=== PATIENT | female | born 1955 | race Two or more races ===

== ENCOUNTER 2019-10-04 05:34 | Inpatient (IN) | payer BC ==
[2019-10-04] MEDS ORDERED: Gabapentin 300 MG Cap PO ONE (05:42)
[2019-10-04] MEDS ORDERED: Acetaminophen 500 MG Tab PO ONE (05:42)
[2019-10-04] MEDS ORDERED: Scopolamine 1.5 MG Transdermal Patch TOP ONE (05:42)
[2019-10-04] MEDS ORDERED: Celecoxib 200 MG Cap PO ONE (05:42)
[2019-10-04] MEDS: Dextrose 5%-Lactated Ringers 1,000 ML IV SCH ×2 (06:56→12:29)
[2019-10-04] MEDS: Albuterol/Ipratropium 3.0-0.5 MG/3 ML Neb Soln NEB ONE ×2 (06:58→10:48)
[2019-10-04] MEDS ORDERED: fentaNYL 250 MCG/5 ML SDV ONE ×2 (07:13→08:46)
[2019-10-04] MEDS ORDERED: Lactated Ringers 1,000 ML ONE (07:13)
[2019-10-04] MEDS ORDERED: Ondansetron 4 MG/2 ML SDV ONE (07:15)
[2019-10-04] MEDS ORDERED: Dexamethasone 4 MG/ML SDV ONE (07:15)
[2019-10-04] MEDS ORDERED: cefOXitin 2 GM in Sodium Chloride 0.9% 50 ML IV ONE (07:15)
[2019-10-04] MEDS ORDERED: Glycopyrrolate 0.2 MG/ML 5 ML MDV ONE (07:15)
[2019-10-04] MEDS ORDERED: Neostigmine Methylsulfate 1 MG/ML 5 ML Syringe ONE (07:15)
[2019-10-04] MEDS ORDERED: Succinylcholine 200 MG/10 ML MDV ONE (07:15)
[2019-10-04] MEDS ORDERED: Propofol 200 MG/20 ML SDV ONE (07:15)
[2019-10-04] MEDS ORDERED: Rocuronium 50 MG/5 ML Vial ONE ×2 (07:15→09:26)
[2019-10-04] MEDS ORDERED: Lidocaine 2% 100 MG/5 ML Syringe IVPUSH SCH (07:30)
[2019-10-04] MEDS ORDERED: Ketamine 500 MG/5 ML MDV IV SCH (07:30)
[2019-10-04] MEDS ORDERED: Lidocaine 0.4%/D5W 2 GM/500 ML BAG IV SCH (07:30)
[2019-10-04] MEDS ORDERED: Ketamine 50 MG in Sodium Chloride 0.9% 49.5 ML IV SCH (07:30)
[2019-10-04] MEDS ORDERED: Meropenem 500 MG SDV ONE (09:19)
[2019-10-04] MEDS ORDERED: diphenhydrAMINE 50 MG/ML SDV IVPUSH PRN ×2 (10:25→12:52)
[2019-10-04] MEDS ORDERED: Naloxone 0.4 MG/ML SDV IVPUSH PRN (10:25)
[2019-10-04] MEDS ORDERED: diphenhydrAMINE 25 MG Cap PO PRN (10:25)
[2019-10-04] MEDS ORDERED: HYDROmorphone/Normal Saline 15 MG/30 ML PCA IV PRN (10:25)
[2019-10-04] MEDS ORDERED: Naloxone 0.4 MG/ML SDV IV PRN (10:27)
[2019-10-04] MEDS ORDERED: Naloxone 0.4 MG/ML SDV ONE (10:40)
[2019-10-04] MEDS ORDERED: Albuterol/Ipratropium 3.0-0.5 MG/3 ML Neb Soln NEB ONE (10:45)
[2019-10-04] MEDS ORDERED: Sugammadex Sodium 200 MG/2 ML VIAL ONE (10:46)
[2019-10-04] MEDS ORDERED: Labetalol 20 MG/4 ML Syringe IVPUSH PRN (12:52)
[2019-10-04] MEDS ORDERED: Ondansetron 4 MG/2 ML SDV IVPUSH PRN (12:52)
[2019-10-04] MEDS ORDERED: hydrOXYzine HCL 100 MG/2 ML SDV IM PRN (12:52)
[2019-10-04] MEDS ORDERED: Metoclopramide 10 MG/2 ML SDV IVPUSH PRN (12:52)
[2019-10-04] MEDS ORDERED: Dextrose 5%-Lactated Ringers 1,000 ML IV SCH ×2 (13:00→20:45)
[2019-10-04] MEDS: cefOXitin 2 GM in Sodium Chloride 0.9% 50 ML IV SCH ×2 (13:59→20:26)
[2019-10-04] MEDS: Gabapentin 250 MG/5 ML Solution ML 470 ML Bottle PO SCH ×2 (14:09→20:25)
[2019-10-04] MEDS: Albuterol/Ipratropium 3.0-0.5 MG/3 ML Neb Soln INH SCH ×2 (14:45→20:26)
[2019-10-04] MEDS ORDERED: Pantoprazole 40 MG Vial IVPUSH SCH ×2 (16:00)
[2019-10-04] MEDS ORDERED: MVI, Adult with Vitamin K 10 ML, Thiamine 200 MG, Chromium/Copper/Mang/Selen/Zn 1 ML in... IV SCH ×4 (16:00)
[2019-10-04] MEDS: Heparin Sodium 5,000 Units/ML Vial SUBCUT SCH (17:15)
[2019-10-04] MEDS: Acetaminophen 325 MG Tab PO SCH ×2 (17:16→21:10)
[2019-10-04] MEDS ORDERED: Furosemide 20 MG/2 ML VIAL IVPUSH ONE (20:43)
[2019-10-05] MEDS: Heparin Sodium 5,000 Units/ML Vial SUBCUT SCH ×4 (00:45→23:56)
[2019-10-05] MEDS: cefOXitin 2 GM in Sodium Chloride 0.9% 50 ML IV SCH ×2 (01:06→07:49)
[2019-10-05] MEDS ORDERED: Iopamidol 612 MG/ML 50 ML SDV PO STA (03:23)
[2019-10-05] MEDS: Acetaminophen 325 MG Tab PO SCH (04:30)
--- NOTE | 2019-10-05 05:12 | CRLCR ---
INDICATION: S/P DUODENAL SWITCH LEAK CHECK PRELIMINARY IMPRESSIONS: 1. No evidence of contrast extravasation is noted on 4 static submitted images. 2. Surgical drain is present in the left upper quadrant. Agree with preliminary report. No additional findings. Dictated by: Tariq Tabares MD @ 10/06/2019 08:24:27 (Electronically Signed)
[2019-10-05] MEDS ORDERED: Dextrose 5%-Lactated Ringers 1,000 ML IV SCH (07:00)
[2019-10-05] MEDS ORDERED: Lactated Ringers 500 ML IV ONE (07:00)
[2019-10-05] MEDS: Albuterol/Ipratropium 3.0-0.5 MG/3 ML Neb Soln INH SCH ×4 (07:18→21:18)
[2019-10-05] MEDS: Acetaminophen/HYDROcodone 325-5 MG Tab PO PRN ×3 (07:46→18:35)
[2019-10-05] MEDS: Celecoxib 200 MG Cap PO SCH (07:48)
[2019-10-05] MEDS ORDERED: Furosemide 20 MG/2 ML VIAL IVPUSH ONE (08:00)
[2019-10-05] MEDS: Ondansetron 4 MG Tab.DIS PO PRN ×2 (08:29→17:29)
[2019-10-05] MEDS: Levothyroxine 25 MCG Tab PO SCH (08:29)
[2019-10-05] MEDS: Gabapentin 250 MG/5 ML Solution ML 470 ML Bottle PO SCH ×3 (09:43→21:18)
[2019-10-05] MEDS: DULoxetine 30 MG Cap PO SCH ×2 (09:43→21:18)
[2019-10-05] MEDS: SCOPOLAMINE PATCH CHECK TOP SCH (10:11)
[2019-10-05] MEDS ORDERED: MVI, Adult with Vitamin K 10 ML, Thiamine 200 MG, Chromium/Copper/Mang/Selen/Zn 1 ML in... IV SCH ×4 (16:00)
[2019-10-05] MEDS: Pantoprazole 40 MG Delayed-Release Granules 1 Packet PO SCH (17:29)
[2019-10-06] MEDS: Albuterol/Ipratropium 3.0-0.5 MG/3 ML Neb Soln INH PRN ×2 (00:08→15:32)
[2019-10-06] MEDS: Acetaminophen/HYDROcodone 325-5 MG Tab PO PRN ×4 (00:31→21:37)
[2019-10-06] MEDS ORDERED: Furosemide 40 MG Tab PO ONE ×2 (00:46→16:33)
[2019-10-06] MEDS: Albuterol/Ipratropium 3.0-0.5 MG/3 ML Neb Soln INH SCH ×4 (07:29→21:20)
[2019-10-06] MEDS: Heparin Sodium 5,000 Units/ML Vial SUBCUT SCH ×2 (08:06→17:28)
[2019-10-06] MEDS: Levothyroxine 25 MCG Tab PO SCH (08:06)
[2019-10-06] MEDS: Celecoxib 200 MG Cap PO SCH (08:06)
[2019-10-06] MEDS ORDERED: Cyanocobalamin (Vitamin B12) 1,000 MCG/ML SDV IM ONE (09:00)
[2019-10-06] MEDS ORDERED: Magnesium Oxide 400 MG Tab PO SCH (09:30)
[2019-10-06] MEDS ORDERED: Magnesium Hydroxide 400 MG/5 ML Susp 30 ML Cup PO ONE (09:30)
[2019-10-06] MEDS: SCOPOLAMINE PATCH CHECK TOP SCH (10:06)
[2019-10-06] MEDS: DULoxetine 30 MG Cap PO SCH ×2 (10:46→20:44)
[2019-10-06] MEDS: Gabapentin 250 MG/5 ML Solution ML 470 ML Bottle PO SCH ×3 (10:46→20:56)
[2019-10-06] MEDS: Pantoprazole 40 MG Delayed-Release Granules 1 Packet PO SCH (17:28)
--- NOTE | 2019-10-06 17:40 | CRLCR ---
INDICATION: Crackles. Wheezes. Decreased O2 sats. COMPARISON: None. FINDINGS: PA and lateral views of the chest were obtained. The cardiac silhouette and pulmonary vasculature within normal limits. There are airspace opacities in the left mid lung and left lung base. The right lung is clear. IMPRESSION: Left mid lung and lung base pneumonia. Dictated by Merlin Jackson MD @ 10/06/2019 5:39:14 PM Dictated by: Merlin Jackson MD @ 10/06/2019 17:39:20 (Electronically Signed)
--- NOTE | 2019-10-06 18:41 | PCM.CONS ---
H&P History of Present Illness - General Date of Service: 10/06/19 Admit Problem/Dx: Admission Diagnosis/Problem Admission Diagnosis/Problem Bariatric operative procedure Source of Information: Patient, Family, Provider, RN Notes Reviewed History Limitations: Reports: No Limitations - History of Present Illness Initial Comments - Free Text/Narative: Ms. Alford is a 64-year-old woman who I been asked to see by Dr. Baldwin concerning respiratory compromise and left lung infiltrate. She was admitted to this facility 2 days ago and underwent a duodenal bariatric switch procedure. During the day today has been noted to have respiratory compromise with significant desaturation with activity. White blood cell count is elevated and chest x-ray shows evidence of a left lung infiltrate. She does have a known history of sleep apnea as well as underlying asthma. Abdomen Pain Score (Numeric/FACES): 10 - Related Data Allergies/Adverse Reactions: Allergies Allergy/AdvReac Type Severity Reaction Status Date / Time No Known Allergies Allergy Verified 10/04/19 06:01 Home Medications: Home Meds Albuterol Sulfate [Proair Hfa] 8.5 gm IH Q6H PRN 10/02/19 [History] Albuterol/Ipratropium [DuoNeb 3.0-0.5 MG/3 ML] 3 ml IH DAILY PRN 10/02/19 [ History] Celecoxib [CeleBREX] 200 mg PO DAILY 10/02/19 [History] Cholecalciferol (Vitamin D3) [Vitamin D3] 5,000 unit PO DAILY 10/02/19 [History] Cyanocobalamin (Vitamin B-12) [Vitamin B-12] 1,000 mcg PO DAILY 10/02/19 [ History] DULoxetine HCl [Cymbalta] 30 mg PO BID 10/02/19 [History] Folic Acid/Multivit-Min/Lutein [Multi-Vitamin Gummies] 2 each PO DAILY 10/02/19 [History] Hydrocodone/Acetaminophen [[place] 10-325 Tablet] 1 tab PO Q8H 10/02/19 [History] Ibuprofen [Motrin] 800 mg PO TID 10/02/19 [History] Levothyroxine 25 mcg PO ACBREAKFAST 10/02/19 [History] Pantoprazole Sodium [Protonix] 40 mg PO DAILY 10/02/19 [History] Turmeric Root Extract [Turmeric] 400 mg PO DAILY 10/02/19 [History] hydrOXYzine HCl [hydrOXYzine] 25 mg PO BID PRN 10/02/19 [History] Aspirin 81 mg PO DAILY 10/03/19 [History] Calcium Carb/Vitamin D3/Vit K1 [Viactiv 650 mg-12.5 Mcg Chew] 1 tab PO BID 10/04 [History] Iron,Carbonyl [Iron Chews] 60 mg PO DAILY 10/04/19 [History] Past Medical History Respiratory History: Reports: Asthma, Sleep Apnea Gastrointestinal History: Reports: Colon Polyp [employer] History: Reports: Psychiatric History: Reports: Anxiety, Depression Endocrine/Metabolic History: Reports: Hypothyroidism, Obesity/BMI 30+ - Infectious Disease History Infectious Disease History: Reports: Chicken Pox, Mumps - Past Surgical History GI Surgical History: Reports: Appendectomy, Bariatric Procedure, Colonoscopy, EGD Other GI Surgeries/Procedures: Lap Band 2006 Female Surgical History: Reports: Section, Salpingo-Oophorectomy Neurological Surgical History: Reports: Laminectomy Musculoskeletal Surgical History: Reports: Arthroscopic Knee Social & Family History - Family History Cardiac: Reports: [place] - Tobacco Use Smoking Status *Q: Never Smoker Second Hand Smoke Exposure: No - Caffeine Use Caffeine Use: Reports: None - Recreational Drug Use Recreational Drug Use: No H&P Review of Systems - Review of Systems: Review Of Systems: See Below General: Reports: Weakness. Denies: Fever, Chills Pulmonary: Reports: Shortness of Breath, Wheezing. Denies: Pleuritic Chest Pain , Cough, Sputum, Hemoptysis Cardiovascular: Reports: Dyspnea on Exertion. Denies: Chest Pain, Palpitations , Orthopnea, PND, Edema, Lightheadedness Gastrointestinal: Reports: Abdominal Pain, Distension, Nausea. Denies: Constipation, Diarrhea, Difficulty Swallowing, Vomiting Genitourinary: Reports: No Symptoms Musculoskeletal: Reports: No Symptoms Skin: Reports: No Symptoms Exam - Exam Exam: See Below - Vital Signs Vital Signs: Last Vital Signs Temp 100.4 F 10/06/19 15:00 Pulse 122 H 10/06/19 15:00 Resp 23 H 10/06/19 15:00 BP 126/64 10/06/19 15:00 Pulse Ox 85 L 10/06/19 15:00 Weight: 278 lb - Exam Quality Assessment: Supplemental Oxygen, DVT Prophylaxis General: Alert, Oriented, Cooperative, Moderate Distress Neck: Supple, Trachea Midline, +2 Carotid Pulse wo Bruit Lungs: Decreased Breath Sounds, Rhonchi, Wheezing. No: Rales Cardiovascular: Regular Rhythm, Normal S1, Normal S2, Tachycardia. No: Systolic Murmur, Diastolic Murmur GI/Abdominal Exam: Soft, No Organomegaly, Tender. No: Distended, Guarding, Rigid, Rebound Extremities: Non-Tender, No Pedal Edema - Patient Data Lab Results Last 24 hrs: Laboratory Results - last 24 hr 10/06/19 10/06/19 10/06/19 Range/Units 03:58 03:58 18:03 WBC 16.4 H (4.5-11.0) K/uL RBC 4.36 (3.30-5.50) M/uL Hgb 11.3 L (12.0-15.0) g/dL Hct 37.0 (36.0-48.0) % MCV 85 (80-98) fL MCH 26 L (27-31) pg MCHC 31 L (32-36) % Plt Count 530 H (150-400) K/uL Neut % (Auto) (36-66) % Lymph % (Auto) (24-44) % Toole % (Auto) (2-6) % Eos % (Auto) (2-4) % Baso % (Auto) (0-1) % Puncture Site Lt brachial ABG pH 7.399 (7.350-7.450) ABG pCO2 47.4 H (35.0-42.0) mmHg ABG pO2 76.7 (75.0-100.0) mmHg ABG HCO3 28.7 H (22.0-26.0) mmol/L ABG Total CO2 26.3 H (21.0-25.0) mmol/L ABG O2 Saturation 94.9 L (95.0-98.0) % ABG O2 Content 14.4 L (15.0-23.0) %vol ABG Base Excess 3.8 mm/L ABG Hemoglobin 11.1 L (12.0-16.0) g/dL ABG Oxyhemoglobin 91.7 % ABG Carboxyhemoglobin 2.4 H (0.0-1.6) % ABG Methemoglobin 1.0 % Bimal Test Not performed O2 Delivery Device Nasal cannula Oxygen Flow Rate 3 L Sodium 135 L (140-148) mmol/L Potassium 3.8 (3.6-5.2) mmol/L Chloride 99 L (100-108) mmol/L Carbon Dioxide 27 (21-32) mmol/L Anion Gap 12.8 (5.0-14.0) mmol/L BUN 18 (7-18) mg/dL Creatinine 1.5 H (0.6-1.0) mg/dL Est Cr Clr Drug Dosing 26.86 mL/min Estimated GFR (MDRD) 35 L (>60) Glucose 127 H (74-106) mg/dL Calcium 9.3 (8.5-10.1) mg/dL Phosphorus 4.2 (2.5-4.9) mg/dL Magnesium 1.6 L (1.8-2.4) mg/dL Total Bilirubin 0.3 (0.2-1.0) mg/dL AST 64 H (15-37) U/L ALT 56 (12-78) U/L Alkaline Phosphatase 90 (46-116) U/L NT-Pro-B Natriuret Pep 132 H (5-125) pg/mL Total Protein 7.2 (6.4-8.2) g/dL Albumin 3.2 L (3.4-5.0) g/dL Globulin 4.0 H (2.3-3.5) g/dL Albumin/Globulin Ratio 0.8 L (1.2-2.2) 10/06/19 Range/Units 18:15 WBC 15.2 H (4.5-11.0) K/uL RBC 4.08 (3.30-5.50) M/uL Hgb 10.6 L (12.0-15.0) g/dL Hct 34.6 L (36.0-48.0) % MCV 85 (80-98) fL MCH 26 L (27-31) pg MCHC 31 L (32-36) % Plt Count 504 H (150-400) K/uL Neut % (Auto) 88 H (36-66) % Lymph % (Auto) 8 L (24-44) % Toole % (Auto) 4 (2-6) % Eos % (Auto) 0 L (2-4) % Baso % (Auto) 0 (0-1) % Puncture Site ABG pH (7.350-7.450) ABG pCO2 (35.0-42.0) mmHg ABG pO2 (75.0-100.0) mmHg ABG HCO3 (22.0-26.0) mmol/L ABG Total CO2 (21.0-25.0) mmol/L ABG O2 Saturation (95.0-98.0) % ABG O2 Content (15.0-23.0) %vol ABG Base Excess mm/L ABG Hemoglobin (12.0-16.0) g/dL ABG Oxyhemoglobin % ABG Carboxyhemoglobin (0.0-1.6) % ABG Methemoglobin % Bimal Test O2 Delivery Device Oxygen Flow Rate L Sodium (140-148) mmol/L Potassium (3.6-5.2) mmol/L Chloride (100-108) mmol/L Carbon Dioxide (21-32) mmol/L Anion Gap (5.0-14.0) mmol/L BUN (7-18) mg/dL Creatinine (0.6-1.0) mg/dL Est Cr Clr Drug Dosing mL/min Estimated GFR (MDRD) (>60) Glucose (74-106) mg/dL Calcium (8.5-10.1) mg/dL Phosphorus (2.5-4.9) mg/dL Magnesium (1.8-2.4) mg/dL Total Bilirubin (0.2-1.0) mg/dL AST (15-37) U/L ALT (12-78) U/L Alkaline Phosphatase (46-116) U/L NT-Pro-B Natriuret Pep (5-125) pg/mL Total Protein (6.4-8.2) g/dL Albumin (3.4-5.0) g/dL Globulin (2.3-3.5) g/dL Albumin/Globulin Ratio (1.2-2.2) Result Diagrams: 10/06/19 18:15 10/06/19 18:15 Consult PN Assessment/Plan Procedures: Procedures BLOOD TYPING SEROLOGIC ABO (07/26/19) BLOOD TYPING SEROLOGIC RH(D) (07/26/19) RBC ANTIBODY SCREEN (07/26/19) (1) Hypoxia SNOMED Code(s): 380332576 Code(s): R09.02 - HYPOXEMIA Current Visit: Yes (2) Hypercapnia SNOMED Code(s): 42567919 Code(s): R06.89 - OTHER ABNORMALITIES OF BREATHING Current Visit: Yes (3) Pneumonia SNOMED Code(s): 201412648 Code(s): J18.9 - PNEUMONIA, UNSPECIFIED ORGANISM Current Visit: Yes (4) Laparoscopic surgical procedure converted to open procedure SNOMED Code(s): 533374962 Code(s): Z53.31 - LAPAROSCOPIC SURGICAL PROCEDURE CONVERTED TO OPEN PROCEDURE Current Visit: Yes Comment: lysis of adhesions (5) DDD (degenerative disc disease), lumbar SNOMED Code(s): 49263572 Code(s): M51.36 - OTHER INTERVERTEBRAL DISC DEGENERATION, LUMBAR REGION Current Visit: No (6) Obstructive sleep apnea syndrome SNOMED Code(s): 09293701 Code(s): G47.33 - OBSTRUCTIVE SLEEP APNEA (ADULT) (PEDIATRIC) Current Visit : No Problem List Initiated/Reviewed/Updated: Yes My Orders Last 24 Hours: My Active Orders 10/06/19 18:03 CULTURE RESPIRATORY + SMEAR [RM] Routine Blood Culture x2 Reflex Set [OM.PC] Urgent EKG 12 Lead [EK] Routine 10/06/19 18:05 EKG Documentation Completion [RC] ASDIRECTED 10/06/19 18:15 BASIC METABOLIC PANEL,BMP [CHEM] Stat CULTURE BLOOD [BC] Urgent TROPONIN I [CHEM] Stat 10/06/19 18:25 CULTURE BLOOD [BC] Urgent Plan: ASSESSMENT AND RECOMMENDATIONS HYPOXIC AND HYPERCAPNIC RESPIRATORY FAILURE-she has an underlying history of asthma and sleep apnea. Left lung infiltrate noted on chest x-ray. In addition she likely has hypoventilation secondary to recent surgery and pain medication. -Supplemental oxygen as needed -Noninvasive positive pressure ventilation -Nebulizer therapy as ordered -Follow-up blood gases in a.m. LEFT LUNG PNEUMONIA -Blood and sputum cultures pending -IV Zyvox, Zosyn, and levofloxacin pending culture results STATUS POST DUODENAL SWITCH PROCEDURE -Postop care per Dr. Baldwin Requesting Provider: [facility] Date Consult Requested: 10/06/19 Reason for Consult: Hypoxia, pneumonia Patient History Reviewed: Yes
[2019-10-06] MEDS: Ondansetron 4 MG Tab.DIS PO PRN (19:00)
[2019-10-06] MEDS ORDERED: Levofloxacin/Dextrose 5%-Water 750 MG in Premix Bag 1 BAG IV SCH (19:30)
[2019-10-06] MEDS ORDERED: Sodium Chloride 0.9% 50 ML ONE (19:36)
--- NOTE | 2019-10-06 19:48 | PCM.PRNOTE ---
- Free Text/Narrative Note: I was consulted to obtain IV access. Two 20 gauge IVs placed, one in each hand. Pt tolerated well.
[2019-10-06] MEDS: Levofloxacin/Dextrose 5%-Water 750 MG in Premix Bag 1 BAG IV SCH (20:00)
[2019-10-06] MEDS: Lactated Ringers 1,000 ML IV SCH (20:12)
[2019-10-06] MEDS: Lactobacillus Rhamnosus GG (Probiotic) Cap PO SCH (21:00)
[2019-10-06] MEDS: Linezolid 600 MG in Premix Bag 1 BAG IV SCH (21:07)
[2019-10-06] MEDS: Piperacillin/Tazobactam 3.375 GM in Sodium Chloride 0.9% 50 ML IV SCH (21:12)
[2019-10-07] MEDS: Heparin Sodium 5,000 Units/ML Vial SUBCUT SCH ×4 (00:03→23:56)
[2019-10-07] MEDS: Ondansetron 4 MG Tab.DIS PO PRN (00:48)
[2019-10-07] MEDS: Albuterol/Ipratropium 3.0-0.5 MG/3 ML Neb Soln INH PRN (00:54)
[2019-10-07] MEDS: Piperacillin/Tazobactam 3.375 GM in Sodium Chloride 0.9% 50 ML IV SCH (01:45)
[2019-10-07] MEDS: Acetaminophen/HYDROcodone 325-5 MG Tab PO PRN (04:18)
[2019-10-07] MEDS: LORazepam 2 MG/ML SDV IVPUSH PRN ×5 (05:32→19:37)
[2019-10-07] MEDS: Lactated Ringers 1,000 ML IV SCH ×2 (06:32→17:52)
[2019-10-07] MEDS: Albuterol/Ipratropium 3.0-0.5 MG/3 ML Neb Soln INH SCH ×4 (07:00→22:54)
[2019-10-07] MEDS: Heparin Sodium 5,000 UNITS in Sodium Chloride 0.9% 500 ML IV SCH (07:49)
[2019-10-07] MEDS: Piperacillin/Tazobactam/Dext 3.375 GM in Premix Bag 1 BAG IV SCH ×3 (07:54→20:06)
[2019-10-07] MEDS ORDERED: Lidocaine 2% 5 ML SDV ONE (07:54)
--- NOTE | 2019-10-07 09:10 | PN ---
DATE OF SERVICE: 10/07/2019 The patient developed worsening oxygenation, particularly with activity last night and then was found on chest x-ray to have pneumonia involving the mid and lower aspects of the left lung. I think we are, probably, predominantly dealing with lower lobe pneumonia with the superior segment involvement giving it the mid-lung appearance. Her T-max has been 101.5 last night. Vital signs are presently stable, but heart rate is running in the 90 to 100s and respiratory rate is 24 to 26. Presently, she is on BiPAP at 45% oxygen levels. With this, this morning, she had a pH of . Brad Baldwin MD /[id number]
[2019-10-07] MEDS: Linezolid 600 MG in Premix Bag 1 BAG IV SCH ×2 (10:01→21:10)
--- NOTE | 2019-10-07 10:01 | PCM.CONSN ---
- General Info Date of Service: 10/07/19 Subjective Update: Ms. Alford continues to experience respiratory compromise, thus far oxygenation has been adequate, this morning she is developed slightly increased hypercapnia. She reports that she feels comfortable with use of the noninvasive positive pressure ventilation. She did have temperature elevation but is now afebrile. White blood cell count has shown improvement from last night. Functional Status: Reports: Urinating - Review of Systems General: Reports: Fever, Weakness Pulmonary: Reports: Shortness of Breath, Wheezing. Denies: Cough, Sputum, Hemoptysis Cardiovascular: Reports: Dyspnea on Exertion. Denies: Chest Pain, Palpitations , Orthopnea, PND, Edema Gastrointestinal: Reports: Abdominal Pain, Nausea. Denies: Diarrhea, Difficulty Swallowing, Vomiting - Patient Data Vitals - Most Recent: Last Vital Signs Temp 100.2 F 10/07/19 07:55 Pulse 101 H 10/06/19 23:00 Resp 24 H 10/07/19 07:55 BP 139/75 10/07/19 07:55 Pulse Ox 91 L 10/07/19 07:55 Weight - Most Recent: 278 lb I&O - Last 24 Hours: Intake & Output 10/06/19 10/07/19 10/07/19 22:59 06:59 14:59 Intake Total 480 1007 Output Total 130 540 Balance 350 467 Lab Results Last 24 Hours: Laboratory Results - last 24 hr 10/06/19 10/06/19 10/06/19 Range/Units 18:03 18:15 18:15 WBC 15.2 H (4.5-11.0) K/uL RBC 4.08 (3.30-5.50) M/uL Hgb 10.6 L (12.0-15.0) g/dL Hct 34.6 L (36.0-48.0) % MCV 85 (80-98) fL MCH 26 L (27-31) pg MCHC 31 L (32-36) % Plt Count 504 H (150-400) K/uL Neut % (Auto) 88 H (36-66) % Lymph % (Auto) 8 L (24-44) % Mcmullen % (Auto) 4 (2-6) % Eos % (Auto) 0 L (2-4) % Baso % (Auto) 0 (0-1) % Puncture Site Lt brachial ABG pH 7.399 (7.350-7.450) ABG pCO2 47.4 H (35.0-42.0) mmHg ABG pO2 76.7 (75.0-100.0) mmHg ABG HCO3 28.7 H (22.0-26.0) mmol/L ABG Total CO2 26.3 H (21.0-25.0) mmol/L ABG O2 Saturation 94.9 L (95.0-98.0) % ABG O2 Content 14.4 L (15.0-23.0) %vol ABG Base Excess 3.8 mm/L ABG Hemoglobin 11.1 L (12.0-16.0) g/dL ABG Oxyhemoglobin 91.7 % ABG Carboxyhemoglobin 2.4 H (0.0-1.6) % ABG Methemoglobin 1.0 % Bimal Test Not performed O2 Delivery Device Nasal cannula Oxygen Flow Rate 3 L Sodium 136 L (140-148) mmol/L Potassium 3.4 L (3.6-5.2) mmol/L Chloride 97 L (100-108) mmol/L Carbon Dioxide 31 (21-32) mmol/L Anion Gap 11.4 (5.0-14.0) mmol/L BUN 22 H (7-18) mg/dL Creatinine 1.8 H (0.6-1.0) mg/dL Est Cr Clr Drug Dosing 22.38 mL/min Estimated GFR (MDRD) 28 L (>60) Glucose 141 H (74-106) mg/dL Calcium 9.4 (8.5-10.1) mg/dL Phosphorus (2.5-4.9) mg/dL Magnesium (1.8-2.4) mg/dL Total Bilirubin (0.2-1.0) mg/dL AST (15-37) U/L ALT (12-78) U/L Alkaline Phosphatase (46-116) U/L Troponin I < 0.017 (0.000-0.056) ng/mL Total Protein (6.4-8.2) g/dL Albumin (3.4-5.0) g/dL Globulin (2.3-3.5) g/dL Albumin/Globulin Ratio (1.2-2.2) 10/07/19 10/07/19 10/07/19 Range/Units 04:30 04:30 04:30 WBC 10.4 (4.5-11.0) K/uL RBC 4.15 (3.30-5.50) M/uL Hgb 10.6 L (12.0-15.0) g/dL Hct 35.3 L (36.0-48.0) % MCV 85 (80-98) fL MCH 26 L (27-31) pg MCHC 30 L (32-36) % Plt Count 498 H (150-400) K/uL Neut % (Auto) (36-66) % Lymph % (Auto) (24-44) % Mcmullen % (Auto) (2-6) % Eos % (Auto) (2-4) % Baso % (Auto) (0-1) % Puncture Site Lt radial ABG pH 7.362 (7.350-7.450) ABG pCO2 53.7 H (35.0-42.0) mmHg ABG pO2 69.1 L (75.0-100.0) mmHg ABG HCO3 29.7 H (22.0-26.0) mmol/L ABG Total CO2 27.7 H (21.0-25.0) mmol/L ABG O2 Saturation 92.2 L (95.0-98.0) % ABG O2 Content 13.5 L (15.0-23.0) %vol ABG Base Excess 3.9 mm/L ABG Hemoglobin 10.6 L (12.0-16.0) g/dL ABG Oxyhemoglobin 90.4 % ABG Carboxyhemoglobin 0.9 (0.0-1.6) % ABG Methemoglobin 1.1 % Bimal Test Pass O2 Delivery Device Bipap Oxygen Flow Rate L Sodium 136 L (140-148) mmol/L Potassium 3.5 L (3.6-5.2) mmol/L Chloride 97 L (100-108) mmol/L Carbon Dioxide 33 H (21-32) mmol/L Anion Gap 9.5 (5.0-14.0) mmol/L BUN 21 H (7-18) mg/dL Creatinine 1.7 H (0.6-1.0) mg/dL Est Cr Clr Drug Dosing 23.70 mL/min Estimated GFR (MDRD) 30 L (>60) Glucose 133 H (74-106) mg/dL Calcium 9.1 (8.5-10.1) mg/dL Phosphorus 4.2 (2.5-4.9) mg/dL Magnesium 1.8 (1.8-2.4) mg/dL Total Bilirubin 0.7 D (0.2-1.0) mg/dL AST 41 H (15-37) U/L ALT 46 (12-78) U/L Alkaline Phosphatase 94 (46-116) U/L Troponin I (0.000-0.056) ng/mL Total Protein 6.9 (6.4-8.2) g/dL Albumin 2.7 L (3.4-5.0) g/dL Globulin 4.2 H (2.3-3.5) g/dL Albumin/Globulin Ratio 0.6 L (1.2-2.2) Med Orders - Current: Current Medications Hydrocodone Bitart/Acetaminophen (Carpenter 325-5 Mg) 1 - 2 tab PO Q4H PRN PRN Reason: Pain Last Admin: 10/07/19 04:18 Dose: 1 tab Albuterol/Ipratropium (Duoneb 3.0-0.5 Mg/3 Ml) 3 ml INH QIDRT [facility] Last Admin: 10/07/19 07:00 Dose: 3 ml Albuterol/Ipratropium (Duoneb 3.0-0.5 Mg/3 Ml) 3 ml INH ASDIRECTED PRN PRN Reason: BREATHING Last Admin: 10/07/19 00:54 Dose: 3 ml Celecoxib (Celebrex) 200 mg PO DAILY@0800 [facility] Last Admin: 10/06/19 08:06 Dose: 200 mg Duloxetine HCl (Cymbalta) 30 mg PO BID [facility] Last Admin: 10/06/19 20:44 Dose: 30 mg Gabapentin (Neurontin) 300 mg PO TID [facility] Last Admin: 10/06/19 20:56 Dose: 300 mg Heparin Sodium (Porcine) (Heparin Sodium) 5,000 units SUBCUT Q8H [facility] Last Admin: 10/07/19 00:03 Dose: 5,000 units Hydroxyzine HCl (Vistaril) 100 mg IM Q4H PRN PRN Reason: pain Last Admin: 10/06/19 05:11 Dose: 100 mg Linezolid 600 mg/ Premix 300 mls @ 300 mls/hr IV Q12H [facility] Last Admin: 10/06/19 21:07 Dose: 300 mls/hr Levofloxacin/Dextrose 750 mg/ (Premix) 150 mls @ 100 mls/hr IV Q48H [facility] Last Admin: 10/06/19 20:00 Dose: 100 mls/hr Lactated Ringer's (Ringers, Lactated) 1,000 mls @ 100 mls/hr IV ASDIRECTED [facility] Last Admin: 10/07/19 06:32 Dose: 100 mls/hr Piperacillin/Tazobactam/ (Dextrose 3.375 gm/ Premix) 50 mls @ 100 mls/hr IV Q6H [facility] Last Admin: 10/07/19 07:54 Dose: 100 mls/hr Heparin Sodium (Porcine) 5,000 (units/ Sodium Chloride) 501 mls @ 0 mls/hr IV ASDIRECTED [facility] Last Admin: 10/07/19 07:49 Dose: 1 mls/hr Magnesium Sulfate 2 gm/ Premix 50 mls @ 25 mls/hr IV Q6H [facility] Stop: 10/09/19 05:59 Lactobacillus Rhamnosus (Culturelle) 1 cap PO BID [facility] Last Admin: 10/06/19 21:00 Dose: Not Given Levothyroxine Sodium (Levothyroxine) 25 mcg PO ACBREAKFAST [facility] Last Admin: 10/06/19 08:06 Dose: 25 mcg Lorazepam (Ativan) 0.5 mg IVPUSH Q4H PRN PRN Reason: Anxiety Last Admin: 10/07/19 09:04 Dose: 0.5 mg Methylprednisolone Sodium Succinate (Solu-Medrol) 40 mg IVPUSH Q8H [facility] Ondansetron HCl (Zofran Odt) 4 mg PO Q4H PRN PRN Reason: Nausea/Vomiting Last Admin: 10/07/19 00:48 Dose: 4 mg Pantoprazole Sodium (Protonix Granules) 40 mg PO Q24H [facility] Last Admin: 10/06/19 17:28 Dose: 40 mg Discontinued Medications Acetaminophen (Tylenol Extra Strength) 1,000 mg PO ONETIME ONE Stop: 10/04/19 05:43 Last Admin: 10/04/19 06:11 Dose: 1,000 mg Acetaminophen (Tylenol) 650 mg PO Q6H [facility] Last Admin: 10/05/19 04:30 Dose: 650 mg Albuterol/Ipratropium (Duoneb 3.0-0.5 Mg/3 Ml) 3 ml NEB ONETIME ONE Stop: 10/04/19 06:31 Last Admin: 10/04/19 10:48 Dose: 3 ml Albuterol/Ipratropium (Duoneb 3.0-0.5 Mg/3 Ml) 3 ml NEB ONETIME ONE Stop: 10/04/19 10:46 Last Admin: 10/04/19 12:30 Dose: Not Given Celecoxib (Celebrex) 200 mg PO ONETIME ONE Stop: 10/04/19 05:43 Last Admin: 10/04/19 06:11 Dose: 200 mg Ropivacaine 60 ml/Dexamethasone 8 mg/Epinephrine HCl 0.4 mg/ Sodium Chloride 17.6 ml 0 ml NERVRT ASDIRECTED [facility] Last Admin: 10/04/19 07:48 Dose: 80 syringe Cyanocobalamin (Vitamin B12) 1,000 mcg IM ONETIME ONE Stop: 10/06/19 09:01 Last Admin: 10/06/19 10:46 Dose: 1,000 mcg Dexamethasone (Dexamethasone) Confirm Administered Dose 4 mg .ROUTE .STK-MED ONE Stop: 10/04/19 07:16 Diphenhydramine HCl (Benadryl) 50 mg IVPUSH Q4H PRN PRN Reason: ITCHING Fentanyl (Sublimaze) Confirm Administered Dose 250 mcg .ROUTE .STK-MED ONE Stop: 10/04/19 07:14 Fentanyl (Sublimaze) Confirm Administered Dose 250 mcg .ROUTE .STK-MED ONE Stop: 10/04/19 08:47 Furosemide (Lasix) 20 mg IVPUSH ONETIME ONE Stop: 10/04/19 20:44 Last Admin: 10/04/19 21:09 Dose: 20 mg Furosemide (Lasix) 20 mg IVPUSH ONETIME ONE Stop: 10/05/19 08:01 Last Admin: 10/05/19 09:43 Dose: 20 mg Furosemide (Lasix) 40 mg PO ONETIME ONE Stop: 10/06/19 00:47 Last Admin: 10/06/19 01:05 Dose: 40 mg Furosemide (Lasix) 40 mg PO ONETIME ONE Stop: 10/06/19 16:34 Last Admin: 10/06/19 17:31 Dose: 40 mg Gabapentin (Neurontin) 300 mg PO ONETIME ONE Stop: 10/04/19 05:43 Last Admin: 10/04/19 06:10 Dose: 300 mg Glycopyrrolate (Robinul) Confirm Administered Dose 1 mg .ROUTE .STK-MED ONE Stop: 10/04/19 07:16 Hydromorphone HCl (Dilaudid [place] 15 Mg In Ns 30 Ml) 0 mg IV ASDIRECTED PRN; Protocol PRN Reason: Pain Last Admin: 10/04/19 10:41 Dose: 0.3 mg Lidocaine HCl/Dextrose (Lidocaine 2 Gm/D5w 500 Ml) 2 gm in 500 mls @ 22.5 mls/ hr IV .Q24H [facility] Stop: 10/05/19 07:29 Last Admin: 10/04/19 12:29 Dose: 1 mg/min, 15 mls/hr Ketamine HCl 50 mg/ Sodium (Chloride) 50 mls @ 12 mls/hr IV ASDIRECTED [facility] Dextrose/Lactated Ringer's (Dextrose 5%-Lactated Ringers) 1,000 mls @ 100 mls/ hr IV ASDIRECTED [facility] Last Admin: 10/04/19 12:29 Dose: 100 mls/hr Cefoxitin Sodium 2 gm/ Sodium (Chloride) 50 mls @ 100 mls/hr IV ONETIME ONE Stop: 10/04/19 07:44 Last Admin: 10/04/19 07:15 Dose: 100 mls/hr Lactated Ringer's (Ringers, Lactated) Confirm Administered Dose 1,000 mls @ as directed .ROUTE .STK-MED ONE Stop: 10/04/19 07:14 Dextrose/Lactated Ringer's (Dextrose 5%-Lactated Ringers) 1,000 mls @ 175 mls/ hr IV ASDIRECTED [facility] Multivitamins/Minerals 10 ml/Thiamine HCl 200 mg/ Chromium/Copper/Manganese/ Seleni/Zn 1 ml/ Dextrose/Lactated Ringer's 1,013 mls @ 174.999 mls/hr IV DAILY@ 1600 [facility] Last Admin: 10/04/19 17:13 Dose: 174.999 mls/hr Cefoxitin Sodium 2 gm/ Sodium (Chloride) 50 mls @ 100 mls/hr IV Q6H [facility] Last Admin: 10/05/19 07:49 Dose: 100 mls/hr Dextrose/Lactated Ringer's (Dextrose 5%-Lactated Ringers) 1,000 mls @ 125 mls/ hr IV ASDIRECTED [facility] Last Admin: 10/05/19 00:43 Dose: 125 mls/hr Dextrose/Lactated Ringer's (Dextrose 5%-Lactated Ringers) 1,000 mls @ 100 mls/ hr IV ASDIRECTED [facility] Last Admin: 10/05/19 09:41 Dose: 100 mls/hr Lactated Ringer's (Ringers, Lactated) 500 mls @ 100 mls/hr IV .BOLUS ONE Stop: 10/05/19 11:59 Last Admin: 10/05/19 07:48 Dose: 100 mls/hr Multivitamins/Minerals 10 ml/Thiamine HCl 200 mg/ Chromium/Copper/Manganese/ Seleni/Zn 1 ml/ Dextrose/Lactated Ringer's 1,013 mls @ 100 mls/hr IV DAILY@ 1600 [facility] Piperacillin Sod/Tazobactam (Sod 3.375 gm/ Sodium Chloride) 50 mls @ 100 mls/ hr IV Q6H [facility] Last Admin: 10/07/19 01:45 Dose: 100 mls/hr Sodium Chloride (Normal Saline) Confirm Administered Dose 50 mls @ as directed .ROUTE .STK-MED ONE Stop: 10/06/19 19:37 Last Admin: 10/06/19 20:03 Dose: Not Given Iopamidol (Isovue-300 (61%)) 50 ml PO ASDIRECTED [facility] Stop: 10/05/19 03:24 Last Admin: 10/05/19 03:36 Dose: 50 ml Ketamine HCl (Ketalar) 20 mg IV ASDIRECTED [facility] Labetalol HCl (Normodyne) 5 mg IVPUSH Q5M PRN PRN Reason: SBP over 160 OR DBP over 95 Lidocaine (Xylocaine-Mpf 2%) Confirm Administered Dose 5 ml .ROUTE .STK-MED ONE Stop: 10/07/19 07:55 Lidocaine HCl (Xylocaine 2%) 100 mg IVPUSH ASDIRECTED [facility] Magnesium Hydroxide (Milk Of Magnesia) 30 ml PO ONETIME ONE Stop: 10/06/19 09:31 Last Admin: 10/06/19 11:55 Dose: 30 ml Magnesium Oxide (Magnesium Oxide) 400 mg PO DAILY [facility] Last Admin: 10/06/19 10:46 Dose: 400 mg Meropenem (Merrem) Confirm Administered Dose 500 mg .ROUTE .STK-MED ONE Stop: 10/04/19 09:20 Last Admin: 10/04/19 10:15 Dose: 500 mg Metoclopramide HCl (Reglan) 10 mg IVPUSH Q6H PRN PRN Reason: NAUSEA NOT CONTROL BY ZOFRAN Miscellaneous Information (Remove Patch) 1 ea TRDERM ONETIME ONE Stop: 10/07/19 06:01 Miscellaneous Information (Remove Patch) 1 ea TRDERM ONETIME ONE Stop: 10/06/19 10:01 Last Admin: 10/06/19 10:06 Dose: Not Given Naloxone HCl (Narcan) 0.1 mg IV ASDIRECTED PRN PRN Reason: decreased respiratory rate Naloxone HCl (Narcan) Confirm Administered Dose 0.4 mg .ROUTE .STK-MED ONE Stop: 10/04/19 10:41 Neostigmine Methylsulfate (Neostigmine) Confirm Administered Dose 5 mg .ROUTE .STK-MED ONE Stop: 10/04/19 07:16 Check Scopolamine (Patch Daily) 1 each .XX DAILY [facility] Last Admin: 10/04/19 12:30 Dose: Not Given Scopolamine Patch (Check) 1 each TOP DAILY [facility] Stop: 10/06/19 12:53 Last Admin: 10/06/19 10:06 Dose: Not Given Ondansetron HCl (Zofran) Confirm Administered Dose 4 mg .ROUTE .STK-MED ONE Stop: 10/04/19 07:16 Ondansetron HCl (Zofran) 4 mg IVPUSH Q4H PRN PRN Reason: Nausea/Vomiting Pantoprazole Sodium (Protonix Iv) 40 mg IVPUSH Q24H [facility] Last Admin: 10/04/19 17:15 Dose: 40 mg Piperacillin Sod/Tazobactam Sod (Zosyn) Confirm Administered Dose 3.375 gm .ROUTE .STK-MED ONE Stop: 10/06/19 19:36 Last Admin: 10/06/19 20:02 Dose: Not Given Propofol (Diprivan 20 Ml) Confirm Administered Dose 200 mg .ROUTE .STK-MED ONE Stop: 10/04/19 07:16 Rocuronium [place] (Zemuron) Confirm Administered Dose 50 mg .ROUTE .STK-MED ONE Stop: 10/04/19 07:16 Rocuronium [place] (Zemuron) Confirm Administered Dose 50 mg .ROUTE .STK-MED ONE Stop: 10/04/19 09:27 Scopolamine (Transderm-Scop) 1.5 mg TOP ONETIME ONE Stop: 10/04/19 05:43 Last Admin: 10/04/19 06:11 Dose: 1.5 mg Succinylcholine Chloride (Quelicin) Confirm Administered Dose 200 mg .ROUTE .STK -MED ONE Stop: 10/04/19 07:16 Sugammadex Sodium (Bridion) Confirm Administered Dose 200 mg .ROUTE .STK-MED ONE Stop: 10/04/19 10:47 - Exam Quality Assessment: DVT Prophylaxis General: Alert, Cooperative, Moderate Distress Lungs: Decreased Breath Sounds, Rhonchi, Wheezing. No: Rub, Stridor Cardiovascular: Regular Rhythm, No Murmurs, Tachycardia GI/Abdominal Exam: Soft, No Organomegaly, Tender. No: Distended, Guarding, Rigid, Rebound Extremities: Non-Tender, No Pedal Edema Consult PN Assessment/Plan Procedures: Procedures BLOOD TYPING SEROLOGIC ABO (07/26/19) BLOOD TYPING SEROLOGIC RH(D) (07/26/19) RBC ANTIBODY SCREEN (07/26/19) (1) Hypoxia SNOMED Code(s): 462543360 Code(s): R09.02 - HYPOXEMIA Current Visit: Yes (2) Hypercapnia SNOMED Code(s): 67739090 Code(s): R06.89 - OTHER ABNORMALITIES OF BREATHING Current Visit: Yes (3) Pneumonia SNOMED Code(s): 310806029 Code(s): J18.9 - PNEUMONIA, UNSPECIFIED ORGANISM Current Visit: Yes (4) Laparoscopic surgical procedure converted to open procedure SNOMED Code(s): 953195215 Code(s): Z53.31 - LAPAROSCOPIC SURGICAL PROCEDURE CONVERTED TO OPEN PROCEDURE Current Visit: Yes Comment: lysis of adhesions (5) DDD (degenerative disc disease), lumbar SNOMED Code(s): 58611238 Code(s): M51.36 - OTHER INTERVERTEBRAL DISC DEGENERATION, LUMBAR REGION Current Visit: No (6) Obstructive sleep apnea syndrome SNOMED Code(s): 07869502 Code(s): G47.33 - OBSTRUCTIVE SLEEP APNEA (ADULT) (PEDIATRIC) Current Visit : No Problem List Initiated/Reviewed/Updated: Yes My Orders Last 24 Hours: My Active Orders 10/06/19 18:03 CULTURE RESPIRATORY + SMEAR [RM] Routine Blood Culture x2 Reflex Set [OM.PC] Urgent EKG 12 Lead [EK] Routine 10/06/19 18:15 CULTURE BLOOD [BC] Urgent 10/06/19 18:25 CULTURE BLOOD [BC] Urgent 10/06/19 19:14 Patient Status [ADT] Routine Cardiac Monitoring [RC] Q6H 10/06/19 19:18 RT BiPAP/CPAP [RC] ASDIRECTED Pulse Oximetry Continuous Monitoring [OM.PC] Routine 10/06/19 19:43 LORazepam [Ativan] 0.5 mg IVPUSH Q4H PRN 10/06/19 19:45 Lactated Ringers [Ringers, Lactated] 1,000 ml IV ASDIRECTED 10/06/19 20:00 Levofloxacin/Dextrose 5%-Water [Levaquin in D5W 750 MG/150 ML] 750 mg Premix Bag 1 bag IV Q48H 10/06/19 21:00 Lactobacillus Rhamnosus GG [Culturelle] 1 cap PO BID 10/06/19 21:30 Linezolid [Zyvox] 600 mg Premix Bag 1 bag IV Q12H 10/07/19 08:00 Heparin Sodium 5,000 units Sodium Chloride 0.9% [Normal Saline] 500 ml IV ASDIRECTED Piperacillin/Tazobactam/Dext [Zosyn in Dextrose Iso-Osmotic 3.375 GM] 3.375 gm Premix Bag 1 bag IV Q6H 10/07/19 10:00 methylPREDNISolone Sod Succ [Solu-MEDROL] 40 mg IVPUSH Q8H Plan: ASSESSMENT AND RECOMMENDATIONS HYPOXIC AND HYPERCAPNIC RESPIRATORY FAILURE-she has an underlying history of asthma and sleep apnea. Left lung infiltrate noted on chest x-ray. In addition she likely has hypoventilation secondary to recent surgery, obesity, and pain medication. Relatively stable through the night, PCO2 mildly increased. -Supplemental oxygen as needed -Noninvasive positive pressure ventilation -Nebulizer therapy as ordered -Solu-Medrol 40 mg IV every 8 hours -Follow-up blood gases in a.m. LEFT LUNG PNEUMONIA -Blood and sputum cultures pending -IV Zyvox, Zosyn, and levofloxacin pending culture results STATUS POST DUODENAL SWITCH PROCEDURE -Postop care per Dr. Baldwin
[2019-10-07] MEDS: Magnesium Sulfate/Water 2 GM in Premix Bag 1 BAG IV SCH ×3 (10:20→22:50)
--- NOTE | 2019-10-07 10:22 | PN ---
DATE OF SERVICE: 10/07/2019 The patient, otherwise, has been stable. She has some little bit of emesis with heavy coughing. We will back down to n.p.o., except ice, chips, and sips of clear liquids with medications. We will place central PICC line today to facilitate IV access as well as an A- line and then continue with respiratory assistance per Dr. Angelo. Brad Baldwin MD /[id number]
[2019-10-07] MEDS: Celecoxib 200 MG Cap PO SCH (10:23)
[2019-10-07] MEDS: Lactobacillus Rhamnosus GG (Probiotic) Cap PO SCH ×2 (10:23→22:54)
[2019-10-07] MEDS: Levothyroxine 25 MCG Tab PO SCH (10:23)
[2019-10-07] MEDS: DULoxetine 30 MG Cap PO SCH ×2 (10:23→22:54)
[2019-10-07] MEDS: Gabapentin 250 MG/5 ML Solution ML 470 ML Bottle PO SCH ×2 (10:24→13:33)
[2019-10-07] MEDS: methylPREDNISolone Sodium Succinate 40 MG/1 ML SDV IVPUSH SCH ×2 (10:37→17:26)
--- NOTE | 2019-10-07 13:00 | PN ---
DATE OF SERVICE: 10/06/2019 The patient has been afebrile with stable vital signs. She is a little bit rattly in terms of her upper respiratory status this morning. T-max has been 99. Will need to work fairly vigorously on her pulmonary toilet today. We will have RT see the patient t.i.d. to help with that as well. IV did come out, and we decided to leave that out. Oral intake was around 1500, and we will need to push that a little bit as her creatinine did bump up a little bit in the last 24 hours. We will have the patient get in the shower today if able, maximize activity and work with pulmonary toilet. Pain control appears to be fairly good with the Watkins being given presently. Brad Baldwin MD /[id number]
[2019-10-07] MEDS: Pantoprazole 40 MG Delayed-Release Granules 1 Packet PO SCH (17:01)
[2019-10-07] MEDS ORDERED: Succinylcholine 200 MG/10 ML MDV ONE (21:11)
[2019-10-07] MEDS ORDERED: Propofol 200 MG/20 ML SDV ONE (21:11)
--- NOTE | 2019-10-07 21:45 | PCM.SN ---
- Free Text/Narrative Note: Ms. Alford developed progressive respiratory failure this evening, with increased agitation, elevation and respiratory rate into the mid to upper 30s, and progressive hypoxia requiring increased levels of supplemental oxygen. She has been intubated and placed on mechanical ventilation, initially appears to be stable with current level of ventilatory support. Ventilator settings; FiO2 of 70%, tidal volume of 400, assist control mode, and PEEP of 5. Chest x-ray to confirm appropriate placement of endotracheal tube pending at the time of this dictation. Arterial blood gases will be obtained in one hour to assess respiratory status.
--- NOTE | 2019-10-07 22:46 | CRLCR ---
INDICATION: Respiratory distress TECHNIQUE: Chest radiograph 1 view on 2 films COMPARISON: 10/06/2019 FINDINGS: Severe degradation of image quality noted due to body habitus. Mediastinum: The mediastinum is normal in appearance. The heart silhouette is normal in size and morphology. The endotracheal tube tip is positioned 3.4 cm from the adrian. The NG tube is positioned with the tip in the gastric body. Lung: Very small lung volumes are present with perihilar edema and bilateral perihilar consolidation. No pneumothorax is identified. Bone and Soft tissue: Unremarkable for age. Midline skin bebeto are present in the upper abdomen. IMPRESSIONS: 1. Very small lung volumes are present with perihilar edema and bilateral perihilar consolidation. 2. The NG tube is positioned with the tip in the gastric body. Dictated by Umang Victor MD @ 10/07/2019 10:43:13 PM Dictated by: Umang Victor MD @ 10/07/2019 22:43:17 (Electronically Signed)
[2019-10-08] MEDS: methylPREDNISolone Sodium Succinate 40 MG/1 ML SDV IVPUSH SCH ×3 (02:14→18:12)
[2019-10-08] MEDS: Piperacillin/Tazobactam/Dext 3.375 GM in Premix Bag 1 BAG IV SCH ×4 (02:16→20:08)
[2019-10-08] MEDS: Magnesium Sulfate/Water 2 GM in Premix Bag 1 BAG IV SCH ×4 (04:46→22:11)
--- NOTE | 2019-10-08 05:09 | CRLCR ---
INDICATION: Respiratory distress TECHNIQUE: Chest radiograph 1 view COMPARISON: 10/07/2019 FINDINGS: Severe degradation of image quality noted due to body habitus. Mediastinum: The mediastinum is normal in appearance. The heart silhouette is normal in size and morphology. The endotracheal tube tip is positioned 2.5 cm from the adrian. NG tube present with tip in the gastric body. Lung: There are small lung volumes are present with patchy consolidation in the right lung and consolidation in left lower lobe noted without change. Small left pleural effusion is suspected. No pneumothorax is identified. Bone and Soft tissue: Unremarkable for age. Surgical drain is noted in the left upper quadrant. Midline skin bebeto are seen in the upper abdomen. IMPRESSION: 1. There has been no significant interval changes. Dictated by Umang Victor MD @ 10/08/2019 5:08:21 AM Dictated by: mUang Victor MD @ 10/08/2019 05:08:24 (Electronically Signed)
[2019-10-08] MEDS: Albuterol/Ipratropium 3.0-0.5 MG/3 ML Neb Soln INH SCH ×4 (07:12→22:29)
[2019-10-08] MEDS: Levothyroxine 25 MCG Tab PO SCH (07:23)
[2019-10-08] MEDS: Celecoxib 200 MG Cap PO SCH (07:23)
[2019-10-08] MEDS: Heparin Sodium 5,000 Units/ML Vial SUBCUT SCH ×3 (07:49→23:38)
[2019-10-08] MEDS ORDERED: Albuterol 0.083% 2.5 MG/3 ML Neb Soln NEB PRN (08:20)
--- NOTE | 2019-10-08 09:26 | PCM.CONSN ---
- General Info Date of Service: 10/08/19 Subjective Update: The patient was intubated last night because of increasing respiratory rate and agitation. She has been stable since intubation. PCO2 is decreasing and pH is normal today. Peak pressures were initially little high but are now around 24. She is on 60% FiO2. She has not had any fevers. She is tolerating her antibiotics. She appears comfortable. Cultures are negative so far. Respiratory culture did show some gram-positive cocci and gram-positive rods on the Gram stain. Functional Status: Denies: Ambulating - Review of Systems General: Reports: Other (intubated and sedated) - Patient Data Vitals - Most Recent: Last Vital Signs Temp 37.5 C 10/08/19 07:00 Pulse 83 10/08/19 08:00 Resp 22 H 10/08/19 08:00 BP 109/56 L 10/08/19 08:00 Pulse Ox 93 L 10/08/19 08:00 Weight - Most Recent: 126.099 kg I&O - Last 24 Hours: Intake & Output 10/07/19 10/08/19 10/08/19 22:59 06:59 14:59 Intake Total 1154 1505 Output Total 170 560 Balance 984 945 Lab Results Last 24 Hours: Laboratory Results - last 24 hr 10/07/19 10/07/19 10/07/19 Range/Units 11:51 17:00 22:30 WBC (4.5-11.0) K/uL RBC (3.30-5.50) M/uL Hgb (12.0-15.0) g/dL Hct (36.0-48.0) % MCV (80-98) fL MCH (27-31) pg MCHC (32-36) % Plt Count (150-400) K/uL Add Manual Diff Neutrophils % (Manual) (36-66) % Band Neutrophils % (5-11) % Lymphocytes % (Manual) (24-44) % Monocytes % (Manual) (2-6) % Anisocytosis Puncture Site A-line A-line A-line ABG pH 7.380 7.348 L 7.267 L (7.350-7.450) ABG pCO2 52.3 H 56.2 H 69.0 H (35.0-42.0) mmHg ABG pO2 57.6 L 58.6 L 72.3 L (75.0-100.0) mmHg ABG HCO3 30.3 H 30.1 H 30.4 H (22.0-26.0) mmol/L ABG Total CO2 28.1 H 27.7 H 29.0 H (21.0-25.0) mmol/L ABG O2 Saturation 88.1 L 87.3 L 90.8 L (95.0-98.0) % ABG O2 Content 12.7 L 14.3 L 12.8 L (15.0-23.0) %vol ABG Base Excess 4.8 3.8 2.6 mm/L ABG Hemoglobin 10.4 L 11.8 L 10.2 L (12.0-16.0) g/dL ABG Oxyhemoglobin 86.4 85.6 89.0 % ABG Carboxyhemoglobin 1.1 1.0 0.8 (0.0-1.6) % ABG Methemoglobin 0.8 0.9 1.2 % Bimal Test A-line A-line A-line O2 Delivery Device Bipap Bipap Ventilator Oxygen Flow Rate L Sodium (140-148) mmol/L Potassium (3.6-5.2) mmol/L Chloride (100-108) mmol/L Carbon Dioxide (21-32) mmol/L Anion Gap (5.0-14.0) mmol/L BUN (7-18) mg/dL Creatinine (0.6-1.0) mg/dL Est Cr Clr Drug Dosing mL/min Estimated GFR (MDRD) (>60) Glucose (74-106) mg/dL Calcium (8.5-10.1) mg/dL Phosphorus (2.5-4.9) mg/dL Total Bilirubin (0.2-1.0) mg/dL AST (15-37) U/L ALT (12-78) U/L Alkaline Phosphatase (46-116) U/L NT-Pro-B Natriuret Pep (5-125) pg/mL Total Protein (6.4-8.2) g/dL Albumin (3.4-5.0) g/dL Globulin (2.3-3.5) g/dL Albumin/Globulin Ratio (1.2-2.2) 10/08/19 10/08/19 10/08/19 Range/Units 04:30 04:30 04:30 WBC 12.1 H (4.5-11.0) K/uL RBC 3.69 (3.30-5.50) M/uL Hgb 9.6 L (12.0-15.0) g/dL Hct 31.4 L (36.0-48.0) % MCV 85 (80-98) fL MCH 26 L (27-31) pg MCHC 31 L (32-36) % Plt Count 459 H (150-400) K/uL Add Manual Diff Yes Neutrophils % (Manual) 65 (36-66) % Band Neutrophils % 23 H (5-11) % Lymphocytes % (Manual) 7 L (24-44) % Monocytes % (Manual) 5 (2-6) % Anisocytosis Moderate H Puncture Site Line ABG pH 7.422 (7.350-7.450) ABG pCO2 47.4 H (35.0-42.0) mmHg ABG pO2 73.8 L (75.0-100.0) mmHg ABG HCO3 30.3 H (22.0-26.0) mmol/L ABG Total CO2 28.2 H (21.0-25.0) mmol/L ABG O2 Saturation 94.9 L (95.0-98.0) % ABG O2 Content 12.8 L (15.0-23.0) %vol ABG Base Excess 5.6 mm/L ABG Hemoglobin 9.8 L (12.0-16.0) g/dL ABG Oxyhemoglobin 92.2 % ABG Carboxyhemoglobin 1.8 H (0.0-1.6) % ABG Methemoglobin 1 % Bimal Test O2 Delivery Device Bipap Oxygen Flow Rate L Sodium 136 L (140-148) mmol/L Potassium 4.0 (3.6-5.2) mmol/L Chloride 99 L (100-108) mmol/L Carbon Dioxide 29 (21-32) mmol/L Anion Gap 12.0 (5.0-14.0) mmol/L BUN 19 H (7-18) mg/dL Creatinine 1.1 H (0.6-1.0) mg/dL Est Cr Clr Drug Dosing 36.62 mL/min Estimated GFR (MDRD) 50 L (>60) Glucose 147 H (74-106) mg/dL Calcium 8.6 (8.5-10.1) mg/dL Phosphorus 2.9 (2.5-4.9) mg/dL Total Bilirubin 0.5 (0.2-1.0) mg/dL AST 30 (15-37) U/L ALT 36 (12-78) U/L Alkaline Phosphatase 89 (46-116) U/L NT-Pro-B Natriuret Pep 666 H (5-125) pg/mL Total Protein 6.3 L (6.4-8.2) g/dL Albumin 2.2 L (3.4-5.0) g/dL Globulin 4.1 H (2.3-3.5) g/dL Albumin/Globulin Ratio 0.5 L (1.2-2.2) Jae Results Last 24 Hours: Microbiology 10/07/19 01:15 Gram Stain - Final Sputum - Other 10/06/19 18:25 Aerobic Blood Culture - Preliminary Blood - Arterial Line - Direct Stick NO GROWTH AFTER 1 DAY Anaerobic Blood Culture - Preliminary NO GROWTH AFTER 1 DAY 10/06/19 18:15 Aerobic Blood Culture - Preliminary Blood - Arm, Left NO GROWTH AFTER 1 DAY Anaerobic Blood Culture - Preliminary NO GROWTH AFTER 1 DAY Med Orders - Current: Current Medications Albuterol (Proventil Neb Soln) 2.5 mg NEB Q2H PRN PRN Reason: shortness of breath/wheezing Albuterol/Ipratropium (Duoneb 3.0-0.5 Mg/3 Ml) 3 ml INH QIDRT [facility] Last Admin: 10/08/19 07:12 Dose: 3 ml Celecoxib (Celebrex) 200 mg PO DAILY@0800 [facility] Last Admin: 10/08/19 07:23 Dose: Not Given Duloxetine HCl (Cymbalta) 30 mg PO BID [facility] Last Admin: 10/07/19 22:54 Dose: Not Given Heparin Sodium (Porcine) (Heparin Sodium) 5,000 units SUBCUT Q8H [facility] Last Admin: 10/08/19 07:49 Dose: 5,000 units Hydroxyzine HCl (Vistaril) 100 mg IM Q4H PRN PRN Reason: pain Last Admin: 10/06/19 05:11 Dose: 100 mg Linezolid 600 mg/ Premix 300 mls @ 300 mls/hr IV Q12H [facility] Last Admin: 10/07/19 21:10 Dose: 300 mls/hr Levofloxacin/Dextrose 750 mg/ (Premix) 150 mls @ 100 mls/hr IV Q48H [facility] Last Admin: 10/06/19 20:00 Dose: 100 mls/hr Piperacillin/Tazobactam/ (Dextrose 3.375 gm/ Premix) 50 mls @ 100 mls/hr IV Q6H [facility] Last Admin: 10/08/19 07:49 Dose: 100 mls/hr Heparin Sodium (Porcine) 5,000 (units/ Sodium Chloride) 501 mls @ 0 mls/hr IV ASDIRECTED [facility] Last Admin: 10/07/19 07:49 Dose: 1 mls/hr Magnesium Sulfate 2 gm/ Premix 50 mls @ 25 mls/hr IV Q6H [facility] Stop: 10/09/19 05:59 Last Admin: 10/08/19 04:46 Dose: 25 mls/hr Propofol (Diprivan 100 Ml) 100 mls @ 3.783 mls/hr IV TITRATE [facility]; Protocol Last Admin: 10/08/19 08:17 Dose: 25 mcg/kg/min, 18.915 mls/hr Sodium Chloride (Normal Saline) 1,000 mls @ 25 mls/hr IV ASDIRECTED [facility] Levothyroxine Sodium (Levothyroxine) 25 mcg PO ACBREAKFAST [facility] Last Admin: 10/08/19 07:23 Dose: Not Given Lorazepam (Ativan) 0.5 mg IVPUSH Q2H PRN PRN Reason: Agitation Last Admin: 10/07/19 19:37 Dose: 0.5 mg Methylprednisolone Sodium Succinate (Solu-Medrol) 40 mg IVPUSH Q8H [facility] Last Admin: 10/08/19 02:14 Dose: 40 mg Ondansetron HCl (Zofran Odt) 4 mg PO Q4H PRN PRN Reason: Nausea/Vomiting Last Admin: 10/07/19 00:48 Dose: 4 mg Pantoprazole Sodium (Protonix Granules) 40 mg PO Q24H [facility] Last Admin: 10/07/19 17:01 Dose: Not Given Discontinued Medications Acetaminophen (Tylenol Extra Strength) 1,000 mg PO ONETIME ONE Stop: 10/04/19 05:43 Last Admin: 10/04/19 06:11 Dose: 1,000 mg Acetaminophen (Tylenol) 650 mg PO Q6H [facility] Last Admin: 10/05/19 04:30 Dose: 650 mg Hydrocodone Bitart/Acetaminophen ([place] 325-5 Mg) 1 - 2 tab PO Q4H PRN PRN Reason: Pain Last Admin: 10/07/19 04:18 Dose: 1 tab Albuterol/Ipratropium (Duoneb 3.0-0.5 Mg/3 Ml) 3 ml NEB ONETIME ONE Stop: 10/04/19 06:31 Last Admin: 10/04/19 10:48 Dose: 3 ml Albuterol/Ipratropium (Duoneb 3.0-0.5 Mg/3 Ml) 3 ml NEB ONETIME ONE Stop: 10/04/19 10:46 Last Admin: 10/04/19 12:30 Dose: Not Given Albuterol/Ipratropium (Duoneb 3.0-0.5 Mg/3 Ml) 3 ml INH ASDIRECTED PRN PRN Reason: BREATHING Last Admin: 10/07/19 00:54 Dose: 3 ml Celecoxib (Celebrex) 200 mg PO ONETIME ONE Stop: 10/04/19 05:43 Last Admin: 10/04/19 06:11 Dose: 200 mg Ropivacaine 60 ml/Dexamethasone 8 mg/Epinephrine HCl 0.4 mg/ Sodium Chloride 17.6 ml 0 ml NERVRT ASDIRECTED [facility] Last Admin: 10/04/19 07:48 Dose: 80 syringe Cyanocobalamin (Vitamin B12) 1,000 mcg IM ONETIME ONE Stop: 10/06/19 09:01 Last Admin: 10/06/19 10:46 Dose: 1,000 mcg Dexamethasone (Dexamethasone) Confirm Administered Dose 4 mg .ROUTE .STK-MED ONE Stop: 10/04/19 07:16 Diphenhydramine HCl (Benadryl) 50 mg IVPUSH Q4H PRN PRN Reason: ITCHING Fentanyl (Sublimaze) Confirm Administered Dose 250 mcg .ROUTE .STK-MED ONE Stop: 10/04/19 07:14 Fentanyl (Sublimaze) Confirm Administered Dose 250 mcg .ROUTE .STK-MED ONE Stop: 10/04/19 08:47 Furosemide (Lasix) 20 mg IVPUSH ONETIME ONE Stop: 10/04/19 20:44 Last Admin: 10/04/19 21:09 Dose: 20 mg Furosemide (Lasix) 20 mg IVPUSH ONETIME ONE Stop: 10/05/19 08:01 Last Admin: 10/05/19 09:43 Dose: 20 mg Furosemide (Lasix) 40 mg PO ONETIME ONE Stop: 10/06/19 00:47 Last Admin: 10/06/19 01:05 Dose: 40 mg Furosemide (Lasix) 40 mg PO ONETIME ONE Stop: 10/06/19 16:34 Last Admin: 10/06/19 17:31 Dose: 40 mg Gabapentin (Neurontin) 300 mg PO ONETIME ONE Stop: 10/04/19 05:43 Last Admin: 10/04/19 06:10 Dose: 300 mg Gabapentin (Neurontin) 300 mg PO TID [facility] Last Admin: 10/07/19 13:33 Dose: 300 mg Glycopyrrolate (Robinul) Confirm Administered Dose 1 mg .ROUTE .STK-MED ONE Stop: 10/04/19 07:16 Hydromorphone HCl (Dilaudid [employer] 15 Mg In Ns 30 Ml) 0 mg IV ASDIRECTED PRN; Protocol PRN Reason: Pain Last Admin: 10/04/19 10:41 Dose: 0.3 mg Lidocaine HCl/Dextrose (Lidocaine 2 Gm/D5w 500 Ml) 2 gm in 500 mls @ 22.5 mls/ hr IV .Q24H [facility] Stop: 10/05/19 07:29 Last Admin: 10/04/19 12:29 Dose: 1 mg/min, 15 mls/hr Ketamine HCl 50 mg/ Sodium (Chloride) 50 mls @ 12 mls/hr IV ASDIRECTED [facility] Dextrose/Lactated Ringer's (Dextrose 5%-Lactated Ringers) 1,000 mls @ 100 mls/ hr IV ASDIRECTED [facility] Last Admin: 10/04/19 12:29 Dose: 100 mls/hr Cefoxitin Sodium 2 gm/ Sodium (Chloride) 50 mls @ 100 mls/hr IV ONETIME ONE Stop: 10/04/19 07:44 Last Admin: 10/04/19 07:15 Dose: 100 mls/hr Lactated Ringer's (Ringers, Lactated) Confirm Administered Dose 1,000 mls @ as directed .ROUTE .STK-MED ONE Stop: 10/04/19 07:14 Dextrose/Lactated Ringer's (Dextrose 5%-Lactated Ringers) 1,000 mls @ 175 mls/ hr IV ASDIRECTED [facility] Multivitamins/Minerals 10 ml/Thiamine HCl 200 mg/ Chromium/Copper/Manganese/ Seleni/Zn 1 ml/ Dextrose/Lactated Ringer's 1,013 mls @ 174.999 mls/hr IV DAILY@ 1600 [facility] Last Admin: 10/04/19 17:13 Dose: 174.999 mls/hr Cefoxitin Sodium 2 gm/ Sodium (Chloride) 50 mls @ 100 mls/hr IV Q6H [facility] Last Admin: 10/05/19 07:49 Dose: 100 mls/hr Dextrose/Lactated Ringer's (Dextrose 5%-Lactated Ringers) 1,000 mls @ 125 mls/ hr IV ASDIRECTED [facility] Last Admin: 10/05/19 00:43 Dose: 125 mls/hr Dextrose/Lactated Ringer's (Dextrose 5%-Lactated Ringers) 1,000 mls @ 100 mls/ hr IV ASDIRECTED [facility] Last Admin: 10/05/19 09:41 Dose: 100 mls/hr Lactated Ringer's (Ringers, Lactated) 500 mls @ 100 mls/hr IV .BOLUS ONE Stop: 10/05/19 11:59 Last Admin: 10/05/19 07:48 Dose: 100 mls/hr Multivitamins/Minerals 10 ml/Thiamine HCl 200 mg/ Chromium/Copper/Manganese/ Seleni/Zn 1 ml/ Dextrose/Lactated Ringer's 1,013 mls @ 100 mls/hr IV DAILY@ 1600 [facility] Piperacillin Sod/Tazobactam (Sod 3.375 gm/ Sodium Chloride) 50 mls @ 100 mls/ hr IV Q6H [facility] Last Admin: 10/07/19 01:45 Dose: 100 mls/hr Sodium Chloride (Normal Saline) Confirm Administered Dose 50 mls @ as directed .ROUTE .STK-MED ONE Stop: 10/06/19 19:37 Last Admin: 10/06/19 20:03 Dose: Not Given Lactated Ringer's (Ringers, Lactated) 1,000 mls @ 100 mls/hr IV ASDIRECTED [facility] Last Admin: 10/07/19 17:52 Dose: 100 mls/hr Propofol (Diprivan 100 Ml) Confirm Administered Dose 100 mls @ as directed .ROUTE .STK-MED ONE Stop: 10/07/19 21:21 Last Admin: 10/07/19 22:55 Dose: Not Given Iopamidol (Isovue-300 (61%)) 50 ml PO ASDIRECTED [facility] Stop: 10/05/19 03:24 Last Admin: 10/05/19 03:36 Dose: 50 ml Ketamine HCl (Ketalar) 20 mg IV ASDIRECTED [facility] Labetalol HCl (Normodyne) 5 mg IVPUSH Q5M PRN PRN Reason: SBP over 160 OR DBP over 95 Lactobacillus Rhamnosus (Culturelle) 1 cap PO BID [facility] Last Admin: 10/07/19 22:54 Dose: Not Given Lidocaine (Xylocaine-Mpf 2%) Confirm Administered Dose 5 ml .ROUTE .STK-MED ONE Stop: 10/07/19 07:55 Lidocaine HCl (Xylocaine 2%) 100 mg IVPUSH ASDIRECTED [facility] Lorazepam (Ativan) 0.5 mg IVPUSH Q4H PRN PRN Reason: Anxiety Last Admin: 10/07/19 13:55 Dose: 0.5 mg Magnesium Hydroxide (Milk Of Magnesia) 30 ml PO ONETIME ONE Stop: 10/06/19 09:31 Last Admin: 10/06/19 11:55 Dose: 30 ml Magnesium Oxide (Magnesium Oxide) 400 mg PO DAILY [facility] Last Admin: 10/06/19 10:46 Dose: 400 mg Meropenem (Merrem) Confirm Administered Dose 500 mg .ROUTE .STK-MED ONE Stop: 10/04/19 09:20 Last Admin: 10/04/19 10:15 Dose: 500 mg Metoclopramide HCl (Reglan) 10 mg IVPUSH Q6H PRN PRN Reason: NAUSEA NOT CONTROL BY ZOFRAN Miscellaneous Information (Remove Patch) 1 ea TRDERM ONETIME ONE Stop: 10/07/19 06:01 Miscellaneous Information (Remove Patch) 1 ea TRDERM ONETIME ONE Stop: 10/06/19 10:01 Last Admin: 10/06/19 10:06 Dose: Not Given Naloxone HCl (Narcan) 0.1 mg IV ASDIRECTED PRN PRN Reason: decreased respiratory rate Naloxone HCl (Narcan) Confirm Administered Dose 0.4 mg .ROUTE .STK-MED ONE Stop: 10/04/19 10:41 Neostigmine Methylsulfate (Neostigmine) Confirm Administered Dose 5 mg .ROUTE .STK-MED ONE Stop: 10/04/19 07:16 Check Scopolamine (Patch Daily) 1 each .XX DAILY [facility] Last Admin: 10/04/19 12:30 Dose: Not Given Scopolamine Patch (Check) 1 each TOP DAILY [facility] Stop: 10/06/19 12:53 Last Admin: 10/06/19 10:06 Dose: Not Given Ondansetron HCl (Zofran) Confirm Administered Dose 4 mg .ROUTE .STK-MED ONE Stop: 10/04/19 07:16 Ondansetron HCl (Zofran) 4 mg IVPUSH Q4H PRN PRN Reason: Nausea/Vomiting Pantoprazole Sodium (Protonix Iv) 40 mg IVPUSH Q24H [facility] Last Admin: 10/04/19 17:15 Dose: 40 mg Piperacillin Sod/Tazobactam Sod (Zosyn) Confirm Administered Dose 3.375 gm .ROUTE .STK-MED ONE Stop: 10/06/19 19:36 Last Admin: 10/06/19 20:02 Dose: Not Given Propofol (Diprivan 20 Ml) Confirm Administered Dose 200 mg .ROUTE .STK-MED ONE Stop: 10/04/19 07:16 Propofol (Diprivan 20 Ml) Confirm Administered Dose 200 mg .ROUTE .STK-MED ONE Stop: 10/07/19 21:12 Rocuronium [place] (Zemuron) Confirm Administered Dose 50 mg .ROUTE .STK-MED ONE Stop: 10/04/19 07:16 Rocuronium [place] (Zemuron) Confirm Administered Dose 50 mg .ROUTE .STK-MED ONE Stop: 10/04/19 09:27 Scopolamine (Transderm-Scop) 1.5 mg TOP ONETIME ONE Stop: 10/04/19 05:43 Last Admin: 10/04/19 06:11 Dose: 1.5 mg Succinylcholine Chloride (Quelicin) Confirm Administered Dose 200 mg .ROUTE .STK -MED ONE Stop: 10/04/19 07:16 Succinylcholine Chloride (Quelicin) Confirm Administered Dose 200 mg .ROUTE .STK -MED ONE Stop: 10/07/19 21:12 Sugammadex Sodium ([place]) Confirm Administered Dose 200 mg .ROUTE .STK-MED ONE Stop: 10/04/19 10:47 - Exam Quality Assessment: Supplemental Oxygen General: No Acute Distress, Sedated. No: Alert HEENT: Pupils Equal Neck: Supple Lungs: Normal Respiratory Effort, Decreased Breath Sounds (both bases), Crackles (left lung base). No: Wheezing Cardiovascular: Regular Rate, Regular Rhythm GI/Abdominal Exam: Soft, No Distention, Abnormal Bowel Sounds (hypoactive) Extremities: No Pedal Edema. No: Increased Warmth Peripheral Pulses: 2+: Dorsalis Pedis (L), Dorsalis Pedis (R) Skin: Warm, Dry Wound/Incisions: Healing Well, No Drainage. No: Erythema Psy/Mental Status: No: Alert, Agitated Consult PN Assessment/Plan POD#: 4 Procedures: Procedures BLOOD TYPING SEROLOGIC ABO (07/26/19) BLOOD TYPING SEROLOGIC RH(D) (07/26/19) RBC ANTIBODY SCREEN (07/26/19) Problem List Initiated/Reviewed/Updated: Yes My Orders Last 24 Hours: My Active Orders 10/08/19 08:20 RT Aerosol Therapy [RC] ASDIRECTED Albuterol [Proventil Neb Soln] 2.5 mg NEB Q2H PRN 10/08/19 09:30 Lactated Ringers [Ringers, Lactated] 1,000 ml IV ASDIRECTED 10/08/19 17:00 BLOOD GAS ARTERIAL [BG] Timed 10/08/19 23:45 Initiate/Renew Non-Violent Restraints (All Ages) Q24H 10/09/19 05:00 BASIC METABOLIC PANEL,BMP [CHEM] Timed CBC W/O DIFF,HEMOGRAM [HEME] Timed (1) Plan: ASSESSMENT AND RECOMMENDATIONS ACUTE HYPOXIC AND HYPERCAPNIC RESPIRATORY FAILURE - she has an underlying history of asthma and sleep apnea. He required intubation overnight with increased respiratory rate and agitation. Stable on the ventilator at this time. Still requiring 60% FiO2. Secondary to infection as discussed below. -Supplemental oxygen as needed -Mechanical ventilation with weaning trials once respiratory status stabilized further -Nebulizer therapy as ordered -Solu-Medrol 40 mg IV every 8 hours -Follow-up blood gases this afternoon and in a.m. LEFT LUNG PNEUMONIA - infiltrate noted on chest x-ray and she may have some infiltrate on the right today. Cultures pending at this time and she is on broad -spectrum antibiotics. -Follow-up cultures -IV linezolid, Pip/Tazo, and levofloxacin pending culture results STATUS POST DUODENAL SWITCH PROCEDURE - postop course complicated by an ileus. She now has an NG tube. -Postop care per Dr. Denny Rivers M.D.
[2019-10-08] MEDS ORDERED: Lactated Ringers 1,000 ML IV SCH (09:30)
[2019-10-08] MEDS: Linezolid 600 MG in Premix Bag 1 BAG IV SCH ×2 (09:31→22:10)
[2019-10-08] MEDS: DULoxetine 30 MG Cap PO SCH ×2 (09:35→22:30)
--- NOTE | 2019-10-08 09:35 | PN ---
DATE OF SERVICE: 10/05/2019 SUBJECTIVE: Marissa is postoperative day #1. Her urinary output decreased. After surgery last evening, she was given Lasix 20 mg IV and her IV was decreased to 125. She had some rales and rhonchi in her lungs, and this did improve after the Lasix. Vital signs have been stable. She has been up ambulating. Oral intake 630. Urine output via Mayorga catheter 1025. VIJAY drains x3 have put out 5, 5, and 65 respectively of a light pink drainage. Lab tests this morning, creatinine was 1.3, GFR 41, glucose 162. Marissa states pain is not controlled with the APPLE TURNER. She would rather have her [place], which she takes at home. She feels like, if she crushes it, she will be able to swallow. She has no other concerns or questions. Marissa's daughter, Radha, is concerned because she seems confused at times and is fidgety. OBJECTIVE: GENERAL: Marissa is a 64-year-old female. She is alert, orientated, color flushed. VITAL SIGNS: TPR is 98.8, 92, 20, blood pressure 142/83. HEENT: Negative. NECK: Supple. HEART: Regular rate and rhythm. LUNGS: Clear. ABDOMEN: Dressings dry and intact. VIJAY drains as above. Mayorga catheter in place. EXTREMITIES: Without peripheral edema. SCDs are on. ASSESSMENT: 1. Laparoscopic turned to open duodenal switch. 2. Repair of deserosalization of cecum. 3. Small bowel strictureplasty. 4. Liver biopsy. POSTOPERATIVE DIAGNOSES: Extensive pelvic adhesions, morbid obesity with inadequate resolution with laparoscopic gastric band system, marked hepatomegaly, area of deserosalization of the cecum and stricture distal to the small bowel. Date of surgery: 10/04/2019. Surgeon: Brad Baldwin MD. PLAN: 1. Decrease IV to 100 mL per hour. 2. Step 2 with no cereal gastric bypass diet. 3. Communication order for 3 med cups per hour or 1 every 20 minutes. 4. Zofran ODT 4 mg every 4 hours p.r.n. nausea sublingual. 5. Discontinue APPLE TURNER. 6. [place] 5/325 mg 1 to 2 every 4 hours p.r.n. pain. 7. Leave Mayorga catheter in for accurate intake and output. 8. Give lactated Ringer's 500 mL bolus now. 9. Lasix 20 mg IV after bolus of lactated Ringer's is infused. 10.Check CBC, CMP, mag, phos, and BNP in a.m. 10/06/2019. 11.Levothyroxine 25 mcg p.o. once daily before breakfast. 12.Cymbalta/duloxetine 30 mg p.o. b.i.d. scheduled. 13.Ambulate 6 times daily, distance and time as tolerated. 14.To use incentive spirometer 10 times every hour while awake. 15.We will evaluate p.r.n. or in a.m. Suzie Andrea PA-C /[id number]
[2019-10-08] MEDS: Lactobacillus Rhamnosus GG (Probiotic) Cap PO SCH (10:23)
[2019-10-08] MEDS: Pantoprazole 40 MG Delayed-Release Granules 1 Packet PO SCH (16:12)
[2019-10-08] MEDS: Levofloxacin/Dextrose 5%-Water 750 MG in Premix Bag 1 BAG IV SCH (20:01)
[2019-10-08] MEDS ORDERED: Furosemide 20 MG/2 ML VIAL IVPUSH ONE (22:49)
[2019-10-09] MEDS: Piperacillin/Tazobactam/Dext 3.375 GM in Premix Bag 1 BAG IV SCH ×4 (01:36→20:59)
[2019-10-09] MEDS: methylPREDNISolone Sodium Succinate 40 MG/1 ML SDV IVPUSH SCH (01:40)
[2019-10-09] MEDS: Magnesium Sulfate/Water 2 GM in Premix Bag 1 BAG IV SCH (04:08)
--- NOTE | 2019-10-09 05:24 | CRLCR ---
HISTORY: Respiratory failure. Ventilator management. COMPARISON: From yesterday. FINDINGS: A portable erect AP view of the chest was obtained at 0508 hours. Inspiratory effort remains low. There is increased moderate opacification of the right upper lobe. There continues to be moderate patchy consolidation of the retrocardiac left lower lobe. There is increased mild streaky left superior perihilar density, consistent with atelectasis. An endotracheal tube continues to have its tip in satisfactory position 2 centimeters above the adrian. A nasogastric tube again seen with its tip in the gastric fundus. The heart remains top normal in size. The mediastinum is normal in appearance. The osseous structures are normal in appearance for the patient`s age. IMPRESSION: Increased moderate right upper lobe consolidation. Stable moderate retrocardiac left lower lobe consolidation. Increased mild left superior perihilar consolidation. Continued satisfactory positioning of endotracheal and nasogastric tubes. Dictated by Lior Odonnell MD @ Oct 09 2019 5:20AM Signed by Dr. Lior Odonnell @ Oct 09 2019 5:23AM
[2019-10-09] MEDS: Albuterol/Ipratropium 3.0-0.5 MG/3 ML Neb Soln INH SCH ×4 (07:08→21:01)
[2019-10-09] MEDS: Celecoxib 200 MG Cap PO SCH (08:34)
[2019-10-09] MEDS: Levothyroxine 25 MCG Tab PO SCH (08:34)
[2019-10-09] MEDS: Heparin Sodium 5,000 Units/ML Vial SUBCUT SCH ×2 (08:43→15:38)
[2019-10-09] MEDS: Linezolid 600 MG in Premix Bag 1 BAG IV SCH ×2 (09:23→22:30)
[2019-10-09] MEDS: DULoxetine 30 MG Cap PO SCH ×2 (09:23→21:00)
--- NOTE | 2019-10-09 09:34 | PCM.CONSN ---
- General Info Date of Service: 10/09/19 Subjective Update: There were no acute events overnight. Patient has remained stable on the ventilator. Peak pressures are around 27. FiO2 is down to 50%. Blood pressure and heart rate have been stable. ABGs show a mild alkalosis and nearly normal PCO2. She remains intubated and sedated. Sputum cultures growing a gram- positive cocci with identification pending. - Review of Systems General: Reports: Other (intubated and sedated ). Denies: Fever - Patient Data Vitals - Most Recent: Last Vital Signs Temp 37.7 C 10/09/19 08:00 Pulse 85 10/09/19 07:08 Resp 24 H 10/09/19 08:00 BP 124/59 L 10/09/19 08:00 Pulse Ox 99 10/09/19 08:00 Weight - Most Recent: 126.099 kg I&O - Last 24 Hours: Intake & Output 10/08/19 10/09/19 10/09/19 22:59 06:59 14:59 Intake Total 1575 1358 Output Total 605 1395 Balance 970 -37 Lab Results Last 24 Hours: Laboratory Results - last 24 hr 10/08/19 10/09/19 10/09/19 Range/Units 17:00 04:00 04:00 WBC 13.2 H (4.5-11.0) K/uL RBC 3.76 (3.30-5.50) M/uL Hgb 9.5 L (12.0-15.0) g/dL Hct 31.9 L (36.0-48.0) % MCV 85 (80-98) fL MCH 25 L (27-31) pg MCHC 30 L (32-36) % Plt Count 523 H (150-400) K/uL Puncture Site A-line ABG pH 7.423 (7.350-7.450) ABG pCO2 45.5 H (35.0-42.0) mmHg ABG pO2 64.3 L (75.0-100.0) mmHg ABG HCO3 29.2 H (22.0-26.0) mmol/L ABG Total CO2 27.2 H (21.0-25.0) mmol/L ABG O2 Saturation 91.9 L (95.0-98.0) % ABG O2 Content 12.4 L (15.0-23.0) %vol ABG Base Excess 4.7 mm/L ABG Hemoglobin 9.8 L (12.0-16.0) g/dL ABG Oxyhemoglobin 89.9 % ABG Carboxyhemoglobin 1.0 (0.0-1.6) % ABG Methemoglobin 1.2 % Bimal Test A-line O2 Delivery Device Ventilator Oxygen Flow Rate L Sodium 140 (140-148) mmol/L Potassium 3.7 (3.6-5.2) mmol/L Chloride 101 (100-108) mmol/L Carbon Dioxide 31 (21-32) mmol/L Anion Gap 7.9 (5.0-14.0) mmol/L BUN 17 (7-18) mg/dL Creatinine 0.8 (0.6-1.0) mg/dL Est Cr Clr Drug Dosing 50.36 mL/min Estimated GFR (MDRD) > 60 (>60) Glucose 153 H (74-106) mg/dL Calcium 8.5 (8.5-10.1) mg/dL Phosphorus 2.5 (2.5-4.9) mg/dL Magnesium 3.5 H D (1.8-2.4) mg/dL Total Bilirubin 0.5 (0.2-1.0) mg/dL AST 20 (15-37) U/L ALT 29 (12-78) U/L Alkaline Phosphatase 93 (46-116) U/L NT-Pro-B Natriuret Pep 554 H (5-125) pg/mL Total Protein 6.2 L (6.4-8.2) g/dL Albumin 2.0 L (3.4-5.0) g/dL Globulin 4.2 H (2.3-3.5) g/dL Albumin/Globulin Ratio 0.5 L (1.2-2.2) 10/09/19 Range/Units 04:45 WBC (4.5-11.0) K/uL RBC (3.30-5.50) M/uL Hgb (12.0-15.0) g/dL Hct (36.0-48.0) % MCV (80-98) fL MCH (27-31) pg MCHC (32-36) % Plt Count (150-400) K/uL Puncture Site Line ABG pH 7.459 H (7.350-7.450) ABG pCO2 42.3 H (35.0-42.0) mmHg ABG pO2 75.7 (75.0-100.0) mmHg ABG HCO3 29.6 H (22.0-26.0) mmol/L ABG Total CO2 27.3 H (21.0-25.0) mmol/L ABG O2 Saturation 95.4 (95.0-98.0) % ABG O2 Content 12.9 L (15.0-23.0) %vol ABG Base Excess 5.6 mm/L ABG Hemoglobin 9.8 L (12.0-16.0) g/dL ABG Oxyhemoglobin 92.6 % ABG Carboxyhemoglobin 1.9 H (0.0-1.6) % ABG Methemoglobin 1.0 % Bimal Test O2 Delivery Device Ventilator Oxygen Flow Rate L Sodium (140-148) mmol/L Potassium (3.6-5.2) mmol/L Chloride (100-108) mmol/L Carbon Dioxide (21-32) mmol/L Anion Gap (5.0-14.0) mmol/L BUN (7-18) mg/dL Creatinine (0.6-1.0) mg/dL Est Cr Clr Drug Dosing mL/min Estimated GFR (MDRD) (>60) Glucose (74-106) mg/dL Calcium (8.5-10.1) mg/dL Phosphorus (2.5-4.9) mg/dL Magnesium (1.8-2.4) mg/dL Total Bilirubin (0.2-1.0) mg/dL AST (15-37) U/L ALT (12-78) U/L Alkaline Phosphatase (46-116) U/L NT-Pro-B Natriuret Pep (5-125) pg/mL Total Protein (6.4-8.2) g/dL Albumin (3.4-5.0) g/dL Globulin (2.3-3.5) g/dL Albumin/Globulin Ratio (1.2-2.2) Jae Results Last 24 Hours: Microbiology 10/07/19 01:15 Gram Stain - Final Sputum - Other Respiratory Culture - Preliminary 10/06/19 18:15 Aerobic Blood Culture - Preliminary Blood - Arm, Left NO GROWTH AFTER 2 DAYS Anaerobic Blood Culture - Preliminary NO GROWTH AFTER 2 DAYS 10/06/19 18:25 Aerobic Blood Culture - Preliminary Blood - Arterial Line - Direct Stick NO GROWTH AFTER 2 DAYS Anaerobic Blood Culture - Preliminary NO GROWTH AFTER 2 DAYS Med Orders - Current: Current Medications Albuterol (Proventil Neb Soln) 2.5 mg NEB Q2H PRN PRN Reason: shortness of breath/wheezing Albuterol/Ipratropium (Duoneb 3.0-0.5 Mg/3 Ml) 3 ml INH QIDRT [facility] Last Admin: 10/09/19 07:08 Dose: 3 ml Celecoxib (Celebrex) 200 mg PO DAILY@0800 [facility] Last Admin: 10/09/19 08:34 Dose: Not Given Duloxetine HCl (Cymbalta) 30 mg PO BID [facility] Last Admin: 10/09/19 09:23 Dose: Not Given Heparin Sodium (Porcine) (Heparin Sodium) 5,000 units SUBCUT Q8H [facility] Last Admin: 10/09/19 08:43 Dose: 5,000 units Hydroxyzine HCl (Vistaril) 100 mg IM Q4H PRN PRN Reason: pain Last Admin: 10/06/19 05:11 Dose: 100 mg Linezolid 600 mg/ Premix 300 mls @ 300 mls/hr IV Q12H [facility] Last Admin: 10/09/19 09:23 Dose: 300 mls/hr Piperacillin/Tazobactam/ (Dextrose 3.375 gm/ Premix) 50 mls @ 100 mls/hr IV Q6H [facility] Last Admin: 10/09/19 08:42 Dose: 100 mls/hr Heparin Sodium (Porcine) 5,000 (units/ Sodium Chloride) 501 mls @ 0 mls/hr IV ASDIRECTED [facility] Last Admin: 10/07/19 07:49 Dose: 1 mls/hr Propofol (Diprivan 100 Ml) 100 mls @ 3.783 mls/hr IV TITRATE [facility]; Protocol Last Admin: 10/09/19 08:40 Dose: 35 mcg/kg/min, 26.481 mls/hr Sodium Chloride (Normal Saline) 1,000 mls @ 25 mls/hr IV ASDIRECTED [facility] Lactated Ringer's (Ringers, Lactated) 1,000 mls @ 25 mls/hr IV ASDIRECTED [facility] Last Admin: 10/08/19 19:59 Dose: 25 mls/hr Levofloxacin/Dextrose 750 mg/ (Premix) 150 mls @ 100 mls/hr IV Q24H [facility] Levothyroxine Sodium (Levothyroxine) 25 mcg PO ACBREAKFAST [facility] Last Admin: 10/09/19 08:34 Dose: Not Given Lorazepam (Ativan) 0.5 mg IVPUSH Q2H PRN PRN Reason: Agitation Last Admin: 10/07/19 19:37 Dose: 0.5 mg Methylprednisolone Sodium Succinate (Solu-Medrol) 40 mg IVPUSH Q8H [facility] Last Admin: 10/09/19 01:40 Dose: 40 mg Ondansetron HCl (Zofran Odt) 4 mg PO Q4H PRN PRN Reason: Nausea/Vomiting Last Admin: 10/07/19 00:48 Dose: 4 mg Pantoprazole Sodium (Protonix Iv) 40 mg IV Q24H [facility] Discontinued Medications Acetaminophen (Tylenol Extra Strength) 1,000 mg PO ONETIME ONE Stop: 10/04/19 05:43 Last Admin: 10/04/19 06:11 Dose: 1,000 mg Acetaminophen (Tylenol) 650 mg PO Q6H [facility] Last Admin: 10/05/19 04:30 Dose: 650 mg Hydrocodone Bitart/Acetaminophen (Royal 325-5 Mg) 1 - 2 tab PO Q4H PRN PRN Reason: Pain Last Admin: 10/07/19 04:18 Dose: 1 tab Albuterol/Ipratropium (Duoneb 3.0-0.5 Mg/3 Ml) 3 ml NEB ONETIME ONE Stop: 10/04/19 06:31 Last Admin: 10/04/19 10:48 Dose: 3 ml Albuterol/Ipratropium (Duoneb 3.0-0.5 Mg/3 Ml) 3 ml NEB ONETIME ONE Stop: 10/04/19 10:46 Last Admin: 10/04/19 12:30 Dose: Not Given Albuterol/Ipratropium (Duoneb 3.0-0.5 Mg/3 Ml) 3 ml INH ASDIRECTED PRN PRN Reason: BREATHING Last Admin: 10/07/19 00:54 Dose: 3 ml Celecoxib (Celebrex) 200 mg PO ONETIME ONE Stop: 10/04/19 05:43 Last Admin: 10/04/19 06:11 Dose: 200 mg Ropivacaine 60 ml/Dexamethasone 8 mg/Epinephrine HCl 0.4 mg/ Sodium Chloride 17.6 ml 0 ml NERVRT ASDIRECTED [facility] Last Admin: 10/04/19 07:48 Dose: 80 syringe Cyanocobalamin (Vitamin B12) 1,000 mcg IM ONETIME ONE Stop: 10/06/19 09:01 Last Admin: 10/06/19 10:46 Dose: 1,000 mcg Dexamethasone (Dexamethasone) Confirm Administered Dose 4 mg .ROUTE .STK-MED ONE Stop: 10/04/19 07:16 Diphenhydramine HCl (Benadryl) 50 mg IVPUSH Q4H PRN PRN Reason: ITCHING Fentanyl (Sublimaze) Confirm Administered Dose 250 mcg .ROUTE .STK-MED ONE Stop: 10/04/19 07:14 Fentanyl (Sublimaze) Confirm Administered Dose 250 mcg .ROUTE .STK-MED ONE Stop: 10/04/19 08:47 Furosemide (Lasix) 20 mg IVPUSH ONETIME ONE Stop: 10/04/19 20:44 Last Admin: 10/04/19 21:09 Dose: 20 mg Furosemide (Lasix) 20 mg IVPUSH ONETIME ONE Stop: 10/05/19 08:01 Last Admin: 10/05/19 09:43 Dose: 20 mg Furosemide (Lasix) 40 mg PO ONETIME ONE Stop: 10/06/19 00:47 Last Admin: 10/06/19 01:05 Dose: 40 mg Furosemide (Lasix) 40 mg PO ONETIME ONE Stop: 10/06/19 16:34 Last Admin: 10/06/19 17:31 Dose: 40 mg Furosemide (Lasix) 10 mg IVPUSH ONETIME ONE Stop: 10/08/19 22:50 Last Admin: 10/08/19 23:27 Dose: Not Given Gabapentin (Neurontin) 300 mg PO ONETIME ONE Stop: 10/04/19 05:43 Last Admin: 10/04/19 06:10 Dose: 300 mg Gabapentin (Neurontin) 300 mg PO TID [facility] Last Admin: 10/07/19 13:33 Dose: 300 mg Glycopyrrolate (Robinul) Confirm Administered Dose 1 mg .ROUTE .STK-MED ONE Stop: 10/04/19 07:16 Hydromorphone HCl (Dilaudid Check Pilot 15 Mg In Ns 30 Ml) 0 mg IV ASDIRECTED PRN; Protocol PRN Reason: Pain Last Admin: 10/04/19 10:41 Dose: 0.3 mg Lidocaine HCl/Dextrose (Lidocaine 2 Gm/D5w 500 Ml) 2 gm in 500 mls @ 22.5 mls/ hr IV .Q24H [facility] Stop: 10/05/19 07:29 Last Admin: 10/04/19 12:29 Dose: 1 mg/min, 15 mls/hr Ketamine HCl 50 mg/ Sodium (Chloride) 50 mls @ 12 mls/hr IV ASDIRECTED [facility] Dextrose/Lactated Ringer's (Dextrose 5%-Lactated Ringers) 1,000 mls @ 100 mls/ hr IV ASDIRECTED [facility] Last Admin: 10/04/19 12:29 Dose: 100 mls/hr Cefoxitin Sodium 2 gm/ Sodium (Chloride) 50 mls @ 100 mls/hr IV ONETIME ONE Stop: 10/04/19 07:44 Last Admin: 10/04/19 07:15 Dose: 100 mls/hr Lactated Ringer's (Ringers, Lactated) Confirm Administered Dose 1,000 mls @ as directed .ROUTE .STK-MED ONE Stop: 10/04/19 07:14 Dextrose/Lactated Ringer's (Dextrose 5%-Lactated Ringers) 1,000 mls @ 175 mls/ hr IV ASDIRECTED [facility] Multivitamins/Minerals 10 ml/Thiamine HCl 200 mg/ Chromium/Copper/Manganese/ Seleni/Zn 1 ml/ Dextrose/Lactated Ringer's 1,013 mls @ 174.999 mls/hr IV DAILY@ 1600 [facility] Last Admin: 10/04/19 17:13 Dose: 174.999 mls/hr Cefoxitin Sodium 2 gm/ Sodium (Chloride) 50 mls @ 100 mls/hr IV Q6H [facility] Last Admin: 10/05/19 07:49 Dose: 100 mls/hr Dextrose/Lactated Ringer's (Dextrose 5%-Lactated Ringers) 1,000 mls @ 125 mls/ hr IV ASDIRECTED [facility] Last Admin: 10/05/19 00:43 Dose: 125 mls/hr Dextrose/Lactated Ringer's (Dextrose 5%-Lactated Ringers) 1,000 mls @ 100 mls/ hr IV ASDIRECTED [facility] Last Admin: 10/05/19 09:41 Dose: 100 mls/hr Lactated Ringer's (Ringers, Lactated) 500 mls @ 100 mls/hr IV .BOLUS ONE Stop: 10/05/19 11:59 Last Admin: 10/05/19 07:48 Dose: 100 mls/hr Multivitamins/Minerals 10 ml/Thiamine HCl 200 mg/ Chromium/Copper/Manganese/ Seleni/Zn 1 ml/ Dextrose/Lactated Ringer's 1,013 mls @ 100 mls/hr IV DAILY@ 1600 [facility] Piperacillin Sod/Tazobactam (Sod 3.375 gm/ Sodium Chloride) 50 mls @ 100 mls/ hr IV Q6H [facility] Last Admin: 10/07/19 01:45 Dose: 100 mls/hr Levofloxacin/Dextrose 750 mg/ (Premix) 150 mls @ 100 mls/hr IV Q48H [facility] Last Admin: 10/08/19 20:01 Dose: 100 mls/hr Sodium Chloride (Normal Saline) Confirm Administered Dose 50 mls @ as directed .ROUTE .STK-MED ONE Stop: 10/06/19 19:37 Last Admin: 10/06/19 20:03 Dose: Not Given Lactated Ringer's (Ringers, Lactated) 1,000 mls @ 100 mls/hr IV ASDIRECTED [facility] Last Admin: 10/07/19 17:52 Dose: 100 mls/hr Magnesium Sulfate 2 gm/ Premix 50 mls @ 25 mls/hr IV Q6H [facility] Stop: 10/09/19 05:59 Last Admin: 10/09/19 04:08 Dose: 25 mls/hr Propofol (Diprivan 100 Ml) Confirm Administered Dose 100 mls @ as directed .ROUTE .STK-MED ONE Stop: 10/07/19 21:21 Last Admin: 10/07/19 22:55 Dose: Not Given Iopamidol (Isovue-300 (61%)) 50 ml PO ASDIRECTED [facility] Stop: 10/05/19 03:24 Last Admin: 10/05/19 03:36 Dose: 50 ml Ketamine HCl (Ketalar) 20 mg IV ASDIRECTED [facility] Labetalol HCl (Normodyne) 5 mg IVPUSH Q5M PRN PRN Reason: SBP over 160 OR DBP over 95 Lactobacillus Rhamnosus (Culturelle) 1 cap PO BID [facility] Last Admin: 10/08/19 10:23 Dose: Not Given Lidocaine (Xylocaine-Mpf 2%) Confirm Administered Dose 5 ml .ROUTE .STK-MED ONE Stop: 10/07/19 07:55 Lidocaine HCl (Xylocaine 2%) 100 mg IVPUSH ASDIRECTED [facility] Lorazepam (Ativan) 0.5 mg IVPUSH Q4H PRN PRN Reason: Anxiety Last Admin: 10/07/19 13:55 Dose: 0.5 mg Magnesium Hydroxide (Milk Of Magnesia) 30 ml PO ONETIME ONE Stop: 10/06/19 09:31 Last Admin: 10/06/19 11:55 Dose: 30 ml Magnesium Oxide (Magnesium Oxide) 400 mg PO DAILY [facility] Last Admin: 10/06/19 10:46 Dose: 400 mg Meropenem (Merrem) Confirm Administered Dose 500 mg .ROUTE .STK-MED ONE Stop: 10/04/19 09:20 Last Admin: 10/04/19 10:15 Dose: 500 mg Metoclopramide HCl (Reglan) 10 mg IVPUSH Q6H PRN PRN Reason: NAUSEA NOT CONTROL BY ZOFRAN Miscellaneous Information (Remove Patch) 1 ea TRDERM ONETIME ONE Stop: 10/07/19 06:01 Miscellaneous Information (Remove Patch) 1 ea TRDERM ONETIME ONE Stop: 10/06/19 10:01 Last Admin: 10/06/19 10:06 Dose: Not Given Naloxone HCl (Narcan) 0.1 mg IV ASDIRECTED PRN PRN Reason: decreased respiratory rate Naloxone HCl (Narcan) Confirm Administered Dose 0.4 mg .ROUTE .STK-MED ONE Stop: 10/04/19 10:41 Neostigmine Methylsulfate (Neostigmine) Confirm Administered Dose 5 mg .ROUTE .STK-MED ONE Stop: 10/04/19 07:16 Check Scopolamine (Patch Daily) 1 each .XX DAILY [facility] Last Admin: 10/04/19 12:30 Dose: Not Given Scopolamine Patch (Check) 1 each TOP DAILY [facility] Stop: 10/06/19 12:53 Last Admin: 10/06/19 10:06 Dose: Not Given Ondansetron HCl (Zofran) Confirm Administered Dose 4 mg .ROUTE .STK-MED ONE Stop: 10/04/19 07:16 Ondansetron HCl (Zofran) 4 mg IVPUSH Q4H PRN PRN Reason: Nausea/Vomiting Pantoprazole Sodium (Protonix Iv) 40 mg IVPUSH Q24H [facility] Last Admin: 10/04/19 17:15 Dose: 40 mg Pantoprazole Sodium (Protonix Granules) 40 mg PO Q24H [facility] Last Admin: 10/08/19 16:12 Dose: Not Given Piperacillin Sod/Tazobactam Sod (Zosyn) Confirm Administered Dose 3.375 gm .ROUTE .STK-MED ONE Stop: 10/06/19 19:36 Last Admin: 10/06/19 20:02 Dose: Not Given Propofol (Diprivan 20 Ml) Confirm Administered Dose 200 mg .ROUTE .STK-MED ONE Stop: 10/04/19 07:16 Propofol (Diprivan 20 Ml) Confirm Administered Dose 200 mg .ROUTE .STK-MED ONE Stop: 10/07/19 21:12 Rocuronium [place] (Zemuron) Confirm Administered Dose 50 mg .ROUTE .STK-MED ONE Stop: 10/04/19 07:16 Rocuronium [place] (Zemuron) Confirm Administered Dose 50 mg .ROUTE .STK-MED ONE Stop: 10/04/19 09:27 Scopolamine (Transderm-Scop) 1.5 mg TOP ONETIME ONE Stop: 10/04/19 05:43 Last Admin: 10/04/19 06:11 Dose: 1.5 mg Succinylcholine Chloride (Quelicin) Confirm Administered Dose 200 mg .ROUTE .STK -MED ONE Stop: 10/04/19 07:16 Succinylcholine Chloride (Quelicin) Confirm Administered Dose 200 mg .ROUTE .STK -MED ONE Stop: 10/07/19 21:12 Sugammadex Sodium (Bridion) Confirm Administered Dose 200 mg .ROUTE .STK-MED ONE Stop: 10/04/19 10:47 - Exam Quality Assessment: Supplemental Oxygen, Central Line/PICC, Urine Catheter, DVT Prophylaxis, Restraints General: No Acute Distress, Sedated. No: Alert Lungs: Normal Respiratory Effort, Decreased Breath Sounds (both bases R>L), Crackles (left lung base, right midlung). No: Wheezing Cardiovascular: Regular Rate, Regular Rhythm GI/Abdominal Exam: Soft, No Distention, Abnormal Bowel Sounds (hypoactive ) Extremities: No Pedal Edema. No: Increased Warmth Skin: Warm, Dry Psy/Mental Status: No: Alert, Agitated Consult PN Assessment/Plan POD#: 5 Procedures: Procedures BLOOD TYPING SEROLOGIC ABO (07/26/19) BLOOD TYPING SEROLOGIC RH(D) (07/26/19) RBC ANTIBODY SCREEN (07/26/19) Problem List Initiated/Reviewed/Updated: Yes My Orders Last 24 Hours: My Active Orders 10/08/19 09:30 Lactated Ringers [Ringers, Lactated] 1,000 ml IV ASDIRECTED 10/08/19 23:45 Initiate/Renew Non-Violent Restraints (All Ages) Q24H 10/09/19 09:32 Weight Daily [Height and Weight] [RC] DAILY 10/09/19 16:00 ABG [BLOOD GAS ARTERIAL] [BG] Timed Plan: ASSESSMENT AND RECOMMENDATIONS ACUTE HYPOXIC AND HYPERCAPNIC RESPIRATORY FAILURE - Stable on the ventilator at this time. Peak pressures acceptable. FiO2 has been decreasing and is now at 50% . Respiratory culture growing a gram-positive cocci. -Supplemental oxygen as needed -Mechanical ventilation with weaning trials once respiratory status stabilized further -Nebulizer therapy as ordered -Discontinue steroids -Follow-up blood gases this afternoon and in a.m. LEFT LUNG PNEUMONIA - infiltrate noted on chest x-ray and she may have some infiltrate on the right today. Still on broad-spectrum antibiotics. Sputum culture growing gram-positive cocci. -Follow-up cultures -IV linezolid, Pip/Tazo, and levofloxacin pending culture results STATUS POST DUODENAL SWITCH PROCEDURE - postop course complicated by an ileus. She now has an NG tube. -Postop care per Dr. Denny Rivers M.D.
--- NOTE | 2019-10-09 11:03 | PN ---
DATE OF SERVICE: 10/08/2019 Overnight, the patient's respiratory status did deteriorate somewhat on BiPAP, and she was intubated. Presently, she looks much more comfortable, and her tachycardia is largely gone with heart rate now in 80s and blood pressure this morning was 111/55. Respiratory rate on the ventilator is around 22 to 25. The patient did appear to have some degree of aspiration at the time of intubation and has an NG tube in, which had a large amount out initially, and has had a moderate amount since that time. She likely has developed somewhat of an ileus with the onset of the pneumonia. Otherwise, the drains look clear. There are no signs of leak clinically. At this point, main goal will be to be treating the pneumonia. Urine output has been satisfactory. Creatinine has come down from 1.7 yesterday to 1.1 this morning. Otherwise, labs show no major problems. Hemoglobin is 9.6 and white count is 12.1. At this point, I will continue the present ventilator management with the assistance of the hospitalist and as well have them run the antibiotics. She was started on some steroids yesterday to facilitate the pulmonary status as well, and those will be continued. We will watch carefully for any signs of leak. With the emesis episodes, obviously with some intraabdominal pressure episodes, which were fairly high with a fairly full stomach, and given this, we will need to watch for any signs of leak in terms of clinical deterioration or appearance in the drains. Brad Baldwin MD /[id number]
--- NOTE | 2019-10-09 11:07 | CRLCR ---
INDICATION: Assess placement of central line. TECHNIQUE: Chest 1 views COMPARISON: Chest x-ray 10/09/2019. FINDINGS: Tubes and lines: There is an endotracheal tube with its tip in the distal to the trachea in good position. There is a new left subclavian vein central venous catheter, its tip in the right atrium in good position. No evidence of pneumothorax. There is a nasogastric tube has tip in the body stomach. Lungs: Patchy mixed interstitial and airspace opacities throughout both lungs are unchanged. Mediastinum: Heart size is normal. Pulmonary vasculature is distinct. Bones/soft tissues: Negative. IMPRESSION: 1. New left subclavian vein central venous catheter, with its tip in good position. No evidence of pneumothorax. 2. Tubes and lines in good position. 3. Bilateral patchy mixed interstitial and airspace opacities, most consistent with pneumonia. Dictated by Pawan Soler MD @ Oct 09 2019 11:02AM Signed by Dr. Pawan Soler @ Oct 09 2019 11:05AM
[2019-10-09] MEDS: Pantoprazole 40 MG Vial IV SCH (15:38)
[2019-10-09] MEDS: Levofloxacin/Dextrose 5%-Water 750 MG in Premix Bag 1 BAG IV SCH (19:50)
[2019-10-10] MEDS: Heparin Sodium 5,000 Units/ML Vial SUBCUT SCH ×4 (00:38→23:49)
[2019-10-10] MEDS: Piperacillin/Tazobactam/Dext 3.375 GM in Premix Bag 1 BAG IV SCH ×4 (03:23→19:36)
--- NOTE | 2019-10-10 03:53 | CRLCR ---
HISTORY: Respiratory failure. Ventilator management. COMPARISON: From yesterday FINDINGS: A portable erect AP view of the chest was obtained at 0252 hours. There is no change in moderate right upper lobe infiltrate consistent with right upper lobe pneumonia. There has been a decrease in the left perihilar infiltrate, now mild, consistent with improving left upper lobe pneumonia or atelectasis. There has been no change in prominent consolidation of the left lower lobe with prominent retrocardiac infiltrate, consistent with left lower lobe atelectasis or pneumonia. An endotracheal tube has migrated slightly inferiorly during the interval and is now located at the adrian, directed into the right mainstem bronchus. Withdrawing the endotracheal tube [address] it is midway between the thoracic inlet and adrian. Again seen is the nasogastric tube with its tip in the body of the stomach. Again seen is the right subclavian central line with its tip in the inferior right atrium. Withdrawing the catheter [address] the tip in the SVC at the cavoatrial junction. There is no sign of a pneumothorax on the left. The heart remains normal in size. The mediastinum is normal in appearance. The osseous structures are normal in appearance for the patient`s age. IMPRESSION: Endotracheal tube has migrated inferiorly during the interval with its tip at the adrian directed into the right mainstem bronchus. Suggest withdrawing it [address] the tip midway between the thoracic inlet and adrian. Improvement in left midlung infiltrate, now mild, consistent with improvement in left upper lobe pneumonia or atelectasis. Stable moderate right upper lobe and prominent left lower lobe consolidation, pneumonia versus atelectasis. Left subclavian central line tip in the inferior right atrium. Withdrawing at [address] the tip at the cavoatrial junction. Nasogastric tube remains in satisfactory position. Dictated by Lior Odonnell MD @ Oct 10 2019 3:48AM Signed by Dr. Lior Odonnell @ Oct 10 2019 3:52AM
[2019-10-10] MEDS: Albuterol/Ipratropium 3.0-0.5 MG/3 ML Neb Soln INH SCH ×4 (07:21→20:50)
[2019-10-10] MEDS: Levothyroxine 25 MCG Tab PO SCH (07:54)
[2019-10-10] MEDS: Celecoxib 200 MG Cap PO SCH (07:54)
--- NOTE | 2019-10-10 08:34 | PN ---
DATE OF SERVICE: 10/10/2019 SUBJECTIVE: Marissa remains to be on a respirator. Respirations did go up to 20% to 30% and the settings had to be increased higher than they were during the day. Temp max was 99.6. She did pass some flatus and had a very small liquid stool. Urine output 1800. VIJAY drains put out 10, 5, 80 mL respectively of a light pink drainage. REVIEW OF SYSTEMS: Remainder of review of systems are negative. LABORATORY DATA: Labs were reviewed. Potassium was 3.3, glucose 130, and albumin 1.7. OBJECTIVE: GENERAL: Mairssa is a 64-year-old female. She is on respirator. VITAL SIGNS: TPR: Last temperature was at 0400 at 88.6. At 0700, pulse was 88, respirations 20. Blood pressure 122/58. She is resting comfortably in bed. ASSESSMENT: 1. Postop days 6 following a Tim-en-Y gastric bypass surgery. 2. Acute hypoxia and hypercapnic respiratory failure. 3. Left lung pneumonia. 4. Duodenal switch procedure. 5. Postop ileus. PLAN: The patient is also followed by hospitalist MD. Suzie Andrea PA-C /[id number]
--- NOTE | 2019-10-10 09:05 | PCM.PN ---
- General Info Date of Service: 10/10/19 Subjective Update: There were no acute events overnight but the patient did lose some ground with respect to the respiratory status. FiO2 requirements did increase. X-ray this morning suggested that the endotracheal tube had migrated slightly and was down into the right mainstem bronchus. The endotracheal tube was withdrawn as indicated based on measurements from the chest x-ray but the patient had respiratory difficulty after this. Repeat chest x-ray suggested the endotracheal tube was too high. The tube was inserted further and the patient has done well since that time. She appears comfortable. She has not had any fevers. Respiratory culture grew out enterococcus which was likely related to her aspiration. Functional Status: Reports: Other (intubated and sedated ) - Review of Systems General: Denies: Fever - Patient Data Vitals - Most Recent: Last Vital Signs Temp 37.6 C 10/10/19 04:00 Pulse 86 10/10/19 07:26 Resp 20 10/10/19 07:00 BP 122/58 L 10/10/19 07:00 Pulse Ox 93 L 10/10/19 07:26 Weight - Most Recent: 126.099 kg I&O - Last 24 Hours: Intake & Output 10/09/19 10/10/19 10/10/19 22:59 06:59 14:59 Intake Total 1288 1400 Output Total 850 645 Balance 438 755 Lab Results Last 24 Hours: Laboratory Results - last 24 hr 10/09/19 10/10/19 10/10/19 Range/Units 16:00 04:06 04:06 WBC 16.2 H (4.5-11.0) K/uL RBC 3.82 (3.30-5.50) M/uL Hgb 9.7 L (12.0-15.0) g/dL Hct 32.5 L (36.0-48.0) % MCV 85 (80-98) fL MCH 25 L (27-31) pg MCHC 30 L (32-36) % Plt Count 521 H (150-400) K/uL Puncture Site A-line Line ABG pH 7.460 H 7.465 H (7.350-7.450) ABG pCO2 47.7 H 44.9 H (35.0-42.0) mmHg ABG pO2 61.9 L 60.9 L (75.0-100.0) mmHg ABG HCO3 33.4 H 31.9 H (22.0-26.0) mmol/L ABG Total CO2 30.8 H 29.3 H (21.0-25.0) mmol/L ABG O2 Saturation 91.0 L 91.5 L (95.0-98.0) % ABG O2 Content 12.5 L 12.4 L (15.0-23.0) %vol ABG Base Excess 8.8 7.6 mm/L ABG Hemoglobin 10.0 L 9.9 L (12.0-16.0) g/dL ABG Oxyhemoglobin 89.2 89.1 % ABG Carboxyhemoglobin 1.0 1.5 (0.0-1.6) % ABG Methemoglobin 1.0 1.1 % Bimal Test A-line O2 Delivery Device Ventilator Ventilator Oxygen Flow Rate L Sodium (140-148) mmol/L Potassium (3.6-5.2) mmol/L Chloride (100-108) mmol/L Carbon Dioxide (21-32) mmol/L Anion Gap (5.0-14.0) mmol/L BUN (7-18) mg/dL Creatinine (0.6-1.0) mg/dL Est Cr Clr Drug Dosing mL/min Estimated GFR (MDRD) (>60) Glucose (74-106) mg/dL Calcium (8.5-10.1) mg/dL Phosphorus (2.5-4.9) mg/dL Total Bilirubin (0.2-1.0) mg/dL AST (15-37) U/L ALT (12-78) U/L Alkaline Phosphatase (46-116) U/L NT-Pro-B Natriuret Pep (5-125) pg/mL Total Protein (6.4-8.2) g/dL Albumin (3.4-5.0) g/dL Globulin (2.3-3.5) g/dL Albumin/Globulin Ratio (1.2-2.2) 10/10/19 Range/Units 04:06 WBC (4.5-11.0) K/uL RBC (3.30-5.50) M/uL Hgb (12.0-15.0) g/dL Hct (36.0-48.0) % MCV (80-98) fL MCH (27-31) pg MCHC (32-36) % Plt Count (150-400) K/uL Puncture Site ABG pH (7.350-7.450) ABG pCO2 (35.0-42.0) mmHg ABG pO2 (75.0-100.0) mmHg ABG HCO3 (22.0-26.0) mmol/L ABG Total CO2 (21.0-25.0) mmol/L ABG O2 Saturation (95.0-98.0) % ABG O2 Content (15.0-23.0) %vol ABG Base Excess mm/L ABG Hemoglobin (12.0-16.0) g/dL ABG Oxyhemoglobin % ABG Carboxyhemoglobin (0.0-1.6) % ABG Methemoglobin % Bimal Test O2 Delivery Device Oxygen Flow Rate L Sodium 142 (140-148) mmol/L Potassium 3.3 L (3.6-5.2) mmol/L Chloride 104 (100-108) mmol/L Carbon Dioxide 32 (21-32) mmol/L Anion Gap 9.3 (5.0-14.0) mmol/L BUN 14 (7-18) mg/dL Creatinine 0.8 (0.6-1.0) mg/dL Est Cr Clr Drug Dosing 50.36 mL/min Estimated GFR (MDRD) > 60 (>60) Glucose 130 H (74-106) mg/dL Calcium 7.7 L (8.5-10.1) mg/dL Phosphorus 1.8 L (2.5-4.9) mg/dL Total Bilirubin 0.3 (0.2-1.0) mg/dL AST 16 (15-37) U/L ALT 22 (12-78) U/L Alkaline Phosphatase 91 (46-116) U/L NT-Pro-B Natriuret Pep 645 H (5-125) pg/mL Total Protein 5.8 L (6.4-8.2) g/dL Albumin 1.7 L (3.4-5.0) g/dL Globulin 4.1 H (2.3-3.5) g/dL Albumin/Globulin Ratio 0.4 L (1.2-2.2) Jae Results Last 24 Hours: Microbiology 10/07/19 01:15 Gram Stain - Final Sputum - Other Respiratory Culture - Final Enterococcus Faecalis 10/06/19 18:15 Aerobic Blood Culture - Preliminary Blood - Arm, Left NO GROWTH AFTER 3 DAYS Anaerobic Blood Culture - Preliminary NO GROWTH AFTER 3 DAYS 10/06/19 18:25 Aerobic Blood Culture - Preliminary Blood - Arterial Line - Direct Stick NO GROWTH AFTER 3 DAYS Anaerobic Blood Culture - Preliminary NO GROWTH AFTER 3 DAYS Med Orders - Current: Current Medications Albuterol (Proventil Neb Soln) 2.5 mg NEB Q2H PRN PRN Reason: shortness of breath/wheezing Albuterol/Ipratropium (Duoneb 3.0-0.5 Mg/3 Ml) 3 ml INH QIDRT [facility] Last Admin: 10/10/19 07:21 Dose: 3 ml Celecoxib (Celebrex) 200 mg PO DAILY@0800 [facility] Last Admin: 10/10/19 07:54 Dose: Not Given Duloxetine HCl (Cymbalta) 30 mg PO BID [facility] Last Admin: 10/09/19 21:00 Dose: Not Given Furosemide (Lasix) 20 mg IVPUSH NOW ONE Stop: 10/10/19 09:31 Heparin Sodium (Porcine) (Heparin Sodium) 5,000 units SUBCUT Q8H [facility] Last Admin: 10/10/19 07:57 Dose: 5,000 units Heparin Sodium (Porcine) (Heparin Lock Flush 100 Units/Ml) 500 units FLUSH ASDIRECTED PRN PRN Reason: Keep Vein Open Last Admin: 10/09/19 11:40 Dose: 500 units Hydroxyzine HCl (Vistaril) 100 mg IM Q4H PRN PRN Reason: pain Last Admin: 10/06/19 05:11 Dose: 100 mg Piperacillin/Tazobactam/ (Dextrose 3.375 gm/ Premix) 50 mls @ 100 mls/hr IV Q6H [facility] Last Admin: 10/10/19 07:57 Dose: 100 mls/hr Heparin Sodium (Porcine) 5,000 (units/ Sodium Chloride) 501 mls @ 0 mls/hr IV ASDIRECTED [facility] Last Admin: 10/07/19 07:49 Dose: 1 mls/hr Propofol (Diprivan 100 Ml) 100 mls @ 3.783 mls/hr IV TITRATE TIARRA; Protocol Last Admin: 10/10/19 05:38 Dose: 35 mcg/kg/min, 26.481 mls/hr Sodium Chloride (Normal Saline) 1,000 mls @ 25 mls/hr IV ASDIRECTED TIARRA Lactated Ringer's (Ringers, Lactated) 1,000 mls @ 25 mls/hr IV ASDIRECTED TIARRA Last Admin: 10/08/19 19:59 Dose: 25 mls/hr Levofloxacin/Dextrose 750 mg/ (Premix) 150 mls @ 100 mls/hr IV Q24H [facility] Last Admin: 10/09/19 19:50 Dose: 100 mls/hr Potassium Chloride 40 meq/ (Premix) 100 mls @ 25 mls/hr IV ONETIME ONE Stop: 10/10/19 13:29 Levothyroxine Sodium (Levothyroxine) 25 mcg PO ACBREAKFAST [facility] Last Admin: 10/10/19 07:54 Dose: Not Given Lorazepam (Ativan) 0.5 mg IVPUSH Q2H PRN PRN Reason: Agitation Last Admin: 10/07/19 19:37 Dose: 0.5 mg Ondansetron HCl (Zofran Odt) 4 mg PO Q4H PRN PRN Reason: Nausea/Vomiting Last Admin: 10/07/19 00:48 Dose: 4 mg Pantoprazole Sodium (Protonix Iv) 40 mg IV Q24H [facility] Last Admin: 10/09/19 15:38 Dose: 40 mg Discontinued Medications Acetaminophen (Tylenol Extra Strength) 1,000 mg PO ONETIME ONE Stop: 10/04/19 05:43 Last Admin: 10/04/19 06:11 Dose: 1,000 mg Acetaminophen (Tylenol) 650 mg PO Q6H [facility] Last Admin: 10/05/19 04:30 Dose: 650 mg Hydrocodone Bitart/Acetaminophen ([place] 325-5 Mg) 1 - 2 tab PO Q4H PRN PRN Reason: Pain Last Admin: 10/07/19 04:18 Dose: 1 tab Albuterol/Ipratropium (Duoneb 3.0-0.5 Mg/3 Ml) 3 ml NEB ONETIME ONE Stop: 10/04/19 06:31 Last Admin: 10/04/19 10:48 Dose: 3 ml Albuterol/Ipratropium (Duoneb 3.0-0.5 Mg/3 Ml) 3 ml NEB ONETIME ONE Stop: 10/04/19 10:46 Last Admin: 10/04/19 12:30 Dose: Not Given Albuterol/Ipratropium (Duoneb 3.0-0.5 Mg/3 Ml) 3 ml INH ASDIRECTED PRN PRN Reason: BREATHING Last Admin: 10/07/19 00:54 Dose: 3 ml Celecoxib (Celebrex) 200 mg PO ONETIME ONE Stop: 10/04/19 05:43 Last Admin: 10/04/19 06:11 Dose: 200 mg Ropivacaine 60 ml/Dexamethasone 8 mg/Epinephrine HCl 0.4 mg/ Sodium Chloride 17.6 ml 0 ml NERVRT ASDIRECTED TIARRA Last Admin: 10/04/19 07:48 Dose: 80 syringe Cyanocobalamin (Vitamin B12) 1,000 mcg IM ONETIME ONE Stop: 10/06/19 09:01 Last Admin: 10/06/19 10:46 Dose: 1,000 mcg Dexamethasone (Dexamethasone) Confirm Administered Dose 4 mg .ROUTE .STK-MED ONE Stop: 10/04/19 07:16 Diphenhydramine HCl (Benadryl) 50 mg IVPUSH Q4H PRN PRN Reason: ITCHING Fentanyl (Sublimaze) Confirm Administered Dose 250 mcg .ROUTE .STK-MED ONE Stop: 10/04/19 07:14 Fentanyl (Sublimaze) Confirm Administered Dose 250 mcg .ROUTE .STK-MED ONE Stop: 10/04/19 08:47 Furosemide (Lasix) 20 mg IVPUSH ONETIME ONE Stop: 10/04/19 20:44 Last Admin: 10/04/19 21:09 Dose: 20 mg Furosemide (Lasix) 20 mg IVPUSH ONETIME ONE Stop: 10/05/19 08:01 Last Admin: 10/05/19 09:43 Dose: 20 mg Furosemide (Lasix) 40 mg PO ONETIME ONE Stop: 10/06/19 00:47 Last Admin: 10/06/19 01:05 Dose: 40 mg Furosemide (Lasix) 40 mg PO ONETIME ONE Stop: 10/06/19 16:34 Last Admin: 10/06/19 17:31 Dose: 40 mg Furosemide (Lasix) 10 mg IVPUSH ONETIME ONE Stop: 10/08/19 22:50 Last Admin: 10/08/19 23:27 Dose: Not Given Gabapentin (Neurontin) 300 mg PO ONETIME ONE Stop: 10/04/19 05:43 Last Admin: 10/04/19 06:10 Dose: 300 mg Gabapentin (Neurontin) 300 mg PO TID [facility] Last Admin: 10/07/19 13:33 Dose: 300 mg Glycopyrrolate (Robinul) Confirm Administered Dose 1 mg .ROUTE .[facility] ONE Stop: 10/04/19 07:16 Hydromorphone HCl (Dilaudid Process Planner 15 Mg In Ns 30 Ml) 0 mg IV ASDIRECTED PRN; Protocol PRN Reason: Pain Last Admin: 10/04/19 10:41 Dose: 0.3 mg Lidocaine HCl/Dextrose (Lidocaine 2 Gm/D5w 500 Ml) 2 gm in 500 mls @ 22.5 mls/ hr IV .Q24H [facility] Stop: 10/05/19 07:29 Last Admin: 10/04/19 12:29 Dose: 1 mg/min, 15 mls/hr Ketamine HCl 50 mg/ Sodium (Chloride) 50 mls @ 12 mls/hr IV ASDIRECTED [facility] Dextrose/Lactated Ringer's (Dextrose 5%-Lactated Ringers) 1,000 mls @ 100 mls/ hr IV ASDIRECTED [facility] Last Admin: 10/04/19 12:29 Dose: 100 mls/hr Cefoxitin Sodium 2 gm/ Sodium (Chloride) 50 mls @ 100 mls/hr IV ONETIME ONE Stop: 10/04/19 07:44 Last Admin: 10/04/19 07:15 Dose: 100 mls/hr Lactated Ringer's (Ringers, Lactated) Confirm Administered Dose 1,000 mls @ as directed .ROUTE .[facility] ONE Stop: 10/04/19 07:14 Dextrose/Lactated Ringer's (Dextrose 5%-Lactated Ringers) 1,000 mls @ 175 mls/ hr IV ASDIRECTED [facility] Multivitamins/Minerals 10 ml/Thiamine HCl 200 mg/ Chromium/Copper/Manganese/ Seleni/Zn 1 ml/ Dextrose/Lactated Ringer's 1,013 mls @ 174.999 mls/hr IV DAILY@ 1600 [facility] Last Admin: 10/04/19 17:13 Dose: 174.999 mls/hr Cefoxitin Sodium 2 gm/ Sodium (Chloride) 50 mls @ 100 mls/hr IV Q6H [facility] Last Admin: 10/05/19 07:49 Dose: 100 mls/hr Dextrose/Lactated Ringer's (Dextrose 5%-Lactated Ringers) 1,000 mls @ 125 mls/ hr IV ASDIRECTED [facility] Last Admin: 10/05/19 00:43 Dose: 125 mls/hr Dextrose/Lactated Ringer's (Dextrose 5%-Lactated Ringers) 1,000 mls @ 100 mls/ hr IV ASDIRECTED [facility] Last Admin: 10/05/19 09:41 Dose: 100 mls/hr Lactated Ringer's (Ringers, Lactated) 500 mls @ 100 mls/hr IV .BOLUS ONE Stop: 10/05/19 11:59 Last Admin: 10/05/19 07:48 Dose: 100 mls/hr Multivitamins/Minerals 10 ml/Thiamine HCl 200 mg/ Chromium/Copper/Manganese/ Seleni/Zn 1 ml/ Dextrose/Lactated Ringer's 1,013 mls @ 100 mls/hr IV DAILY@ 1600 [facility] Linezolid 600 mg/ Premix 300 mls @ 300 mls/hr IV Q12H [facility] Last Admin: 10/09/19 22:30 Dose: 300 mls/hr Piperacillin Sod/Tazobactam (Sod 3.375 gm/ Sodium Chloride) 50 mls @ 100 mls/ hr IV Q6H [facility] Last Admin: 10/07/19 01:45 Dose: 100 mls/hr Levofloxacin/Dextrose 750 mg/ (Premix) 150 mls @ 100 mls/hr IV Q48H [facility] Last Admin: 10/08/19 20:01 Dose: 100 mls/hr Sodium Chloride (Normal Saline) Confirm Administered Dose 50 mls @ as directed .ROUTE .STK-MED ONE Stop: 10/06/19 19:37 Last Admin: 10/06/19 20:03 Dose: Not Given Lactated Ringer's (Ringers, Lactated) 1,000 mls @ [facility] Admin: 10/07/19 17:52 Dose: 100 mls/hr Magnesium Sulfate 2 gm/ Premix 50 mls @ 25 mls/hr IV Q6H [facility] Stop: 10/09/19 05:59 Last Admin: 10/09/19 04:08 Dose: 25 mls/hr Propofol (Diprivan 100 Ml) Confirm Administered Dose 100 mls @ as directed .ROUTE .STK-MED ONE Stop: 10/07/19 21:21 Last Admin: 10/07/19 22:55 Dose: Not Given Iopamidol (Isovue-300 (61%)) 50 ml PO ASDIRECTED STA Stop: 10/05/19 03:24 Last Admin: 10/05/19 03:36 Dose: 50 ml Ketamine HCl (Ketalar) 20 mg IV ASDIRECTED TIAR[facility] Labetalol HCl (Normodyne) 5 mg IVPUSH Q5M PRN PRN Reason: SBP over 160 OR DBP over 95 Lactobacillus Rhamnosus (Culturelle) 1 cap PO BID [facility] Last Admin: 10/08/19 10:23 Dose: Not Given Lidocaine (Xylocaine-Mpf 2%) Confirm Administered Dose 5 ml .ROUTE .STK-MED ONE Stop: 10/07/19 07:55 Lidocaine HCl (Xylocaine 2%) 100 mg IVPUSH ASDIRECTED [facility] Lorazepam (Ativan) 0.5 mg IVPUSH Q4H PRN PRN Reason: Anxiety Last Admin: 10/07/19 13:55 Dose: 0.5 mg Magnesium Hydroxide (Milk Of Magnesia) 30 ml PO ONETIME ONE Stop: 10/06/19 09:31 Last Admin: 10/06/19 11:55 Dose: 30 ml Magnesium Oxide (Magnesium Oxide) 400 mg PO DAILY [facility] Last Admin: 10/06/19 10:46 Dose: 400 mg Meropenem (Merrem) Confirm Administered Dose 500 mg .ROUTE .STK-MED ONE Stop: 10/04/19 09:20 Last Admin: 10/04/19 10:15 Dose: 500 mg Methylprednisolone Sodium Succinate (Solu-Medrol) 40 mg IVPUSH Q8H [facility] Last Admin: 10/09/19 01:40 Dose: 40 mg Metoclopramide HCl (Reglan) 10 mg IVPUSH Q6H PRN PRN Reason: NAUSEA NOT CONTROL BY ZOFRAN Miscellaneous Information (Remove Patch) 1 ea TRDERM ONETIME ONE Stop: 10/07/19 06:01 Miscellaneous Information (Remove Patch) 1 ea TRDERM ONETIME ONE Stop: 10/06/19 10:01 Last Admin: 10/06/19 10:06 Dose: Not Given Naloxone HCl (Narcan) 0.1 mg IV ASDIRECTED PRN PRN Reason: decreased respiratory rate Naloxone HCl (Narcan) Confirm Administered Dose 0.4 mg .ROUTE .STK-MED ONE Stop: 10/04/19 10:41 Neostigmine Methylsulfate (Neostigmine) Confirm Administered Dose 5 mg .ROUTE .STK-MED ONE Stop: 10/04/19 07:16 Check Scopolamine (Patch Daily) 1 each .XX DAILY [facility] Last Admin: 10/04/19 12:30 Dose: Not Given Scopolamine Patch (Check) 1 each TOP DAILY [facility] Stop: 10/06/19 12:53 Last Admin: 10/06/19 10:06 Dose: Not Given Ondansetron HCl (Zofran) Confirm Administered Dose 4 mg .ROUTE .STK-MED ONE Stop: 10/04/19 07:16 Ondansetron HCl (Zofran) 4 mg IVPUSH Q4H PRN PRN Reason: Nausea/Vomiting Pantoprazole Sodium (Protonix Iv) 40 mg IVPUSH Q24H [facility] Last Admin: 10/04/19 17:15 Dose: 40 mg Pantoprazole Sodium (Protonix Granules) 40 mg PO Q24H [facility] Last Admin: 10/08/19 16:12 Dose: Not Given Piperacillin Sod/Tazobactam Sod (Zosyn) Confirm Administered Dose 3.375 gm .ROUTE .STK-MED ONE Stop: 10/06/19 19:36 Last Admin: 10/06/19 20:02 Dose: Not Given Propofol (Diprivan 20 Ml) Confirm Administered Dose 200 mg .ROUTE .STK-MED ONE Stop: 10/04/19 07:16 Propofol (Diprivan 20 Ml) Confirm Administered Dose 200 mg .ROUTE .STK-MED ONE Stop: 10/07/19 21:12 Rocuronium [place] (Zemuron) Confirm Administered Dose 50 mg .ROUTE .STK-MED ONE Stop: 10/04/19 07:16 Rocuronium [place] (Zemuron) Confirm Administered Dose 50 mg .ROUTE .STK-MED ONE Stop: 10/04/19 09:27 Scopolamine (Transderm-Scop) 1.5 mg TOP ONETIME ONE Stop: 10/04/19 05:43 Last Admin: 10/04/19 06:11 Dose: 1.5 mg Succinylcholine Chloride (Quelicin) Confirm Administered Dose 200 mg .ROUTE .STK -MED ONE Stop: 10/04/19 07:16 Succinylcholine Chloride (Quelicin) Confirm Administered Dose 200 mg .ROUTE .STK -MED ONE Stop: 10/07/19 21:12 Sugammadex Sodium ([place]) Confirm Administered Dose 200 mg .ROUTE .STK-MED ONE Stop: 10/04/19 10:47 - Exam Quality Assessment: Supplemental Oxygen, Central Line/PICC, Urine Catheter, DVT Prophylaxis, Restraints General: Mild Distress. No: Alert Lungs: Decreased Breath Sounds (both bases right > left ), Crackles (both bases) . No: Normal Respiratory Effort (increased work of breathing ), Wheezing Cardiovascular: Regular Rate, Regular Rhythm, No Murmurs GI/Abdominal Exam: Soft, No Distention, Abnormal Bowel Sounds (hypoactive) Extremities: No Pedal Edema. No: Increased Warmth Skin: Warm, Dry Wound/Incisions: Healing Well, No Drainage Psy/Mental Status: No: Alert, Agitated - Problem List Review Problem List Initiated/Reviewed/Updated: Yes - My Orders Last 24 Hours: My Active Orders 10/09/19 09:32 Weight Daily [Height and Weight] [RC] DAILY 10/10/19 08:55 CXR [Chest 1V Frontal] [CR] Stat 10/10/19 08:59 Furosemide [Lasix] 20 mg IVPUSH NOW ONE 10/10/19 09:01 Potassium Chloride Riders [KCL 40 MEQ in Water 100 ML] 40 meq Premix Bag 1 bag IV ONETIME 10/10/19 15:00 BLOOD GAS ARTERIAL [BG] Timed POTASSIUM,K [CHEM] Timed 10/11/19 05:00 BASIC METABOLIC PANEL,BMP [CHEM] Timed BLOOD GAS ARTERIAL [BG] Timed CBC W/O DIFF,HEMOGRAM [HEME] Timed (1)
[2019-10-10] MEDS ORDERED: Furosemide 20 MG/2 ML VIAL IVPUSH ONE ×2 (09:30→18:00)
[2019-10-10] MEDS ORDERED: Potassium Chloride Riders 40 MEQ in Premix Bag 1 BAG IV ONE (09:30)
--- NOTE | 2019-10-10 10:07 | CR ---
CHEST: Portable 10/10/2019 at 0917 CLINICAL HISTORY:Hypoxia, intubation COMPARISON:Earlier same day FINDINGS: Patient has an endotracheal tube in the mid trachea. There is an NG tube in the upper portion of the stomach. There is dense infiltrate in the right upper lobe as well as some volume loss with elevation of the minor fissure. There is diffuse left lung infiltrate. This is similar to prior study considering technical differences. There appears to be a small left effusion Impression: Endotracheal and nasogastric intubation Dense right upper lobe infiltrate and atelectasis Diffuse bilateral pulmonary infiltrate similar to earlier study Small left effusion.
--- NOTE | 2019-10-10 10:18 | CR ---
CHEST: Portable 10/10/2019 at 9:14 AM CLINICAL HISTORY:Hypoxia COMPARISON:Earlier same day FINDINGS: There is an NG tube in the stomach. There is an endotracheal tube in the proximal trachea. This has been withdrawn when compared to the study from . There is a left subclavian catheter. Tip is in the right atrium Patient has diffuse bilateral pulmonary infiltrates. There is some superimposed atelectasis in the right upper lobe. There is a small left effusion. IMPRESSION: Endotracheal tube has been withdrawn into the upper trachea near the level of the cords NG tube remains in place Diffuse bilateral pulmonary infiltrates with superimposed atelectasis in the right upper lobe Small left effusion Left subclavian catheter tip is in the right atrium
[2019-10-10] MEDS: DULoxetine 30 MG Cap PO SCH ×2 (10:30→20:38)
[2019-10-10] MEDS: Heparin Sodium 5,000 UNITS in Sodium Chloride 0.9% 500 ML IV SCH (13:21)
--- NOTE | 2019-10-10 14:46 | PCM.CONSN ---
- General Info Date of Service: 10/10/19 Subjective Update: There were no acute events overnight but the patient did lose some ground with respect to the respiratory status. FiO2 requirements did increase. X-ray this morning suggested that the endotracheal tube had migrated slightly and was down into the right mainstem bronchus. The endotracheal tube was withdrawn as indicated based on measurements from the chest x-ray but the patient had respiratory difficulty after this. Repeat chest x-ray suggested the endotracheal tube was too high. The tube was inserted further and the patient has done well since that time. She appears comfortable. She has not had any fevers. Respiratory culture grew out enterococcus which was likely related to her aspiration. Functional Status: Reports: Other (intubated and sedated ) - Review of Systems General: Denies: Fever - Patient Data Vitals - Most Recent: Last Vital Signs Temp 38 C 10/10/19 14:00 Pulse 94 10/10/19 14:32 Resp 32 H 10/10/19 14:00 BP 116/63 10/10/19 14:00 Pulse Ox 91 L 10/10/19 14:32 Weight - Most Recent: 126.099 kg I&O - Last 24 Hours: Intake & Output 10/09/19 10/10/19 10/10/19 22:59 06:59 14:59 Intake Total 1288 1400 Output Total 850 645 Balance 438 755 Lab Results Last 24 Hours: Laboratory Results - last 24 hr 10/09/19 10/10/19 10/10/19 Range/Units 16:00 04:06 04:06 WBC 16.2 H (4.5-11.0) K/uL RBC 3.82 (3.30-5.50) M/uL Hgb 9.7 L (12.0-15.0) g/dL Hct 32.5 L (36.0-48.0) % MCV 85 (80-98) fL MCH 25 L (27-31) pg MCHC 30 L (32-36) % Plt Count 521 H (150-400) K/uL Puncture Site A-line Line ABG pH 7.460 H 7.465 H (7.350-7.450) ABG pCO2 47.7 H 44.9 H (35.0-42.0) mmHg ABG pO2 61.9 L 60.9 L (75.0-100.0) mmHg ABG HCO3 33.4 H 31.9 H (22.0-26.0) mmol/L ABG Total CO2 30.8 H 29.3 H (21.0-25.0) mmol/L ABG O2 Saturation 91.0 L 91.5 L (95.0-98.0) % ABG O2 Content 12.5 L 12.4 L (15.0-23.0) %vol ABG Base Excess 8.8 7.6 mm/L ABG Hemoglobin 10.0 L 9.9 L (12.0-16.0) g/dL ABG Oxyhemoglobin 89.2 89.1 % ABG Carboxyhemoglobin 1.0 1.5 (0.0-1.6) % ABG Methemoglobin 1.0 1.1 % Bimal Test A-line O2 Delivery Device Ventilator Ventilator Oxygen Flow Rate L Sodium (140-148) mmol/L Potassium (3.6-5.2) mmol/L Chloride (100-108) mmol/L Carbon Dioxide (21-32) mmol/L Anion Gap (5.0-14.0) mmol/L BUN (7-18) mg/dL Creatinine (0.6-1.0) mg/dL Est Cr Clr Drug Dosing mL/min Estimated GFR (MDRD) (>60) Glucose (74-106) mg/dL Calcium (8.5-10.1) mg/dL Phosphorus (2.5-4.9) mg/dL Total Bilirubin (0.2-1.0) mg/dL AST (15-37) U/L ALT (12-78) U/L Alkaline Phosphatase (46-116) U/L NT-Pro-B Natriuret Pep (5-125) pg/mL Total Protein (6.4-8.2) g/dL Albumin (3.4-5.0) g/dL Globulin (2.3-3.5) g/dL Albumin/Globulin Ratio (1.2-2.2) 10/10/19 Range/Units 04:06 WBC (4.5-11.0) K/uL RBC (3.30-5.50) M/uL Hgb (12.0-15.0) g/dL Hct (36.0-48.0) % MCV (80-98) fL MCH (27-31) pg MCHC (32-36) % Plt Count (150-400) K/uL Puncture Site ABG pH (7.350-7.450) ABG pCO2 (35.0-42.0) mmHg ABG pO2 (75.0-100.0) mmHg ABG HCO3 (22.0-26.0) mmol/L ABG Total CO2 (21.0-25.0) mmol/L ABG O2 Saturation (95.0-98.0) % ABG O2 Content (15.0-23.0) %vol ABG Base Excess mm/L ABG Hemoglobin (12.0-16.0) g/dL ABG Oxyhemoglobin % ABG Carboxyhemoglobin (0.0-1.6) % ABG Methemoglobin % Bimal Test O2 Delivery Device Oxygen Flow Rate L Sodium 142 (140-148) mmol/L Potassium 3.3 L (3.6-5.2) mmol/L Chloride 104 (100-108) mmol/L Carbon Dioxide 32 (21-32) mmol/L Anion Gap 9.3 (5.0-14.0) mmol/L BUN 14 (7-18) mg/dL Creatinine 0.8 (0.6-1.0) mg/dL Est Cr Clr Drug Dosing 50.36 mL/min Estimated GFR (MDRD) > 60 (>60) Glucose 130 H (74-106) mg/dL Calcium 7.7 L (8.5-10.1) mg/dL Phosphorus 1.8 L (2.5-4.9) mg/dL Total Bilirubin 0.3 (0.2-1.0) mg/dL AST 16 (15-37) U/L ALT 22 (12-78) U/L Alkaline Phosphatase 91 (46-116) U/L NT-Pro-B Natriuret Pep 645 H (5-125) pg/mL Total Protein 5.8 L (6.4-8.2) g/dL Albumin 1.7 L (3.4-5.0) g/dL Globulin 4.1 H (2.3-3.5) g/dL Albumin/Globulin Ratio 0.4 L (1.2-2.2) Jae Results Last 24 Hours: Microbiology 10/07/19 01:15 Gram Stain - Final Sputum - Other Respiratory Culture - Final Enterococcus Faecalis 10/06/19 18:15 Aerobic Blood Culture - Preliminary Blood - Arm, Left NO GROWTH AFTER 3 DAYS Anaerobic Blood Culture - Preliminary NO GROWTH AFTER 3 DAYS 10/06/19 18:25 Aerobic Blood Culture - Preliminary Blood - Arterial Line - Direct Stick NO GROWTH AFTER 3 DAYS Anaerobic Blood Culture - Preliminary NO GROWTH AFTER 3 DAYS Med Orders - Current: Current Medications Albuterol (Proventil Neb Soln) 2.5 mg NEB Q2H PRN PRN Reason: shortness of breath/wheezing Albuterol/Ipratropium (Duoneb 3.0-0.5 Mg/3 Ml) 3 ml INH QIDRT [facility] Last Admin: 10/10/19 14:32 Dose: 3 ml Celecoxib (Celebrex) 200 mg PO DAILY@0800 [facility] Last Admin: 10/10/19 07:54 Dose: Not Given Duloxetine HCl (Cymbalta) 30 mg PO BID [facility] Last Admin: 10/10/19 10:30 Dose: Not Given Furosemide (Lasix) 20 mg IVPUSH ONETIME ONE Stop: 10/10/19 18:01 Heparin Sodium (Porcine) (Heparin Sodium) 5,000 units SUBCUT Q8H [facility] Last Admin: 10/10/19 07:57 Dose: 5,000 units Heparin Sodium (Porcine) (Heparin Lock Flush 100 Units/Ml) 500 units FLUSH ASDIRECTED PRN PRN Reason: Keep Vein Open Last Admin: 10/09/19 11:40 Dose: 500 units Hydroxyzine HCl (Vistaril) 100 mg IM Q4H PRN PRN Reason: pain Last Admin: 10/06/19 05:11 Dose: 100 mg Piperacillin/Tazobactam/ (Dextrose 3.375 gm/ Premix) 50 mls @ 100 mls/hr IV Q6H [facility] Last Admin: 10/10/19 13:52 Dose: 100 mls/hr Heparin Sodium (Porcine) 5,000 (units/ Sodium Chloride) 501 mls @ 0 mls/hr IV ASDIRECTED [facility] Last Admin: 10/10/19 13:21 Dose: 1 mls/hr Propofol (Diprivan 100 Ml) 100 mls @ 3.783 mls/hr IV TITRATE [facility]; Protocol Last Admin: 10/10/19 12:56 Dose: 35 mcg/kg/min, 26.481 mls/hr Sodium Chloride (Normal Saline) 1,000 mls @ 25 mls/hr IV ASDIRECTED [facility] Lactated Ringer's (Ringers, Lactated) 1,000 mls @ 25 mls/hr IV ASDIRECTED TIARRA Last Admin: 10/08/19 19:59 Dose: 25 mls/hr Levofloxacin/Dextrose 750 mg/ (Premix) 150 mls @ 100 mls/hr IV Q24H [facility] Last Admin: 10/09/19 19:50 Dose: 100 mls/hr Levothyroxine Sodium (Levothyroxine) 25 mcg PO ACBREAKFAST [facility] Last Admin: 10/10/19 07:54 Dose: Not Given Lorazepam (Ativan) 0.5 mg IVPUSH Q2H PRN PRN Reason: Agitation Last Admin: 10/07/19 19:37 Dose: 0.5 mg Ondansetron HCl (Zofran Odt) 4 mg PO Q4H PRN PRN Reason: Nausea/Vomiting Last Admin: 10/07/19 00:48 Dose: 4 mg Pantoprazole Sodium (Protonix Iv) 40 mg IV Q24H [facility] Last Admin: 10/09/19 15:38 Dose: 40 mg Discontinued Medications Acetaminophen (Tylenol Extra Strength) 1,000 mg PO ONETIME ONE Stop: 10/04/19 05:43 Last Admin: 10/04/19 06:11 Dose: 1,000 mg Acetaminophen (Tylenol) 650 mg PO Q6H [facility] Last Admin: 10/05/19 04:30 Dose: 650 mg Hydrocodone Bitart/Acetaminophen (Kane 325-5 Mg) 1 - 2 tab PO Q4H PRN PRN Reason: Pain Last Admin: 10/07/19 04:18 Dose: 1 tab Albuterol/Ipratropium (Duoneb 3.0-0.5 Mg/3 Ml) 3 ml NEB ONETIME ONE Stop: 10/04/19 06:31 Last Admin: 10/04/19 10:48 Dose: 3 ml Albuterol/Ipratropium (Duoneb 3.0-0.5 Mg/3 Ml) 3 ml NEB ONETIME ONE Stop: 10/04/19 10:46 Last Admin: 10/04/19 12:30 Dose: Not Given Albuterol/Ipratropium (Duoneb 3.0-0.5 Mg/3 Ml) 3 ml INH ASDIRECTED PRN PRN Reason: BREATHING Last Admin: 10/07/19 00:54 Dose: 3 ml Celecoxib (Celebrex) 200 mg PO ONETIME ONE Stop: 10/04/19 05:43 Last Admin: 10/04/19 06:11 Dose: 200 mg Ropivacaine 60 ml/Dexamethasone 8 mg/Epinephrine HCl 0.4 mg/ Sodium Chloride 17.6 ml 0 ml NERVRT ASDIRECTED TIARRA Last Admin: 10/04/19 07:48 Dose: 80 syringe Cyanocobalamin (Vitamin B12) 1,000 mcg IM ONETIME ONE Stop: 10/06/19 09:01 Last Admin: 10/06/19 10:46 Dose: 1,000 mcg Dexamethasone (Dexamethasone) Confirm Administered Dose 4 mg .ROUTE .STK-MED ONE Stop: 10/04/19 07:16 Diphenhydramine HCl (Benadryl) 50 mg IVPUSH Q4H PRN PRN Reason: ITCHING Fentanyl (Sublimaze) Confirm Administered Dose 250 mcg .ROUTE .STK-MED ONE Stop: 10/04/19 07:14 Fentanyl (Sublimaze) Confirm Administered Dose 250 mcg .ROUTE .STK-MED ONE Stop: 10/04/19 08:47 Furosemide (Lasix) 20 mg IVPUSH ONETIME ONE Stop: 10/04/19 20:44 Last Admin: 10/04/19 21:09 Dose: 20 mg Furosemide (Lasix) 20 mg IVPUSH ONETIME ONE Stop: 10/05/19 08:01 Last Admin: 10/05/19 09:43 Dose: 20 mg Furosemide (Lasix) 40 mg PO ONETIME ONE Stop: 10/06/19 00:47 Last Admin: 10/06/19 01:05 Dose: 40 mg Furosemide (Lasix) 40 mg PO ONETIME ONE Stop: 10/06/19 16:34 Last Admin: 10/06/19 17:31 Dose: 40 mg Furosemide (Lasix) 10 mg IVPUSH ONETIME ONE Stop: 10/08/19 22:50 Last Admin: 10/08/19 23:27 Dose: Not Given Furosemide (Lasix) 20 mg IVPUSH NOW ONE Stop: 10/10/19 09:31 Last Admin: 10/10/19 10:32 Dose: 20 mg Gabapentin (Neurontin) 300 mg PO ONETIME ONE Stop: 10/04/19 05:43 Last Admin: 10/04/19 06:10 Dose: 300 mg Gabapentin (Neurontin) 300 mg PO TID [facility] Last Admin: 10/07/19 13:33 Dose: 300 mg Glycopyrrolate (Robinul) Confirm Administered Dose 1 mg .ROUTE .STK-MED ONE Stop: 10/04/19 07:16 Hydromorphone HCl (Dilaudid Post Anesthesia Nurse 15 Mg In Ns 30 Ml) 0 mg IV ASDIRECTED PRN; Protocol PRN Reason: Pain Last Admin: 10/04/19 10:41 Dose: 0.3 mg Lidocaine HCl/Dextrose (Lidocaine 2 Gm/D5w 500 Ml) 2 gm in 500 mls @ 22.5 mls/ hr IV .Q24H [facility] Stop: 10/05/19 07:29 Last Admin: 10/04/19 12:29 Dose: 1 mg/min, 15 mls/hr Ketamine HCl 50 mg/ Sodium (Chloride) 50 mls @ 12 mls/hr IV ASDIRECTED [facility] Dextrose/Lactated Ringer's (Dextrose 5%-Lactated Ringers) 1,000 mls @ 100 mls/ hr IV ASDIRECTED [facility] Last Admin: 10/04/19 12:29 Dose: 100 mls/hr Cefoxitin Sodium 2 gm/ Sodium (Chloride) 50 mls @ 100 mls/hr IV ONETIME ONE Stop: 10/04/19 07:44 Last Admin: 10/04/19 07:15 Dose: 100 mls/hr Lactated Ringer's (Ringers, Lactated) Confirm Administered Dose 1,000 mls @ as directed .ROUTE .STK-MED ONE Stop: 10/04/19 07:14 Dextrose/Lactated Ringer's (Dextrose 5%-Lactated Ringers) 1,000 mls @ 175 mls/ hr IV ASDIRECTED [facility] Multivitamins/Minerals 10 ml/Thiamine HCl 200 mg/ Chromium/Copper/Manganese/ Seleni/Zn 1 ml/ Dextrose/Lactated Ringer's 1,013 mls @ 174.999 mls/hr IV DAILY@ 1600 [facility] Last Admin: 10/04/19 17:13 Dose: 174.999 mls/hr Cefoxitin Sodium 2 gm/ Sodium (Chloride) 50 mls @ 100 mls/hr IV Q6H [facility] Last Admin: 10/05/19 07:49 Dose: 100 mls/hr Dextrose/Lactated Ringer's (Dextrose 5%-Lactated Ringers) 1,000 mls @ 125 mls/ hr IV ASDIRECTED [facility] Last Admin: 10/05/19 00:43 Dose: 125 mls/hr Dextrose/Lactated Ringer's (Dextrose 5%-Lactated Ringers) 1,000 mls @ 100 mls/ hr IV ASDIRECTED [facility] Last Admin: 10/05/19 09:41 Dose: 100 mls/hr Lactated Ringer's (Ringers, Lactated) 500 mls @ 100 mls/hr IV .BOLUS ONE Stop: 10/05/19 11:59 Last Admin: 10/05/19 07:48 Dose: 100 mls/hr Multivitamins/Minerals 10 ml/Thiamine HCl 200 mg/ Chromium/Copper/Manganese/ Seleni/Zn 1 ml/ Dextrose/Lactated Ringer's 1,013 mls @ 100 mls/hr IV DAILY@ 1600 [facility] Linezolid 600 mg/ Premix 300 mls @ 300 mls/hr IV Q12H [facility] Last Admin: 10/09/19 22:30 Dose: 300 mls/hr Piperacillin Sod/Tazobactam (Sod 3.375 gm/ Sodium Chloride) 50 mls @ 100 mls/ hr IV Q6H [facility] Last Admin: 10/07/19 01:45 Dose: 100 mls/hr Levofloxacin/Dextrose 750 mg/ (Premix) 150 mls @ 100 mls/hr IV Q48H [facility] Last Admin: 10/08/19 20:01 Dose: 100 mls/hr Sodium Chloride (Normal Saline) Confirm Administered Dose 50 mls @ as directed .ROUTE .STK-MED ONE Stop: 10/06/19 19:37 Last Admin: 10/06/19 20:03 Dose: Not Given Lactated Ringer's (Ringers, Lactated) 1,000 mls [facility] Admin: 10/07/19 17:52 Dose: 100 mls/hr Magnesium Sulfate 2 gm/ Premix 50 mls @ 25 mls/hr IV Q6H [facility] Stop: 10/09/19 05:59 Last Admin: 10/09/19 04:08 Dose: 25 mls/hr Propofol (Diprivan 100 Ml) Confirm Administered Dose 100 mls @ as directed .ROUTE .STK-MED ONE Stop: 10/07/19 21:21 Last Admin: 10/07/19 22:55 Dose: Not Given Potassium Chloride 40 meq/ (Premix) 100 mls @ 25 mls/hr IV ONETIME ONE Stop: 10/10/19 13:29 Last Admin: 10/10/19 10:31 Dose: 25 mls/hr Iopamidol (Isovue-300 (61%)) 50 ml PO ASDIRECTED [facility] Stop: 10/05/19 03:24 Last Admin: 10/05/19 03:36 Dose: 50 ml Ketamine HCl (Ketalar) 20 mg IV ASDIRECTED [facility] Labetalol HCl (Normodyne) 5 mg IVPUSH Q5M PRN PRN Reason: SBP over 160 OR DBP over 95 Lactobacillus Rhamnosus (Culturelle) 1 cap PO BID [facility] Last Admin: 10/08/19 10:23 Dose: Not Given Lidocaine (Xylocaine-Mpf 2%) Confirm Administered Dose 5 ml .ROUTE .STK-MED ONE Stop: 10/07/19 07:55 Lidocaine HCl (Xylocaine 2%) 100 mg IVPUSH ASDIRECTED [facility] Lorazepam (Ativan) 0.5 mg IVPUSH Q4H PRN PRN Reason: Anxiety Last Admin: 10/07/19 13:55 Dose: 0.5 mg Magnesium Hydroxide (Milk Of Magnesia) 30 ml PO ONETIME ONE Stop: 10/06/19 09:31 Last Admin: 10/06/19 11:55 Dose: 30 ml Magnesium Oxide (Magnesium Oxide) 400 mg PO DAILY [facility] Last Admin: 10/06/19 10:46 Dose: 400 mg Meropenem (Merrem) Confirm Administered Dose 500 mg .ROUTE .STK-MED ONE Stop: 10/04/19 09:20 Last Admin: 10/04/19 10:15 Dose: 500 mg Methylprednisolone Sodium Succinate (Solu-Medrol) 40 mg IVPUSH Q8H [facility] Last Admin: 10/09/19 01:40 Dose: 40 mg Metoclopramide HCl (Reglan) 10 mg IVPUSH Q6H PRN PRN Reason: NAUSEA NOT CONTROL BY ZOFRAN Miscellaneous Information (Remove Patch) 1 ea KEITHM ONETIME ONE Stop: 10/07/19 06:01 Miscellaneous Information (Remove Patch) 1 ea TRDERM ONETIME ONE Stop: 10/06/19 10:01 Last Admin: 10/06/19 10:06 Dose: Not Given Naloxone HCl (Narcan) 0.1 mg IV ASDIRECTED PRN PRN Reason: decreased respiratory rate Naloxone HCl (Narcan) Confirm Administered Dose 0.4 mg .ROUTE .STK-MED ONE Stop: 10/04/19 10:41 Neostigmine Methylsulfate (Neostigmine) Confirm Administered Dose 5 mg .ROUTE .STK-MED ONE Stop: 10/04/19 07:16 Check Scopolamine (Patch Daily) 1 each .XX DAILY [facility] Last Admin: 10/04/19 12:30 Dose: Not Given Scopolamine Patch (Check) 1 each TOP DAILY [facility] Stop: 10/06/19 12:53 Last Admin: 10/06/19 10:06 Dose: Not Given Ondansetron HCl (Zofran) Confirm Administered Dose 4 mg .ROUTE .STK-MED ONE Stop: 10/04/19 07:16 Ondansetron HCl (Zofran) 4 mg IVPUSH Q4H PRN PRN Reason: Nausea/Vomiting Pantoprazole Sodium (Protonix Iv) 40 mg IVPUSH Q24H [facility] Last Admin: 10/04/19 17:15 Dose: 40 mg Pantoprazole Sodium (Protonix Granules) 40 mg PO Q24H [facility] Last Admin: 10/08/19 16:12 Dose: Not Given Piperacillin Sod/Tazobactam Sod (Zosyn) Confirm Administered Dose 3.375 gm .ROUTE .STK-MED ONE Stop: 10/06/19 19:36 Last Admin: 10/06/19 20:02 Dose: Not Given Propofol (Diprivan 20 Ml) Confirm Administered Dose 200 mg .ROUTE .STK-MED ONE Stop: 10/04/19 07:16 Propofol (Diprivan 20 Ml) Confirm Administered Dose 200 mg .ROUTE .STK-MED ONE Stop: 10/07/19 21:12 Rocuronium [place] (Zemuron) Confirm Administered Dose 50 mg .ROUTE .STK-MED ONE Stop: 10/04/19 07:16 Rocuronium [place] (Zemuron) Confirm Administered Dose 50 mg .ROUTE .STK-MED ONE Stop: 10/04/19 09:27 Scopolamine (Transderm-Scop) 1.5 mg TOP ONETIME ONE Stop: 10/04/19 05:43 Last Admin: 10/04/19 06:11 Dose: 1.5 mg Succinylcholine Chloride (Quelicin) Confirm Administered Dose 200 mg .ROUTE .STK -MED ONE Stop: 10/04/19 07:16 Succinylcholine Chloride (Quelicin) Confirm Administered Dose 200 mg .ROUTE .STK -MED ONE Stop: 10/07/19 21:12 Sugammadex Sodium (Bridion) Confirm Administered Dose 200 mg .ROUTE .STK-MED ONE Stop: 10/04/19 10:47 - Exam Quality Assessment: Supplemental Oxygen, Central Line/PICC, Urine Catheter, DVT Prophylaxis, Restraints General: No Acute Distress, Sedated. No: Alert Lungs: Normal Respiratory Effort, Decreased Breath Sounds (Both bases), Crackles (Mild both bases) Cardiovascular: Regular Rate, Regular Rhythm GI/Abdominal Exam: Soft, No Distention, Abnormal Bowel Sounds (Hypoactive) Extremities: No Pedal Edema. No: Increased Warmth Skin: Warm, Dry Wound/Incisions: No Drainage Psy/Mental Status: No: Alert, Agitated Consult PN Assessment/Plan POD#: 6 Procedures: Procedures BLOOD TYPING SEROLOGIC ABO (07/26/19) BLOOD TYPING SEROLOGIC RH(D) (07/26/19) RBC ANTIBODY SCREEN (07/26/19) Problem List Initiated/Reviewed/Updated: Yes My Orders Last 24 Hours: My Active Orders 10/10/19 15:00 BLOOD GAS ARTERIAL [BG] Routine POTASSIUM,K [CHEM] Routine 10/10/19 18:00 Furosemide [Lasix] 20 mg IVPUSH ONETIME ONE 10/11/19 05:00 BASIC METABOLIC PANEL,BMP [CHEM] Timed BLOOD GAS ARTERIAL [BG] Timed CBC W/O DIFF,HEMOGRAM [HEME] Timed (1) Plan: ASSESSMENT AND RECOMMENDATIONS ACUTE HYPOXIC AND HYPERCAPNIC RESPIRATORY FAILURE - she did lose some ground overnight but appears to be stable again this morning. Endotracheal tube is currently in good position. Culture did grow out enterococcus which was sensitive to penicillins. There appears to be some component of excess volume as well as the infection. -Trial of furosemide -Supplemental oxygen as needed -Mechanical ventilation with weaning trials once respiratory status stabilized further -Nebulizer therapy as ordered -Follow-up blood gases this afternoon and in a.m. LEFT LUNG PNEUMONIA - infiltrate seem to be improving. Culture was positive for enterococcus. No significant fevers. -Follow-up cultures -IV Pip/Tazo, and levofloxacin -Discontinue linezolid STATUS POST DUODENAL SWITCH PROCEDURE - postop course complicated by an ileus. She now has an NG tube. -Postop care per Dr. Denny Rivers M.D.
[2019-10-10] MEDS: Pantoprazole 40 MG Vial IV SCH (16:36)
[2019-10-10] MEDS: Morphine 2 MG/ML Syringe IVPUSH PRN ×3 (16:36→22:54)
[2019-10-10] MEDS: Levofloxacin/Dextrose 5%-Water 750 MG in Premix Bag 1 BAG IV SCH (20:32)
[2019-10-11] MEDS: Piperacillin/Tazobactam/Dext 3.375 GM in Premix Bag 1 BAG IV SCH ×2 (01:50→08:28)
[2019-10-11] MEDS: Morphine 2 MG/ML Syringe IVPUSH PRN ×3 (02:13→22:19)
--- NOTE | 2019-10-11 04:13 | CRLCR ---
HISTORY: Respiratory failure. Ventilator management. COMPARISON: From yesterday. FINDINGS: A portable erect AP view of the chest was obtained at 0325 hours. There is increased consolidation of the right upper lobe, now prominence, consistent with worsening right upper lobe pneumonia or atelectasis. There is no change in prominent left lower lobe consolidation. There is slightly increased mild diffuse patchy infiltrate throughout the rest of the chest, worsening CHF versus ARDS. An endotracheal tube continues to have its tip in satisfactory position midway between the thoracic inlet and adrian. A nasogastric tube is again seen passing into the body of the stomach. Again seen is a left subclavian central line with its tip in satisfactory position in the superior vena cava at the cavoatrial junction. There is no sign of pneumothorax on the left. The heart remains top normal in size. The mediastinum is normal in appearance. The osseous structures are normal in appearance for the patient`s age. IMPRESSION: Continued satisfactory positioning of multiple lines and tubes. Increased consolidation of the right upper lobe, now prominent. No change in prominent consolidation of the left lower lobe. Slightly increased interstitial markings throughout the chest, consistent with worsening mild CHF or ARDS. Dictated by Lior Odonnell MD @ Oct 11 2019 4:09AM Signed by Dr. Lior Odonnell @ Oct 11 2019 4:12AM
[2019-10-11] MEDS: Sodium Chloride 0.9% 1,000 ML IV SCH (06:37)
[2019-10-11] MEDS: Albuterol/Ipratropium 3.0-0.5 MG/3 ML Neb Soln INH SCH ×4 (07:30→21:07)
[2019-10-11] MEDS: Celecoxib 200 MG Cap PO SCH (07:46)
[2019-10-11] MEDS: Levothyroxine 25 MCG Tab PO SCH (07:46)
[2019-10-11] MEDS: Heparin Sodium 5,000 Units/ML Vial SUBCUT SCH ×2 (08:30→16:01)
[2019-10-11] MEDS ORDERED: Furosemide 40 MG/4 ML VIAL IVPUSH ONE ×2 (08:41→16:55)
--- NOTE | 2019-10-11 08:44 | PCM.CONSN ---
- General Info Date of Service: 10/11/19 Subjective Update: Overnight there was a decline in her respiratory status. Patient had increasing FiO2 requirement. She has not had any fevers. She remains intubated and sedated. No new positive culture results since yesterday. Urine output has been excellent and she was net negative yesterday with the diuresis. Functional Status: Reports: Other (intubated and sedated ) - Review of Systems General: Denies: Fever - Patient Data Vitals - Most Recent: Last Vital Signs Temp 36.7 C 10/11/19 07:00 Pulse 90 10/11/19 07:31 Resp 22 H 10/11/19 07:00 BP 111/54 L 10/11/19 07:00 Pulse Ox 90 L 10/11/19 07:31 Weight - Most Recent: 134.5 kg I&O - Last 24 Hours: Intake & Output 10/10/19 10/11/19 10/11/19 22:59 06:59 14:59 Intake Total 1018 1070 Output Total 1800 1595 Balance -782 -525 Lab Results Last 24 Hours: Laboratory Results - last 24 hr 10/10/19 10/10/19 10/11/19 Range/Units 14:46 15:00 04:10 WBC 19.1 H (4.5-11.0) K/uL RBC 3.79 (3.30-5.50) M/uL Hgb 9.6 L (12.0-15.0) g/dL Hct 32.2 L (36.0-48.0) % MCV 85 (80-98) fL MCH 25 L (27-31) pg MCHC 30 L (32-36) % Plt Count 495 H (150-400) K/uL Puncture Site A-line ABG pH 7.528 H (7.350-7.450) ABG pCO2 40.1 (35.0-42.0) mmHg ABG pO2 60.7 L (75.0-100.0) mmHg ABG HCO3 33.2 H (22.0-26.0) mmol/L ABG Total CO2 30.0 H (21.0-25.0) mmol/L ABG O2 Saturation 92.6 L (95.0-98.0) % ABG O2 Content 13.2 L (15.0-23.0) %vol ABG Base Excess 9.7 mm/L ABG Hemoglobin 10.4 L (12.0-16.0) g/dL ABG Oxyhemoglobin 90.0 % ABG Carboxyhemoglobin 1.8 H (0.0-1.6) % ABG Methemoglobin 1.0 % Bimal Test A-line O2 Delivery Device Ventilator Oxygen Flow Rate L Sodium (140-148) mmol/L Potassium 3.8 (3.6-5.2) mmol/L Chloride (100-108) mmol/L Carbon Dioxide (21-32) mmol/L Anion Gap (5.0-14.0) mmol/L BUN (7-18) mg/dL Creatinine (0.6-1.0) mg/dL Est Cr Clr Drug Dosing mL/min Estimated GFR (MDRD) (>60) Glucose (74-106) mg/dL Calcium (8.5-10.1) mg/dL 10/11/19 10/11/19 Range/Units 04:10 04:10 WBC (4.5-11.0) K/uL RBC (3.30-5.50) M/uL Hgb (12.0-15.0) g/dL Hct (36.0-48.0) % MCV (80-98) fL MCH (27-31) pg MCHC (32-36) % Plt Count (150-400) K/uL Puncture Site A-line ABG pH 7.467 H (7.350-7.450) ABG pCO2 46.9 H (35.0-42.0) mmHg ABG pO2 63.7 L (75.0-100.0) mmHg ABG HCO3 33.5 H (22.0-26.0) mmol/L ABG Total CO2 30.8 H (21.0-25.0) mmol/L ABG O2 Saturation 91.7 L (95.0-98.0) % ABG O2 Content 12.6 L (15.0-23.0) %vol ABG Base Excess 9.0 mm/L ABG Hemoglobin 9.9 L (12.0-16.0) g/dL ABG Oxyhemoglobin 89.9 % ABG Carboxyhemoglobin 0.9 (0.0-1.6) % ABG Methemoglobin 1.1 % Bimal Test A-line O2 Delivery Device Ventilator Oxygen Flow Rate L Sodium 141 (140-148) mmol/L Potassium 3.4 L (3.6-5.2) mmol/L Chloride 102 (100-108) mmol/L Carbon Dioxide 33 H (21-32) mmol/L Anion Gap 9.4 (5.0-14.0) mmol/L BUN 14 (7-18) mg/dL Creatinine 0.8 (0.6-1.0) mg/dL Est Cr Clr Drug Dosing 50.36 mL/min Estimated GFR (MDRD) > 60 (>60) Glucose 118 H (74-106) mg/dL Calcium 8.0 L (8.5-10.1) mg/dL Jae Results Last 24 Hours: Microbiology 10/11/19 08:00 Gram Stain - Final Endotrachial Tube 10/06/19 18:25 Aerobic Blood Culture - Preliminary Blood - Arterial Line - Direct Stick NO GROWTH AFTER 4 DAYS Anaerobic Blood Culture - Preliminary NO GROWTH AFTER 4 DAYS 10/06/19 18:15 Aerobic Blood Culture - Preliminary Blood - Arm, Left NO GROWTH AFTER 4 DAYS Anaerobic Blood Culture - Preliminary NO GROWTH AFTER 4 DAYS 10/07/19 01:15 Gram Stain - Final Sputum - Other Respiratory Culture - Final Enterococcus Faecalis Med Orders - Current: Current Medications Albuterol (Proventil Neb Soln) 2.5 mg NEB Q2H PRN PRN Reason: shortness of breath/wheezing Last Admin: 10/10/19 22:54 Dose: 2.5 mg Albuterol/Ipratropium (Duoneb 3.0-0.5 Mg/3 Ml) 3 ml INH QIDRT [facility] Last Admin: 10/11/19 07:30 Dose: 3 ml Celecoxib (Celebrex) 200 mg PO DAILY@0800 [facility] Last Admin: 10/11/19 07:46 Dose: Not Given Duloxetine HCl (Cymbalta) 30 mg PO BID [facility] Last Admin: 10/10/19 20:38 Dose: Not Given Furosemide (Lasix) 40 mg IVPUSH ONETIME ONE Stop: 10/11/19 08:42 Heparin Sodium (Porcine) (Heparin Sodium) 5,000 units SUBCUT Q8H [facility] Last Admin: 10/11/19 08:30 Dose: 5,000 units Heparin Sodium (Porcine) (Heparin Lock Flush 100 Units/Ml) 500 units FLUSH ASDIRECTED PRN PRN Reason: Keep Vein Open Last Admin: 10/09/19 11:40 Dose: 500 units Hydroxyzine HCl (Vistaril) 100 mg IM Q4H PRN PRN Reason: pain Last Admin: 10/06/19 05:11 Dose: 100 mg Heparin Sodium (Porcine) 5,000 (units/ Sodium Chloride) 501 mls @ 0 mls/hr IV ASDIRECTED [facility] Last Admin: 10/10/19 13:21 Dose: 1 mls/hr Propofol (Diprivan 100 Ml) 100 mls @ 3.783 mls/hr IV TITRATE [facility]; Protocol Last Titration: 10/11/19 08:29 Dose: 35 mcg/kg/min, 26.481 mls/hr Sodium Chloride (Normal Saline) 1,000 mls @ 25 mls/hr IV ASDIRECTED [facility] Last Admin: 10/11/19 06:37 Dose: 25 mls/hr Lactated Ringer's (Ringers, Lactated) 1,000 mls @ 25 mls/hr IV ASDIRECTED [facility] Stop: 10/11/19 10:00 Last Admin: 10/08/19 19:59 Dose: 25 mls/hr Levofloxacin/Dextrose 750 mg/ (Premix) 150 mls @ 100 mls/hr IV Q24H [facility] Last Admin: 10/10/19 20:32 Dose: 100 mls/hr Potassium Phosphate 22.5 mmole (/ Sodium Chloride) 107.5 mls @ 36 mls/hr IV Q3H [facility] Stop: 10/11/19 15:59 Multivitamins/Minerals 10 ml/Chromium/Copper/Manganese/Seleni/Zn 1 ml/ Amino Acids/Electrolytes/Dextrose 1,011 mls @ 60 mls/hr IV .BY DURATION [facility] Amino Acids/Electrolytes/Dextrose (Clinimix E 4.25/10) 1,000 mls @ 60 mls/hr IV .BY DURATION [facility] Linezolid 600 mg/ Premix 300 mls @ 300 mls/hr IV Q12H [facility] Meropenem 1 gm/ Sodium (Chloride) 50 mls @ 100 mls/hr IV Q8H [facility] Levothyroxine Sodium (Levothyroxine) 25 mcg PO ACBREAKFAST [facility] Last Admin: 10/11/19 07:46 Dose: Not Given Lorazepam (Ativan) 0.5 mg IVPUSH Q2H PRN PRN Reason: Agitation Last Admin: 10/07/19 19:37 Dose: 0.5 mg Morphine Sulfate (Morphine) 2 mg IVPUSH Q2H PRN PRN Reason: Pain Last Admin: 10/11/19 02:13 Dose: 2 mg Ondansetron HCl (Zofran Odt) 4 mg PO Q4H PRN PRN Reason: Nausea/Vomiting Last Admin: 10/07/19 00:48 Dose: 4 mg Pantoprazole Sodium (Protonix Iv) 40 mg IV Q24H [facility] Last Admin: 10/10/19 16:36 Dose: 40 mg Discontinued Medications Acetaminophen (Tylenol Extra Strength) 1,000 mg PO ONETIME ONE Stop: 10/04/19 05:43 Last Admin: 10/04/19 06:11 Dose: 1,000 mg Acetaminophen (Tylenol) 650 mg PO Q6H [facility] Last Admin: 10/05/19 04:30 Dose: 650 mg Hydrocodone Bitart/Acetaminophen (Aurora 325-5 Mg) 1 - 2 tab PO Q4H PRN PRN Reason: Pain Last Admin: 10/07/19 04:18 Dose: 1 tab Albuterol/Ipratropium (Duoneb 3.0-0.5 Mg/3 Ml) 3 ml NEB ONETIME ONE Stop: 10/04/19 06:31 Last Admin: 10/04/19 10:48 Dose: 3 ml Albuterol/Ipratropium (Duoneb 3.0-0.5 Mg/3 Ml) 3 ml NEB ONETIME ONE Stop: 10/04/19 10:46 Last Admin: 10/04/19 12:30 Dose: Not Given Albuterol/Ipratropium (Duoneb 3.0-0.5 Mg/3 Ml) 3 ml INH ASDIRECTED PRN PRN Reason: BREATHING Last Admin: 10/07/19 00:54 Dose: 3 ml Celecoxib (Celebrex) 200 mg PO ONETIME ONE Stop: 10/04/19 05:43 Last Admin: 10/04/19 06:11 Dose: 200 mg Ropivacaine 60 ml/Dexamethasone 8 mg/Epinephrine HCl 0.4 mg/ Sodium Chloride 17.6 ml 0 ml NERVRT ASDIRECTED [facility] Last Admin: 10/04/19 07:48 Dose: 80 syringe Cyanocobalamin (Vitamin B12) 1,000 mcg IM ONETIME ONE Stop: 10/06/19 09:01 Last Admin: 10/06/19 10:46 Dose: 1,000 mcg Dexamethasone (Dexamethasone) Confirm Administered Dose 4 mg .ROUTE .STK-MED ONE Stop: 10/04/19 07:16 Diphenhydramine HCl (Benadryl) 50 mg IVPUSH Q4H PRN PRN Reason: ITCHING Fentanyl (Sublimaze) Confirm Administered Dose 250 mcg .ROUTE .STK-MED ONE Stop: 10/04/19 07:14 Fentanyl (Sublimaze) Confirm Administered Dose 250 mcg .ROUTE .STK-MED ONE Stop: 10/04/19 08:47 Furosemide (Lasix) 20 mg IVPUSH ONETIME ONE Stop: 10/04/19 20:44 Last Admin: 10/04/19 21:09 Dose: 20 mg Furosemide (Lasix) 20 mg IVPUSH ONETIME ONE Stop: 10/05/19 08:01 Last Admin: 10/05/19 09:43 Dose: 20 mg Furosemide (Lasix) 40 mg PO ONETIME ONE Stop: 10/06/19 00:47 Last Admin: 10/06/19 01:05 Dose: 40 mg Furosemide (Lasix) 40 mg PO ONETIME ONE Stop: 10/06/19 16:34 Last Admin: 10/06/19 17:31 Dose: 40 mg Furosemide (Lasix) 10 mg IVPUSH ONETIME ONE Stop: 10/08/19 22:50 Last Admin: 10/08/19 23:27 Dose: Not Given Furosemide (Lasix) 20 mg IVPUSH NOW ONE Stop: 10/10/19 09:31 Last Admin: 10/10/19 10:32 Dose: 20 mg Furosemide (Lasix) 20 mg IVPUSH ONETIME ONE Stop: 10/10/19 18:01 Last Admin: 10/10/19 18:22 Dose: 20 mg Gabapentin (Neurontin) 300 mg PO ONETIME ONE Stop: 10/04/19 05:43 Last Admin: 10/04/19 06:10 Dose: 300 mg Gabapentin (Neurontin) 300 mg PO TID [facility] Last Admin: 10/07/19 13:33 Dose: 300 mg Glycopyrrolate (Robinul) Confirm Administered Dose 1 mg .ROUTE .STK-MED ONE Stop: 10/04/19 07:16 Hydromorphone HCl (Dilaudid [employer]ice 15 Mg In Ns 30 Ml) 0 mg IV ASDIRECTED PRN; Protocol PRN Reason: Pain Last Admin: 10/04/19 10:41 Dose: 0.3 mg Lidocaine HCl/Dextrose (Lidocaine 2 Gm/D5w 500 Ml) 2 gm in 500 mls @ 22.5 mls/ hr IV .Q24H [facility] Stop: 10/05/19 07:29 Last Admin: 10/04/19 12:29 Dose: 1 mg/min, 15 mls/hr Ketamine HCl 50 mg/ Sodium (Chloride) 50 mls @ 12 mls/hr IV ASDIRECTED [facility] Dextrose/Lactated Ringer's (Dextrose 5%-Lactated Ringers) 1,000 mls @ 100 mls/ hr IV ASDIRECTED [facility] Last Admin: 10/04/19 12:29 Dose: 100 mls/hr Cefoxitin Sodium 2 gm/ Sodium (Chloride) 50 mls @ 100 mls/hr IV ONETIME ONE Stop: 10/04/19 07:44 Last Admin: 10/04/19 07:15 Dose: 100 mls/hr Lactated Ringer's (Ringers, Lactated) Confirm Administered Dose 1,000 mls @ as directed .ROUTE .STK-MED ONE Stop: 10/04/19 07:14 Dextrose/Lactated Ringer's (Dextrose 5%-Lactated Ringers) 1,000 mls @ 175 mls/ hr IV ASDIRECTED [facility] Multivitamins/Minerals 10 ml/Thiamine HCl 200 mg/ Chromium/Copper/Manganese/ Seleni/Zn 1 ml/ Dextrose/Lactated Ringer's 1,013 mls @ 174.999 mls/hr IV DAILY@ 1600 [facility] Last Admin: 10/04/19 17:13 Dose: 174.999 mls/hr Cefoxitin Sodium 2 gm/ Sodium (Chloride) 50 mls @ 100 mls/hr IV Q6H [facility] Last Admin: 10/05/19 07:49 Dose: 100 mls/hr Dextrose/Lactated Ringer's (Dextrose 5%-Lactated Ringers) 1,000 mls @ 125 mls/ hr IV ASDIRECTED [facility] Last Admin: 10/05/19 00:43 Dose: 125 mls/hr Dextrose/Lactated Ringer's (Dextrose 5%-Lactated Ringers) 1,000 mls @ 100 mls/ hr IV ASDIRECTED [facility] Last Admin: 10/05/19 09:41 Dose: 100 mls/hr Lactated Ringer's (Ringers, Lactated) 500 mls @ 100 mls/hr IV .BOLUS ONE Stop: 10/05/19 11:59 Last Admin: 10/05/19 07:48 Dose: 100 mls/hr Multivitamins/Minerals 10 ml/Thiamine HCl 200 mg/ Chromium/Copper/Manganese/ Seleni/Zn 1 ml/ Dextrose/Lactated Ringer's 1,013 mls @ 100 mls/hr IV DAILY@ 1600 [facility] Linezolid 600 mg/ Premix 300 mls @ 300 mls/hr IV Q12H [facility] Last Admin: 10/09/19 22:30 Dose: 300 mls/hr Piperacillin Sod/Tazobactam (Sod 3.375 gm/ Sodium Chloride) 50 mls @ 100 mls/ hr IV Q6H [facility] Last Admin: 10/07/19 01:45 Dose: 100 mls/hr Levofloxacin/Dextrose 750 mg/ (Premix) 150 mls @ 100 mls/hr IV Q48H [facility] Last Admin: 10/08/19 20:01 Dose: 100 mls/hr Sodium Chloride (Normal Saline) Confirm Administered Dose 50 mls @ as directed .ROUTE .STK-MED ONE Stop: 10/06/19 19:37 Last Admin: 10/06/19 20:03 Dose: Not Given Lactated Ringer's (Ringers, Lactated) 1,000 mls @ 100 mls/hr IV ASDIRECTED [facility] Last Admin: 10/07/19 17:52 Dose: 100 mls/hr Piperacillin/Tazobactam/ (Dextrose 3.375 gm/ Premix) 50 mls @ 100 mls/hr IV Q6H [facility] Last Admin: 10/11/19 08:28 Dose: 100 mls/hr Magnesium Sulfate 2 gm/ Premix 50 mls @ 25 mls/hr IV Q6H [facility] Stop: 10/09/19 05:59 Last Admin: 10/09/19 04:08 Dose: 25 mls/hr Propofol (Diprivan 100 Ml) Confirm Administered Dose 100 mls @ as directed .ROUTE .STK-MED ONE Stop: 10/07/19 21:21 Last Admin: 10/07/19 22:55 Dose: Not Given Potassium Chloride 40 meq/ (Premix) 100 mls @ 25 mls/hr IV ONETIME ONE Stop: 10/10/19 13:29 Last Admin: 10/10/19 10:31 Dose: 25 mls/hr Iopamidol (Isovue-300 (61%)) 50 ml PO ASDIRECTED [facility] Stop: 10/05/19 03:24 Last Admin: 10/05/19 03:36 Dose: 50 ml Ketamine HCl (Ketalar) 20 mg IV ASDIRECTED [facility] Labetalol HCl (Normodyne) 5 mg IVPUSH Q5M PRN PRN Reason: SBP over 160 OR DBP over 95 Lactobacillus Rhamnosus (Culturelle) 1 cap PO BID [facility] Last Admin: 10/08/19 10:23 Dose: Not Given Lidocaine (Xylocaine-Mpf 2%) Confirm Administered Dose 5 ml .ROUTE .STK-MED ONE Stop: 10/07/19 07:55 Lidocaine HCl (Xylocaine 2%) 100 mg IVPUSH ASDIRECTED [facility] Lorazepam (Ativan) 0.5 mg IVPUSH Q4H PRN PRN Reason: Anxiety Last Admin: 10/07/19 13:55 Dose: 0.5 mg Magnesium Hydroxide (Milk Of Magnesia) 30 ml PO ONETIME ONE Stop: 10/06/19 09:31 Last Admin: 10/06/19 11:55 Dose: 30 ml Magnesium Oxide (Magnesium Oxide) 400 mg PO DAILY [facility] Last Admin: 10/06/19 10:46 Dose: 400 mg Meropenem (Merrem) Confirm Administered Dose 500 mg .ROUTE .STK-MED ONE Stop: 10/04/19 09:20 Last Admin: 10/04/19 10:15 Dose: 500 mg Methylprednisolone Sodium Succinate (Solu-Medrol) 40 mg IVPUSH Q8H [facility] Last Admin: 10/09/19 01:40 Dose: 40 mg Metoclopramide HCl (Reglan) 10 mg IVPUSH Q6H PRN PRN Reason: NAUSEA NOT CONTROL BY ZOFRAN Miscellaneous Information (Remove Patch) 1 ea TRDERM ONETIME ONE Stop: 10/07/19 06:01 Miscellaneous Information (Remove Patch) 1 ea TRDERM ONETIME ONE Stop: 10/06/19 10:01 Last Admin: 10/06/19 10:06 Dose: Not Given Naloxone HCl (Narcan) 0.1 mg IV ASDIRECTED PRN PRN Reason: decreased respiratory rate Naloxone HCl (Narcan) Confirm Administered Dose 0.4 mg .ROUTE .STK-MED ONE Stop: 10/04/19 10:41 Neostigmine Methylsulfate (Neostigmine) Confirm Administered Dose 5 mg .ROUTE .STK-MED ONE Stop: 10/04/19 07:16 Check Scopolamine (Patch Daily) 1 each .XX DAILY [facility] Last Admin: 10/04/19 12:30 Dose: Not Given Scopolamine Patch (Check) 1 each TOP DAILY [facility] Stop: 10/06/19 12:53 Last Admin: 10/06/19 10:06 Dose: Not Given Ondansetron HCl (Zofran) Confirm Administered Dose 4 mg .ROUTE .STK-MED ONE Stop: 10/04/19 07:16 Ondansetron HCl (Zofran) 4 mg IVPUSH Q4H PRN PRN Reason: Nausea/Vomiting Pantoprazole Sodium (Protonix Iv) 40 mg IVPUSH Q24H [facility] Last Admin: 10/04/19 17:15 Dose: 40 mg Pantoprazole Sodium (Protonix Granules) 40 mg PO Q24H [facility] Last Admin: 10/08/19 16:12 Dose: Not Given Piperacillin Sod/Tazobactam Sod (Zosyn) Confirm Administered Dose 3.375 gm .ROUTE .STK-MED ONE Stop: 10/06/19 19:36 Last Admin: 10/06/19 20:02 Dose: Not Given Propofol (Diprivan 20 Ml) Confirm Administered Dose 200 mg .ROUTE .STK-MED ONE Stop: 10/04/19 07:16 Propofol (Diprivan 20 Ml) Confirm Administered Dose 200 mg .ROUTE .STK-MED ONE Stop: 10/07/19 21:12 Rocuronium [place] (Zemuron) Confirm Administered Dose 50 mg .ROUTE .STK-MED ONE Stop: 10/04/19 07:16 Rocuronium [place] (Zemuron) Confirm Administered Dose 50 mg .ROUTE .STK-MED ONE Stop: 10/04/19 09:27 Scopolamine (Transderm-Scop) 1.5 mg TOP ONETIME ONE Stop: 10/04/19 05:43 Last Admin: 10/04/19 06:11 Dose: 1.5 mg Succinylcholine Chloride (Quelicin) Confirm Administered Dose 200 mg .ROUTE .STK -MED ONE Stop: 10/04/19 07:16 Succinylcholine Chloride (Quelicin) Confirm Administered Dose 200 mg .ROUTE .STK -MED ONE Stop: 10/07/19 21:12 Sugammadex Sodium (Bridion) Confirm Administered Dose 200 mg .ROUTE .STK-MED ONE Stop: 10/04/19 10:47 - Exam Quality Assessment: Supplemental Oxygen, Central Line/PICC, Urine Catheter, DVT Prophylaxis, Restraints General: No Acute Distress, Sedated. No: Alert Lungs: Decreased Breath Sounds (right lung base), Crackles (left lung base and right upper lung ). No: Normal Respiratory Effort (increased work of breathing ), Wheezing Cardiovascular: Regular Rate, Regular Rhythm, No Murmurs GI/Abdominal Exam: Normal Bowel Sounds, Soft, No Distention Extremities: No Pedal Edema. No: Increased Warmth Peripheral Pulses: 2+: Dorsalis Pedis (L), Dorsalis Pedis (R) Skin: Warm, Dry Wound/Incisions: Healing Well Psy/Mental Status: No: Alert, Agitated Consult PN Assessment/Plan POD#: 7 Procedures: Procedures BLOOD TYPING SEROLOGIC ABO (07/26/19) BLOOD TYPING SEROLOGIC RH(D) (07/26/19) RBC ANTIBODY SCREEN (07/26/19) Problem List Initiated/Reviewed/Updated: Yes My Orders Last 24 Hours: My Active Orders 10/10/19 15:26 Morphine 2 mg IVPUSH Q2H PRN 10/11/19 08:41 Furosemide [Lasix] 40 mg IVPUSH ONETIME ONE 10/11/19 08:45 Linezolid [Zyvox] 600 mg Premix Bag 1 bag IV Q12H Meropenem [Merrem] 1 gm Sodium Chloride 0.9% [Normal Saline] 50 ml IV Q8H Plan: ASSESSMENT AND RECOMMENDATIONS ACUTE HYPOXIC AND HYPERCAPNIC RESPIRATORY FAILURE - she did lose some ground again overnight. Chest x-ray shows persistent right upper and left lower lung infiltrates. CT scan of the chest today revealed consolidation in the right upper lung as well as both lower lungs with the left lower lung infiltrates greater than the right. There is also a possibility of developing ARDS. Sputum sample from this morning via endotracheal aspirate is showing gram-positive cocci on the Gram stain. Culture is pending. -Aggressive diuresis as blood pressure will tolerate -Minimize IV fluid as able -Scheduled nebulizers -Supplemental oxygen as needed -Mechanical ventilation with weaning trials once respiratory status stabilized further (PEEP increased today) -Nebulizer therapy as ordered -Follow-up blood gases in a.m. LEFT LUNG PNEUMONIA - infiltrate seem to be stagnant. Initial culture grew out enterococcus. Repeat sputum sample today showed gram-positive cocci. -Restart linezolid and add meropenem -Continue levofloxacin -Follow-up cultures HYPOKALEMIA - mild and will be replaced today. STATUS POST DUODENAL SWITCH PROCEDURE - postop course complicated by an ileus but bowel function seems to be improving. She now has an NG tube. She is on TPN. -Postop care per Dr. Denny Rivers M.D.
[2019-10-11] MEDS: DULoxetine 30 MG Cap PO SCH (08:50)
[2019-10-11] MEDS ORDERED: Iopamidol 612 MG/ML 100 ML Bottle IV SCH (09:00)
[2019-10-11] MEDS ORDERED: Sodium Chloride 0.9% 10 ML Syringe FLUSH ONE (09:00)
[2019-10-11] MEDS ORDERED: Sodium Chloride 0.9% 100 ML IV SCH (09:00)
--- NOTE | 2019-10-11 09:38 | PN ---
DATE OF SERVICE: 10/11/2019 SUBJECTIVE: Marissa has difficulty keeping up with her respiratory saturations. With oral care or any type of movements, she is at 80%. Temp max 100. LABORATORY DATA: Hemoglobin 9.6, white count 19.1, potassium is 3.4, and phosphorus yesterday was 1.8. REVIEW OF SYSTEMS: Remainder of review of systems negative for any pertinent positives and negatives. OBJECTIVE: GENERAL: Marissa is a 64-year-old female. She is on the vent, sedated. VITAL SIGNS: TPR 98.8, 91, 32. Blood pressure 110/53. HEART: Regular rate. LUNGS: Decreased. ABDOMEN: Dressings dry and intact. VIJAY drain, she has 3 and they put out 10, 5, and 55 respectively of a light pink drainage. NG put out 0, which is down from 50 the day before. EXTREMITIES: Negative. ASSESSMENT: 1. Postop day 7 following a Tim-en-Y gastric bypass surgery. 2. Acute hypoxia and hypercapnic respiratory failure. 3. Left lung pneumonia. 4. Duodenal switch procedure. 5. Postop ileus. PLAN: Orders to be written per Brad Baldwin MD. Culture and sensitivity of sputum. K- Phos 45 mEq, and she will be started on TPN therapy. Labs in a.m. We will evaluate p.r.n. or in a.m. Suzie Andrea PA-C /[id number]
[2019-10-11] MEDS: Linezolid 600 MG in Premix Bag 1 BAG IV SCH ×2 (10:17→21:07)
[2019-10-11] MEDS: Potassium Phosphates 22.5 MMOLE in Sodium Chloride 0.9% 100 ML IV SCH ×2 (10:17→13:29)
[2019-10-11] MEDS: 1: AA 4.25%/Calcium/D10W/Lytes 1,000 ML with MVI, Adult with Vitamin K 10 ML, Chromium/C IV SCH ×3 (10:17)
--- NOTE | 2019-10-11 10:35 | CRLCT ---
INDICATION: Bilateral pneumonia. Possible ARDS. TECHNIQUE: Volumetric helical scanning of the thorax was performed without IV contrast material. Coronal and sagittal reconstructions were obtained. COMPARISON: None. FINDINGS: The lungs are low in volume with consolidation in the posterior aspect of the right lung and in the posterior left lower lobe base. Patchy infiltrates are present elsewhere in both lungs. Endotracheal tube is present and within 1 cm of the adrian. No pleural effusion is demonstrated. No mediastinal or hilar lymphadenopathy is demonstrated. The heart size is normal. Images of the upper abdomen demonstrate recent postop changes with a drainage tube in the left upper quadrant. There appear to be postop changes of gastric bypass. A nasogastric tube is present in the gastric remnant. IMPRESSION: 1. Lungs lung volume with consolidation in the posterior right lung and posterior left lower lobe base as well as patchy infiltrates elsewhere in both lungs. Pneumonia versus ARDS. 2. Endotracheal tube in place within 1 cm of the adrian. 3. Recent abdominal postop changes with left upper quadrant drain. Post gastric bypass. 4. NG tube in the gastric remnant. Please note that all CT scans at this facility use dose modulation, iterative reconstruction, and/or weight-based dosing when appropriate to reduce radiation dose to as low as reasonably achievable. Dictated by Merlin Rodney MD @ Oct 11 2019 10:25AM Signed by Dr. Merlin Rodney @ Oct 11 2019 10:34AM
[2019-10-11] MEDS: Pantoprazole 40 MG Vial IV SCH (16:01)
[2019-10-11] MEDS: Levofloxacin/Dextrose 5%-Water 750 MG in Premix Bag 1 BAG IV SCH (19:43)
[2019-10-12] MEDS: Morphine 2 MG/ML Syringe IVPUSH PRN (02:06)
[2019-10-12] MEDS: 1: AA 4.25%/Calcium/D10W/Lytes 1,000 ML with MVI, Adult with Vitamin K 10 ML, Chromium/C IV SCH ×6 (03:30→19:02)
--- NOTE | 2019-10-12 05:51 | CRLCR ---
HISTORY: Respiratory failure. Ventilator management. COMPARISON: From yesterday FINDINGS: A portable erect AP view of the chest was obtained at 0503 hours. There has been a distinct improvement in consolidation of the right upper lobe, now mile. There continues to be moderate consolidation of the right infrahilar lung. There is stable moderate consolidation of the left lower lobe, with stable mild patchy interstitial infiltrates scattered throughout the rest of the chest, consistent with ARDS. No definite pleural effusions are evident. An endotracheal tube continues to have its tip in satisfactory position midway between the thoracic inlet and adrian. Again seen is a nasogastric tube which has its tip in the body of the stomach. During the interval, a left subclavian central line has been placed with its tip in the midportion of the right atrium. There is no sign of a pneumothorax on the left. The heart remains normal in size. The mediastinum is normal in appearance. The osseous structures are normal in appearance for the patient`s age. IMPRESSION: Improvement in right upper lobe infiltrate, now mild. This is consistent with improving atelectasis or pneumonia. Stable moderate right infrahilar infiltrate, probably pneumonia. Stable moderate left lower lobe consolidation, atelectasis versus pneumonia. Stable mild diffuse interstitial pulmonary edema, probably ARDS. Stable satisfactory positioning of endotracheal and nasogastric tubes. New left subclavian central line placed with tip in the midportion of the right atrium. No sign of pneumothorax. Dictated by Lior Odonnell MD @ Oct 12 2019 5:44AM Signed by Dr. Lior Odonnell @ Oct 12 2019 5:48AM
[2019-10-12] MEDS: Albuterol/Ipratropium 3.0-0.5 MG/3 ML Neb Soln INH SCH ×4 (07:08→20:50)
[2019-10-12] MEDS: Celecoxib 200 MG Cap PO SCH (07:32)
[2019-10-12] MEDS: Levothyroxine 25 MCG Tab PO SCH (07:32)
[2019-10-12] MEDS ORDERED: Potassium Chloride Riders 40 MEQ in Premix Bag 1 BAG IV ONE (08:00)
[2019-10-12] MEDS: Heparin Sodium 5,000 Units/ML Vial SUBCUT SCH ×3 (08:18→16:09)
[2019-10-12] MEDS ORDERED: Furosemide 40 MG/4 ML VIAL IVPUSH SCH (09:00)
--- NOTE | 2019-10-12 09:10 | PCM.CONSN ---
- General Info Date of Service: 10/12/19 Subjective Update: No acute events overnight. Respiratory status stable but not dramatically improved compared to yesterday afternoon. She is on 65% FiO2. She has not had any fevers. Respiratory culture is growing germ tube positive yeast. Blood gases continued to show slight alkalosis with mildly elevated PCO2. She continues to over breathe the vent despite changes in sedation. She remains intubated and sedated. Functional Status: Reports: Other (intubated and sedated) - Review of Systems General: Denies: Fever - Patient Data Vitals - Most Recent: Last Vital Signs Temp 36.9 C 10/12/19 07:00 Pulse 91 10/12/19 07:08 Resp 34 H 10/12/19 07:00 BP 97/50 L 10/12/19 07:00 Pulse Ox 89 L 10/12/19 07:00 Weight - Most Recent: 134.5 kg I&O - Last 24 Hours: Intake & Output 10/11/19 10/12/19 10/12/19 22:59 06:59 14:59 Intake Total 1749 2051 Output Total 2650 772 Balance -901 1279 Lab Results Last 24 Hours: Laboratory Results - last 24 hr 10/12/19 10/12/19 10/12/19 Range/Units 04:42 04:42 04:42 WBC 23.9 H (4.5-11.0) K/uL RBC 3.71 (3.30-5.50) M/uL Hgb 9.4 L (12.0-15.0) g/dL Hct 31.3 L (36.0-48.0) % MCV 84 (80-98) fL MCH 25 L (27-31) pg MCHC 30 L (32-36) % Plt Count 484 H (150-400) K/uL Puncture Site A-line ABG pH 7.479 H (7.350-7.450) ABG pCO2 47.2 H (35.0-42.0) mmHg ABG pO2 57.2 L (75.0-100.0) mmHg ABG HCO3 34.7 H (22.0-26.0) mmol/L ABG Total CO2 31.9 H (21.0-25.0) mmol/L ABG O2 Saturation 88.8 L (95.0-98.0) % ABG O2 Content 11.9 L (15.0-23.0) %vol ABG Base Excess 10.2 mm/L ABG Hemoglobin 9.7 L (12.0-16.0) g/dL ABG Oxyhemoglobin 87.1 % ABG Carboxyhemoglobin 1.0 (0.0-1.6) % ABG Methemoglobin 0.9 % Bimal Test A-line O2 Delivery Device Ventilator Oxygen Flow Rate L Sodium 139 L (140-148) mmol/L Potassium 3.5 L (3.6-5.2) mmol/L Chloride 100 (100-108) mmol/L Carbon Dioxide 33 H (21-32) mmol/L Anion Gap 9.5 (5.0-14.0) mmol/L BUN 20 H (7-18) mg/dL Creatinine 0.8 (0.6-1.0) mg/dL Est Cr Clr Drug Dosing 50.36 mL/min Estimated GFR (MDRD) > 60 (>60) Glucose 158 H (74-106) mg/dL Calcium 7.8 L (8.5-10.1) mg/dL Phosphorus 3.7 (2.5-4.9) mg/dL Magnesium 1.7 L D (1.8-2.4) mg/dL Total Bilirubin 0.3 (0.2-1.0) mg/dL AST 21 (15-37) U/L ALT 16 (12-78) U/L Alkaline Phosphatase 106 (46-116) U/L NT-Pro-B Natriuret Pep 91 (5-125) pg/mL Total Protein 6.0 L (6.4-8.2) g/dL Albumin 1.4 L (3.4-5.0) g/dL Globulin 4.6 H (2.3-3.5) g/dL Albumin/Globulin Ratio 0.3 L (1.2-2.2) Jae Results Last 24 Hours: Microbiology 10/11/19 08:00 Gram Stain - Final Endotrachial Tube Respiratory Culture - Preliminary YEAST 10/06/19 18:25 Aerobic Blood Culture - Final Blood - Arterial Line - Direct Stick NO GROWTH AFTER 5 DAYS Anaerobic Blood Culture - Final NO GROWTH AFTER 5 DAYS 10/06/19 18:15 Aerobic Blood Culture - Final Blood - Arm, Left NO GROWTH AFTER 5 DAYS Anaerobic Blood Culture - Final NO GROWTH AFTER 5 DAYS Med Orders - Current: Current Medications Albuterol (Proventil Neb Soln) 2.5 mg NEB Q2H PRN PRN Reason: shortness of breath/wheezing Last Admin: 10/10/19 22:54 Dose: 2.5 mg Albuterol/Ipratropium (Duoneb 3.0-0.5 Mg/3 Ml) 3 ml INH QIDRT [facility] Last Admin: 10/12/19 07:08 Dose: 3 ml Celecoxib (Celebrex) 200 mg PO DAILY@0800 [facility] Last Admin: 10/12/19 07:32 Dose: Not Given Duloxetine HCl (Cymbalta) 30 mg PO BID [facility] Last Admin: 10/11/19 08:50 Dose: Not Given Furosemide (Lasix) 40 mg IVPUSH Q8H [facility] Heparin Sodium (Porcine) (Heparin Sodium) 5,000 units SUBCUT Q8H [facility] Last Admin: 10/12/19 08:18 Dose: 5,000 units Heparin Sodium (Porcine) (Heparin Lock Flush 100 Units/Ml) 500 units FLUSH ASDIRECTED PRN PRN Reason: Keep Vein Open Last Admin: 10/09/19 11:40 Dose: 500 units Hydroxyzine HCl (Vistaril) 100 mg IM Q4H PRN PRN Reason: pain Last Admin: 10/06/19 05:11 Dose: 100 mg Heparin Sodium (Porcine) 5,000 (units/ Sodium Chloride) 501 mls @ 0 mls/hr IV ASDIRECTED [facility] Last Admin: 10/10/19 13:21 Dose: 1 mls/hr Propofol (Diprivan 100 Ml) 100 mls @ 3.783 mls/hr IV TITRATE [facility]; Protocol Last Admin: 10/12/19 06:24 Dose: 30 mcg/kg/min, 22.698 mls/hr Sodium Chloride (Normal Saline) 1,000 mls @ 25 mls/hr IV ASDIRECTED [facility] Last Admin: 10/11/19 06:37 Dose: 25 mls/hr Multivitamins/Minerals 10 ml/Chromium/Copper/Manganese/Seleni/Zn 1 ml/ Amino Acids/Electrolytes/Dextrose 1,011 mls @ 60 mls/hr IV .BY DURATION [facility] Last Admin: 10/11/19 10:17 Dose: 60 mls/hr Amino Acids/Electrolytes/Dextrose (Clinimix E 4.25/10) 1,000 mls @ 60 mls/hr IV .BY DURATION [facility] Last Admin: 10/12/19 03:30 Dose: 60 mls/hr Linezolid 600 mg/ Premix 300 mls @ 300 mls/hr IV Q12H [facility] Last Admin: 10/11/19 21:07 Dose: 300 mls/hr Meropenem 1 gm/ Sodium (Chloride) 50 mls @ 100 mls/hr IV Q8H [facility] Last Admin: 10/12/19 01:02 Dose: 100 mls/hr Potassium Chloride 40 meq/ (Premix) 100 mls @ 25 mls/hr IV ONETIME ONE Stop: 10/12/19 11:59 Last Admin: 10/12/19 08:33 Dose: 25 mls/hr Magnesium Sulfate 2 gm/ Premix 50 mls @ 25 mls/hr IV Q6H [facility] Stop: 10/14/19 06:59 Albumin Human (Albumin 25%) 25 gm in 100 mls @ 25 mls/hr IV Q24H [facility] Stop: 10/14/19 16:59 Doxycycline Hyclate 100 mg/ (Sodium Chloride) 100 mls @ 100 mls/hr IV Q12HR [facility] Fluconazole/Sodium Chloride (200 mg/ Premix) 100 mls @ 100 mls/hr IV Q24H [facility] Levothyroxine Sodium (Levothyroxine) 25 mcg PO ACBREAKFAST [facility] Last Admin: 10/12/19 07:32 Dose: Not Given Lorazepam (Ativan) 0.5 mg IVPUSH Q2H PRN PRN Reason: Agitation Last Admin: 10/07/19 19:37 Dose: 0.5 mg Morphine Sulfate (Morphine) 2 mg IVPUSH Q2H PRN PRN Reason: Pain Last Admin: 10/12/19 02:06 Dose: 2 mg Ondansetron HCl (Zofran Odt) 4 mg PO Q4H PRN PRN Reason: Nausea/Vomiting Last Admin: 10/07/19 00:48 Dose: 4 mg Pantoprazole Sodium (Protonix Iv) 40 mg IV Q24H [facility] Last Admin: 10/11/19 16:01 Dose: 40 mg Discontinued Medications Acetaminophen (Tylenol Extra Strength) 1,000 mg PO ONETIME ONE Stop: 10/04/19 05:43 Last Admin: 10/04/19 06:11 Dose: 1,000 mg Acetaminophen (Tylenol) 650 mg PO Q6H [facility] Last Admin: 10/05/19 04:30 Dose: 650 mg Hydrocodone Bitart/Acetaminophen (Brick 325-5 Mg) 1 - 2 tab PO Q4H PRN PRN Reason: Pain Last Admin: 10/07/19 04:18 Dose: 1 tab Albuterol/Ipratropium (Duoneb 3.0-0.5 Mg/3 Ml) 3 ml NEB ONETIME ONE Stop: 10/04/19 06:31 Last Admin: 10/04/19 10:48 Dose: 3 ml Albuterol/Ipratropium (Duoneb 3.0-0.5 Mg/3 Ml) 3 ml NEB ONETIME ONE Stop: 10/04/19 10:46 Last Admin: 10/04/19 12:30 Dose: Not Given Albuterol/Ipratropium (Duoneb 3.0-0.5 Mg/3 Ml) 3 ml INH ASDIRECTED PRN PRN Reason: BREATHING Last Admin: 10/07/19 00:54 Dose: 3 ml Celecoxib (Celebrex) 200 mg PO ONETIME ONE Stop: 10/04/19 05:43 Last Admin: 10/04/19 06:11 Dose: 200 mg Ropivacaine 60 ml/Dexamethasone 8 mg/Epinephrine HCl 0.4 mg/ Sodium Chloride 17.6 ml 0 ml NERVRT ASDIRECTED [facility] Last Admin: 10/04/19 07:48 Dose: 80 syringe Cyanocobalamin (Vitamin B12) 1,000 mcg IM ONETIME ONE Stop: 10/06/19 09:01 Last Admin: 10/06/19 10:46 Dose: 1,000 mcg Dexamethasone (Dexamethasone) Confirm Administered Dose 4 mg .ROUTE .STK-MED ONE Stop: 10/04/19 07:16 Diphenhydramine HCl (Benadryl) 50 mg IVPUSH Q4H PRN PRN Reason: ITCHING Fentanyl (Sublimaze) Confirm Administered Dose 250 mcg .ROUTE .STK-MED ONE Stop: 10/04/19 07:14 Fentanyl (Sublimaze) Confirm Administered Dose 250 mcg .ROUTE .STK-MED ONE Stop: 10/04/19 08:47 Furosemide (Lasix) 20 mg IVPUSH ONETIME ONE Stop: 10/04/19 20:44 Last Admin: 10/04/19 21:09 Dose: 20 mg Furosemide (Lasix) 20 mg IVPUSH ONETIME ONE Stop: 10/05/19 08:01 Last Admin: 10/05/19 09:43 Dose: 20 mg Furosemide (Lasix) 40 mg PO ONETIME ONE Stop: 10/06/19 00:47 Last Admin: 10/06/19 01:05 Dose: 40 mg Furosemide (Lasix) 40 mg PO ONETIME ONE Stop: 10/06/19 16:34 Last Admin: 10/06/19 17:31 Dose: 40 mg Furosemide (Lasix) 10 mg IVPUSH ONETIME ONE Stop: 10/08/19 22:50 Last Admin: 10/08/19 23:27 Dose: Not Given Furosemide (Lasix) 20 mg IVPUSH NOW ONE Stop: 10/10/19 09:31 Last Admin: 10/10/19 10:32 Dose: 20 mg Furosemide (Lasix) 20 mg IVPUSH ONETIME ONE Stop: 10/10/19 18:01 Last Admin: 10/10/19 18:22 Dose: 20 mg Furosemide (Lasix) 40 mg IVPUSH ONETIME ONE Stop: 10/11/19 08:42 Last Admin: 10/11/19 09:03 Dose: 40 mg Furosemide (Lasix) 40 mg IVPUSH ONETIME ONE Stop: 10/11/19 16:56 Last Admin: 10/11/19 17:17 Dose: 40 mg Gabapentin (Neurontin) 300 mg PO ONETIME ONE Stop: 10/04/19 05:43 Last Admin: 10/04/19 06:10 Dose: 300 mg Gabapentin (Neurontin) 300 mg PO TID [facility] Last Admin: 10/07/19 13:33 Dose: 300 mg Glycopyrrolate (Robinul) Confirm Administered Dose 1 mg .ROUTE .STK-MED ONE Stop: 10/04/19 07:16 Hydromorphone HCl (Dilaudid Compliance Investigator 15 Mg In Ns 30 Ml) 0 mg IV ASDIRECTED PRN; Protocol PRN Reason: Pain Last Admin: 10/04/19 10:41 Dose: 0.3 mg Lidocaine HCl/Dextrose (Lidocaine 2 Gm/D5w 500 Ml) 2 gm in 500 mls @ 22.5 mls/ hr IV .Q24H [facility] Stop: 10/05/19 07:29 Last Admin: 10/04/19 12:29 Dose: 1 mg/min, 15 mls/hr Ketamine HCl 50 mg/ Sodium (Chloride) 50 mls @ 12 mls/hr IV ASDIRECTED [facility] Dextrose/Lactated Ringer's (Dextrose 5%-Lactated Ringers) 1,000 mls @ 100 mls/ hr IV ASDIRECTED [facility] Last Admin: 10/04/19 12:29 Dose: 100 mls/hr Cefoxitin Sodium 2 gm/ Sodium (Chloride) 50 mls @ 100 mls/hr IV ONETIME ONE Stop: 10/04/19 07:44 Last Admin: 10/04/19 07:15 Dose: 100 mls/hr Lactated Ringer's (Ringers, Lactated) Confirm Administered Dose 1,000 mls @ as directed .ROUTE .STK-MED ONE Stop: 10/04/19 07:14 Dextrose/Lactated Ringer's (Dextrose 5%-Lactated Ringers) 1,000 mls @ 175 mls/ hr IV ASDIRECTED [facility] Multivitamins/Minerals 10 ml/Thiamine HCl 200 mg/ Chromium/Copper/Manganese/ Seleni/Zn 1 ml/ Dextrose/Lactated Ringer's 1,013 mls @ 174.999 mls/hr IV DAILY@ 1600 [facility] Last Admin: 10/04/19 17:13 Dose: 174.999 mls/hr Cefoxitin Sodium 2 gm/ Sodium (Chloride) 50 mls @ 100 mls/hr IV Q6H [facility] Last Admin: 10/05/19 07:49 Dose: 100 mls/hr Dextrose/Lactated Ringer's (Dextrose 5%-Lactated Ringers) 1,000 mls @ 125 mls/ hr IV ASDIRECTED [facility] Last Admin: 10/05/19 00:43 Dose: 125 mls/hr Dextrose/Lactated Ringer's (Dextrose 5%-Lactated Ringers) 1,000 mls @ 100 mls/ hr IV ASDIRECTED [facility] Last Admin: 10/05/19 09:41 Dose: 100 mls/hr Lactated Ringer's (Ringers, Lactated) 500 mls @ 100 mls/hr IV .BOLUS ONE Stop: 10/05/19 11:59 Last Admin: 10/05/19 07:48 Dose: 100 mls/hr Multivitamins/Minerals 10 ml/Thiamine HCl 200 mg/ Chromium/Copper/Manganese/ Seleni/Zn 1 ml/ Dextrose/Lactated Ringer's 1,013 mls @ 100 mls/hr IV DAILY@ 1600 [facility] Linezolid 600 mg/ Premix 300 mls @ 300 mls/hr IV Q12H [facility] Last Admin: 10/09/19 22:30 Dose: 300 mls/hr Piperacillin Sod/Tazobactam (Sod 3.375 gm/ Sodium Chloride) 50 mls @ 100 mls/ hr IV Q6H [facility] Last Admin: 10/07/19 01:45 Dose: 100 mls/hr Levofloxacin/Dextrose 750 mg/ (Premix) 150 mls @ 100 mls/hr IV Q48H [facility] Last Admin: 10/08/19 20:01 Dose: 100 mls/hr Sodium Chloride (Normal Saline) Confirm Administered Dose 50 mls @ as directed .ROUTE .[facility] Stop: 10/06/19 19:37 Last Admin: 10/06/19 20:03 Dose: Not Given Lactated Ringer's (Ringers, Lactated) 1,000 mls @ 100 mls/hr IV ASDIRECTED [facility] Last Admin: 10/07/19 17:52 Dose: 100 mls/hr Piperacillin/Tazobactam/ (Dextrose 3.375 gm/ Premix) 50 mls @ 100 mls/hr IV Q6H [facility] Last Admin: 10/11/19 08:28 Dose: 100 mls/hr Magnesium Sulfate 2 gm/ Premix 50 mls @ 25 mls/hr IV Q6H [facility] Stop: 10/09/19 05:59 Last Admin: 10/09/19 04:08 Dose: 25 mls/hr Propofol (Diprivan 100 Ml) Confirm Administered Dose 100 mls @ as directed .ROUTE .STK-MED ONE Stop: 10/07/19 21:21 Last Admin: 10/07/19 22:55 Dose: Not Given Lactated Ringer's (Ringers, Lactated) 1,000 mls @ 25 mls/hr IV ASDIRECTED [facility] Stop: 10/11/19 10:00 Last Admin: 10/08/19 19:59 Dose: 25 mls/hr Levofloxacin/Dextrose 750 mg/ (Premix) 150 mls @ 100 mls/hr IV Q24H [facility] Last Admin: 10/11/19 19:43 Dose: 100 mls/hr Potassium Chloride 40 meq/ (Premix) 100 mls @ 25 mls/hr IV ONETIME ONE Stop: 10/10/19 13:29 Last Admin: 10/10/19 10:31 Dose: 25 mls/hr Potassium Phosphate 22.5 mmole (/ Sodium Chloride) 107.5 mls @ 36 mls/hr IV Q3H [facility] Stop: 10/11/19 15:59 Last Admin: 10/11/19 13:29 Dose: 36 mls/hr Sodium Chloride (Normal Saline) 100 mls @ 3 mls/sec IV ASDIRECTED [facility] Stop: 10/11/19 09:01 Last Admin: 10/11/19 09:45 Dose: 3 mls/sec Iopamidol (Isovue-300 (61%)) 50 ml PO ASDIRECTED [facility] Stop: 10/05/19 03:24 Last Admin: 10/05/19 03:36 Dose: 50 ml Iopamidol (Isovue-300 (61%)) 100 ml IV . DIRECTED [facility] Stop: 10/11/19 09:01 Last Admin: 10/11/19 09:45 Dose: 100 ml Ketamine HCl (Ketalar) 20 mg IV ASDIRECTED [facility] Labetalol HCl (Normodyne) 5 mg IVPUSH Q5M PRN PRN Reason: SBP over 160 OR DBP over 95 Lactobacillus Rhamnosus (Culturelle) 1 cap PO BID [facility] Last Admin: 10/08/19 10:23 Dose: Not Given Lidocaine (Xylocaine-Mpf 2%) Confirm Administered Dose 5 ml .ROUTE .STK-MED ONE Stop: 10/07/19 07:55 Lidocaine HCl (Xylocaine 2%) 100 mg IVPUSH ASDIRECTED [facility] Lorazepam (Ativan) 0.5 mg IVPUSH Q4H PRN PRN Reason: Anxiety Last Admin: 10/07/19 13:55 Dose: 0.5 mg Magnesium Hydroxide (Milk Of Magnesia) 30 ml PO ONETIME ONE Stop: 10/06/19 09:31 Last Admin: 10/06/19 11:55 Dose: 30 ml Magnesium Oxide (Magnesium Oxide) 400 mg PO DAILY [facility] Last Admin: 10/06/19 10:46 Dose: 400 mg Meropenem (Merrem) Confirm Administered Dose 500 mg .ROUTE .STK-MED ONE Stop: 10/04/19 09:20 Last Admin: 10/04/19 10:15 Dose: 500 mg Methylprednisolone Sodium Succinate (Solu-Medrol) 40 mg IVPUSH Q8H [facility] Last Admin: 10/09/19 01:40 Dose: 40 mg Metoclopramide HCl (Reglan) 10 mg IVPUSH Q6H PRN PRN Reason: NAUSEA NOT CONTROL BY ZOFRAN Miscellaneous Information (Remove Patch) 1 ea TRDERM ONETIME ONE Stop: 10/07/19 06:01 Miscellaneous Information (Remove Patch) 1 ea TRDERM ONETIME ONE Stop: 10/06/19 10:01 Last Admin: 10/06/19 10:06 Dose: Not Given Naloxone HCl (Narcan) 0.1 mg IV ASDIRECTED PRN PRN Reason: decreased respiratory rate Naloxone HCl (Narcan) Confirm Administered Dose 0.4 mg .ROUTE .STK-MED ONE Stop: 10/04/19 10:41 Neostigmine Methylsulfate (Neostigmine) Confirm Administered Dose 5 mg .ROUTE .STK-MED ONE Stop: 10/04/19 07:16 Check Scopolamine (Patch Daily) 1 each .XX DAILY [facility] Last Admin: 10/04/19 12:30 Dose: Not Given Scopolamine Patch (Check) 1 each TOP DAILY [facility] Stop: 10/06/19 12:53 Last Admin: 10/06/19 10:06 Dose: Not Given Ondansetron HCl (Zofran) Confirm Administered Dose 4 mg .ROUTE .STK-MED ONE Stop: 10/04/19 07:16 Ondansetron HCl (Zofran) 4 mg IVPUSH Q4H PRN PRN Reason: Nausea/Vomiting Pantoprazole Sodium (Protonix Iv) 40 mg IVPUSH Q24H [facility] Last Admin: 10/04/19 17:15 Dose: 40 mg Pantoprazole Sodium (Protonix Granules) 40 mg PO Q24H [facility] Last Admin: 10/08/19 16:12 Dose: Not Given Piperacillin Sod/Tazobactam Sod (Zosyn) Confirm Administered Dose 3.375 gm .ROUTE .STK-MED ONE Stop: 10/06/19 19:36 Last Admin: 10/06/19 20:02 Dose: Not Given Propofol (Diprivan 20 Ml) Confirm Administered Dose 200 mg .ROUTE .STK-MED ONE Stop: 10/04/19 07:16 Propofol (Diprivan 20 Ml) Confirm Administered Dose 200 mg .ROUTE .STK-MED ONE Stop: 10/07/19 21:12 Rocuronium [place] (Zemuron) Confirm Administered Dose 50 mg .ROUTE .STK-MED ONE Stop: 10/04/19 07:16 Rocuronium [place] (Zemuron) Confirm Administered Dose 50 mg .ROUTE .STK-MED ONE Stop: 10/04/19 09:27 Scopolamine (Transderm-Scop) 1.5 mg TOP ONETIME ONE Stop: 10/04/19 05:43 Last Admin: 10/04/19 06:11 Dose: 1.5 mg Sodium Chloride (Saline Flush) 10 ml FLUSH ONETIME ONE Stop: 10/11/19 09:01 Last Admin: 10/11/19 09:45 Dose: 10 ml Succinylcholine Chloride (Quelicin) Confirm Administered Dose 200 mg .ROUTE .STK -MED ONE Stop: 10/04/19 07:16 Succinylcholine Chloride (Quelicin) Confirm Administered Dose 200 mg .ROUTE .STK -MED ONE Stop: 10/07/19 21:12 Sugammadex Sodium (Bridion) Confirm Administered Dose 200 mg .ROUTE .STK-MED ONE Stop: 10/04/19 10:47 - Exam Quality Assessment: Supplemental Oxygen, Central Line/PICC, Urine Catheter, DVT Prophylaxis, Restraints General: No Acute Distress, Sedated. No: Alert Lungs: Decreased Breath Sounds (right lung base), Crackles (both bases). No: Normal Respiratory Effort (increased work of breathing ) Cardiovascular: Regular Rate, Regular Rhythm, No Murmurs GI/Abdominal Exam: Normal Bowel Sounds, Soft, No Distention Extremities: No Pedal Edema. No: Increased Warmth Peripheral Pulses: 2+: Dorsalis Pedis (L), Dorsalis Pedis (R) Skin: Warm, Dry Psy/Mental Status: No: Alert, Agitated Consult PN Assessment/Plan Procedures: Procedures BLOOD TYPING SEROLOGIC ABO (07/26/19) BLOOD TYPING SEROLOGIC RH(D) (07/26/19) RBC ANTIBODY SCREEN (07/26/19) Problem List Initiated/Reviewed/Updated: Yes My Orders Last 24 Hours: My Active Orders 10/11/19 09:00 Meropenem [Merrem] 1 gm Sodium Chloride 0.9% [Normal Saline] 50 ml IV Q8H 10/11/19 10:00 Linezolid [Zyvox] 600 mg Premix Bag 1 bag IV Q12H 10/12/19 09:00 Furosemide [Lasix] 40 mg IVPUSH Q8H 10/12/19 09:15 Doxycycline [Vibramycin] 100 mg Sodium Chloride 0.9% [Normal Saline] 100 ml IV Q12HR Fluconazole/Normal Saline [Diflucan in NS 200 MG/100 ML] 200 mg Premix Bag 1 bag IV Q24H Plan: ASSESSMENT AND RECOMMENDATIONS ACUTE HYPOXIC AND HYPERCAPNIC RESPIRATORY FAILURE - stable overnight. Chest x- ray shows some clearing of the right upper lobe infiltrate. Respiratory culture is growing germ tube positive yeast. She is not having fevers. Not neutral diuresis yesterday because of large quantity of fluid administered via the IV. -Aggressive diuresis as blood pressure will tolerate (40 mg every 8 hours) -Minimize IV fluid as able -Scheduled nebulizers -Supplemental oxygen as needed -Mechanical ventilation with weaning trials once respiratory status stabilized further (PEEP increased today) -Nebulizer therapy as ordered -Follow-up blood gases in a.m. LEFT LUNG PNEUMONIA - infiltrate seem to be stagnant. Initial culture grew out enterococcus and now germ tube positive yeast. -Continue linezolid and meropenem -Start doxycycline -Discontinue levofloxacin -Fluconazole -Follow-up cultures HYPOKALEMIA - mild and will need replacement again today. STATUS POST DUODENAL SWITCH PROCEDURE - postop course complicated by an ileus but bowel function seems to be improving. NG tube removed today. She is on TPN. -Postop care per Dr. Denny Rivers M.D.
[2019-10-12] MEDS: Linezolid 600 MG in Premix Bag 1 BAG IV SCH ×2 (09:18→22:14)
[2019-10-12] MEDS: Morphine 4 MG/ML Syringe IVPUSH PRN ×3 (09:36→20:59)
[2019-10-12] MEDS: Doxycycline 100 MG in Sodium Chloride 0.9% 100 ML IV SCH ×2 (10:31→21:38)
[2019-10-12] MEDS: Magnesium Sulfate/Water 2 GM in Premix Bag 1 BAG IV SCH ×2 (10:33→16:03)
--- NOTE | 2019-10-12 11:15 | PN ---
DATE OF SERVICE: 10/12/2019 SUBJECTIVE: Marissa has been afebrile. IV intake 3800. Urine output via Mayorga catheter is 3375. NG has put out 0. VIJAY drains 1, 2, and 3 have put out 0, 7, and 40. LABORATORY DATA: Hemoglobin 9.4, white count 23.9, potassium is 3.5, and magnesium is 1.7. OBJECTIVE: GENERAL: Marissa is a 64-year-old female. She is more restless. VITAL SIGNS: Respirations are 33, temperature is 98.8, pulse 91, blood pressure is 100/59. HEART: Regular rate and rhythm. LUNGS: Decreased breath sounds, in spite of ventilator. ABDOMEN: Negative. VIJAY drains x3 intact. Mayorga intact. EXTREMITIES: Reveal trace peripheral edema. ASSESSMENT: 1. 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 2. Acute hypoxia and hypercapnic respiratory failure. 3. Left lung pneumonia. 4. Duodenal switch procedure. 5. Postop ileus. PLAN: 1. Discontinue NG. 2. Albumin 25 mg IV q.24 hours x3 days. 3. Magnesium 2 g IV q.6 x8 doses. 4. Check CBC, CMP, mag, phos, and BNP in a.m. 5. We will evaluate p.r.n. or in a.m. 6. The patient is also being followed by hospitalist. Suzie Andrea PA-C /[id number]
[2019-10-12] MEDS: Fluconazole/Normal Saline 200 MG in Premix Bag 1 BAG IV SCH (12:23)
[2019-10-12] MEDS: Pantoprazole 40 MG Vial IV SCH (16:07)
[2019-10-12] MEDS ORDERED: Hydrocortisone Sodium Succinate 100 MG/2 ML SDV IVPUSH ONE (17:35)
[2019-10-12] MEDS: Norepinephrine 8 MG in Dextrose 5% in Water 242 ML IV SCH ×2 (17:55)
[2019-10-12] MEDS ORDERED: Furosemide 40 MG/4 ML VIAL IVPUSH ONE (20:00)
[2019-10-13] MEDS: Morphine 4 MG/ML Syringe IVPUSH PRN ×3 (00:22→08:35)
[2019-10-13] MEDS: Heparin Sodium 5,000 Units/ML Vial SUBCUT SCH ×3 (00:26→15:26)
[2019-10-13] MEDS: Sodium Chloride 0.9% 1,000 ML IV SCH (02:39)
--- NOTE | 2019-10-13 05:36 | CRLCR ---
HISTORY: Respiratory failure. Ventilator management. COMPARISON: From yesterday. FINDINGS: A portable semi-erect AP view of the chest was obtained at 0457 hours. There is no change in mild patchy infiltrate in the right upper lobe extending to the right hilum. There is no change and moderate infiltrate in the right infrahilar region. There is no change in moderate consolidation of the left lung base with loss of the left hemidiaphragm. There continues to be mild patchy interstitial infiltrates scattered throughout the rest of the chest, consistent with ARDS. An endotracheal tube continues to have its tip in satisfactory position midway between the thoracic inlet and adrian. Again seen is the left subclavian central line with its tip in the midportion of the right atrium. There is no sign of pneumothorax. The heart remains normal in size. The mediastinum is normal in appearance. The osseous structures are normal in appearance for the patient`s age. IMPRESSION: Stable appearance of the chest. Stable mild patchy right upper lobe infiltrate. Stable moderate right infrahilar and left basilar consolidation, pneumonia versus atelectasis. Stable mild diffuse interstitial infiltrates, consistent with ARDS. Stable satisfactory positioning of endotracheal tube. Left subclavian central line again seen with its tip in the midportion of the right atrium. No sign of pneumothorax. Dictated by Lior Odonnell MD @ Oct 13 2019 5:30AM Signed by Dr. Lior Odonnell @ Oct 13 2019 5:33AM
[2019-10-13] MEDS: Albuterol/Ipratropium 3.0-0.5 MG/3 ML Neb Soln INH SCH ×4 (07:20→20:19)
[2019-10-13] MEDS: Levothyroxine 25 MCG Tab PO SCH (07:33)
--- NOTE | 2019-10-13 09:28 | PCM.CONSN ---
- General Info Date of Service: 10/13/19 Subjective Update: There were no acute events overnight. She was started on low-dose norepinephrine yesterday because of lower blood pressures. Patient remains intubated but is off sedation today. She will looking your direction when you talk to her and is able to wiggle toes on her right foot. She is not able to grasp fingers with either hand as of yet. FiO2 is down to 60%. Respiratory culture is positive for yeast and fluconazole was initiated yesterday. She has not had any fevers. X-ray is stable to slightly improved. Kidney function stable. Still has mild hypokalemia. Urine output has been acceptable. Functional Status: Reports: Other (intubated and sedated ) - Review of Systems General: Denies: Fever - Patient Data Vitals - Most Recent: Last Vital Signs Temp 36.4 C 10/13/19 08:00 Pulse 71 10/13/19 07:20 Resp 33 H 10/13/19 08:00 BP 103/52 L 10/13/19 08:00 Pulse Ox 92 L 10/13/19 08:00 Weight - Most Recent: 134.5 kg I&O - Last 24 Hours: Intake & Output 10/12/19 10/13/19 10/13/19 22:59 06:59 14:59 Intake Total 2020 2004 Output Total 450 1840 Balance 1571 165 Lab Results Last 24 Hours: Laboratory Results - last 24 hr 10/13/19 10/13/19 10/13/19 Range/Units 04:00 04:00 04:00 WBC 21.1 H (4.5-11.0) K/uL RBC 3.62 (3.30-5.50) M/uL Hgb 9.2 L (12.0-15.0) g/dL Hct 30.5 L (36.0-48.0) % MCV 84 (80-98) fL MCH 25 L (27-31) pg MCHC 30 L (32-36) % Plt Count 481 H (150-400) K/uL Puncture Site Line ABG pH 7.471 H (7.350-7.450) ABG pCO2 46.2 H (35.0-42.0) mmHg ABG pO2 75.3 (75.0-100.0) mmHg ABG HCO3 33.3 H (22.0-26.0) mmol/L ABG Total CO2 30.8 H (21.0-25.0) mmol/L ABG O2 Saturation 94.9 L (95.0-98.0) % ABG O2 Content 12.5 L (15.0-23.0) %vol ABG Base Excess 8.9 mm/L ABG Hemoglobin 9.5 L (12.0-16.0) g/dL ABG Oxyhemoglobin 92.5 % ABG Carboxyhemoglobin 1.7 H (0.0-1.6) % ABG Methemoglobin 0.8 % O2 Delivery Device Ventilator Oxygen Flow Rate L Sodium 138 L (140-148) mmol/L Potassium 4.0 (3.6-5.2) mmol/L Chloride 100 (100-108) mmol/L Carbon Dioxide 33 H (21-32) mmol/L Anion Gap 9.0 (5.0-14.0) mmol/L BUN 23 H (7-18) mg/dL Creatinine 0.7 (0.6-1.0) mg/dL Est Cr Clr Drug Dosing 57.55 mL/min Estimated GFR (MDRD) > 60 (>60) Glucose 176 H (74-106) mg/dL Calcium 8.2 L (8.5-10.1) mg/dL Phosphorus 3.3 (2.5-4.9) mg/dL Magnesium 2.4 D (1.8-2.4) mg/dL Total Bilirubin 0.3 (0.2-1.0) mg/dL AST 20 (15-37) U/L ALT 17 (12-78) U/L Alkaline Phosphatase 131 H (46-116) U/L NT-Pro-B Natriuret Pep 94 (5-125) pg/mL Total Protein 6.3 L (6.4-8.2) g/dL Albumin 1.7 L (3.4-5.0) g/dL Globulin 4.6 H (2.3-3.5) g/dL Albumin/Globulin Ratio 0.4 L (1.2-2.2) Jae Results Last 24 Hours: Microbiology 10/11/19 08:00 Gram Stain - Final Endotrachial Tube Respiratory Culture - Final YEAST Med Orders - Current: Current Medications Albuterol (Proventil Neb Soln) 2.5 mg NEB Q2H PRN PRN Reason: shortness of breath/wheezing Last Admin: 10/10/19 22:54 Dose: 2.5 mg Albuterol/Ipratropium (Duoneb 3.0-0.5 Mg/3 Ml) 3 ml INH QIDRT [facility] Last Admin: 10/13/19 07:20 Dose: 3 ml Duloxetine HCl (Cymbalta) 30 mg PO BID [facility] Last Admin: 10/11/19 08:50 Dose: Not Given Heparin Sodium (Porcine) (Heparin Sodium) 5,000 units SUBCUT Q8H [facility] Last Admin: 10/13/19 08:12 Dose: 5,000 units Heparin Sodium (Porcine) (Heparin Lock Flush 100 Units/Ml) 500 units FLUSH ASDIRECTED PRN PRN Reason: Keep Vein Open Last Admin: 10/09/19 11:40 Dose: 500 units Hydroxyzine HCl (Vistaril) 100 mg IM Q4H PRN PRN Reason: pain Last Admin: 10/06/19 05:11 Dose: 100 mg Heparin Sodium (Porcine) 5,000 (units/ Sodium Chloride) 501 mls @ 0 mls/hr IV ASDIRECTED [facility] Last Admin: 10/10/19 13:21 Dose: 1 mls/hr Propofol (Diprivan 100 Ml) 100 mls @ 3.783 mls/hr IV TITRATE [facility]; Protocol Last Titration: 10/13/19 08:30 Dose: 0 mcg/kg/min, 0 mls/hr Sodium Chloride (Normal Saline) 1,000 mls @ 25 mls/hr IV ASDIRECTED [facility] Last Admin: 10/13/19 02:39 Dose: 25 mls/hr Multivitamins/Minerals 10 ml/Chromium/Copper/Manganese/Seleni/Zn 1 ml/ Amino Acids/Electrolytes/Dextrose 1,011 mls @ 60 mls/hr IV .BY DURATION [facility] Last Admin: 10/12/19 19:02 Dose: 60 mls/hr Amino Acids/Electrolytes/Dextrose (Clinimix E 4.25/10) 1,000 mls @ 60 mls/hr IV .BY DURATION [facility] Last Admin: 10/12/19 03:30 Dose: 60 mls/hr Linezolid 600 mg/ Premix 300 mls @ 300 mls/hr IV Q12H [facility] Last Admin: 10/12/19 22:14 Dose: 300 mls/hr Meropenem 1 gm/ Sodium (Chloride) 50 mls @ 100 mls/hr IV Q8H [facility] Last Admin: 10/13/19 08:12 Dose: 100 mls/hr Albumin Human (Albumin 25%) 25 gm in 100 mls @ 25 mls/hr IV Q24H [facility] Stop: 10/14/19 16:59 Last Admin: 10/12/19 12:37 Dose: 25 mls/hr Doxycycline Hyclate 100 mg/ (Sodium Chloride) 100 mls @ 100 mls/hr IV Q12H [facility] Last Admin: 10/12/19 21:38 Dose: 100 mls/hr Fluconazole/Sodium Chloride (200 mg/ Premix) 100 mls @ 100 mls/hr IV Q24H [facility] Last Admin: 10/12/19 12:23 Dose: 100 mls/hr Norepinephrine Bitartrate 8 mg (/ Dextrose/Water) 250 mls @ 3.75 mls/hr IV TITRATE [facility]; Protocol Last Infusion: 10/13/19 08:29 Dose: 2 mcg/min, 3.75 mls/hr Levothyroxine Sodium (Levothyroxine) 25 mcg PO ACBREAKFAST [facility] Last Admin: 10/13/19 07:33 Dose: Not Given Lorazepam (Ativan) 0.5 mg IVPUSH Q2H PRN PRN Reason: Agitation Last Admin: 10/07/19 19:37 Dose: 0.5 mg Morphine Sulfate (Morphine) 4 mg IVPUSH Q2H PRN PRN Reason: PAIN Last Admin: 10/13/19 08:35 Dose: 4 mg Ondansetron HCl (Zofran Odt) 4 mg PO Q4H PRN PRN Reason: Nausea/Vomiting Last Admin: 10/07/19 00:48 Dose: 4 mg Pantoprazole Sodium (Protonix Iv) 40 mg IV Q24H [facility] Last Admin: 10/12/19 16:07 Dose: 40 mg Discontinued Medications Acetaminophen (Tylenol Extra Strength) 1,000 mg PO ONETIME ONE Stop: 10/04/19 05:43 Last Admin: 10/04/19 06:11 Dose: 1,000 mg Acetaminophen (Tylenol) 650 mg PO Q6H [facility] Last Admin: 10/05/19 04:30 Dose: 650 mg Hydrocodone Bitart/Acetaminophen ([place] 325-5 Mg) 1 - 2 tab PO Q4H PRN PRN Reason: Pain Last Admin: 10/07/19 04:18 Dose: 1 tab Albuterol/Ipratropium (Duoneb 3.0-0.5 Mg/3 Ml) 3 ml NEB ONETIME ONE Stop: 10/04/19 06:31 Last Admin: 10/04/19 10:48 Dose: 3 ml Albuterol/Ipratropium (Duoneb 3.0-0.5 Mg/3 Ml) 3 ml NEB ONETIME ONE Stop: 10/04/19 10:46 Last Admin: 10/04/19 12:30 Dose: Not Given Albuterol/Ipratropium (Duoneb 3.0-0.5 Mg/3 Ml) 3 ml INH ASDIRECTED PRN PRN Reason: BREATHING Last Admin: 10/07/19 00:54 Dose: 3 ml Celecoxib (Celebrex) 200 mg PO ONETIME ONE Stop: 10/04/19 05:43 Last Admin: 10/04/19 06:11 Dose: 200 mg Celecoxib (Celebrex) 200 mg PO DAILY@0800 [facility] Last Admin: 10/12/19 07:32 Dose: Not Given Ropivacaine 60 ml/Dexamethasone 8 mg/Epinephrine HCl 0.4 mg/ Sodium Chloride 17.6 ml 0 ml NERVRT ASDIRECTED [facility] Last Admin: 10/04/19 07:48 Dose: 80 syringe Cyanocobalamin (Vitamin B12) 1,000 mcg IM ONETIME ONE Stop: 10/06/19 09:01 Last Admin: 10/06/19 10:46 Dose: 1,000 mcg Dexamethasone (Dexamethasone) Confirm Administered Dose 4 mg .ROUTE .STK-MED ONE Stop: 10/04/19 07:16 Diphenhydramine HCl (Benadryl) 50 mg IVPUSH Q4H PRN PRN Reason: ITCHING Fentanyl (Sublimaze) Confirm Administered Dose 250 mcg .ROUTE .STK-MED ONE Stop: 10/04/19 07:14 Fentanyl (Sublimaze) Confirm Administered Dose 250 mcg .ROUTE .STK-MED ONE Stop: 10/04/19 08:47 Furosemide (Lasix) 20 mg IVPUSH ONETIME ONE Stop: 10/04/19 20:44 Last Admin: 10/04/19 21:09 Dose: 20 mg Furosemide (Lasix) 20 mg IVPUSH ONETIME ONE Stop: 10/05/19 08:01 Last Admin: 10/05/19 09:43 Dose: 20 mg Furosemide (Lasix) 40 mg PO ONETIME ONE Stop: 10/06/19 00:47 Last Admin: 10/06/19 01:05 Dose: 40 mg Furosemide (Lasix) 40 mg PO ONETIME ONE Stop: 10/06/19 16:34 Last Admin: 10/06/19 17:31 Dose: 40 mg Furosemide (Lasix) 10 mg IVPUSH ONETIME ONE Stop: 10/08/19 22:50 Last Admin: 10/08/19 23:27 Dose: Not Given Furosemide (Lasix) 20 mg IVPUSH NOW ONE Stop: 10/10/19 09:31 Last Admin: 10/10/19 10:32 Dose: 20 mg Furosemide (Lasix) 20 mg IVPUSH ONETIME ONE Stop: 10/10/19 18:01 Last Admin: 10/10/19 18:22 Dose: 20 mg Furosemide (Lasix) 40 mg IVPUSH ONETIME ONE Stop: 10/11/19 08:42 Last Admin: 10/11/19 09:03 Dose: 40 mg Furosemide (Lasix) 40 mg IVPUSH ONETIME ONE Stop: 10/11/19 16:56 Last Admin: 10/11/19 17:17 Dose: 40 mg Furosemide (Lasix) 40 mg IVPUSH Q8H [facility] Last Admin: 10/12/19 09:12 Dose: 40 mg Furosemide (Lasix) 40 mg IVPUSH ONETIME ONE Stop: 10/12/19 20:01 Last Admin: 10/12/19 20:06 Dose: 40 mg Gabapentin (Neurontin) 300 mg PO ONETIME ONE Stop: 10/04/19 05:43 Last Admin: 10/04/19 06:10 Dose: 300 mg Gabapentin (Neurontin) 300 mg PO TID [facility] Last Admin: 10/07/19 13:33 Dose: 300 mg Glycopyrrolate (Robinul) Confirm Administered Dose 1 mg .ROUTE .STK-MED ONE Stop: 10/04/19 07:16 Hydrocortisone Sodium Succinate (Solu-Cortef) 100 mg IVPUSH ONETIME ONE Stop: 10/12/19 17:36 Last Admin: 10/12/19 17:51 Dose: 100 mg Hydromorphone HCl (Dilaudid [employer] M[employer]ainer 15 Mg In Ns 30 Ml) 0 mg IV ASDIRECTED PRN; Protocol PRN Reason: Pain Last Admin: 10/04/19 10:41 Dose: 0.3 mg Lidocaine HCl/Dextrose (Lidocaine 2 Gm/D5w 500 Ml) 2 gm in 500 mls @ 22.5 mls/ hr IV .Q24H [facility] Stop: 10/05/19 07:29 Last Admin: 10/04/19 12:29 Dose: 1 mg/min, 15 mls/hr Ketamine HCl 50 mg/ Sodium (Chloride) 50 mls @ 12 mls/hr IV ASDIRECTED [facility] Dextrose/Lactated Ringer's (Dextrose 5%-Lactated Ringers) 1,000 mls @ 100 mls/ hr IV ASDIRECTED [facility] Last Admin: 10/04/19 12:29 Dose: 100 mls/hr Cefoxitin Sodium 2 gm/ Sodium (Chloride) 50 mls @ 100 mls/hr IV ONETIME ONE Stop: 10/04/19 07:44 Last Admin: 10/04/19 07:15 Dose: 100 mls/hr Lactated Ringer's (Ringers, Lactated) Confirm Administered Dose 1,000 mls @ as directed .ROUTE .STK-MED ONE Stop: 10/04/19 07:14 Dextrose/Lactated Ringer's (Dextrose 5%-Lactated Ringers) 1,000 mls @ 175 mls/ hr IV ASDIRECTED [facility] Multivitamins/Minerals 10 ml/Thiamine HCl 200 mg/ Chromium/Copper/Manganese/ Seleni/Zn 1 ml/ Dextrose/Lactated Ringer's 1,013 mls @ 174.999 mls/hr IV DAILY@ 1600 [facility] Last Admin: 10/04/19 17:13 Dose: 174.999 mls/hr Cefoxitin Sodium 2 gm/ Sodium (Chloride) 50 mls @ 100 mls/hr IV Q6H [facility] Last Admin: 10/05/19 07:49 Dose: 100 mls/hr Dextrose/Lactated Ringer's (Dextrose 5%-Lactated Ringers) 1,000 mls @ 125 mls/ hr IV ASDIRECTED [facility] Last Admin: 10/05/19 00:43 Dose: 125 mls/hr Dextrose/Lactated Ringer's (Dextrose 5%-Lactated Ringers) 1,000 mls @ 100 mls/ hr IV ASDIRECTED [facility] Last Admin: 10/05/19 09:41 Dose: 100 mls/hr Lactated Ringer's (Ringers, Lactated) 500 mls @ 100 mls/hr IV .BOLUS ONE Stop: 10/05/19 11:59 Last Admin: 10/05/19 07:48 Dose: 100 mls/hr Multivitamins/Minerals 10 ml/Thiamine HCl 200 mg/ Chromium/Copper/Manganese/ Seleni/Zn 1 ml/ Dextrose/Lactated Ringer's 1,013 mls @ 100 mls/hr IV DAILY@ 1600 [facility] Linezolid 600 mg/ Premix 300 mls @ 300 mls/hr IV Q12H [facility] Last Admin: 10/09/19 22:30 Dose: 300 mls/hr Piperacillin Sod/Tazobactam (Sod 3.375 gm/ Sodium Chloride) 50 mls @ 100 mls/ hr IV Q6H [facility] Last Admin: 10/07/19 01:45 Dose: 100 mls/hr Levofloxacin/Dextrose 750 mg/ (Premix) 150 mls @ 100 mls/hr IV Q48H [facility] Last Admin: 10/08/19 20:01 Dose: 100 mls/hr Sodium Chloride (Normal Saline) Confirm Administered Dose 50 mls @ as directed .ROUTE .STK-MED ONE Stop: 10/06/19 19:37 Last Admin: 10/06/19 20:03 Dose: Not Given Lactated Ringer's (Ringers, Lactated) 1,000 mls @ 100 mls/hr IV ASDIRECTED [facility] Last Admin: 10/07/19 17:52 Dose: 100 mls/hr Piperacillin/Tazobactam/ (Dextrose 3.375 gm/ Premix) 50 mls @ 100 mls/hr IV Q6H [facility] Last Admin: 10/11/19 08:28 Dose: 100 mls/hr Magnesium Sulfate 2 gm/ Premix 50 mls @ 25 mls/hr IV Q6H [facility] Stop: 10/09/19 05:59 Last Admin: 10/09/19 04:08 Dose: 25 mls/hr Propofol (Diprivan 100 Ml) Confirm Administered Dose 100 mls @ as directed .ROUTE .STK-MED ONE Stop: 10/07/19 21:21 Last Admin: 10/07/19 22:55 Dose: Not Given Lactated Ringer's (Ringers, Lactated) 1,000 mls @ 25 mls/hr IV ASDIRECTED [facility] Stop: 10/11/19 10:00 Last Admin: 10/08/19 19:59 Dose: 25 mls/hr Levofloxacin/Dextrose 750 mg/ (Premix) 150 mls @ 100 mls/hr IV Q24H [facility] Last Admin: 10/11/19 19:43 Dose: 100 mls/hr Potassium Chloride 40 meq/ (Premix) 100 mls @ 25 mls/hr IV ONETIME ONE Stop: 10/10/19 13:29 Last Admin: 10/10/19 10:31 Dose: 25 mls/hr Potassium Phosphate 22.5 mmole (/ Sodium Chloride) 107.5 mls @ 36 mls/hr IV Q3H [facility] Stop: 10/11/19 15:59 Last Admin: 10/11/19 13:29 Dose: 36 mls/hr Sodium Chloride (Normal Saline) 100 mls @ 3 mls/sec IV ASDIRECTED [facility] Stop: 10/11/19 09:01 Last Admin: 10/11/19 09:45 Dose: 3 mls/sec Potassium Chloride 40 meq/ (Premix) 100 mls @ 25 mls/hr IV ONETIME ONE Stop: 10/12/19 11:59 Last Admin: 10/12/19 08:33 Dose: 25 mls/hr Magnesium Sulfate 2 gm/ Premix 50 mls @ 25 mls/hr IV Q6H [facility] Stop: 10/14/19 06:59 Last Admin: 10/12/19 16:03 Dose: 25 mls/hr Iopamidol (Isovue-300 (61%)) 50 ml PO ASDIRECTED [facility] Stop: 10/05/19 03:24 Last Admin: 10/05/19 03:36 Dose: 50 ml Iopamidol (Isovue-300 (61%)) 100 ml IV . DIRECTED [facility] Stop: 10/11/19 09:01 Last Admin: 10/11/19 09:45 Dose: 100 ml Ketamine HCl (Ketalar) 20 mg IV ASDIRECTED [facility] Labetalol HCl (Normodyne) 5 mg IVPUSH Q5M PRN PRN Reason: SBP over 160 OR DBP over 95 Lactobacillus Rhamnosus (Culturelle) 1 cap PO BID [facility] Last Admin: 10/08/19 10:23 Dose: Not Given Lidocaine (Xylocaine-Mpf 2%) Confirm Administered Dose 5 ml .ROUTE .STK-MED ONE Stop: 10/07/19 07:55 Lidocaine HCl (Xylocaine 2%) 100 mg IVPUSH ASDIRECTED [facility] Lorazepam (Ativan) 0.5 mg IVPUSH Q4H PRN PRN Reason: Anxiety Last Admin: 10/07/19 13:55 Dose: 0.5 mg Magnesium Hydroxide (Milk Of Magnesia) 30 ml PO ONETIME ONE Stop: 10/06/19 09:31 Last Admin: 10/06/19 11:55 Dose: 30 ml Magnesium Oxide (Magnesium Oxide) 400 mg PO DAILY [facility] Last Admin: 10/06/19 10:46 Dose: 400 mg Meropenem (Merrem) Confirm Administered Dose 500 mg .ROUTE .STK-MED ONE Stop: 10/04/19 09:20 Last Admin: 10/04/19 10:15 Dose: 500 mg Methylprednisolone Sodium Succinate (Solu-Medrol) 40 mg IVPUSH Q8H [facility] Last Admin: 10/09/19 01:40 Dose: 40 mg Metoclopramide HCl (Reglan) 10 mg IVPUSH Q6H PRN PRN Reason: NAUSEA NOT CONTROL BY ZOFRAN Miscellaneous Information (Remove Patch) 1 ea TRDERM ONETIME ONE Stop: 10/07/19 06:01 Miscellaneous Information (Remove Patch) 1 ea TRDERM ONETIME ONE Stop: 10/06/19 10:01 Last Admin: 10/06/19 10:06 Dose: Not Given Morphine Sulfate (Morphine) 2 mg IVPUSH Q2H PRN PRN Reason: Pain Last Admin: 10/12/19 02:06 Dose: 2 mg Naloxone HCl (Narcan) 0.1 mg IV ASDIRECTED PRN PRN Reason: decreased respiratory rate Naloxone HCl (Narcan) Confirm Administered Dose 0.4 mg .ROUTE .STK-MED ONE Stop: 10/04/19 10:41 Neostigmine Methylsulfate (Neostigmine) Confirm Administered Dose 5 mg .ROUTE .STK-MED ONE Stop: 10/04/19 07:16 Check Scopolamine (Patch Daily) 1 each .XX DAILY [facility] Last Admin: 10/04/19 12:30 Dose: Not Given Scopolamine Patch (Check) 1 each TOP DAILY [facility] Stop: 10/06/19 12:53 Last Admin: 10/06/19 10:06 Dose: Not Given Ondansetron HCl (Zofran) Confirm Administered Dose 4 mg .ROUTE .STK-MED ONE Stop: 10/04/19 07:16 Ondansetron HCl (Zofran) 4 mg IVPUSH Q4H PRN PRN Reason: Nausea/Vomiting Pantoprazole Sodium (Protonix Iv) 40 mg IVPUSH Q24H [facility] Last Admin: 10/04/19 17:15 Dose: 40 mg Pantoprazole Sodium (Protonix Granules) 40 mg PO Q24H [facility] Last Admin: 10/08/19 16:12 Dose: Not Given Piperacillin Sod/Tazobactam Sod (Zosyn) Confirm Administered Dose 3.375 gm .ROUTE .STK-MED ONE Stop: 10/06/19 19:36 Last Admin: 10/06/19 20:02 Dose: Not Given Propofol (Diprivan 20 Ml) Confirm Administered Dose 200 mg .ROUTE .STK-MED ONE Stop: 10/04/19 07:16 Propofol (Diprivan 20 Ml) Confirm Administered Dose 200 mg .ROUTE .STK-MED ONE Stop: 10/07/19 21:12 Rocuronium [place] (Zemuron) Confirm Administered Dose 50 mg .ROUTE .STK-MED ONE Stop: 10/04/19 07:16 Rocuronium [place] (Zemuron) Confirm Administered Dose 50 mg .ROUTE .STK-MED ONE Stop: 10/04/19 09:27 Scopolamine (Transderm-Scop) 1.5 mg TOP ONETIME ONE Stop: 10/04/19 05:43 Last Admin: 10/04/19 06:11 Dose: 1.5 mg Sodium Chloride (Saline Flush) 10 ml FLUSH ONETIME ONE Stop: 10/11/19 09:01 Last Admin: 10/11/19 09:45 Dose: 10 ml Succinylcholine Chloride (Quelicin) Confirm Administered Dose 200 mg .ROUTE .STK -MED ONE Stop: 10/04/19 07:16 Succinylcholine Chloride (Quelicin) Confirm Administered Dose 200 mg .ROUTE .STK -MED ONE Stop: 10/07/19 21:12 Sugammadex Sodium (Bridion) Confirm Administered Dose 200 mg .ROUTE .STK-MED ONE Stop: 10/04/19 10:47 - Exam Quality Assessment: Supplemental Oxygen, Central Line/PICC, Urine Catheter, DVT Prophylaxis, Restraints General: No Acute Distress, Sedated. No: Alert Lungs: Decreased Breath Sounds (left lung base), Crackles (right upper and right lower lung ). No: Normal Respiratory Effort (increased work of breathing ), Wheezing Cardiovascular: Regular Rate, Regular Rhythm GI/Abdominal Exam: Normal Bowel Sounds, Soft, No Distention Extremities: No Pedal Edema. No: Increased Warmth Skin: Warm, Dry Wound/Incisions: No Drainage Psy/Mental Status: No: Alert, Agitated Consult PN Assessment/Plan Procedures: Procedures BLOOD TYPING SEROLOGIC ABO (07/26/19) BLOOD TYPING SEROLOGIC RH(D) (07/26/19) RBC ANTIBODY SCREEN (07/26/19) Problem List Initiated/Reviewed/Updated: Yes My Orders Last 24 Hours: My Active Orders 10/12/19 09:30 Morphine 4 mg IVPUSH Q2H PRN 10/12/19 10:00 Doxycycline [Vibramycin] 100 mg Sodium Chloride 0.9% [Normal Saline] 100 ml IV Q12H 10/12/19 11:00 Fluconazole/Normal Saline [Diflucan in NS 200 MG/100 ML] 200 mg Premix Bag 1 bag IV Q24H 10/12/19 17:30 Norepinephrine [Levophed] 8 mg Dextrose 5% in Water 242 ml IV TITRATE 10/13/19 09:27 RT Aerosol Therapy [RC] ASDIRECTED 10/13/19 09:30 Acetylcysteine [Mucomyst 20%] 200 mg NEB TIDRT Hydrocortisone Sod Succinate [Solu-CORTEF] 100 mg IVPUSH Q12H Levothyroxine [Synthroid] 25 mcg IVPUSH DAILY Plan: ASSESSMENT AND RECOMMENDATIONS ACUTE HYPOXIC AND HYPERCAPNIC RESPIRATORY FAILURE - multifactorial with pneumonia, aspiration and ARDS. Stable overnight. Chest x-ray stable to slightly improved. Respiratory culture is growing germ tube positive yeast. She is not having fevers. FiO2 down to 60%. Week pressures around 28-30. Doing well with sedation vacation so far. Still has mild alkalosis and mildly elevated PCO2. -Minimize IV fluid as able -Scheduled nebulizers -Supplemental oxygen as needed -Mechanical ventilation with weaning trials once respiratory status stabilized further (PEEP increased today) -Nebulizer therapy as ordered -Follow-up blood gases in a.m. LEFT LUNG PNEUMONIA - infiltrate seem to be stagnant. Initial culture grew out enterococcus and now germ tube positive yeast. She is now requiring vasopressor support. -Continue linezolid, doxycycline and meropenem -Fluconazole -Follow-up cultures HYPOKALEMIA - mild and will need ongoing replacement. STATUS POST DUODENAL SWITCH PROCEDURE - postop course complicated by an ileus but bowel function seems to be improving. NG tube removed 10/12. She is on TPN. -Postop care per Dr. Denny Rivers M.D.
[2019-10-13] MEDS ORDERED: Acetylcysteine 20% 200 MG/ML 4 ML Nebulizer Soln SDV NEB SCH (09:30)
[2019-10-13] MEDS: Linezolid 600 MG in Premix Bag 1 BAG IV SCH ×2 (09:43→21:37)
[2019-10-13] MEDS: Hydrocortisone Sodium Succinate 100 MG/2 ML SDV IVPUSH SCH ×2 (09:45→21:37)
[2019-10-13] MEDS: Levothyroxine 100 MCG Vial IVPUSH SCH (09:49)
[2019-10-13] MEDS: Doxycycline 100 MG in Sodium Chloride 0.9% 100 ML IV SCH ×2 (10:47→21:37)
[2019-10-13] MEDS: Dimethicone 20%/Zinc Oxide 25% 56 GM Spray Bottle TOP PRN (11:02)
[2019-10-13] MEDS: 1: AA 4.25%/Calcium/D10W/Lytes 1,000 ML with MVI, Adult with Vitamin K 10 ML, Chromium/C IV SCH ×3 (11:56)
[2019-10-13] MEDS: Fluconazole/Normal Saline 200 MG in Premix Bag 1 BAG IV SCH (12:14)
[2019-10-13] MEDS: Heparin Sodium 5,000 UNITS in Sodium Chloride 0.9% 500 ML IV SCH (13:17)
[2019-10-13] MEDS: Acetylcysteine 20% 200 MG/ML 4 ML Nebulizer Soln SDV NEB SCH ×2 (14:29→20:19)
[2019-10-13] MEDS: Pantoprazole 40 MG Vial IV SCH (15:26)
[2019-10-13] MEDS: Norepinephrine 8 MG in Dextrose 5% in Water 242 ML IV SCH ×2 (15:35)
[2019-10-14] MEDS: Morphine 4 MG/ML Syringe IVPUSH PRN ×7 (00:13→22:25)
[2019-10-14] MEDS: Heparin Sodium 5,000 Units/ML Vial SUBCUT SCH ×3 (00:17→16:53)
[2019-10-14] MEDS: 1: AA 4.25%/Calcium/D10W/Lytes 1,000 ML with MVI, Adult with Vitamin K 10 ML, Chromium/C IV SCH ×6 (05:02→21:38)
--- NOTE | 2019-10-14 06:52 | CRLCR ---
HISTORY: Respiratory failure. Ventilator management. COMPARISON: From yesterday FINDINGS: A portable erect AP view of the chest was obtained at 0537 hours. There is no change in the moderate right upper lobe and left lower lobe infiltrates, pneumonia versus atelectasis. There has been a decrease in right infrahilar infiltrate, consistent with improving right lower lobe pneumonia. There continues to be mild patchy infiltrate scattered throughout the rest of the chest consistent with ARDS. An endotracheal tube continues to have its tip in satisfactory position 1 centimeter below the thoracic inlet. Again seen is the left subclavian central line with its tip in the midportion of the right atrium. There is no sign of pneumothorax on the left. The heart remains normal in size. The mediastinum is normal in appearance. The osseous structures are normal in appearance for the patient`s age. IMPRESSION: Improvement in right infrahilar infiltrate, now mild, consistent with improving right lower lobe pneumonia. Stable moderate right upper lobe and left lower lobe infiltrates, pneumonia versus atelectasis. Stable mild diffuse interstitial infiltrate, consistent with ARDS. Stable positioning of endotracheal tube and right subclavian central line. No sign of pneumothorax. Dictated by Lior Odonnell MD @ Oct 14 2019 6:48AM Signed by Dr. Lior Odonnell @ Oct 14 2019 6:51AM
[2019-10-14] MEDS: Acetylcysteine 20% 200 MG/ML 4 ML Nebulizer Soln SDV NEB SCH ×3 (07:26→21:39)
[2019-10-14] MEDS: Albuterol/Ipratropium 3.0-0.5 MG/3 ML Neb Soln INH SCH ×4 (07:26→21:39)
--- NOTE | 2019-10-14 09:14 | PCM.CONSN ---
- General Info Date of Service: 10/14/19 Subjective Update: There were no acute events overnight. She remains intubated. Sedation is currently off and the patient is able to track around the room but is not able to follow any commands. Oxygenation is essentially stable since yesterday. She did not have any fevers. White blood cell count is better today. Hemoglobin is a little lower but there is no evidence for bleeding from urine, stool or VIJAY drains. Peak inspiratory pressures are around 30 again today. Functional Status: Reports: Other (intubated and mildly sedated ) - Review of Systems General: Denies: Fever - Patient Data Vitals - Most Recent: Last Vital Signs Temp 36.3 C 10/14/19 07:00 Pulse 68 10/14/19 07:26 Resp 24 H 10/14/19 08:00 BP 103/44 L 10/14/19 08:00 Pulse Ox 92 L 10/14/19 08:00 Weight - Most Recent: 134.5 kg I&O - Last 24 Hours: Intake & Output 10/13/19 10/14/19 10/14/19 22:59 06:59 14:59 Intake Total 2040 Output Total 1000 Balance 1040 Lab Results Last 24 Hours: Laboratory Results - last 24 hr 10/14/19 10/14/19 10/14/19 Range/Units 04:00 04:00 04:00 WBC 15.5 H (4.5-11.0) K/uL RBC 3.21 L (3.30-5.50) M/uL Hgb 8.3 L (12.0-15.0) g/dL Hct 27.3 L (36.0-48.0) % MCV 85 (80-98) fL MCH 26 L (27-31) pg MCHC 30 L (32-36) % Plt Count 423 H (150-400) K/uL Puncture Site A-line ABG pH 7.491 H (7.350-7.450) ABG pCO2 41.6 (35.0-42.0) mmHg ABG pO2 71.2 L (75.0-100.0) mmHg ABG HCO3 31.4 H (22.0-26.0) mmol/L ABG Total CO2 29.3 H (21.0-25.0) mmol/L ABG O2 Saturation 94.4 L (95.0-98.0) % ABG O2 Content 11.2 L (15.0-23.0) %vol ABG Base Excess 7.7 mm/L ABG Hemoglobin 8.6 L (12.0-16.0) g/dL ABG Oxyhemoglobin 92.3 % ABG Carboxyhemoglobin 1.4 (0.0-1.6) % ABG Methemoglobin 0.8 % Bimal Test N/a O2 Delivery Device Ventilator Oxygen Flow Rate L Sodium 139 L (140-148) mmol/L Potassium 4.2 (3.6-5.2) mmol/L Chloride 102 (100-108) mmol/L Carbon Dioxide 31 (21-32) mmol/L Anion Gap 10.2 (5.0-14.0) mmol/L BUN 24 H (7-18) mg/dL Creatinine 0.7 (0.6-1.0) mg/dL Est Cr Clr Drug Dosing 57.55 mL/min Estimated GFR (MDRD) > 60 (>60) Glucose 175 H (74-106) mg/dL Lactic Acid (0.4-2.0) mmol/L Calcium 8.2 L (8.5-10.1) mg/dL Phosphorus 2.8 (2.5-4.9) mg/dL Total Bilirubin 0.3 (0.2-1.0) mg/dL AST 41 H D (15-37) U/L ALT 27 (12-78) U/L Alkaline Phosphatase 152 H (46-116) U/L NT-Pro-B Natriuret Pep 167 H (5-125) pg/mL Total Protein 5.9 L (6.4-8.2) g/dL Albumin 1.7 L (3.4-5.0) g/dL Globulin 4.2 H (2.3-3.5) g/dL Albumin/Globulin Ratio 0.4 L (1.2-2.2) Fluid Amylase U/L Blood Type Gel Antibody Screen Crossmatch 10/14/19 10/14/19 10/14/19 Range/Units 06:50 07:44 07:44 WBC (4.5-11.0) K/uL RBC (3.30-5.50) M/uL Hgb (12.0-15.0) g/dL Hct (36.0-48.0) % MCV (80-98) fL MCH (27-31) pg MCHC (32-36) % Plt Count (150-400) K/uL Puncture Site ABG pH (7.350-7.450) ABG pCO2 (35.0-42.0) mmHg ABG pO2 (75.0-100.0) mmHg ABG HCO3 (22.0-26.0) mmol/L ABG Total CO2 (21.0-25.0) mmol/L ABG O2 Saturation (95.0-98.0) % ABG O2 Content (15.0-23.0) %vol ABG Base Excess mm/L ABG Hemoglobin (12.0-16.0) g/dL ABG Oxyhemoglobin % ABG Carboxyhemoglobin (0.0-1.6) % ABG Methemoglobin % Bimal Test O2 Delivery Device Oxygen Flow Rate L Sodium (140-148) mmol/L Potassium (3.6-5.2) mmol/L Chloride (100-108) mmol/L Carbon Dioxide (21-32) mmol/L Anion Gap (5.0-14.0) mmol/L BUN (7-18) mg/dL Creatinine (0.6-1.0) mg/dL Est Cr Clr Drug Dosing mL/min Estimated GFR (MDRD) (>60) Glucose (74-106) mg/dL Lactic Acid 1.7 (0.4-2.0) mmol/L Calcium (8.5-10.1) mg/dL Phosphorus (2.5-4.9) mg/dL Total Bilirubin (0.2-1.0) mg/dL AST (15-37) U/L ALT (12-78) U/L Alkaline Phosphatase (46-116) U/L NT-Pro-B Natriuret Pep (5-125) pg/mL Total Protein (6.4-8.2) g/dL Albumin (3.4-5.0) g/dL Globulin (2.3-3.5) g/dL Albumin/Globulin Ratio (1.2-2.2) Fluid Amylase 56 28 U/L Blood Type Gel Antibody Screen Crossmatch 10/14/19 10/14/19 10/14/19 Range/Units 07:44 07:57 07:57 WBC (4.5-11.0) K/uL RBC (3.30-5.50) M/uL Hgb (12.0-15.0) g/dL Hct (36.0-48.0) % MCV (80-98) fL MCH (27-31) pg MCHC (32-36) % Plt Count (150-400) K/uL Puncture Site A-line ABG pH 7.431 (7.350-7.450) ABG pCO2 49.2 H (35.0-42.0) mmHg ABG pO2 65.7 L (75.0-100.0) mmHg ABG HCO3 32.2 H (22.0-26.0) mmol/L ABG Total CO2 30.1 H (21.0-25.0) mmol/L ABG O2 Saturation 91.1 L (95.0-98.0) % ABG O2 Content 11.5 L (15.0-23.0) %vol ABG Base Excess 7.4 mm/L ABG Hemoglobin 9.1 L (12.0-16.0) g/dL ABG Oxyhemoglobin 89.4 % ABG Carboxyhemoglobin 1.0 (0.0-1.6) % ABG Methemoglobin 0.9 % Bimal Test A-line O2 Delivery Device Ventilator Oxygen Flow Rate L Sodium (140-148) mmol/L Potassium (3.6-5.2) mmol/L Chloride (100-108) mmol/L Carbon Dioxide (21-32) mmol/L Anion Gap (5.0-14.0) mmol/L BUN (7-18) mg/dL Creatinine (0.6-1.0) mg/dL Est Cr Clr Drug Dosing mL/min Estimated GFR (MDRD) (>60) Glucose (74-106) mg/dL Lactic Acid (0.4-2.0) mmol/L Calcium (8.5-10.1) mg/dL Phosphorus (2.5-4.9) mg/dL Total Bilirubin (0.2-1.0) mg/dL AST (15-37) U/L ALT (12-78) U/L Alkaline Phosphatase (46-116) U/L NT-Pro-B Natriuret Pep (5-125) pg/mL Total Protein (6.4-8.2) g/dL Albumin (3.4-5.0) g/dL Globulin (2.3-3.5) g/dL Albumin/Globulin Ratio (1.2-2.2) Fluid Amylase 38 U/L Blood Type O NEGATIVE Gel Antibody Screen Negative Crossmatch See Detail Jae Results Last 24 Hours: Microbiology 10/11/19 08:00 Gram Stain - Final Endotrachial Tube Respiratory Culture - Final YEAST Med Orders - Current: Current Medications Acetylcysteine (Mucomyst 20%) 200 mg NEB TID@0700,1500,2100 [facility] Last Admin: 10/14/19 07:26 Dose: 200 mg Albuterol (Proventil Neb Soln) 2.5 mg NEB Q2H PRN PRN Reason: shortness of breath/wheezing Last Admin: 10/10/19 22:54 Dose: 2.5 mg Albuterol/Ipratropium (Duoneb 3.0-0.5 Mg/3 Ml) 3 ml INH QIDRT [facility] Last Admin: 10/14/19 07:26 Dose: 3 ml Dimethicone/Zinc Oxide (Rash Relief-Zinc Oxide [place]) 0 gm TOP Q2H PRN PRN Reason: Rash Last Admin: 10/13/19 11:02 Dose: 4 spray Duloxetine HCl (Cymbalta) 30 mg PO BID [facility] Last Admin: 10/11/19 08:50 Dose: Not Given Furosemide (Lasix) 40 mg IVPUSH NOW ONE Stop: 10/14/19 09:11 Heparin Sodium (Porcine) (Heparin Sodium) 5,000 units SUBCUT Q8H [facility] Last Admin: 10/14/19 08:05 Dose: 5,000 units Heparin Sodium (Porcine) (Heparin Lock Flush 100 Units/Ml) 500 units FLUSH ASDIRECTED PRN PRN Reason: Keep Vein Open Last Admin: 10/09/19 11:40 Dose: 500 units Hydrocortisone Sodium Succinate (Solu-Cortef) 100 mg IVPUSH Q12H [facility] Stop: 10/14/19 09:31 Last Admin: 10/13/19 21:37 Dose: 100 mg Hydroxyzine HCl (Vistaril) 100 mg IM Q4H PRN PRN Reason: pain Last Admin: 10/06/19 05:11 Dose: 100 mg Heparin Sodium (Porcine) 5,000 (units/ Sodium Chloride) 501 mls @ 0 mls/hr IV ASDIRECTED TIARRA Last Admin: 10/13/19 13:17 Dose: 1 mls/hr Propofol (Diprivan 100 Ml) 100 mls @ 3.783 mls/hr IV TITRATE [facility]; Protocol Last Admin: 10/14/19 07:24 Dose: 35 mcg/kg/min, 26.481 mls/hr Sodium Chloride (Normal Saline) 1,000 mls @ 25 mls/hr IV ASDIRECTED TIARRA Last Infusion: 10/13/19 22:05 Dose: 30 mls/hr Multivitamins/Minerals 10 ml/Chromium/Copper/Manganese/Seleni/Zn 1 ml/ Amino Acids/Electrolytes/Dextrose 1,011 mls @ 60 mls/hr IV .BY DURATION TIARRA Last Admin: 10/14/19 05:02 Dose: 60 mls/hr Amino Acids/Electrolytes/Dextrose (Clinimix E 4.25/10) 1,000 mls @ 60 mls/hr IV .BY DURATION [facility] Last Admin: 10/13/19 11:56 Dose: 60 mls/hr Meropenem 1 gm/ Sodium (Chloride) 50 mls @ 100 mls/hr IV Q8H [facility] Last Admin: 10/14/19 08:05 Dose: 100 mls/hr Albumin Human (Albumin 25%) 25 gm in 100 mls @ 25 mls/hr IV Q24H [facility] Stop: 10/14/19 16:59 Last Admin: 10/13/19 12:40 Dose: 25 mls/hr Doxycycline Hyclate 100 mg/ (Sodium Chloride) 100 mls @ 100 mls/hr IV Q12H [facility] Last Admin: 10/13/19 21:37 Dose: 100 mls/hr Fluconazole/Sodium Chloride (200 mg/ Premix) 100 mls @ 100 mls/hr IV Q24H [facility] Last Admin: 10/13/19 12:14 Dose: 100 mls/hr Norepinephrine Bitartrate 8 mg (/ Dextrose/Water) 250 mls @ 3.75 mls/hr IV TITRATE TIARRA; Protocol Last Infusion: 10/14/19 05:43 Dose: 2 mcg/min, 3.75 mls/hr Levothyroxine Sodium (Synthroid) 25 mcg IVPUSH DAILY TIAR[facility] Last Admin: 10/13/19 09:49 Dose: 25 mcg Lorazepam (Ativan) 0.5 mg IVPUSH Q2H PRN PRN Reason: Agitation Last Admin: 10/07/19 19:37 Dose: 0.5 mg Morphine Sulfate (Morphine) 4 mg IVPUSH Q2H PRN PRN Reason: PAIN Last Admin: 10/14/19 02:29 Dose: 4 mg Ondansetron HCl (Zofran Odt) 4 mg PO Q4H PRN PRN Reason: Nausea/Vomiting Last Admin: 10/07/19 00:48 Dose: 4 mg Pantoprazole Sodium (Protonix Iv) 40 mg IV Q24H [facility]AR[facility] Last Admin: 10/13/19 15:26 Dose: 40 mg Discontinued Medications Acetaminophen (Tylenol Extra Strength) 1,000 mg PO ONETIME ONE Stop: 10/04/19 05:43 Last Admin: 10/04/19 06:11 Dose: 1,000 mg Acetaminophen (Tylenol) 650 mg PO Q6H [facility] Last Admin: 10/05/19 04:30 Dose: 650 mg Hydrocodone Bitart/Acetaminophen ([place] 325-5 Mg) 1 - 2 tab PO Q4H PRN PRN Reason: Pain Last Admin: 10/07/19 04:18 Dose: 1 tab Acetylcysteine (Mucomyst 20%) 200 mg NEB TIDRT [facility] Last Admin: 10/13/19 10:06 Dose: 200 mg Albuterol/Ipratropium (Duoneb 3.0-0.5 Mg/3 Ml) 3 ml NEB ONETIME ONE Stop: 10/04/19 06:31 Last Admin: 10/04/19 10:48 Dose: 3 ml Albuterol/Ipratropium (Duoneb 3.0-0.5 Mg/3 Ml) 3 ml NEB ONETIME ONE Stop: 10/04/19 10:46 Last Admin: 10/04/19 12:30 Dose: Not Given Albuterol/Ipratropium (Duoneb 3.0-0.5 Mg/3 Ml) 3 ml INH ASDIRECTED PRN PRN Reason: BREATHING Last Admin: 10/07/19 00:54 Dose: 3 ml Celecoxib (Celebrex) 200 mg PO ONETIME ONE Stop: 10/04/19 05:43 Last Admin: 10/04/19 06:11 Dose: 200 mg Celecoxib (Celebrex) 200 mg PO DAILY@0800 [facility] Last Admin: 10/12/19 07:32 Dose: Not Given Ropivacaine 60 ml/Dexamethasone 8 mg/Epinephrine HCl 0.4 mg/ Sodium Chloride 17.6 ml 0 ml NERVRT ASDIRECTED [facility] Last Admin: 10/04/19 07:48 Dose: 80 syringe Cyanocobalamin (Vitamin B12) 1,000 mcg IM ONETIME ONE Stop: 10/06/19 09:01 Last Admin: 10/06/19 10:46 Dose: 1,000 mcg Dexamethasone (Dexamethasone) Confirm Administered Dose 4 mg .ROUTE .STK-MED ONE Stop: 10/04/19 07:16 Diphenhydramine HCl (Benadryl) 50 mg IVPUSH Q4H PRN PRN Reason: ITCHING Fentanyl (Sublimaze) Confirm Administered Dose 250 mcg .ROUTE .STK-MED ONE Stop: 10/04/19 07:14 Fentanyl (Sublimaze) Confirm Administered Dose 250 mcg .ROUTE .STK-MED ONE Stop: 10/04/19 08:47 Furosemide (Lasix) 20 mg IVPUSH ONETIME ONE Stop: 10/04/19 20:44 Last Admin: 10/04/19 21:09 Dose: 20 mg Furosemide (Lasix) 20 mg IVPUSH ONETIME ONE Stop: 10/05/19 08:01 Last Admin: 10/05/19 09:43 Dose: 20 mg Furosemide (Lasix) 40 mg PO ONETIME ONE Stop: 10/06/19 00:47 Last Admin: 10/06/19 01:05 Dose: 40 mg Furosemide (Lasix) 40 mg PO ONETIME ONE Stop: 10/06/19 16:34 Last Admin: 10/06/19 17:31 Dose: 40 mg Furosemide (Lasix) 10 mg IVPUSH ONETIME ONE Stop: 10/08/19 22:50 Last Admin: 10/08/19 23:27 Dose: Not Given Furosemide (Lasix) 20 mg IVPUSH NOW ONE Stop: 10/10/19 09:31 Last Admin: 10/10/19 10:32 Dose: 20 mg Furosemide (Lasix) 20 mg IVPUSH ONETIME ONE Stop: 10/10/19 18:01 Last Admin: 10/10/19 18:22 Dose: 20 mg Furosemide (Lasix) 40 mg IVPUSH ONETIME ONE Stop: 10/11/19 08:42 Last Admin: 10/11/19 09:03 Dose: 40 mg Furosemide (Lasix) 40 mg IVPUSH ONETIME ONE Stop: 10/11/19 16:56 Last Admin: 10/11/19 17:17 Dose: 40 mg Furosemide (Lasix) 40 mg IVPUSH Q8H [facility] Last Admin: 10/12/19 09:12 Dose: 40 mg Furosemide (Lasix) 40 mg IVPUSH ONETIME ONE Stop: 10/12/19 20:01 Last Admin: 10/12/19 20:06 Dose: 40 mg Gabapentin (Neurontin) 300 mg PO ONETIME ONE Stop: 10/04/19 05:43 Last Admin: 10/04/19 06:10 Dose: 300 mg Gabapentin (Neurontin) 300 mg PO TID [facility] Last Admin: 10/07/19 13:33 Dose: 300 mg Glycopyrrolate (Robinul) Confirm Administered Dose 1 mg .ROUTE .STK-MED ONE Stop: 10/04/19 07:16 Hydrocortisone Sodium Succinate (Solu-Cortef) 100 mg IVPUSH ONETIME ONE Stop: 10/12/19 17:36 Last Admin: 10/12/19 17:51 Dose: 100 mg Hydromorphone HCl (Dilaudid [facility] 15 Mg In Ns 30 Ml) 0 mg IV ASDIRECTED PRN; Protocol PRN Reason: Pain Last Admin: 10/04/19 10:41 Dose: 0.3 mg Lidocaine HCl/Dextrose (Lidocaine 2 Gm/D5w 500 Ml) 2 gm in 500 mls @ 22.5 mls/ hr IV .Q24H [facility] Stop: 10/05/19 07:29 Last Admin: 10/04/19 12:29 Dose: 1 mg/min, 15 mls/hr Ketamine HCl 50 mg/ Sodium (Chloride) 50 mls @ 12 mls/hr IV ASDIRECTED TIAR[facility] Dextrose/Lactated Ringer's (Dextrose 5%-Lactated Ringers) 1,000 mls @ 100 mls/ hr IV ASDIRECTED TIARRA Last Admin: 10/04/19 12:29 Dose: 100 mls/hr Cefoxitin Sodium 2 gm/ Sodium (Chloride) 50 mls @ 100 mls/hr IV ONETIME ONE Stop: 10/04/19 07:44 Last Admin: 10/04/19 07:15 Dose: 100 mls/hr Lactated Ringer's (Ringers, Lactated) Confirm Administered Dose 1,000 mls @ as directed .ROUTE .STK-MED ONE Stop: 10/04/19 07:14 Dextrose/Lactated Ringer's (Dextrose 5%-Lactated Ringers) 1,000 mls @ 175 mls/ hr IV ASDIRECTED [facility] Multivitamins/Minerals 10 ml/Thiamine HCl 200 mg/ Chromium/Copper/Manganese/ Seleni/Zn 1 ml/ Dextrose/Lactated Ringer's 1,013 mls @ 174.999 mls/hr IV DAILY@ 1600 [facility] Last Admin: 10/04/19 17:13 Dose: 174.999 mls/hr Cefoxitin Sodium 2 gm/ Sodium (Chloride) 50 mls @ 100 mls/hr IV Q6H [facility] Last Admin: 10/05/19 07:49 Dose: 100 mls/hr Dextrose/Lactated Ringer's (Dextrose 5%-Lactated Ringers) 1,000 mls @ 125 mls/ hr IV ASDIRECTED [facility] Last Admin: 10/05/19 00:43 Dose: 125 mls/hr Dextrose/Lactated Ringer's (Dextrose 5%-Lactated Ringers) 1,000 mls @ 100 mls/ hr IV ASDIRECTED [facility] Last Admin: 10/05/19 09:41 Dose: 100 mls/hr Lactated Ringer's (Ringers, Lactated) 500 mls @ 100 mls/hr IV .BOLUS ONE Stop: 10/05/19 11:59 Last Admin: 10/05/19 07:48 Dose: 100 mls/hr Multivitamins/Minerals 10 ml/Thiamine HCl 200 mg/ Chromium/Copper/Manganese/ Seleni/Zn 1 ml/ Dextrose/Lactated Ringer's 1,013 mls @ 100 mls/hr IV DAILY@ 1600 [facility] Linezolid 600 mg/ Premix 300 mls @ 300 mls/hr IV Q12H [facility] Last Admin: 10/09/19 22:30 Dose: 300 mls/hr Piperacillin Sod/Tazobactam (Sod 3.375 gm/ Sodium Chloride) 50 mls @ 100 mls/ hr IV Q6H [facility] Last Admin: 10/07/19 01:45 Dose: 100 mls/hr Levofloxacin/Dextrose 750 mg/ (Premix) 150 mls @ 100 mls/hr IV Q48H [facility] Last Admin: 10/08/19 20:01 Dose: 100 mls/hr Sodium Chloride (Normal Saline) Confirm Administered Dose 50 mls @ as directed .ROUTE .STK-MED ONE Stop: 10/06/19 19:37 Last Admin: 10/06/19 20:03 Dose: Not Given Lactated Ringer's (Ringers, Lactated) 1,000 mls @ 100 mls/hr IV ASDIRECTED [facility] Last Admin: 10/07/19 17:52 Dose: 100 mls/hr Piperacillin/Tazobactam/ (Dextrose 3.375 gm/ Premix) 50 mls @ 100 mls/hr IV Q6H [facility] Last Admin: 10/11/19 08:28 Dose: 100 mls/hr Magnesium Sulfate 2 gm/ Premix 50 mls @ 25 mls/hr IV Q6H [facility] Stop: 10/09/19 05:59 Last Admin: 10/09/19 04:08 Dose: 25 mls/hr Propofol (Diprivan 100 Ml) Confirm Administered Dose 100 mls @ as directed .ROUTE .[facility] ONE Stop: 10/07/19 21:21 Last Admin: 10/07/19 22:55 Dose: Not Given Lactated Ringer's (Ringers, Lactated) 1,000 mls @ 25 mls/hr IV ASDIRECTED [facility] Stop: 10/11/19 10:00 Last Admin: 10/08/19 19:59 Dose: 25 mls/hr Levofloxacin/Dextrose 750 mg/ (Premix) 150 mls @ 100 mls/hr IV Q24H [facility] Last Admin: 10/11/19 19:43 Dose: 100 mls/hr Potassium Chloride 40 meq/ (Premix) 100 mls @ 25 mls/hr IV ONETIME ONE Stop: 10/10/19 13:29 Last Admin: 10/10/19 10:31 Dose: 25 mls/hr Potassium Phosphate 22.5 mmole (/ Sodium Chloride) 107.5 mls @ 36 mls/hr IV Q3H [facility] Stop: 10/11/19 15:59 Last Admin: 10/11/19 13:29 Dose: 36 mls/hr Linezolid 600 mg/ Premix 300 mls @ 300 mls/hr IV Q12H [facility] Last Admin: 10/13/19 21:37 Dose: 300 mls/hr Sodium Chloride (Normal Saline) 100 mls @ 3 mls/sec IV ASDIRECTED [facility]ARRA Stop: 10/11/19 09:01 Last Admin: 10/11/19 09:45 Dose: 3 mls/sec Potassium Chloride 40 meq/ (Premix) 100 mls @ 25 mls/hr IV ONETIME ONE Stop: 10/12/19 11:59 Last Admin: 10/12/19 08:33 Dose: 25 mls/hr Magnesium Sulfate 2 gm/ Premix 50 mls @ 25 mls/hr IV Q6H [facility] Stop: 10/14/19 06:59 Last Admin: 10/12/19 16:03 Dose: 25 mls/hr Iopamidol (Isovue-300 (61%)) 50 ml PO ASDIRECTED STA Stop: 10/05/19 03:24 Last Admin: 10/05/19 03:36 Dose: 50 ml Iopamidol (Isovue-300 (61%)) 100 ml IV . DIRECTED [facility] Stop: 10/11/19 09:01 Last Admin: 10/11/19 09:45 Dose: 100 ml Ketamine HCl (Ketalar) 20 mg IV ASDIRECTED [facility] Labetalol HCl (Normodyne) 5 mg IVPUSH Q5M PRN PRN Reason: SBP over 160 OR DBP over 95 Lactobacillus Rhamnosus (Culturelle) 1 cap PO BID [facility] Last Admin: 10/08/19 10:23 Dose: Not Given Levothyroxine Sodium (Levothyroxine) 25 mcg PO ACBREAKFAST [facility] Last Admin: 10/13/19 07:33 Dose: Not Given Lidocaine (Xylocaine-Mpf 2%) Confirm Administered Dose 5 ml .ROUTE .STK-MED ONE Stop: 10/07/19 07:55 Lidocaine HCl (Xylocaine 2%) 100 mg IVPUSH ASDIRECTED [facility] Lorazepam (Ativan) 0.5 mg IVPUSH Q4H PRN PRN Reason: Anxiety Last Admin: 10/07/19 13:55 Dose: 0.5 mg Magnesium Hydroxide (Milk Of Magnesia) 30 ml PO ONETIME ONE Stop: 10/06/19 09:31 Last Admin: 10/06/19 11:55 Dose: 30 ml Magnesium Oxide (Magnesium Oxide) 400 mg PO DAILY [facility] Last Admin: 10/06/19 10:46 Dose: 400 mg Meropenem (Merrem) Confirm Administered Dose 500 mg .ROUTE .STK-MED ONE Stop: 10/04/19 09:20 Last Admin: 10/04/19 10:15 Dose: 500 mg Methylprednisolone Sodium Succinate (Solu-Medrol) 40 mg IVPUSH Q8H [facility] Last Admin: 10/09/19 01:40 Dose: 40 mg Metoclopramide HCl (Reglan) 10 mg IVPUSH Q6H PRN PRN Reason: NAUSEA NOT CONTROL BY ZOFRAN Miscellaneous Information (Remove Patch) 1 ea TRDERM ONETIME ONE Stop: 10/07/19 06:01 Miscellaneous Information (Remove Patch) 1 ea TRDERM ONETIME ONE Stop: 10/06/19 10:01 Last Admin: 10/06/19 10:06 Dose: Not Given Morphine Sulfate (Morphine) 2 mg IVPUSH Q2H PRN PRN Reason: Pain Last Admin: 10/12/19 02:06 Dose: 2 mg Naloxone HCl (Narcan) 0.1 mg IV ASDIRECTED PRN PRN Reason: decreased respiratory rate Naloxone HCl (Narcan) Confirm Administered Dose 0.4 mg .ROUTE .STK-MED ONE Stop: 10/04/19 10:41 Neostigmine Methylsulfate (Neostigmine) Confirm Administered Dose 5 mg .ROUTE .STK-MED ONE Stop: 10/04/19 07:16 Check Scopolamine (Patch Daily) 1 each .XX DAILY [facility] Last Admin: 10/04/19 12:30 Dose: Not Given Scopolamine Patch (Check) 1 each TOP DAILY [facility] Stop: 10/06/19 12:53 Last Admin: 10/06/19 10:06 Dose: Not Given Ondansetron HCl (Zofran) Confirm Administered Dose 4 mg .ROUTE .STK-MED ONE Stop: 10/04/19 07:16 Ondansetron HCl (Zofran) 4 mg IVPUSH Q4H PRN PRN Reason: Nausea/Vomiting Pantoprazole Sodium (Protonix Iv) 40 mg IVPUSH Q24H [facility] Last Admin: 10/04/19 17:15 Dose: 40 mg Pantoprazole Sodium (Protonix Granules) 40 mg PO Q24H [facility] Last Admin: 10/08/19 16:12 Dose: Not Given Piperacillin Sod/Tazobactam Sod (Zosyn) Confirm Administered Dose 3.375 gm .ROUTE .STK-MED ONE Stop: 10/06/19 19:36 Last Admin: 10/06/19 20:02 Dose: Not Given Propofol (Diprivan 20 Ml) Confirm Administered Dose 200 mg .ROUTE .STK-MED ONE Stop: 10/04/19 07:16 Propofol (Diprivan 20 Ml) Confirm Administered Dose 200 mg .ROUTE .STK-MED ONE Stop: 10/07/19 21:12 Rocuronium [place] (Zemuron) Confirm Administered Dose 50 mg .ROUTE .STK-MED ONE Stop: 10/04/19 07:16 Rocuronium [place] (Zemuron) Confirm Administered Dose 50 mg .ROUTE .STK-MED ONE Stop: 10/04/19 09:27 Scopolamine (Transderm-Scop) 1.5 mg TOP ONETIME ONE Stop: 10/04/19 05:43 Last Admin: 10/04/19 06:11 Dose: 1.5 mg Sodium Chloride (Saline Flush) 10 ml FLUSH ONETIME ONE Stop: 10/11/19 09:01 Last Admin: 10/11/19 09:45 Dose: 10 ml Succinylcholine Chloride (Quelicin) Confirm Administered Dose 200 mg .ROUTE .STK -MED ONE Stop: 10/04/19 07:16 Succinylcholine Chloride (Quelicin) Confirm Administered Dose 200 mg .ROUTE .STK -MED ONE Stop: 10/07/19 21:12 Sugammadex Sodium ([place]) Confirm Administered Dose 200 mg .ROUTE .STK-MED ONE Stop: 10/04/19 10:47 - Exam Quality Assessment: Supplemental Oxygen General: Alert, Mild Distress. No: Cooperative HEENT: Pupils Equal Lungs: Rhonchi (moderate diffuse ). No: Normal Respiratory Effort (increased work of breathing ), Wheezing Cardiovascular: Regular Rate, Regular Rhythm GI/Abdominal Exam: Normal Bowel Sounds, Soft, No Distention Extremities: No Pedal Edema. No: Increased Warmth Peripheral Pulses: 2+: Dorsalis Pedis (L), Dorsalis Pedis (R) Skin: Warm, Dry Psy/Mental Status: Alert, Agitated (mild) Consult PN Assessment/Plan Procedures: Procedures BLOOD TYPING SEROLOGIC ABO (07/26/19) BLOOD TYPING SEROLOGIC RH(D) (07/26/19) RBC ANTIBODY SCREEN (07/26/19) Problem List Initiated/Reviewed/Updated: Yes My Orders Last 24 Hours: My Active Orders 10/13/19 09:27 RT Aerosol Therapy [RC] ASDIRECTED 10/13/19 09:30 Hydrocortisone Sod Succinate [Solu-CORTEF] 100 mg IVPUSH Q12H Levothyroxine [Synthroid] 25 mcg IVPUSH DAILY 10/13/19 10:51 Dimethicone/Zinc Oxide [Rash Relief-Zinc Oxide [place]] 0 gm TOP Q2H PRN 10/13/19 15:00 Acetylcysteine [Mucomyst 20%] 200 mg NEB TID@0700,1500,2100 10/14/19 09:10 Furosemide [Lasix] 40 mg IVPUSH NOW ONE Plan: ASSESSMENT AND RECOMMENDATIONS ACUTE HYPOXIC AND HYPERCAPNIC RESPIRATORY FAILURE - multifactorial with pneumonia, aspiration and ARDS. Stable overnight. Chest x-ray stable to slightly improved. Respiratory culture is growing germ tube positive yeast. She is not having fevers. FiO2 is up to 65%. Peak pressures around 30. Did well with sedation vacation yesterday. She is more alert this morning off sedation as well. -Minimize IV fluid as able -Furosemide 1 this morning and reassess -Scheduled DuoNeb's -Mucomyst nebulizers -Supplemental oxygen as needed -Mechanical ventilation with weaning trials once respiratory status stabilized further (PEEP is at 10) -Nebulizer therapy as ordered -Follow-up blood gases in a.m. LEFT LUNG PNEUMONIA - infiltrate seem to be stagnant. Initial culture grew out enterococcus and now germ tube positive yeast. She is now requiring vasopressor support. -Continue doxycycline and meropenem -Discontinue linezolid with no resistant staph species identified -Fluconazole (started 10/12) -Follow-up cultures ANEMIA DUE TO ACUTE ILLNESS - hemoglobin slightly lower today. No evidence for bleeding. -Transfuse as ordered by surgical team -Hemoglobin in the morning HYPOKALEMIA - mild and will need ongoing replacement. STATUS POST DUODENAL SWITCH PROCEDURE - postop course complicated by an ileus but bowel function seems to be improving. NG tube removed 10/12. She is on TPN. -Postop care per Dr. Denny Rivers M.D.
[2019-10-14] MEDS ORDERED: Furosemide 40 MG/4 ML VIAL IVPUSH ONE ×2 (09:15→19:00)
[2019-10-14] MEDS: Hydrocortisone Sodium Succinate 100 MG/2 ML SDV IVPUSH SCH (09:16)
[2019-10-14] MEDS: Doxycycline 100 MG in Sodium Chloride 0.9% 100 ML IV SCH ×2 (09:30→21:38)
[2019-10-14] MEDS: Levothyroxine 100 MCG Vial IVPUSH SCH (09:52)
[2019-10-14] MEDS: Fluconazole/Normal Saline 200 MG in Premix Bag 1 BAG IV SCH (11:03)
[2019-10-14] MEDS: Pantoprazole 40 MG Vial IV SCH (16:17)
--- NOTE | 2019-10-14 21:41 | PN ---
DATE OF SERVICE: 10/14/2019 The patient has been clinically reasonably stable. She was fairly tachypneic, and looking at her this morning, she is some respirations that are not triggering the assist- control. Some adjustments were made with Respiratory Therapy in terms of the ventilator, and she looks quite a bit more comfortable. We will repeat some blood gas at this point. Otherwise, we will get some sputum and blood cultures, check the amylase levels on the VIJAY drains. If those are normal, those can be pulled out later today or tomorrow. Otherwise, continue the TPN. Hemoglobin is fairly low in the mid 8s. We will give her 1 unit of packed RBCs today followed by some Lasix. Otherwise, continue the current management with the assistance of the hospitalist. Brad Baldwin MD /[id number]
[2019-10-14] MEDS ORDERED: Levalbuterol HCl 1.25 MG/3 ML Neb NEB PRN (22:33)
--- NOTE | 2019-10-14 22:35 | PCM.SN ---
- Free Text/Narrative Note: Pt developed increasing O2 requirement after evening nebulizer. FiO2 increased to 100%. Examination revealed apparent bronchospasm. Concern for paradoxical reaction to albuterol. Albuterol, DuoNeb and mucomyst discontinued. New orders for Xopenex placed. Respiratory status slowly improving. Henok Rivers MD
[2019-10-15] MEDS: Heparin Sodium 5,000 Units/ML Vial SUBCUT SCH ×4 (00:23→23:43)
[2019-10-15] MEDS: Morphine 4 MG/ML Syringe IVPUSH PRN ×7 (00:27→23:40)
[2019-10-15] MEDS: LORazepam 2 MG/ML SDV IVPUSH PRN ×3 (00:47→09:52)
[2019-10-15] MEDS: Norepinephrine 8 MG in Dextrose 5% in Water 242 ML IV SCH ×4 (02:54→12:05)
--- NOTE | 2019-10-15 04:55 | CRLCR ---
HISTORY: Respiratory failure. Ventilator management. COMPARISON: From yesterday. FINDINGS: A portable erect AP view of the chest was obtained at 0404 hours. There has been no change in moderate infiltrate in the lateral right upper lobe and in the right infrahilar region. There has been slight improvement in moderate consolidation of the left lung base, now mild. There continues to be mild patchy infiltrates scattered throughout the rest of the chest consistent with ARDS. An endotracheal tube continues to have its tip in satisfactory position midway between the thoracic inlet and adrian. Again seen is a left subclavian central line with its tip in the midportion of the right atrium. There is no sign of pneumothorax on the left. The heart remains normal in size. The mediastinum is normal in appearance. The osseous structures are normal in appearance for the patient`s age. IMPRESSION: Stable moderate right upper and right infrahilar infiltrates. Improvement in retrocardiac left lower lobe consolidation, now mild. Stable mild diffuse interstitial pulmonary infiltrates consistent with ARDS. Endotracheal tube remains in satisfactory position. The left subclavian central line is again seen with its tip in the midportion of the right atrium. No sign of pneumothorax. Dictated by Lior Odonnell MD @ Oct 15 2019 4:50AM Signed by Dr. Lior Odonnell @ Oct 15 2019 4:53AM
[2019-10-15] MEDS: Levalbuterol HCl 1.25 MG/3 ML Neb NEB SCH ×4 (07:27→21:15)
--- NOTE | 2019-10-15 07:56 | PN ---
DATE OF SERVICE: 10/13/2019 The patient has been somewhat more stable overnight. She is not tolerating turning and such, and presently continues on an FiO2 of 60%. Otherwise, there are no signs of any leak and such, and we will continue present antibiotics and ventilator management per Dr. Rivers. The VIJAY drainage is fairly low. I think we will probably check some amylase levels tomorrow. If those are normal, we will proceed with removal of the drains. Brad Baldwin MD /[id number]
[2019-10-15] MEDS ORDERED: Lidocaine 2% Viscous Solution 15 ML Cup ONE (09:41)
[2019-10-15] MEDS: Levothyroxine 100 MCG Vial IVPUSH SCH (09:51)
[2019-10-15] MEDS ORDERED: Lidocaine 4% Top Soln 50 ML Bottle ONE (10:00)
--- NOTE | 2019-10-15 10:24 | PN ---
DATE OF SERVICE: 10/15/2019 SUBJECTIVE: Marissa from a surgical standpoint shows no change. Continues to be on the ventilator, managed by hospitalist. OBJECTIVE: GENERAL: Marissa is a 64-year-old female. VITAL SIGNS: TPR is 98.4, 78, 40, blood pressure 109/43. HEENT: Negative. NECK: Supple. HEART: Regular rate and rhythm. LUNGS: No change on ventilator. ABDOMEN: Negative. EXTREMITIES: Negative. ASSESSMENT: PLAN: 1. K-Phos 22.5 mmol x3 bags. 2. Check CBC, CMP, mag, phos, BNP in a.m. 3. We will evaluate p.r.n. or in a.m. Suzie Andrea PA-C /[id number]
[2019-10-15] MEDS: Doxycycline 100 MG in Sodium Chloride 0.9% 100 ML IV SCH (10:30)
--- NOTE | 2019-10-15 11:03 | PCM.PN ---
- General Info Date of Service: 10/15/19 Subjective Update: Ms. Alford has unfortunately experienced worsening of her respiratory status in the last 24 hours. There has been an increase in respiratory rate and increased need for a higher level of FiO2. Situation is stabilized somewhat during the day with a modest improvement in respiratory rate. On cost therapy was performed this morning by Dr. Baldwin with only scant secretions noted. There was some question of a problem with endotracheal tube so that has been replaced. CT scan of the chest and abdomen showed evidence of infiltrates right upper lung and both bases, as well as fluid.. No acute abnormalities noted within the abdomen. Blood cell count is increased from yesterday and she did have a temperature of over 101 during the night. Because of intubation and current sedation she is unable to provide a meaningful history concerning symptoms or review of systems. - Patient Data Vitals - Most Recent: Last Vital Signs Temp 98.4 F 10/15/19 07:00 Pulse 82 10/15/19 10:39 Resp 40 H 10/15/19 07:00 BP 109/43 L 10/15/19 07:00 Pulse Ox 90 L 10/15/19 10:39 Weight - Most Recent: 314 lb 2.539 oz I&O - Last 24 Hours: Intake & Output 10/14/19 10/15/19 10/15/19 22:59 06:59 14:59 Intake Total 2484 1682 Output Total 2700 397 Balance -216 1285 Lab Results Last 24 Hours: Laboratory Results - last 24 hr 10/14/19 10/14/19 10/14/19 Range/Units 07:44 07:44 07:44 WBC (4.5-11.0) K/uL RBC (3.30-5.50) M/uL Hgb (12.0-15.0) g/dL Hct (36.0-48.0) % MCV (80-98) fL MCH (27-31) pg MCHC (32-36) % Plt Count (150-400) K/uL Puncture Site ABG pH (7.350-7.450) ABG pCO2 (35.0-42.0) mmHg ABG pO2 (75.0-100.0) mmHg ABG HCO3 (22.0-26.0) mmol/L ABG Total CO2 (21.0-25.0) mmol/L ABG O2 Saturation (95.0-98.0) % ABG O2 Content (15.0-23.0) %vol ABG Base Excess mm/L ABG Hemoglobin (12.0-16.0) g/dL ABG Oxyhemoglobin % ABG Carboxyhemoglobin (0.0-1.6) % ABG Methemoglobin % O2 Delivery Device Oxygen Flow Rate L Sodium (140-148) mmol/L Potassium (3.6-5.2) mmol/L Chloride (100-108) mmol/L Carbon Dioxide (21-32) mmol/L Anion Gap (5.0-14.0) mmol/L BUN (7-18) mg/dL Creatinine (0.6-1.0) mg/dL Est Cr Clr Drug Dosing mL/min Estimated GFR (MDRD) (>60) Glucose (74-106) mg/dL Calcium (8.5-10.1) mg/dL Phosphorus (2.5-4.9) mg/dL Total Bilirubin (0.2-1.0) mg/dL AST (15-37) U/L ALT (12-78) U/L Alkaline Phosphatase (46-116) U/L NT-Pro-B Natriuret Pep (5-125) pg/mL Total Protein (6.4-8.2) g/dL Albumin (3.4-5.0) g/dL Globulin (2.3-3.5) g/dL Albumin/Globulin Ratio (1.2-2.2) Fluid Type Panfilo drainage #1 Panfilo drainage #2 Panfilo drainage #3 Crossmatch 10/14/19 10/15/19 10/15/19 Range/Units 07:57 03:45 03:45 WBC 18.8 H (4.5-11.0) K/uL RBC 3.65 (3.30-5.50) M/uL Hgb 9.3 L (12.0-15.0) g/dL Hct 31.3 L (36.0-48.0) % MCV 86 (80-98) fL MCH 26 L (27-31) pg MCHC 30 L (32-36) % Plt Count 447 H (150-400) K/uL Puncture Site Line ABG pH 7.486 H (7.350-7.450) ABG pCO2 43.7 H (35.0-42.0) mmHg ABG pO2 64.2 L (75.0-100.0) mmHg ABG HCO3 32.6 H (22.0-26.0) mmol/L ABG Total CO2 30.0 H (21.0-25.0) mmol/L ABG O2 Saturation 92.8 L (95.0-98.0) % ABG O2 Content 12.3 L (15.0-23.0) %vol ABG Base Excess 8.6 mm/L ABG Hemoglobin 9.6 L (12.0-16.0) g/dL ABG Oxyhemoglobin 90.7 % ABG Carboxyhemoglobin 1.4 (0.0-1.6) % ABG Methemoglobin 0.9 % O2 Delivery Device Ventilator Oxygen Flow Rate L Sodium (140-148) mmol/L Potassium (3.6-5.2) mmol/L Chloride (100-108) mmol/L Carbon Dioxide (21-32) mmol/L Anion Gap (5.0-14.0) mmol/L BUN (7-18) mg/dL Creatinine (0.6-1.0) mg/dL Est Cr Clr Drug Dosing mL/min Estimated GFR (MDRD) (>60) Glucose (74-106) mg/dL Calcium (8.5-10.1) mg/dL Phosphorus (2.5-4.9) mg/dL Total Bilirubin (0.2-1.0) mg/dL AST (15-37) U/L ALT (12-78) U/L Alkaline Phosphatase (46-116) U/L NT-Pro-B Natriuret Pep (5-125) pg/mL Total Protein (6.4-8.2) g/dL Albumin (3.4-5.0) g/dL Globulin (2.3-3.5) g/dL Albumin/Globulin Ratio (1.2-2.2) Fluid Type Crossmatch See Detail 10/15/19 Range/Units 03:45 WBC (4.5-11.0) K/uL RBC (3.30-5.50) M/uL Hgb (12.0-15.0) g/dL Hct (36.0-48.0) % MCV (80-98) fL MCH (27-31) pg MCHC (32-36) % Plt Count (150-400) K/uL Puncture Site ABG pH (7.350-7.450) ABG pCO2 (35.0-42.0) mmHg ABG pO2 (75.0-100.0) mmHg ABG HCO3 (22.0-26.0) mmol/L ABG Total CO2 (21.0-25.0) mmol/L ABG O2 Saturation (95.0-98.0) % ABG O2 Content (15.0-23.0) %vol ABG Base Excess mm/L ABG Hemoglobin (12.0-16.0) g/dL ABG Oxyhemoglobin % ABG Carboxyhemoglobin (0.0-1.6) % ABG Methemoglobin % O2 Delivery Device Oxygen Flow Rate L Sodium 142 (140-148) mmol/L Potassium 3.4 L (3.6-5.2) mmol/L Chloride 101 (100-108) mmol/L Carbon Dioxide 31 (21-32) mmol/L Anion Gap 13.4 (5.0-14.0) mmol/L BUN 31 H (7-18) mg/dL Creatinine 0.8 (0.6-1.0) mg/dL Est Cr Clr Drug Dosing 50.36 mL/min Estimated GFR (MDRD) > 60 (>60) Glucose 137 H (74-106) mg/dL Calcium 8.2 L (8.5-10.1) mg/dL Phosphorus 2.8 (2.5-4.9) mg/dL Total Bilirubin 0.6 D (0.2-1.0) mg/dL AST 20 (15-37) U/L ALT 22 (12-78) U/L Alkaline Phosphatase 141 H (46-116) U/L NT-Pro-B Natriuret Pep 271 H (5-125) pg/mL Total Protein 6.3 L (6.4-8.2) g/dL Albumin 2.1 L (3.4-5.0) g/dL Globulin 4.2 H (2.3-3.5) g/dL Albumin/Globulin Ratio 0.5 L (1.2-2.2) Fluid Type Crossmatch Jae Results Last 24 Hours: Microbiology 10/14/19 07:52 Aerobic Blood Culture - Preliminary Blood - Arm, Right NO GROWTH AFTER 1 DAY Anaerobic Blood Culture - Preliminary NO GROWTH AFTER 1 DAY 10/14/19 06:50 Aerobic Blood Culture - Preliminary Blood - Arterial Line - Abg NO GROWTH AFTER 1 DAY Anaerobic Blood Culture - Preliminary NO GROWTH AFTER 1 DAY 10/14/19 06:40 Aerobic Blood Culture - Preliminary Blood - Central Line NO GROWTH AFTER 1 DAY Anaerobic Blood Culture - Preliminary NO GROWTH AFTER 1 DAY Med Orders - Current: Current Medications Dimethicone/Zinc Oxide (Rash Relief-Zinc Oxide Hunt[place]) 0 gm TOP Q2H PRN PRN Reason: Rash Last Admin: 10/13/19 11:02 Dose: 4 spray Duloxetine HCl (Cymbalta) 30 mg PO BID TIARRA Last Admin: 10/11/19 08:50 Dose: Not Given Furosemide (Lasix) 20 mg IV ONETIME ONE Stop: 10/15/19 11:16 Heparin Sodium (Porcine) (Heparin Sodium) 5,000 units SUBCUT Q8H [facility]ARRA Last Admin: 10/15/19 09:25 Dose: 5,000 units Heparin Sodium (Porcine) (Heparin Lock Flush 100 Units/Ml) 500 units FLUSH ASDIRECTED PRN PRN Reason: Keep Vein Open Last Admin: 10/09/19 11:40 Dose: 500 units Hydroxyzine HCl (Vistaril) 100 mg IM Q4H PRN PRN Reason: pain Last Admin: 10/06/19 05:11 Dose: 100 mg Heparin Sodium (Porcine) 5,000 (units/ Sodium Chloride) 501 mls @ 0 mls/hr IV ASDIRECTED TIARRA Last Admin: 10/13/19 13:17 Dose: 1 mls/hr Propofol (Diprivan 100 Ml) 100 mls @ 3.783 mls/hr IV TITRATE [facility]; Protocol Last Titration: 10/15/19 09:38 Dose: 60 mcg/kg/min, 45.396 mls/hr Sodium Chloride (Normal Saline) 1,000 mls @ 25 mls/hr IV ASDIRECTED TIARRA Last Infusion: 10/13/19 22:05 Dose: 30 mls/hr Multivitamins/Minerals 10 ml/Chromium/Copper/Manganese/Seleni/Zn 1 ml/ Amino Acids/Electrolytes/Dextrose 1,011 mls @ 60 mls/hr IV .BY DURATION IT[facility]RA Last Admin: 10/14/19 05:02 Dose: 60 mls/hr Amino Acids/Electrolytes/Dextrose (Clinimix E 4.25/10) 1,000 mls @ 60 mls/hr IV .BY DURATION [facility] Last Admin: 10/14/19 21:38 Dose: 60 mls/hr Meropenem 1 gm/ Sodium (Chloride) 50 mls @ 100 mls/hr IV Q8H [facility] Last Admin: 10/15/19 09:25 Dose: 100 mls/hr Doxycycline Hyclate 100 mg/ (Sodium Chloride) 100 mls @ 100 mls/hr IV Q12H [facility] Last Admin: 10/15/19 10:30 Dose: 100 mls/hr Fluconazole/Sodium Chloride (200 mg/ Premix) 100 mls @ 100 mls/hr IV Q24H [facility] Last Admin: 10/14/19 11:03 Dose: 100 mls/hr Norepinephrine Bitartrate 8 mg (/ Dextrose/Water) 250 mls @ 3.75 mls/hr IV TITRATE [facility]; Protocol Last Infusion: 10/15/19 03:27 Dose: 4 mcg/min, 7.5 mls/hr Potassium Phosphate 22.5 mmole (/ Sodium Chloride) 107.5 mls @ 27 mls/hr IV Q4H [facility] Stop: 10/15/19 17:29 Levalbuterol HCl (Xopenex) 1.25 mg NEB QIDRT [facility] Last Admin: 10/15/19 10:41 Dose: 1.25 mg Levalbuterol HCl (Xopenex) 1.25 mg NEB Q2H PRN PRN Reason: shortness of breath/wheezing Last Admin: 10/15/19 02:21 Dose: 1.25 mg Levothyroxine Sodium (Synthroid) 25 mcg IVPUSH DAILY [facility] Last Admin: 10/15/19 09:51 Dose: 25 mcg Lorazepam (Ativan) 0.5 mg IVPUSH Q2H PRN PRN Reason: Agitation Last Admin: 10/15/19 09:52 Dose: 0.5 mg Morphine Sulfate (Morphine) 4 mg IVPUSH Q2H PRN PRN Reason: PAIN Last Admin: 10/15/19 09:56 Dose: 4 mg Ondansetron HCl (Zofran Odt) 4 mg PO Q4H PRN PRN Reason: Nausea/Vomiting Last Admin: 10/07/19 00:48 Dose: 4 mg Pantoprazole Sodium (Protonix Iv) 40 mg IV Q24H [facility] Last Admin: 10/14/19 16:17 Dose: 40 mg Discontinued Medications Acetaminophen (Tylenol Extra Strength) 1,000 mg PO ONETIME ONE Stop: 10/04/19 05:43 Last Admin: 10/04/19 06:11 Dose: 1,000 mg Acetaminophen (Tylenol) 650 mg PO Q6H [facility] Last Admin: 10/05/19 04:30 Dose: 650 mg Hydrocodone Bitart/Acetaminophen ([place] 325-5 Mg) 1 - 2 tab PO Q4H PRN PRN Reason: Pain Last Admin: 10/07/19 04:18 Dose: 1 tab Acetylcysteine (Mucomyst 20%) 200 mg NEB TIDRT [facility] Last Admin: 10/13/19 10:06 Dose: 200 mg Acetylcysteine (Mucomyst 20%) 200 mg NEB TID@0700,1500,2100 [facility] Last Admin: 10/14/19 21:39 Dose: 200 mg Albuterol (Proventil Neb Soln) 2.5 mg NEB Q2H PRN PRN Reason: shortness of breath/wheezing Last Admin: 10/10/19 22:54 Dose: 2.5 mg Albuterol/Ipratropium (Duoneb 3.0-0.5 Mg/3 Ml) 3 ml NEB ONETIME ONE Stop: 10/04/19 06:31 Last Admin: 10/04/19 10:48 Dose: 3 ml Albuterol/Ipratropium (Duoneb 3.0-0.5 Mg/3 Ml) 3 ml NEB ONETIME ONE Stop: 10/04/19 10:46 Last Admin: 10/04/19 12:30 Dose: Not Given Albuterol/Ipratropium (Duoneb 3.0-0.5 Mg/3 Ml) 3 ml INH QIDRT TIARRA Last Admin: 10/14/19 21:39 Dose: 3 ml Albuterol/Ipratropium (Duoneb 3.0-0.5 Mg/3 Ml) 3 ml INH ASDIRECTED PRN PRN Reason: BREATHING Last Admin: 10/07/19 00:54 Dose: 3 ml Celecoxib (Celebrex) 200 mg PO ONETIME ONE Stop: 10/04/19 05:43 Last Admin: 10/04/19 06:11 Dose: 200 mg Celecoxib (Celebrex) 200 mg PO DAILY@0800 [facility] Last Admin: 10/12/19 07:32 Dose: Not Given Ropivacaine 60 ml/Dexamethasone 8 mg/Epinephrine HCl 0.4 mg/ Sodium Chloride 17.6 ml 0 ml NERVRT ASDIRECTED [facility] Last Admin: 10/04/19 07:48 Dose: 80 syringe Cyanocobalamin (Vitamin B12) 1,000 mcg IM ONETIME ONE Stop: 10/06/19 09:01 Last Admin: 10/06/19 10:46 Dose: 1,000 mcg Dexamethasone (Dexamethasone) Confirm Administered Dose 4 mg .ROUTE .STK-MED ONE Stop: 10/04/19 07:16 Diphenhydramine HCl (Benadryl) 50 mg IVPUSH Q4H PRN PRN Reason: ITCHING Fentanyl (Sublimaze) Confirm Administered Dose 250 mcg .ROUTE .STK-MED ONE Stop: 10/04/19 07:14 Fentanyl (Sublimaze) Confirm Administered Dose 250 mcg .ROUTE .STK-MED ONE Stop: 10/04/19 08:47 Furosemide (Lasix) 20 mg IVPUSH ONETIME ONE Stop: 10/04/19 20:44 Last Admin: 10/04/19 21:09 Dose: 20 mg Furosemide (Lasix) 20 mg IVPUSH ONETIME ONE Stop: 10/05/19 08:01 Last Admin: 10/05/19 09:43 Dose: 20 mg Furosemide (Lasix) 40 mg PO ONETIME ONE Stop: 10/06/19 00:47 Last Admin: 10/06/19 01:05 Dose: 40 mg Furosemide (Lasix) 40 mg PO ONETIME ONE Stop: 10/06/19 16:34 Last Admin: 10/06/19 17:31 Dose: 40 mg Furosemide (Lasix) 10 mg IVPUSH ONETIME ONE Stop: 10/08/19 22:50 Last Admin: 10/08/19 23:27 Dose: Not Given Furosemide (Lasix) 20 mg IVPUSH NOW ONE Stop: 10/10/19 09:31 Last Admin: 10/10/19 10:32 Dose: 20 mg Furosemide (Lasix) 20 mg IVPUSH ONETIME ONE Stop: 10/10/19 18:01 Last Admin: 10/10/19 18:22 Dose: 20 mg Furosemide (Lasix) 40 mg IVPUSH ONETIME ONE Stop: 10/11/19 08:42 Last Admin: 10/11/19 09:03 Dose: 40 mg Furosemide (Lasix) 40 mg IVPUSH ONETIME ONE Stop: 10/11/19 16:56 Last Admin: 10/11/19 17:17 Dose: 40 mg Furosemide (Lasix) 40 mg IVPUSH Q8H [facility] Last Admin: 10/12/19 09:12 Dose: 40 mg Furosemide (Lasix) 40 mg IVPUSH ONETIME ONE Stop: 10/12/19 20:01 Last Admin: 10/12/19 20:06 Dose: 40 mg Furosemide (Lasix) 40 mg IVPUSH NOW ONE Stop: 10/14/19 09:16 Last Admin: 10/14/19 09:40 Dose: 40 mg Furosemide (Lasix) 40 mg IVPUSH ONETIME ONE Stop: 10/14/19 19:01 Last Admin: 10/14/19 19:25 Dose: 40 mg Gabapentin (Neurontin) 300 mg PO ONETIME ONE Stop: 10/04/19 05:43 Last Admin: 10/04/19 06:10 Dose: 300 mg Gabapentin (Neurontin) 300 mg PO TID [facility] Last Admin: 10/07/19 13:33 Dose: 300 mg Glycopyrrolate (Robinul) Confirm Administered Dose 1 mg .ROUTE .STK-MED ONE Stop: 10/04/19 07:16 Hydrocortisone Sodium Succinate (Solu-Cortef) 100 mg IVPUSH ONETIME ONE Stop: 10/12/19 17:36 Last Admin: 10/12/19 17:51 Dose: 100 mg Hydrocortisone Sodium Succinate (Solu-Cortef) 100 mg IVPUSH Q12H [facility] Stop: 10/14/19 09:31 Last Admin: 10/14/19 09:16 Dose: 100 mg Hydromorphone HCl (Dilaudid Mouthpiece Maker 15 Mg In Ns 30 Ml) 0 mg IV ASDIRECTED PRN; Protocol PRN Reason: Pain Last Admin: 10/04/19 10:41 Dose: 0.3 mg Lidocaine HCl/Dextrose (Lidocaine 2 Gm/D5w 500 Ml) 2 gm in 500 mls @ 22.5 mls/ hr IV .Q24H [facility] Stop: 10/05/19 07:29 Last Admin: 10/04/19 12:29 Dose: 1 mg/min, 15 mls/hr Ketamine HCl 50 mg/ Sodium (Chloride) 50 mls @ 12 mls/hr IV ASDIRECTED [facility] Dextrose/Lactated Ringer's (Dextrose 5%-Lactated Ringers) 1,000 mls @ 100 mls/ hr IV ASDIRECTED [facility] Last Admin: 10/04/19 12:29 Dose: 100 mls/hr Cefoxitin Sodium 2 gm/ Sodium (Chloride) 50 mls @ 100 mls/hr IV ONETIME ONE Stop: 10/04/19 07:44 Last Admin: 10/04/19 07:15 Dose: 100 mls/hr Lactated Ringer's (Ringers, Lactated) Confirm Administered Dose 1,000 mls @ as directed .ROUTE .STK-MED ONE Stop: 10/04/19 07:14 Dextrose/Lactated Ringer's (Dextrose 5%-Lactated Ringers) 1,000 mls @ 175 mls/ hr IV ASDIRECTED [facility] Multivitamins/Minerals 10 ml/Thiamine HCl 200 mg/ Chromium/Copper/Manganese/ Seleni/Zn 1 ml/ Dextrose/Lactated Ringer's 1,013 mls @ 174.999 mls/hr IV DAILY@ 1600 [facility] Last Admin: 10/04/19 17:13 Dose: 174.999 mls/hr Cefoxitin Sodium 2 gm/ Sodium (Chloride) 50 mls @ 100 mls/hr IV Q6H [facility] Last Admin: 10/05/19 07:49 Dose: 100 mls/hr Dextrose/Lactated Ringer's (Dextrose 5%-Lactated Ringers) 1,000 mls @ 125 mls/ hr IV ASDIRECTED [facility] Last Admin: 10/05/19 00:43 Dose: 125 mls/hr Dextrose/Lactated Ringer's (Dextrose 5%-Lactated Ringers) 1,000 mls @ 100 mls/ hr IV ASDIRECTED [facility] Last Admin: 10/05/19 09:41 Dose: 100 mls/hr Lactated Ringer's (Ringers, Lactated) 500 mls @ 100 mls/hr IV .BOLUS ONE Stop: 10/05/19 11:59 Last Admin: 10/05/19 07:48 Dose: 100 mls/hr Multivitamins/Minerals 10 ml/Thiamine HCl 200 mg/ Chromium/Copper/Manganese/ Seleni/Zn 1 ml/ Dextrose/Lactated Ringer's 1,013 mls @ 100 mls/hr IV DAILY@ 1600 [facility] Linezolid 600 mg/ Premix 300 mls @ 300 mls/hr IV Q12H [facility] Last Admin: 10/09/19 22:30 Dose: 300 mls/hr Piperacillin Sod/Tazobactam (Sod 3.375 gm/ Sodium Chloride) 50 mls @ 100 mls/ hr IV Q6H [facility] Last Admin: 10/07/19 01:45 Dose: 100 mls/hr Levofloxacin/Dextrose 750 mg/ (Premix) 150 mls @ 100 mls/hr IV Q48H [facility] Last Admin: 10/08/19 20:01 Dose: 100 mls/hr Sodium Chloride (Normal Saline) Confirm Administered Dose 50 mls @ as directed .ROUTE .STK-MED ONE Stop: 10/06/19 19:37 Last Admin: 10/06/19 20:03 Dose: Not Given Lactated Ringer's (Ringers, Lactated) 1,000 mls @ 100 mls/hr IV ASDIRECTED [facility] Last Admin: 10/07/19 17:52 Dose: 100 mls/hr Piperacillin/Tazobactam/ (Dextrose 3.375 gm/ Premix) 50 mls @ 100 mls/hr IV Q6H [facility] Last Admin: 10/11/19 08:28 Dose: 100 mls/hr Magnesium Sulfate 2 gm/ Premix 50 mls @ 25 mls/hr IV Q6H [facility] Stop: 10/09/19 05:59 Last Admin: 10/09/19 04:08 Dose: 25 mls/hr Propofol (Diprivan 100 Ml) Confirm Administered Dose 100 mls @ as directed .ROUTE .STK-MED ONE Stop: 10/07/19 21:21 Last Admin: 10/07/19 22:55 Dose: Not Given Lactated Ringer's (Ringers, Lactated) 1,000 mls @ 25 mls/hr IV ASDIRECTED [facility] Stop: 10/11/19 10:00 Last Admin: 10/08/19 19:59 Dose: 25 mls/hr Levofloxacin/Dextrose 750 mg/ (Premix) 150 mls @ 100 mls/hr IV Q24H [facility] Last Admin: 10/11/19 19:43 Dose: 100 mls/hr Potassium Chloride 40 meq/ (Premix) 100 mls @ 25 mls/hr IV ONETIME ONE Stop: 10/10/19 13:29 Last Admin: 10/10/19 10:31 Dose: 25 mls/hr Potassium Phosphate 22.5 mmole (/ Sodium Chloride) 107.5 mls @ 36 mls/hr IV Q3H [facility] Stop: 10/11/19 15:59 Last Admin: 10/11/19 13:29 Dose: 36 mls/hr Linezolid 600 mg/ Premix 300 mls @ 300 mls/hr IV Q12H [facility] Last Admin: 10/13/19 21:37 Dose: 300 mls/hr Sodium Chloride (Normal Saline) 100 mls @ 3 mls/sec IV ASDIRECTED [facility] Stop: 10/11/19 09:01 Last Admin: 10/11/19 09:45 Dose: 3 mls/sec Potassium Chloride 40 meq/ (Premix) 100 mls @ 25 mls/hr IV ONETIME ONE Stop: 10/12/19 11:59 Last Admin: 10/12/19 08:33 Dose: 25 mls/hr Magnesium Sulfate 2 gm/ Premix 50 mls @ 25 mls/hr IV Q6H [facility] Stop: 10/14/19 06:59 Last Admin: 10/12/19 16:03 Dose: 25 mls/hr Albumin Human (Albumin 25%) 25 gm in 100 mls @ 25 mls/hr IV Q24H [facility] Stop: 10/14/19 16:59 Last Admin: 10/14/19 12:24 Dose: 25 mls/hr Iopamidol (Isovue-300 (61%)) 50 ml PO ASDIRECTED [facility] Stop: 10/05/19 03:24 Last Admin: 10/05/19 03:36 Dose: 50 ml Iopamidol (Isovue-300 (61%)) 100 ml IV . DIRECTED [facility] Stop: 10/11/19 09:01 Last Admin: 10/11/19 09:45 Dose: 100 ml Ketamine HCl (Ketalar) 20 mg IV ASDIRECTED [facility] Labetalol HCl (Normodyne) 5 mg IVPUSH Q5M PRN PRN Reason: SBP over 160 OR DBP over 95 Lactobacillus Rhamnosus (Culturelle) 1 cap PO BID [facility] Last Admin: 10/08/19 10:23 Dose: Not Given Levothyroxine Sodium (Levothyroxine) 25 mcg PO ACBREAKFAST [facility] Last Admin: 10/13/19 07:33 Dose: Not Given Lidocaine (Xylocaine-Mpf 2%) Confirm Administered Dose 5 ml .ROUTE .STK-MED ONE Stop: 10/07/19 07:55 Lidocaine HCl (Xylocaine 2%) 100 mg IVPUSH ASDIRECTED [facility] Lidocaine HCl (Xylocaine 4% Top Soln) 50 ml .ROUTE .STK-MED ONE Stop: 10/15/19 10:01 Lidocaine HCl (Xylocaine 2% Viscous) Confirm Administered Dose 15 ml .ROUTE .STK -MED ONE Stop: 10/15/19 09:42 Lorazepam (Ativan) 0.5 mg IVPUSH Q4H PRN PRN Reason: Anxiety Last Admin: 10/07/19 13:55 Dose: 0.5 mg Magnesium Hydroxide (Milk Of Magnesia) 30 ml PO ONETIME ONE Stop: 10/06/19 09:31 Last Admin: 10/06/19 11:55 Dose: 30 ml Magnesium Oxide (Magnesium Oxide) 400 mg PO DAILY [facility] Last Admin: 10/06/19 10:46 Dose: 400 mg Meropenem (Merrem) Confirm Administered Dose 500 mg .ROUTE .STK-MED ONE Stop: 10/04/19 09:20 Last Admin: 10/04/19 10:15 Dose: 500 mg Methylprednisolone Sodium Succinate (Solu-Medrol) 40 mg IVPUSH Q8H [facility] Last Admin: 10/09/19 01:40 Dose: 40 mg Metoclopramide HCl (Reglan) 10 mg IVPUSH Q6H PRN PRN Reason: NAUSEA NOT CONTROL BY ZOFRAN Miscellaneous Information (Remove Patch) 1 ea TRDERM ONETIME ONE Stop: 10/07/19 06:01 Miscellaneous Information (Remove Patch) 1 ea TRDERM ONETIME ONE Stop: 10/06/19 10:01 Last Admin: 10/06/19 10:06 Dose: Not Given Morphine Sulfate (Morphine) 2 mg IVPUSH Q2H PRN PRN Reason: Pain Last Admin: 10/12/19 02:06 Dose: 2 mg Naloxone HCl (Narcan) 0.1 mg IV ASDIRECTED PRN PRN Reason: decreased respiratory rate Naloxone HCl (Narcan) Confirm Administered Dose 0.4 mg .ROUTE .STK-MED ONE Stop: 10/04/19 10:41 Neostigmine Methylsulfate (Neostigmine) Confirm Administered Dose 5 mg .ROUTE .STK-MED ONE Stop: 10/04/19 07:16 Check Scopolamine (Patch Daily) 1 each .XX DAILY [facility] Last Admin: 10/04/19 12:30 Dose: Not Given Scopolamine Patch (Check) 1 each TOP DAILY [facility] Stop: 10/06/19 12:53 Last Admin: 10/06/19 10:06 Dose: Not Given Ondansetron HCl (Zofran) Confirm Administered Dose 4 mg .ROUTE .STK-MED ONE Stop: 10/04/19 07:16 Ondansetron HCl (Zofran) 4 mg IVPUSH Q4H PRN PRN Reason: Nausea/Vomiting Pantoprazole Sodium (Protonix Iv) 40 mg IVPUSH Q24H [facility] Last Admin: 10/04/19 17:15 Dose: 40 mg Pantoprazole Sodium (Protonix Granules) 40 mg PO Q24H [facility] Last Admin: 10/08/19 16:12 Dose: Not Given Piperacillin Sod/Tazobactam Sod (Zosyn) Confirm Administered Dose 3.375 gm .ROUTE .STK-MED ONE Stop: 10/06/19 19:36 Last Admin: 10/06/19 20:02 Dose: Not Given Propofol (Diprivan 20 Ml) Confirm Administered Dose 200 mg .ROUTE .STK-MED ONE Stop: 10/04/19 07:16 Propofol (Diprivan 20 Ml) Confirm Administered Dose 200 mg .ROUTE .STK-MED ONE Stop: 10/07/19 21:12 Rocuronium [place] (Zemuron) Confirm Administered Dose 50 mg .ROUTE .STK-MED ONE Stop: 10/04/19 07:16 Rocuronium [place] (Zemuron) Confirm Administered Dose 50 mg .ROUTE .STK-MED ONE Stop: 10/04/19 09:27 Scopolamine (Transderm-Scop) 1.5 mg TOP ONETIME ONE Stop: 10/04/19 05:43 Last Admin: 10/04/19 06:11 Dose: 1.5 mg Sodium Chloride (Saline Flush) 10 ml FLUSH ONETIME ONE Stop: 10/11/19 09:01 Last Admin: 10/11/19 09:45 Dose: 10 ml Succinylcholine Chloride (Quelicin) Confirm Administered Dose 200 mg .ROUTE .STK -MED ONE Stop: 10/04/19 07:16 Succinylcholine Chloride (Quelicin) Confirm Administered Dose 200 mg .ROUTE .STK -MED ONE Stop: 10/07/19 21:12 Sugammadex Sodium (Bridion) Confirm Administered Dose 200 mg .ROUTE .STK-MED ONE Stop: 10/04/19 10:47 - Exam Quality Assessment: Supplemental Oxygen (Ventilator), Central Line/PICC, Urine Catheter, DVT Prophylaxis General: Sedated, Lethargic Lungs: Decreased Breath Sounds, Rhonchi, Wheezing Cardiovascular: Regular Rate, Regular Rhythm, No Murmurs GI/Abdominal Exam: Soft, No Organomegaly, Tender. No: Distended, Guarding, Rigid, Rebound Extremities: Non-Tender, Pedal Edema - Problem List & Annotations (1) Hypoxia SNOMED Code(s): 277629361 Code(s): R09.02 - HYPOXEMIA Status: Acute Current Visit: Yes (2) Hypercapnia SNOMED Code(s): 51041890 Code(s): R06.89 - OTHER ABNORMALITIES OF BREATHING Status: Acute Current Visit: Yes (3) Pneumonia SNOMED Code(s): 288653114 Code(s): J18.9 - PNEUMONIA, UNSPECIFIED ORGANISM Status: Acute Current Visit: Yes (4) Laparoscopic surgical procedure converted to open procedure SNOMED Code(s): 738105456 Code(s): Z53.31 - LAPAROSCOPIC SURGICAL PROCEDURE CONVERTED TO OPEN PROCEDURE Status: Acute Current Visit: Yes Annotation/Comment:: lysis of adhesions (5) DDD (degenerative disc disease), lumbar SNOMED Code(s): 14114867 Code(s): M51.36 - OTHER INTERVERTEBRAL DISC DEGENERATION, LUMBAR REGION Status: Chronic Current Visit: No (6) Obstructive sleep apnea syndrome SNOMED Code(s): 48020889 Code(s): G47.33 - OBSTRUCTIVE SLEEP APNEA (ADULT) (PEDIATRIC) Status: Chronic Current Visit: No - Problem List Review Problem List Initiated/Reviewed/Updated: Yes - My Orders Last 24 Hours: My Active Orders 10/15/19 11:00 Furosemide [Lasix] 20 mg IVPUSH NOW ONE 10/15/19 11:01 Chest Abdomen Pelvis w Cont [CT] Stat - Plan Plan:: ASSESSMENT AND RECOMMENDATIONS ACUTE HYPOXIC AND HYPERCAPNIC RESPIRATORY FAILURE - multifactorial with pneumonia, aspiration and ARDS. She has experienced deterioration in respiratory status over the last 24 hours, resistant to infection versus fluid. -Minimize IV fluid as able -Furosemide 40 mg IV twice daily -Scheduled DuoNeb's -Supplemental oxygen as needed -Mechanical ventilation with weaning trials once respiratory status stabilized further (PEEP is at 10) -Nebulizer therapy as ordered -Follow-up blood gases in a.m. LEFT LUNG PNEUMONIA - infiltrate seem to be stagnant. Initial culture grew out enterococcus and now germ tube positive yeast. She is now requiring vasopressor support. Question of progressive/resistant infection -Discontinue doxycycline and meropenem -Band and change current IV antibiotic therapy; Zyvox, cefepime, and micafungin -Follow-up cultures ANEMIA DUE TO ACUTE ILLNESS - hemoglobin stable -Hemoglobin in the morning HYPOKALEMIA -Continue to monitor STATUS POST DUODENAL SWITCH PROCEDURE - postop course complicated by an ileus but bowel function seems to be improving. NG tube removed 10/12. She is on TPN. -Postop care per Dr. Baldwin
[2019-10-15] MEDS: Potassium Phosphates 22.5 MMOLE in Sodium Chloride 0.9% 100 ML IV SCH ×2 (11:08→14:23)
[2019-10-15] MEDS: Fluconazole/Normal Saline 200 MG in Premix Bag 1 BAG IV SCH (11:08)
[2019-10-15] MEDS ORDERED: Furosemide 20 MG/2 ML VIAL IV ONE (11:15)
--- NOTE | 2019-10-15 11:24 | ANES ---
DATE OF PROCEDURE: 10/15/2019 SURGEON: Ellis Perez CRNA TIME: 10:20. I was called to the intensive care unit by Dr. Angelo and Dr. Baldwin to replace the patient's endotracheal tube due to a possible cuff leak. The patient was placed on 100% oxygen and is on the ventilator. I did stick a bougie down the existing endotracheal tube and replaced it with an 8.0 endotracheal tube with ease. The patient had bilateral breath sounds with ease. I did check the old endotracheal tube and it did not appear to have a leak. It could have been a malposition issue. Her vital signs remained stable throughout the procedure. No anesthesia complications were noted. Ellis Perez CRNA /[id number]
[2019-10-15] MEDS ORDERED: Iopamidol 755 Mg/ML 100 ML Bottle IV ONE (13:29)
[2019-10-15] MEDS ORDERED: Sodium Chloride 0.9% 100 ML IV SCH (13:30)
[2019-10-15] MEDS: 1: AA 4.25%/Calcium/D10W/Lytes 1,000 ML with MVI, Adult with Vitamin K 10 ML, Chromium/C IV SCH ×3 (14:15)
[2019-10-15] MEDS: Cefepime 1 GM in Sodium Chloride 0.9% 50 ML IV SCH ×2 (14:34→21:30)
[2019-10-15] MEDS: Micafungin 100 MG in Sodium Chloride 0.9% 100 ML IV SCH (15:05)
[2019-10-15] MEDS: Pantoprazole 40 MG Vial IV SCH (15:57)
[2019-10-15] MEDS: Linezolid 600 MG in Premix Bag 1 BAG IV SCH (16:10)
--- NOTE | 2019-10-15 16:30 | CT ---
Ang Chest CLINICAL HISTORY: Fever, hypoxia TECHNIQUE: Thin section axial contiguous tomographic sections were taken through the chest after bolus IV iodinated contrast administration. Coronal and sagittal images were reconstructed. 10/14/2019 FINDINGS: Patient is diffuse bilateral pulmonary infiltrates with areas of atelectasis and consolidation in the right upper and both lower lobes.. There are no significant pleural effusions. Patient is intubated. Moderate motion artifact obscures some detail of the pulmonary arteries. The distal endotracheal tube is approximately 2 cm from the adrian. There are a few scattered lymph nodes throughout the mediastinum. There is some soft tissue fullness which may represent lymph nodes. Detail is somewhat obscured. Patient has a hiatal hernia. Results pedicle lining in the aorta. IMPRESSION: Limited study the pulmonary arteries due to moderate motion artifact and patient body habitus. No definite pulmonary embolism is identified Diffuse bilateral pulmonary infiltrates or pulmonary edema Moderate-sized areas of consolidation in the and atelectasis in the right upper lobe and both lower lobes. Pneumonia is not excluded Endotracheal tube the is approximately 2 cm in adrian
--- NOTE | 2019-10-15 16:34 | CT ---
Abdomen Pelvis w Cont CLINICAL HISTORY: Fever COMPARISON: None. TECHNIQUE: Axial tomographic images are obtained from the dome of the diaphragm to the pubic symphysis without IV contrast enhancement. No oral contrast was used. Auto dosage reduction and iterative reconstruction techniques employed. FINDINGS: The liver shows no mass or biliary dilatation. The gallbladder shows some mild distention. This may be because patient is NPO. The spleen has a normal size and shape. There is a small hiatal hernia. There is a midline ventral hernia in the upper abdomen. This contains bowel. There is no evidence of suggest incarceration. The pancreas shows no mass or inflammatory change. There is a small amount of fluid around the spleen. The adrenal glands appear normal bilaterally. The kidneys show no stones or hydronephrosis. Details limited due to breathing motion. The aorta shows no aneurysm. There is no suspicious retroperitoneal adenopathy. IMPRESSION: Moderate breathing motion obscures detail Mildly dilated gallbladder likely related to the patient being NPO Upper abdominal midline ventral hernia
[2019-10-15] MEDS ORDERED: Furosemide 40 MG/4 ML VIAL IVPUSH ONE (21:00)
[2019-10-15] MEDS: DULoxetine 30 MG Cap PO SCH (21:27)
[2019-10-16] MEDS: Morphine 4 MG/ML Syringe IVPUSH PRN ×5 (02:00→20:07)
[2019-10-16] MEDS: Linezolid 600 MG in Premix Bag 1 BAG IV SCH ×2 (04:00→17:31)
[2019-10-16] MEDS: Cefepime 1 GM in Sodium Chloride 0.9% 50 ML IV SCH ×3 (06:12→21:32)
--- NOTE | 2019-10-16 06:40 | CRLCR ---
INDICATION: Mechanical intubation COMPARISON: Portable chest dated 10/15/2019 TECHNIQUE: Portable semi-erect chest performed at 6:05 a.m. FINDINGS: The tip of the endotracheal tube lies 5 cm above the adrian. Yesterday the tip of the tube measured 3 cm above the adrian. There has been no improvement in the diffuse alveolar infiltrates within both lungs. The left central venous catheter remains in place extending to the juncture of the right atrium and SVC. There is no evidence of pneumothorax or pneumomediastinum. The heart, mediastinum and pulmonary vessels are of normal size. There is no evidence of pleural fluid. IMPRESSION: No improvement in the diffuse alveolar infiltrates. Tip of endotracheal tube now lies 5 cm above the adrian. Dictated by Pawan Fonseca MD @ 10/16/2019 6:38:32 AM Dictated by: Pawan Fonseca MD @ 10/16/2019 06:38:44 (Electronically Signed)
[2019-10-16] MEDS: 1: AA 4.25%/Calcium/D10W/Lytes 1,000 ML with MVI, Adult with Vitamin K 10 ML, Chromium/C IV SCH ×6 (06:48→23:31)
[2019-10-16] MEDS: Levalbuterol HCl 1.25 MG/3 ML Neb NEB SCH ×4 (07:07→20:58)
[2019-10-16] MEDS: DULoxetine 30 MG Cap PO SCH ×2 (08:11→20:59)
[2019-10-16] MEDS: Heparin Sodium 5,000 Units/ML Vial SUBCUT SCH ×3 (08:33→23:34)
[2019-10-16] MEDS: Levothyroxine 100 MCG Vial IVPUSH SCH (08:40)
[2019-10-16] MEDS ORDERED: Furosemide 40 MG/4 ML VIAL IVPUSH ONE ×2 (10:28→21:00)
--- NOTE | 2019-10-16 10:33 | PCM.PN ---
- General Info Date of Service: 10/16/19 Subjective Update: Ms. Alford continues to require high level of ventilatory support, evidence of ongoing infection noted on CT scan. No significant improvement seen in the last 24 hours with attempts at diuresis. She remains sedated and is unable to provide meaningful history concerning symptoms or review of systems. - Patient Data Vitals - Most Recent: Last Vital Signs Temp 100.2 F 10/16/19 09:00 Pulse 90 10/16/19 09:00 Resp 32 H 10/16/19 08:00 BP 121/51 L 10/16/19 09:00 Pulse Ox 93 L 10/16/19 09:00 Weight - Most Recent: 314 lb 2.539 oz I&O - Last 24 Hours: Intake & Output 10/15/19 10/16/19 10/16/19 22:59 06:59 14:59 Intake Total 2332 2250 Output Total 1000 1625 Balance 1332 625 Lab Results Last 24 Hours: Laboratory Results - last 24 hr 10/16/19 10/16/19 10/16/19 Range/Units 04:00 04:00 05:00 WBC 23.7 H (4.5-11.0) K/uL RBC 3.60 (3.30-5.50) M/uL Hgb 9.3 L (12.0-15.0) g/dL Hct 31.3 L (36.0-48.0) % MCV 87 (80-98) fL MCH 26 L (27-31) pg MCHC 30 L (32-36) % Plt Count 447 H (150-400) K/uL Puncture Site Line ABG pH 7.399 (7.350-7.450) ABG pCO2 49.9 H (35.0-42.0) mmHg ABG pO2 70.8 L (75.0-100.0) mmHg ABG HCO3 30.2 H (22.0-26.0) mmol/L ABG Total CO2 28.2 H (21.0-25.0) mmol/L ABG O2 Saturation 93.1 L (95.0-98.0) % ABG O2 Content 12.3 L (15.0-23.0) %vol ABG Base Excess 5.1 mm/L ABG Hemoglobin 9.6 L (12.0-16.0) g/dL ABG Oxyhemoglobin 90.7 % ABG Carboxyhemoglobin 1.5 (0.0-1.6) % ABG Methemoglobin 1.1 % O2 Delivery Device Ventilator Oxygen Flow Rate L Sodium 139 L (140-148) mmol/L Potassium 4.2 (3.6-5.2) mmol/L Chloride 101 (100-108) mmol/L Carbon Dioxide 31 (21-32) mmol/L Anion Gap 11.2 (5.0-14.0) mmol/L BUN 29 H (7-18) mg/dL Creatinine 0.8 (0.6-1.0) mg/dL Est Cr Clr Drug Dosing 50.36 mL/min Estimated GFR (MDRD) > 60 (>60) Glucose 186 H (74-106) mg/dL Calcium 8.3 L (8.5-10.1) mg/dL Phosphorus 4.6 (2.5-4.9) mg/dL Magnesium 2.0 (1.8-2.4) mg/dL Total Bilirubin 1.1 H D (0.2-1.0) mg/dL AST 23 (15-37) U/L ALT 19 (12-78) U/L Alkaline Phosphatase 140 H (46-116) U/L NT-Pro-B Natriuret Pep 253 H (5-125) pg/mL Total Protein 6.6 (6.4-8.2) g/dL Albumin 2.0 L (3.4-5.0) g/dL Globulin 4.6 H (2.3-3.5) g/dL Albumin/Globulin Ratio 0.4 L (1.2-2.2) Jae Results Last 24 Hours: Microbiology 10/14/19 07:52 Aerobic Blood Culture - Preliminary Blood - Arm, Right NO GROWTH AFTER 2 DAYS Anaerobic Blood Culture - Preliminary NO GROWTH AFTER 2 DAYS 10/14/19 06:40 Aerobic Blood Culture - Preliminary Blood - Central Line NO GROWTH AFTER 2 DAYS Anaerobic Blood Culture - Preliminary NO GROWTH AFTER 2 DAYS 10/14/19 06:50 Aerobic Blood Culture - Preliminary Blood - Arterial Line - Abg NO GROWTH AFTER 2 DAYS Anaerobic Blood Culture - Preliminary NO GROWTH AFTER 2 DAYS Med Orders - Current: Current Medications Dimethicone/Zinc Oxide (Rash Relief-Zinc Oxide [place]) 0 gm TOP Q2H PRN PRN Reason: Rash Last Admin: 10/13/19 11:02 Dose: 4 spray Duloxetine HCl (Cymbalta) 30 mg PO BID TIARRA Last Admin: 10/16/19 08:11 Dose: Not Given Furosemide (Lasix) 40 mg IVPUSH NOW ONE Stop: 10/16/19 10:29 Furosemide (Lasix) 40 mg IVPUSH NOW ONE Stop: 10/16/19 21:01 Heparin Sodium (Porcine) (Heparin Sodium) 5,000 units SUBCUT Q8H TIARRA Last Admin: 10/16/19 08:33 Dose: 5,000 units Heparin Sodium (Porcine) (Heparin Lock Flush 100 Units/Ml) 500 units FLUSH ASDIRECTED PRN PRN Reason: Keep Vein Open Last Admin: 10/09/19 11:40 Dose: 500 units Hydroxyzine HCl (Vistaril) 100 mg IM Q4H PRN PRN Reason: pain Last Admin: 10/06/19 05:11 Dose: 100 mg Heparin Sodium (Porcine) 5,000 (units/ Sodium Chloride) 501 mls @ 0 mls/hr IV ASDIRECTED TIARRA Last Admin: 10/13/19 13:17 Dose: 1 mls/hr Propofol (Diprivan 100 Ml) 100 mls @ 3.783 mls/hr IV TITRATE TIARRA; Protocol Last Admin: 10/16/19 09:00 Dose: 60 mcg/kg/min, 45.396 mls/hr Sodium Chloride (Normal Saline) 1,000 mls @ 25 mls/hr IV ASDIRECTED [facility] Last Infusion: 10/13/19 22:05 Dose: 30 mls/hr Multivitamins/Minerals 10 ml/Chromium/Copper/Manganese/Seleni/Zn 1 ml/ Amino Acids/Electrolytes/Dextrose 1,011 mls @ 60 mls/hr IV .BY DURATION TIARRA Last Admin: 10/15/19 14:15 Dose: 60 mls/hr Amino Acids/Electrolytes/Dextrose (Clinimix E 4.25/10) 1,000 mls @ 60 mls/hr IV .BY DURATION TIARRA Last Admin: 10/16/19 06:48 Dose: 60 mls/hr Norepinephrine Bitartrate 8 mg (/ Dextrose/Water) 250 mls @ 3.75 mls/hr IV TITRATE TIARRA; Protocol Last Infusion: 10/15/19 22:02 Dose: 5 mcg/min, 9.37 mls/hr Cefepime HCl 1 gm/ Sodium (Chloride) 50 mls @ 100 mls/hr IV Q8H [facility] Last Admin: 10/16/19 06:12 Dose: 100 mls/hr Linezolid 600 mg/ Premix 300 mls @ 300 mls/hr IV Q12H [facility] Last Admin: 10/16/19 04:00 Dose: 300 mls/hr Micafungin Sodium 100 mg/ (Sodium Chloride) 100 mls @ 100 mls/hr IV Q24H [facility] Last Admin: 10/15/19 15:05 Dose: 100 mls/hr Levalbuterol HCl (Xopenex) 1.25 mg NEB QIDRT [facility] Last Admin: 10/16/19 07:07 Dose: 1.25 mg Levalbuterol HCl (Xopenex) 1.25 mg NEB Q2H PRN PRN Reason: shortness of breath/wheezing Last Admin: 10/15/19 02:21 Dose: 1.25 mg Levothyroxine Sodium (Synthroid) 25 mcg IVPUSH DAILY [facility] Last Admin: 10/16/19 08:40 Dose: 25 mcg Lorazepam (Ativan) 0.5 mg IVPUSH Q2H PRN PRN Reason: Agitation Last Admin: 10/15/19 09:52 Dose: 0.5 mg Morphine Sulfate (Morphine) 4 mg IVPUSH Q2H PRN PRN Reason: Dyspnea Last Admin: 10/16/19 05:34 Dose: 4 mg Ondansetron HCl (Zofran Odt) 4 mg PO Q4H PRN PRN Reason: Nausea/Vomiting Last Admin: 10/07/19 00:48 Dose: 4 mg Pantoprazole Sodium (Protonix Iv) 40 mg IV Q24H [facility] Last Admin: 10/15/19 15:57 Dose: 40 mg Discontinued Medications Acetaminophen (Tylenol Extra Strength) 1,000 mg PO ONETIME ONE Stop: 10/04/19 05:43 Last Admin: 10/04/19 06:11 Dose: 1,000 mg Acetaminophen (Tylenol) 650 mg PO Q6H [facility] Last Admin: 10/05/19 04:30 Dose: 650 mg Hydrocodone Bitart/Acetaminophen ([place] 325-5 Mg) 1 - 2 tab PO Q4H PRN PRN Reason: Pain Last Admin: 10/07/19 04:18 Dose: 1 tab Acetylcysteine (Mucomyst 20%) 200 mg NEB TIDRT [facility] Last Admin: 10/13/19 10:06 Dose: 200 mg Acetylcysteine (Mucomyst 20%) 200 mg NEB TID@0700,1500,2100 [facility] Last Admin: 10/14/19 21:39 Dose: 200 mg Albuterol (Proventil Neb Soln) 2.5 mg NEB Q2H PRN PRN Reason: shortness of breath/wheezing Last Admin: 10/10/19 22:54 Dose: 2.5 mg Albuterol/Ipratropium (Duoneb 3.0-0.5 Mg/3 Ml) 3 ml NEB ONETIME ONE Stop: 10/04/19 06:31 Last Admin: 10/04/19 10:48 Dose: 3 ml Albuterol/Ipratropium (Duoneb 3.0-0.5 Mg/3 Ml) 3 ml NEB ONETIME ONE Stop: 10/04/19 10:46 Last Admin: 10/04/19 12:30 Dose: Not Given Albuterol/Ipratropium (Duoneb 3.0-0.5 Mg/3 Ml) 3 ml INH QIDRT [facility] Last Admin: 10/14/19 21:39 Dose: 3 ml Albuterol/Ipratropium (Duoneb 3.0-0.5 Mg/3 Ml) 3 ml INH ASDIRECTED PRN PRN Reason: BREATHING Last Admin: 10/07/19 00:54 Dose: 3 ml Celecoxib (Celebrex) 200 mg PO ONETIME ONE Stop: 10/04/19 05:43 Last Admin: 10/04/19 06:11 Dose: 200 mg Celecoxib (Celebrex) 200 mg PO DAILY@0800 [facility] Last Admin: 10/12/19 07:32 Dose: Not Given Ropivacaine 60 ml/Dexamethasone 8 mg/Epinephrine HCl 0.4 mg/ Sodium Chloride 17.6 ml 0 ml NERVRT ASDIRECTED [facility] Last Admin: 10/04/19 07:48 Dose: 80 syringe Cyanocobalamin (Vitamin B12) 1,000 mcg IM ONETIME ONE Stop: 10/06/19 09:01 Last Admin: 10/06/19 10:46 Dose: 1,000 mcg Dexamethasone (Dexamethasone) Confirm Administered Dose 4 mg .ROUTE .STK-MED ONE Stop: 10/04/19 07:16 Diphenhydramine HCl (Benadryl) 50 mg IVPUSH Q4H PRN PRN Reason: ITCHING Fentanyl (Sublimaze) Confirm Administered Dose 250 mcg .ROUTE .STK-MED ONE Stop: 10/04/19 07:14 Fentanyl (Sublimaze) Confirm Administered Dose 250 mcg .ROUTE .STK-MED ONE Stop: 10/04/19 08:47 Furosemide (Lasix) 20 mg IVPUSH ONETIME ONE Stop: 10/04/19 20:44 Last Admin: 10/04/19 21:09 Dose: 20 mg Furosemide (Lasix) 20 mg IVPUSH ONETIME ONE Stop: 10/05/19 08:01 Last Admin: 10/05/19 09:43 Dose: 20 mg Furosemide (Lasix) 40 mg PO ONETIME ONE Stop: 10/06/19 00:47 Last Admin: 10/06/19 01:05 Dose: 40 mg Furosemide (Lasix) 40 mg PO ONETIME ONE Stop: 10/06/19 16:34 Last Admin: 10/06/19 17:31 Dose: 40 mg Furosemide (Lasix) 10 mg IVPUSH ONETIME ONE Stop: 10/08/19 22:50 Last Admin: 10/08/19 23:27 Dose: Not Given Furosemide (Lasix) 20 mg IVPUSH NOW ONE Stop: 10/10/19 09:31 Last Admin: 10/10/19 10:32 Dose: 20 mg Furosemide (Lasix) 20 mg IVPUSH ONETIME ONE Stop: 10/10/19 18:01 Last Admin: 10/10/19 18:22 Dose: 20 mg Furosemide (Lasix) 40 mg IVPUSH ONETIME ONE Stop: 10/11/19 08:42 Last Admin: 10/11/19 09:03 Dose: 40 mg Furosemide (Lasix) 40 mg IVPUSH ONETIME ONE Stop: 10/11/19 16:56 Last Admin: 10/11/19 17:17 Dose: 40 mg Furosemide (Lasix) 40 mg IVPUSH Q8H TIARRA Last Admin: 10/12/19 09:12 Dose: 40 mg Furosemide (Lasix) 40 mg IVPUSH ONETIME ONE Stop: 10/12/19 20:01 Last Admin: 10/12/19 20:06 Dose: 40 mg Furosemide (Lasix) 40 mg IVPUSH NOW ONE Stop: 10/14/19 09:16 Last Admin: 10/14/19 09:40 Dose: 40 mg Furosemide (Lasix) 40 mg IVPUSH ONETIME ONE Stop: 10/14/19 19:01 Last Admin: 10/14/19 19:25 Dose: 40 mg Furosemide (Lasix) 20 mg IV ONETIME ONE Stop: 10/15/19 11:16 Last Admin: 10/15/19 12:08 Dose: 20 mg Furosemide (Lasix) 40 mg IVPUSH NOW ONE Stop: 10/15/19 21:01 Last Admin: 10/15/19 20:54 Dose: 40 mg Gabapentin (Neurontin) 300 mg PO ONETIME ONE Stop: 10/04/19 05:43 Last Admin: 10/04/19 06:10 Dose: 300 mg Gabapentin (Neurontin) 300 mg PO TID TIARRA Last Admin: 10/07/19 13:33 Dose: 300 mg Glycopyrrolate (Robinul) Confirm Administered Dose 1 mg .ROUTE .STK-MED ONE Stop: 10/04/19 07:16 Hydrocortisone Sodium Succinate (Solu-Cortef) 100 mg IVPUSH ONETIME ONE Stop: 10/12/19 17:36 Last Admin: 10/12/19 17:51 Dose: 100 mg Hydrocortisone Sodium Succinate (Solu-Cortef) 100 mg IVPUSH Q12H [facility] Stop: 10/14/19 09:31 Last Admin: 10/14/19 09:16 Dose: 100 mg Hydromorphone HCl (Dilaudid [employer] 15 Mg In Ns 30 Ml) 0 mg IV ASDIRECTED PRN; Protocol PRN Reason: Pain Last Admin: 10/04/19 10:41 Dose: 0.3 mg Lidocaine HCl/Dextrose (Lidocaine 2 Gm/D5w 500 Ml) 2 gm in 500 mls @ 22.5 mls/ hr IV .Q24H [facility]RA Stop: 10/05/19 07:29 Last Admin: 10/04/19 12:29 Dose: 1 mg/min, 15 mls/hr Ketamine HCl 50 mg/ Sodium (Chloride) 50 mls @ 12 mls/hr IV ASDIRECTED TIARRA Dextrose/Lactated Ringer's (Dextrose 5%-Lactated Ringers) 1,000 mls @ 100 mls/ hr IV ASDIRECTED [facility] Last Admin: 10/04/19 12:29 Dose: 100 mls/hr Cefoxitin Sodium 2 gm/ Sodium (Chloride) 50 mls @ 100 mls/hr IV ONETIME ONE Stop: 10/04/19 07:44 Last Admin: 10/04/19 07:15 Dose: 100 mls/hr Lactated Ringer's (Ringers, Lactated) Confirm Administered Dose 1,000 mls @ as directed .ROUTE .STK-MED ONE Stop: 10/04/19 07:14 Dextrose/Lactated Ringer's (Dextrose 5%-Lactated Ringers) 1,000 mls @ 175 mls/ hr IV ASDIRECTED [facility] Multivitamins/Minerals 10 ml/Thiamine HCl 200 mg/ Chromium/Copper/Manganese/ Seleni/Zn 1 ml/ Dextrose/Lactated Ringer's 1,013 mls @ 174.999 mls/hr IV DAILY@ 1600 [facility] Last Admin: 10/04/19 17:13 Dose: 174.999 mls/hr Cefoxitin Sodium 2 gm/ Sodium (Chloride) 50 mls @ 100 mls/hr IV Q6H [facility] Last Admin: 10/05/19 07:49 Dose: 100 mls/hr Dextrose/Lactated Ringer's (Dextrose 5%-Lactated Ringers) 1,000 mls @ 125 mls/ hr IV ASDIRECTED [facility] Last Admin: 10/05/19 00:43 Dose: 125 mls/hr Dextrose/Lactated Ringer's (Dextrose 5%-Lactated Ringers) 1,000 mls @ 100 mls/ hr IV ASDIRECTED [facility] Last Admin: 10/05/19 09:41 Dose: 100 mls/hr Lactated Ringer's (Ringers, Lactated) 500 mls @ 100 mls/hr IV .BOLUS ONE Stop: 10/05/19 11:59 Last Admin: 10/05/19 07:48 Dose: 100 mls/hr Multivitamins/Minerals 10 ml/Thiamine HCl 200 mg/ Chromium/Copper/Manganese/ Seleni/Zn 1 ml/ Dextrose/Lactated Ringer's 1,013 mls @ 100 mls/hr IV DAILY@ 1600 [facility] Linezolid 600 mg/ Premix 300 mls @ 300 mls/hr IV Q12H [facility] Last Admin: 10/09/19 22:30 Dose: 300 mls/hr Piperacillin Sod/Tazobactam (Sod 3.375 gm/ Sodium Chloride) 50 mls @ 100 mls/ hr IV Q6H [facility] Last Admin: 10/07/19 01:45 Dose: 100 mls/hr Levofloxacin/Dextrose 750 mg/ (Premix) 150 mls @ 100 mls/hr IV Q48H [facility] Last Admin: 10/08/19 20:01 Dose: 100 mls/hr Sodium Chloride (Normal Saline) Confirm Administered Dose 50 mls @ as directed .ROUTE .[facility] ONE Stop: 10/06/19 19:37 Last Admin: 10/06/19 20:03 Dose: Not Given Lactated Ringer's (Ringers, Lactated) 1,000 mls @ 100 mls/hr IV ASDIRECTED [facility] Last Admin: 10/07/19 17:52 Dose: 100 mls/hr Piperacillin/Tazobactam/ (Dextrose 3.375 gm/ Premix) 50 mls @ 100 mls/hr IV Q6H [facility] Last Admin: 10/11/19 08:28 Dose: 100 mls/hr Magnesium Sulfate 2 gm/ Premix 50 mls @ 25 mls/hr IV Q6H [facility] Stop: 10/09/19 05:59 Last Admin: 10/09/19 04:08 Dose: 25 mls/hr Propofol (Diprivan 100 Ml) Confirm Administered Dose 100 mls @ as directed .ROUTE .STK-MED ONE Stop: 10/07/19 21:21 Last Admin: 10/07/19 22:55 Dose: Not Given Lactated Ringer's (Ringers, Lactated) 1,000 mls @ 25 mls/hr IV ASDIRECTED [facility] Stop: 10/11/19 10:00 Last Admin: 10/08/19 19:59 Dose: 25 mls/hr Levofloxacin/Dextrose 750 mg/ (Premix) 150 mls @ 100 mls/hr IV Q24H [facility] Last Admin: 10/11/19 19:43 Dose: 100 mls/hr Potassium Chloride 40 meq/ (Premix) 100 mls @ 25 mls/hr IV ONETIME ONE Stop: 10/10/19 13:29 Last Admin: 10/10/19 10:31 Dose: 25 mls/hr Potassium Phosphate 22.5 mmole (/ Sodium Chloride) 107.5 mls @ 36 mls/hr IV Q3H [facility] Stop: 10/11/19 15:59 Last Admin: 10/11/19 13:29 Dose: 36 mls/hr Linezolid 600 mg/ Premix 300 mls @ 300 mls/hr IV Q12H [facility] Last Admin: 10/13/19 21:37 Dose: 300 mls/hr Meropenem 1 gm/ Sodium (Chloride) 50 mls @ 100 mls/hr IV Q8H [facility] Last Admin: 10/15/19 09:25 Dose: 100 mls/hr Sodium Chloride (Normal Saline) 100 mls @ 3 mls/sec IV ASDIRECTED [facility] Stop: 10/11/19 09:01 Last Admin: 10/11/19 09:45 Dose: 3 mls/sec Potassium Chloride 40 meq/ (Premix) 100 mls @ 25 mls/hr IV ONETIME ONE Stop: 10/12/19 11:59 Last Admin: 10/12/19 08:33 Dose: 25 mls/hr Magnesium Sulfate 2 gm/ Premix 50 mls @ 25 mls/hr IV Q6H [facility] Stop: 10/14/19 06:59 Last Admin: 10/12/19 16:03 Dose: 25 mls/hr Albumin Human (Albumin 25%) 25 gm in 100 mls @ 25 mls/hr IV Q24H [facility] Stop: 10/14/19 16:59 Last Admin: 10/14/19 12:24 Dose: 25 mls/hr Doxycycline Hyclate 100 mg/ (Sodium Chloride) 100 mls @ 100 mls/hr IV Q12H [facility] Last Admin: 10/15/19 10:30 Dose: 100 mls/hr Fluconazole/Sodium Chloride (200 mg/ Premix) 100 mls @ 100 mls/hr IV Q24H [facility] Last Admin: 10/15/19 11:08 Dose: 100 mls/hr Potassium Phosphate 22.5 mmole (/ Sodium Chloride) 107.5 mls @ 27 mls/hr IV Q4H [facility] Stop: 10/15/19 17:29 Last Admin: 10/15/19 14:23 Dose: 27 mls/hr Sodium Chloride (Normal Saline) 100 mls @ 4 mls/sec IV ASDIRECTED [facility] Stop: 10/15/19 13:31 Last Admin: 10/15/19 14:05 Dose: 4 mls/sec Iopamidol (Isovue-300 (61%)) 50 ml PO ASDIRECTED [facility] Stop: 10/05/19 03:24 Last Admin: 10/05/19 03:36 Dose: 50 ml Iopamidol (Isovue-300 (61%)) 100 ml IV . DIRECTED [facility] Stop: 10/11/19 09:01 Last Admin: 10/11/19 09:45 Dose: 100 ml Iopamidol (Isovue-370 (76%)) 100 ml IV . DIRECTED ONE Stop: 10/15/19 13:30 Last Admin: 10/15/19 14:05 Dose: 100 ml Ketamine HCl (Ketalar) 20 mg IV ASDIRECTED [facility] Labetalol HCl (Normodyne) 5 mg IVPUSH Q5M PRN PRN Reason: SBP over 160 OR DBP over 95 Lactobacillus Rhamnosus (Culturelle) 1 cap PO BID [facility] Last Admin: 10/08/19 10:23 Dose: Not Given Levothyroxine Sodium (Levothyroxine) 25 mcg PO ACBREAKFAST [facility] Last Admin: 10/13/19 07:33 Dose: Not Given Lidocaine (Xylocaine-Mpf 2%) Confirm Administered Dose 5 ml .ROUTE .STK-MED ONE Stop: 10/07/19 07:55 Lidocaine HCl (Xylocaine 2%) 100 mg IVPUSH ASDIRECTED [facility] Lidocaine HCl (Xylocaine 4% Top Soln) 50 ml .ROUTE .STK-MED ONE Stop: 10/15/19 10:01 Lidocaine HCl (Xylocaine 2% Viscous) Confirm Administered Dose 15 ml .ROUTE .STK -MED ONE Stop: 10/15/19 09:42 Last Admin: 10/15/19 11:04 Dose: Not Given Lorazepam (Ativan) 0.5 mg IVPUSH Q4H PRN PRN Reason: Anxiety Last Admin: 10/07/19 13:55 Dose: 0.5 mg Magnesium Hydroxide (Milk Of Magnesia) 30 ml PO ONETIME ONE Stop: 10/06/19 09:31 Last Admin: 10/06/19 11:55 Dose: 30 ml Magnesium Oxide (Magnesium Oxide) 400 mg PO DAILY [facility] Last Admin: 10/06/19 10:46 Dose: 400 mg Meropenem (Merrem) Confirm Administered Dose 500 mg .ROUTE .STK-MED ONE Stop: 10/04/19 09:20 Last Admin: 10/04/19 10:15 Dose: 500 mg Methylprednisolone Sodium Succinate (Solu-Medrol) 40 mg IVPUSH Q8H [facility] Last Admin: 10/09/19 01:40 Dose: 40 mg Metoclopramide HCl (Reglan) 10 mg IVPUSH Q6H PRN PRN Reason: NAUSEA NOT CONTROL BY ZOFRAN Miscellaneous Information (Remove Patch) 1 ea TRDERM ONETIME ONE Stop: 10/07/19 06:01 Miscellaneous Information (Remove Patch) 1 ea TRDERM ONETIME ONE Stop: 10/06/19 10:01 Last Admin: 10/06/19 10:06 Dose: Not Given Morphine Sulfate (Morphine) 2 mg IVPUSH Q2H PRN PRN Reason: Pain Last Admin: 10/12/19 02:06 Dose: 2 mg Morphine Sulfate (Morphine) 4 mg IVPUSH Q2H PRN PRN Reason: PAIN Last Admin: 10/15/19 20:46 Dose: 4 mg Naloxone HCl (Narcan) 0.1 mg IV ASDIRECTED PRN PRN Reason: decreased respiratory rate Naloxone HCl (Narcan) Confirm Administered Dose 0.4 mg .ROUTE .STK-MED ONE Stop: 10/04/19 10:41 Neostigmine Methylsulfate (Neostigmine) Confirm Administered Dose 5 mg .ROUTE .STK-MED ONE Stop: 10/04/19 07:16 Check Scopolamine (Patch Daily) 1 each .XX DAILY [facility] Last Admin: 10/04/19 12:30 Dose: Not Given Scopolamine Patch (Check) 1 each TOP DAILY [facility] Stop: 10/06/19 12:53 Last Admin: 10/06/19 10:06 Dose: Not Given Ondansetron HCl (Zofran) Confirm Administered Dose 4 mg .ROUTE .STK-MED ONE Stop: 10/04/19 07:16 Ondansetron HCl (Zofran) 4 mg IVPUSH Q4H PRN PRN Reason: Nausea/Vomiting Pantoprazole Sodium (Protonix Iv) 40 mg IVPUSH Q24H [facility] Last Admin: 10/04/19 17:15 Dose: 40 mg Pantoprazole Sodium (Protonix Granules) 40 mg PO Q24H [facility] Last Admin: 10/08/19 16:12 Dose: Not Given Piperacillin Sod/Tazobactam Sod (Zosyn) Confirm Administered Dose 3.375 gm .ROUTE .STK-MED ONE Stop: 10/06/19 19:36 Last Admin: 10/06/19 20:02 Dose: Not Given Propofol (Diprivan 20 Ml) Confirm Administered Dose 200 mg .ROUTE .STK-MED ONE Stop: 10/04/19 07:16 Propofol (Diprivan 20 Ml) Confirm Administered Dose 200 mg .ROUTE .STK-MED ONE Stop: 10/07/19 21:12 Rocuronium [place] (Zemuron) Confirm Administered Dose 50 mg .ROUTE .STK-MED ONE Stop: 10/04/19 07:16 Rocuronium [place] (Zemuron) Confirm Administered Dose 50 mg .ROUTE .STK-MED ONE Stop: 10/04/19 09:27 Scopolamine (Transderm-Scop) 1.5 mg TOP ONETIME ONE Stop: 10/04/19 05:43 Last Admin: 10/04/19 06:11 Dose: 1.5 mg Sodium Chloride (Saline Flush) 10 ml FLUSH ONETIME ONE Stop: 10/11/19 09:01 Last Admin: 10/11/19 09:45 Dose: 10 ml Succinylcholine Chloride (Quelicin) Confirm Administered Dose 200 mg .ROUTE .STK -MED ONE Stop: 10/04/19 07:16 Succinylcholine Chloride (Quelicin) Confirm Administered Dose 200 mg .ROUTE .STK -MED ONE Stop: 10/07/19 21:12 Sugammadex Sodium (Bridion) Confirm Administered Dose 200 mg .ROUTE .STK-MED ONE Stop: 10/04/19 10:47 - Exam Quality Assessment: Supplemental Oxygen (Ventilator), Central Line/PICC, Urine Catheter, DVT Prophylaxis General: Sedated, Lethargic Lungs: Decreased Breath Sounds, Rhonchi. No: Crackles, Rales, Wheezing Cardiovascular: Regular Rate, Regular Rhythm, No Murmurs GI/Abdominal Exam: Soft, No Organomegaly, Tender. No: Distended, Guarding, Rigid, Rebound Extremities: Non-Tender, Pedal Edema - Problem List & Annotations (1) Hypoxia SNOMED Code(s): 703323719 Code(s): R09.02 - HYPOXEMIA Status: Acute Current Visit: Yes (2) Hypercapnia SNOMED Code(s): 39125447 Code(s): R06.89 - OTHER ABNORMALITIES OF BREATHING Status: Acute Current Visit: Yes (3) Pneumonia SNOMED Code(s): 361693681 Code(s): J18.9 - PNEUMONIA, UNSPECIFIED ORGANISM Status: Acute Current Visit: Yes (4) Laparoscopic surgical procedure converted to open procedure SNOMED Code(s): 265234865 Code(s): Z53.31 - LAPAROSCOPIC SURGICAL PROCEDURE CONVERTED TO OPEN PROCEDURE Status: Acute Current Visit: Yes Annotation/Comment:: lysis of adhesions (5) DDD (degenerative disc disease), lumbar SNOMED Code(s): 32389112 Code(s): M51.36 - OTHER INTERVERTEBRAL DISC DEGENERATION, LUMBAR REGION Status: Chronic Current Visit: No (6) Obstructive sleep apnea syndrome SNOMED Code(s): 42037941 Code(s): G47.33 - OBSTRUCTIVE SLEEP APNEA (ADULT) (PEDIATRIC) Status: Chronic Current Visit: No - Problem List Review Problem List Initiated/Reviewed/Updated: Yes - My Orders Last 24 Hours: My Active Orders 10/15/19 14:00 Cefepime [Maxipime] 1 gm Sodium Chloride 0.9% [Normal Saline] 50 ml IV Q8H 10/15/19 14:30 Micafungin [Mycamine] 100 mg Sodium Chloride 0.9% [Normal Saline] 100 ml IV Q24H 10/15/19 16:00 Linezolid [Zyvox] 600 mg Premix Bag 1 bag IV Q12H 10/15/19 22:14 Morphine 4 mg IVPUSH Q2H PRN 10/16/19 10:28 Furosemide [Lasix] 40 mg IVPUSH NOW ONE 10/16/19 21:00 Furosemide [Lasix] 40 mg IVPUSH NOW ONE - Plan Plan:: ASSESSMENT AND RECOMMENDATIONS ACUTE HYPOXIC AND HYPERCAPNIC RESPIRATORY FAILURE - multifactorial with pneumonia, aspiration and ARDS. Continues to require high level of ventilatory support, no improvement noted over the past 24 hours but she has not worsened. -Minimize IV fluid as able -Furosemide 40 mg IV twice daily -Scheduled DuoNeb's -Supplemental oxygen as needed -Mechanical ventilation with weaning trials once respiratory status stabilized further (PEEP is at 10) -Nebulizer therapy as ordered -Follow-up blood gases in a.m. BILATERAL PNEUMONIA - infiltrate seem to be stagnant. Initial culture grew out enterococcus and now germ tube positive yeast. She is now requiring vasopressor support. Question of progressive/resistant infection -Continue current IV antibiotic therapy; Zyvox, cefepime, and micafungin -Follow-up cultures ANEMIA DUE TO ACUTE ILLNESS - hemoglobin stable -Hemoglobin in the morning HYPOKALEMIA -Continue to monitor STATUS POST DUODENAL SWITCH PROCEDURE - postop course complicated by an ileus but bowel function seems to be improving. NG tube removed 10/12. She is on TPN. -Postop care per Dr. Baldwin
[2019-10-16] MEDS: Norepinephrine 8 MG in Dextrose 5% in Water 242 ML IV SCH ×2 (13:17)
[2019-10-16] MEDS: Micafungin 100 MG in Sodium Chloride 0.9% 100 ML IV SCH (15:20)
[2019-10-16] MEDS: Heparin Sodium 5,000 UNITS in Sodium Chloride 0.9% 500 ML IV SCH (15:57)
[2019-10-16] MEDS: Pantoprazole 40 MG Vial IV SCH (17:36)
[2019-10-16] MEDS ORDERED: Acetaminophen 1,000 MG in Premix Bag 1 BAG IV SCH (22:15)
[2019-10-16] MEDS ORDERED: Acetaminophen 1,000 MG in Premix Bag 1 BAG IV PRN (23:50)
[2019-10-17] MEDS: Morphine 4 MG/ML Syringe IVPUSH PRN ×3 (02:28→15:13)
--- NOTE | 2019-10-17 03:52 | CRLCR ---
INDICATION: Intubation TECHNIQUE: Chest 1 views COMPARISON: Chest x-ray 10/16/2019 FINDINGS: Cardiovascular and mediastinum: Normal heart size with endotracheal tube at the midtrachea level. Left subclavian line with tip at the right atrium. Lungs and pleural spaces: Low lung volumes with extensive bilateral patchy airspace opacities. Bones and soft tissues: Drain overlies the left upper quadrant improve IMPRESSION: Low lung volumes with bilateral airspace opacities, fairly similar to the study 1 day prior. Dictated by Tim Deal MD @ Oct 17 2019 3:48AM Signed by Dr. Tim Deal @ Oct 17 2019 3:51AM
[2019-10-17] MEDS: Linezolid 600 MG in Premix Bag 1 BAG IV SCH ×2 (04:08→16:29)
[2019-10-17] MEDS: Cefepime 1 GM in Sodium Chloride 0.9% 50 ML IV SCH ×3 (05:45→22:08)
[2019-10-17] MEDS: Levalbuterol HCl 1.25 MG/3 ML Neb NEB SCH ×4 (07:20→21:15)
[2019-10-17] MEDS: DULoxetine 30 MG Cap PO SCH ×2 (09:12→21:15)
[2019-10-17] MEDS: Heparin Sodium 5,000 Units/ML Vial SUBCUT SCH ×2 (09:12→16:29)
[2019-10-17] MEDS: Bumetanide 1 MG/4 ML MDV IVPUSH SCH ×2 (09:12→20:45)
--- NOTE | 2019-10-17 10:11 | PCM.PN ---
- General Info Date of Service: 10/17/19 Subjective Update: Ms. Alford remains critically ill with ongoing respiratory failure and tension. She has not substantially worse over the last 24 hours but also has shown no significant improvement. He is unable to provide meaningful history concerning symptoms or review of systems because of sedation. - Patient Data Vitals - Most Recent: Last Vital Signs Temp 97.1 F 10/17/19 08:00 Pulse 105 H 10/17/19 08:00 Resp 34 H 10/17/19 08:00 BP 111/45 L 10/17/19 08:00 Pulse Ox 92 L 10/17/19 08:00 Weight - Most Recent: 314 lb 2.539 oz I&O - Last 24 Hours: Intake & Output 10/16/19 10/17/19 10/17/19 22:59 06:59 14:59 Intake Total 2195 1967 Output Total 1320 785 Balance 875 1182 Lab Results Last 24 Hours: Laboratory Results - last 24 hr 10/17/19 10/17/19 10/17/19 Range/Units 04:06 04:06 04:06 WBC 25.5 H (4.5-11.0) K/uL RBC 3.36 (3.30-5.50) M/uL Hgb 8.9 L (12.0-15.0) g/dL Hct 29.9 L (36.0-48.0) % MCV 89 (80-98) fL MCH 27 (27-31) pg MCHC 30 L (32-36) % Plt Count 436 H (150-400) K/uL Puncture Site A-line ABG pH 7.340 L (7.350-7.450) ABG pCO2 58.2 H (35.0-42.0) mmHg ABG pO2 79.5 (75.0-100.0) mmHg ABG HCO3 30.6 H (22.0-26.0) mmol/L ABG Total CO2 29.1 H (21.0-25.0) mmol/L ABG O2 Saturation 95.0 (95.0-98.0) % ABG O2 Content 11.9 L (15.0-23.0) %vol ABG Base Excess 4.5 mm/L ABG Hemoglobin 9.2 L (12.0-16.0) g/dL ABG Oxyhemoglobin 91.5 % ABG Carboxyhemoglobin 2.5 H (0.0-1.6) % ABG Methemoglobin 1.2 % Bimal Test A-line O2 Delivery Device Ventilator Sodium 139 L (140-148) mmol/L Potassium 4.9 (3.6-5.2) mmol/L Chloride 101 (100-108) mmol/L Carbon Dioxide 32 (21-32) mmol/L Anion Gap 10.9 (5.0-14.0) mmol/L BUN 32 H (7-18) mg/dL Creatinine 0.9 (0.6-1.0) mg/dL Est Cr Clr Drug Dosing 44.76 mL/min Estimated GFR (MDRD) > 60 (>60) Glucose 152 H (74-106) mg/dL Calcium 8.5 (8.5-10.1) mg/dL Phosphorus 5.2 H (2.5-4.9) mg/dL Magnesium 2.0 (1.8-2.4) mg/dL Total Bilirubin 1.2 H (0.2-1.0) mg/dL AST 23 (15-37) U/L ALT 17 (12-78) U/L Alkaline Phosphatase 140 H (46-116) U/L NT-Pro-B Natriuret Pep 1026 H (5-125) pg/mL Total Protein 6.6 (6.4-8.2) g/dL Albumin 1.8 L (3.4-5.0) g/dL Globulin 4.8 H (2.3-3.5) g/dL Albumin/Globulin Ratio 0.4 L (1.2-2.2) Jae Results Last 24 Hours: Microbiology 10/14/19 07:52 Aerobic Blood Culture - Preliminary Blood - Arm, Right NO GROWTH AFTER 3 DAYS Anaerobic Blood Culture - Preliminary NO GROWTH AFTER 3 DAYS 10/14/19 06:40 Aerobic Blood Culture - Preliminary Blood - Central Line NO GROWTH AFTER 3 DAYS Anaerobic Blood Culture - Preliminary NO GROWTH AFTER 3 DAYS 10/14/19 06:50 Aerobic Blood Culture - Preliminary Blood - Arterial Line - Abg NO GROWTH AFTER 3 DAYS Anaerobic Blood Culture - Preliminary NO GROWTH AFTER 3 DAYS Med Orders - Current: Current Medications Bumetanide (Bumex) 1 mg IVPUSH Q12H [facility] Stop: 10/17/19 20:31 Last Admin: 10/17/19 09:12 Dose: 1 mg Dimethicone/Zinc Oxide (Rash Relief-Zinc Oxide [place]) 0 gm TOP Q2H PRN PRN Reason: Rash Last Admin: 10/13/19 11:02 Dose: 4 spray Duloxetine HCl (Cymbalta) 30 mg PO BID [facility] Last Admin: 10/17/19 09:12 Dose: Not Given Heparin Sodium (Porcine) (Heparin Sodium) 5,000 units SUBCUT Q8H [facility] Last Admin: 10/17/19 09:12 Dose: 5,000 units Heparin Sodium (Porcine) (Heparin Lock Flush 100 Units/Ml) 500 units FLUSH ASDIRECTED PRN PRN Reason: Keep Vein Open Last Admin: 10/09/19 11:40 Dose: 500 units Hydroxyzine HCl (Vistaril) 100 mg IM Q4H PRN PRN Reason: pain Last Admin: 10/06/19 05:11 Dose: 100 mg Heparin Sodium (Porcine) 5,000 (units/ Sodium Chloride) 501 mls @ 0 mls/hr IV ASDIRECTED [facility] Last Admin: 10/16/19 15:57 Dose: 1 mls/hr Propofol (Diprivan 100 Ml) 100 mls @ 3.783 mls/hr IV TITRATE [facility]; Protocol Last Admin: 10/17/19 10:06 Dose: 60 mcg/kg/min, 45.396 mls/hr Sodium Chloride (Normal Saline) 1,000 mls @ 25 mls/hr IV ASDIRECTED [facility] Last Infusion: 10/13/19 22:05 Dose: 30 mls/hr Multivitamins/Minerals 10 ml/Chromium/Copper/Manganese/Seleni/Zn 1 ml/ Amino Acids/Electrolytes/Dextrose 1,011 mls @ 60 mls/hr IV .BY DURATION [facility] Last Admin: 10/16/19 23:31 Dose: 60 mls/hr Amino Acids/Electrolytes/Dextrose (Clinimix E 4.25/10) 1,000 mls @ 60 mls/hr IV .BY DURATION [facility] Last Admin: 10/16/19 06:48 Dose: 60 mls/hr Norepinephrine Bitartrate 8 mg (/ Dextrose/Water) 250 mls @ 3.75 mls/hr IV TITRATE [facility]; Protocol Last Infusion: 10/17/19 01:15 Dose: 6 mcg/min, 11.25 mls/hr Cefepime HCl 1 gm/ Sodium (Chloride) 50 mls @ 100 mls/hr IV Q8H [facility] Last Admin: 10/17/19 05:45 Dose: 100 mls/hr Linezolid 600 mg/ Premix 300 mls @ 300 mls/hr IV Q12H [facility] Last Admin: 10/17/19 04:08 Dose: 300 mls/hr Micafungin Sodium 100 mg/ (Sodium Chloride) 100 mls @ 100 mls/hr IV Q24H [facility] Last Admin: 10/16/19 15:20 Dose: 100 mls/hr Acetaminophen 1,000 mg/ Premix 100 mls @ 400 mls/hr IV Q6H PRN PRN Reason: pain/fever Stop: 10/17/19 22:16 Aztreonam 1 gm/ Sodium (Chloride) 100 mls @ 200 mls/hr IV Q8HR [facility] Levalbuterol HCl (Xopenex) 1.25 mg NEB QIDRT [facility] Last Admin: 10/17/19 07:20 Dose: 1.25 mg Levalbuterol HCl (Xopenex) 1.25 mg NEB Q2H PRN PRN Reason: shortness of breath/wheezing Last Admin: 10/15/19 02:21 Dose: 1.25 mg Levothyroxine Sodium (Synthroid) 25 mcg IVPUSH DAILY [facility] Last Admin: 10/16/19 08:40 Dose: 25 mcg Lorazepam (Ativan) 0.5 mg IVPUSH Q2H PRN PRN Reason: Agitation Last Admin: 10/15/19 09:52 Dose: 0.5 mg Morphine Sulfate (Morphine) 4 mg IVPUSH Q2H PRN PRN Reason: Dyspnea Last Admin: 10/17/19 07:54 Dose: 4 mg Ondansetron HCl (Zofran Odt) 4 mg PO Q4H PRN PRN Reason: Nausea/Vomiting Last Admin: 10/07/19 00:48 Dose: 4 mg Pantoprazole Sodium (Protonix Iv) 40 mg IV Q24H [facility] Last Admin: 10/16/19 17:36 Dose: 40 mg Discontinued Medications Acetaminophen (Tylenol Extra Strength) 1,000 mg PO ONETIME ONE Stop: 10/04/19 05:43 Last Admin: 10/04/19 06:11 Dose: 1,000 mg Acetaminophen (Tylenol) 650 mg PO Q6H [facility] Last Admin: 10/05/19 04:30 Dose: 650 mg Hydrocodone Bitart/Acetaminophen (Proctor 325-5 Mg) 1 - 2 tab PO Q4H PRN PRN Reason: Pain Last Admin: 10/07/19 04:18 Dose: 1 tab Acetylcysteine (Mucomyst 20%) 200 mg NEB TIDRT [facility] Last Admin: 10/13/19 10:06 Dose: 200 mg Acetylcysteine (Mucomyst 20%) 200 mg NEB TID@0700,1500,2100 [facility] Last Admin: 10/14/19 21:39 Dose: 200 mg Albuterol (Proventil Neb Soln) 2.5 mg NEB Q2H PRN PRN Reason: shortness of breath/wheezing Last Admin: 10/10/19 22:54 Dose: 2.5 mg Albuterol/Ipratropium (Duoneb 3.0-0.5 Mg/3 Ml) 3 ml NEB ONETIME ONE Stop: 10/04/19 06:31 Last Admin: 10/04/19 10:48 Dose: 3 ml Albuterol/Ipratropium (Duoneb 3.0-0.5 Mg/3 Ml) 3 ml NEB ONETIME ONE Stop: 10/04/19 10:46 Last Admin: 10/04/19 12:30 Dose: Not Given Albuterol/Ipratropium (Duoneb 3.0-0.5 Mg/3 Ml) 3 ml INH QIDRT [facility] Last Admin: 10/14/19 21:39 Dose: 3 ml Albuterol/Ipratropium (Duoneb 3.0-0.5 Mg/3 Ml) 3 ml INH ASDIRECTED PRN PRN Reason: BREATHING Last Admin: 10/07/19 00:54 Dose: 3 ml Celecoxib (Celebrex) 200 mg PO ONETIME ONE Stop: 10/04/19 05:43 Last Admin: 10/04/19 06:11 Dose: 200 mg Celecoxib (Celebrex) 200 mg PO DAILY@0800 [facility] Last Admin: 10/12/19 07:32 Dose: Not Given Ropivacaine 60 ml/Dexamethasone 8 mg/Epinephrine HCl 0.4 mg/ Sodium Chloride 17.6 ml 0 ml NERVRT ASDIRECTED [facility] Last Admin: 10/04/19 07:48 Dose: 80 syringe Cyanocobalamin (Vitamin B12) 1,000 mcg IM ONETIME ONE Stop: 10/06/19 09:01 Last Admin: 10/06/19 10:46 Dose: 1,000 mcg Dexamethasone (Dexamethasone) Confirm Administered Dose 4 mg .ROUTE .STK-MED ONE Stop: 10/04/19 07:16 Diphenhydramine HCl (Benadryl) 50 mg IVPUSH Q4H PRN PRN Reason: ITCHING Fentanyl (Sublimaze) Confirm Administered Dose 250 mcg .ROUTE .STK-MED ONE Stop: 10/04/19 07:14 Fentanyl (Sublimaze) Confirm Administered Dose 250 mcg .ROUTE .STK-MED ONE Stop: 10/04/19 08:47 Furosemide (Lasix) 20 mg IVPUSH ONETIME ONE Stop: 10/04/19 20:44 Last Admin: 10/04/19 21:09 Dose: 20 mg Furosemide (Lasix) 20 mg IVPUSH ONETIME ONE Stop: 10/05/19 08:01 Last Admin: 10/05/19 09:43 Dose: 20 mg Furosemide (Lasix) 40 mg PO ONETIME ONE Stop: 10/06/19 00:47 Last Admin: 10/06/19 01:05 Dose: 40 mg Furosemide (Lasix) 40 mg PO ONETIME ONE Stop: 10/06/19 16:34 Last Admin: 10/06/19 17:31 Dose: 40 mg Furosemide (Lasix) 10 mg IVPUSH ONETIME ONE Stop: 10/08/19 22:50 Last Admin: 10/08/19 23:27 Dose: Not Given Furosemide (Lasix) 20 mg IVPUSH NOW ONE Stop: 10/10/19 09:31 Last Admin: 10/10/19 10:32 Dose: 20 mg Furosemide (Lasix) 20 mg IVPUSH ONETIME ONE Stop: 10/10/19 18:01 Last Admin: 10/10/19 18:22 Dose: 20 mg Furosemide (Lasix) 40 mg IVPUSH ONETIME ONE Stop: 10/11/19 08:42 Last Admin: 10/11/19 09:03 Dose: 40 mg Furosemide (Lasix) 40 mg IVPUSH ONETIME ONE Stop: 10/11/19 16:56 Last Admin: 10/11/19 17:17 Dose: 40 mg Furosemide (Lasix) 40 mg IVPUSH Q8H [facility] Last Admin: 10/12/19 09:12 Dose: 40 mg Furosemide (Lasix) 40 mg IVPUSH ONETIME ONE Stop: 10/12/19 20:01 Last Admin: 10/12/19 20:06 Dose: 40 mg Furosemide (Lasix) 40 mg IVPUSH NOW ONE Stop: 10/14/19 09:16 Last Admin: 10/14/19 09:40 Dose: 40 mg Furosemide (Lasix) 40 mg IVPUSH ONETIME ONE Stop: 10/14/19 19:01 Last Admin: 10/14/19 19:25 Dose: 40 mg Furosemide (Lasix) 20 mg IV ONETIME ONE Stop: 10/15/19 11:16 Last Admin: 10/15/19 12:08 Dose: 20 mg Furosemide (Lasix) 40 mg IVPUSH NOW ONE Stop: 10/15/19 21:01 Last Admin: 10/15/19 20:54 Dose: 40 mg Furosemide (Lasix) 40 mg IVPUSH NOW ONE Stop: 10/16/19 10:29 Last Admin: 10/16/19 11:40 Dose: 40 mg Furosemide (Lasix) 40 mg IVPUSH NOW ONE Stop: 10/16/19 21:01 Last Admin: 10/16/19 20:56 Dose: 40 mg Gabapentin (Neurontin) 300 mg PO ONETIME ONE Stop: 10/04/19 05:43 Last Admin: 10/04/19 06:10 Dose: 300 mg Gabapentin (Neurontin) 300 mg PO TID [facility] Last Admin: 10/07/19 13:33 Dose: 300 mg Glycopyrrolate (Robinul) Confirm Administered Dose 1 mg .ROUTE .STK-MED ONE Stop: 10/04/19 07:16 Hydrocortisone Sodium Succinate (Solu-Cortef) 100 mg IVPUSH ONETIME ONE Stop: 10/12/19 17:36 Last Admin: 10/12/19 17:51 Dose: 100 mg Hydrocortisone Sodium Succinate (Solu-Cortef) 100 mg IVPUSH Q12H [facility] Stop: 10/14/19 09:31 Last Admin: 10/14/19 09:16 Dose: 100 mg Hydromorphone HCl (Dilaudid [employer] 15 Mg In Ns 30 Ml) 0 mg IV ASDIRECTED PRN; Protocol PRN Reason: Pain Last Admin: 10/04/19 10:41 Dose: 0.3 mg Lidocaine HCl/Dextrose (Lidocaine 2 Gm/D5w 500 Ml) 2 gm in 500 mls @ 22.5 mls/ hr IV .Q24H [facility] Stop: 10/05/19 07:29 Last Admin: 10/04/19 12:29 Dose: 1 mg/min, 15 mls/hr Ketamine HCl 50 mg/ Sodium (Chloride) 50 mls @ 12 mls/hr IV ASDIRECTED [facility] Dextrose/Lactated Ringer's (Dextrose 5%-Lactated Ringers) 1,000 mls @ 100 mls/ hr IV ASDIRECTED [facility] Last Admin: 10/04/19 12:29 Dose: 100 mls/hr Cefoxitin Sodium 2 gm/ Sodium (Chloride) 50 mls @ 100 mls/hr IV ONETIME ONE Stop: 10/04/19 07:44 Last Admin: 10/04/19 07:15 Dose: 100 mls/hr Lactated Ringer's (Ringers, Lactated) Confirm Administered Dose 1,000 mls @ as directed .ROUTE .STK-MED ONE Stop: 10/04/19 07:14 Dextrose/Lactated Ringer's (Dextrose 5%-Lactated Ringers) 1,000 mls @ 175 mls/ hr IV ASDIRECTED [facility] Multivitamins/Minerals 10 ml/Thiamine HCl 200 mg/ Chromium/Copper/Manganese/ Seleni/Zn 1 ml/ Dextrose/Lactated Ringer's 1,013 mls @ 174.999 mls/hr IV DAILY@ 1600 [facility] Last Admin: 10/04/19 17:13 Dose: 174.999 mls/hr Cefoxitin Sodium 2 gm/ Sodium (Chloride) 50 mls @ 100 mls/hr IV Q6H [facility] Last Admin: 10/05/19 07:49 Dose: 100 mls/hr Dextrose/Lactated Ringer's (Dextrose 5%-Lactated Ringers) 1,000 mls @ 125 mls/ hr IV ASDIRECTED [facility] Last Admin: 10/05/19 00:43 Dose: 125 mls/hr Dextrose/Lactated Ringer's (Dextrose 5%-Lactated Ringers) 1,000 mls @ 100 mls/ hr IV ASDIRECTED [facility] Last Admin: 10/05/19 09:41 Dose: 100 mls/hr Lactated Ringer's (Ringers, Lactated) 500 mls @ 100 mls/hr IV .BOLUS ONE Stop: 10/05/19 11:59 Last Admin: 10/05/19 07:48 Dose: 100 mls/hr Multivitamins/Minerals 10 ml/Thiamine HCl 200 mg/ Chromium/Copper/Manganese/ Seleni/Zn 1 ml/ Dextrose/Lactated Ringer's 1,013 mls @ 100 mls/hr IV DAILY@ 1600 [facility] Linezolid 600 mg/ Premix 300 mls @ 300 mls/hr IV Q12H [facility] Last Admin: 10/09/19 22:30 Dose: 300 mls/hr Piperacillin Sod/Tazobactam (Sod 3.375 gm/ Sodium Chloride) 50 mls @ 100 mls/ hr IV Q6H [facility] Last Admin: 10/07/19 01:45 Dose: 100 mls/hr Levofloxacin/Dextrose 750 mg/ (Premix) 150 mls @ 100 mls/hr IV Q48H [facility] Last Admin: 10/08/19 20:01 Dose: 100 mls/hr Sodium Chloride (Normal Saline) Confirm Administered Dose 50 mls @ as directed .ROUTE .STK-MED ONE Stop: 10/06/19 19:37 Last Admin: 10/06/19 20:03 Dose: Not Given Lactated Ringer's (Ringers, Lactated) 1,000 mls @ 100 mls/hr IV ASDIRECTED [facility] Last Admin: 10/07/19 17:52 Dose: 100 mls/hr Piperacillin/Tazobactam/ (Dextrose 3.375 gm/ Premix) 50 mls @ 100 mls/hr IV Q6H [facility] Last Admin: 10/11/19 08:28 Dose: 100 mls/hr Magnesium Sulfate 2 gm/ Premix 50 mls @ 25 mls/hr IV Q6H [facility] Stop: 10/09/19 05:59 Last Admin: 10/09/19 04:08 Dose: 25 mls/hr Propofol (Diprivan 100 Ml) Confirm Administered Dose 100 mls @ as directed .ROUTE .STK-MED ONE Stop: 10/07/19 21:21 Last Admin: 10/07/19 22:55 Dose: Not Given Lactated Ringer's (Ringers, Lactated) 1,000 mls @ 25 mls/hr IV ASDIRECTED [facility] Stop: 10/11/19 10:00 Last Admin: 10/08/19 19:59 Dose: 25 mls/hr Levofloxacin/Dextrose 750 mg/ (Premix) 150 mls @ 100 mls/hr IV Q24H [facility] Last Admin: 10/11/19 19:43 Dose: 100 mls/hr Potassium Chloride 40 meq/ (Premix) 100 mls @ 25 mls/hr IV ONETIME ONE Stop: 10/10/19 13:29 Last Admin: 10/10/19 10:31 Dose: 25 mls/hr Potassium Phosphate 22.5 mmole (/ Sodium Chloride) 107.5 mls @ 36 mls/hr IV Q3H [facility] Stop: 10/11/19 15:59 Last Admin: 10/11/19 13:29 Dose: 36 mls/hr Linezolid 600 mg/ Premix 300 mls @ 300 mls/hr IV Q12H [facility] Last Admin: 10/13/19 21:37 Dose: 300 mls/hr Meropenem 1 gm/ Sodium (Chloride) 50 mls @ 100 mls/hr IV Q8H [facility] Last Admin: 10/15/19 09:25 Dose: 100 mls/hr Sodium Chloride (Normal Saline) 100 mls @ 3 mls/sec IV ASDIRECTED [facility] Stop: 10/11/19 09:01 Last Admin: 10/11/19 09:45 Dose: 3 mls/sec Potassium Chloride 40 meq/ (Premix) 100 mls @ 25 mls/hr IV ONETIME ONE Stop: 10/12/19 11:59 Last Admin: 10/12/19 08:33 Dose: 25 mls/hr Magnesium Sulfate 2 gm/ Premix 50 mls @ 25 mls/hr IV Q6H [facility] Stop: 10/14/19 06:59 Last Admin: 10/12/19 16:03 Dose: 25 mls/hr Albumin Human (Albumin 25%) 25 gm in 100 mls @ 25 mls/hr IV Q24H [facility] Stop: 10/14/19 16:59 Last Admin: 10/14/19 12:24 Dose: 25 mls/hr Doxycycline Hyclate 100 mg/ (Sodium Chloride) 100 mls @ 100 mls/hr IV Q12H [facility] Last Admin: 10/15/19 10:30 Dose: 100 mls/hr Fluconazole/Sodium Chloride (200 mg/ Premix) 100 mls @ 100 mls/hr IV Q24H [facility] Last Admin: 10/15/19 11:08 Dose: 100 mls/hr Potassium Phosphate 22.5 mmole (/ Sodium Chloride) 107.5 mls @ 27 mls/hr IV Q4H [facility] Stop: 10/15/19 17:29 Last Admin: 10/15/19 14:23 Dose: 27 mls/hr Sodium Chloride (Normal Saline) 100 mls @ 4 mls/sec IV ASDIRECTED [facility] Stop: 10/15/19 13:31 Last Admin: 10/15/19 14:05 Dose: 4 mls/sec Acetaminophen 1,000 mg/ Premix 100 mls @ 400 mls/hr IV Q6H [facility] Stop: 10/17/19 22:16 Last Admin: 10/17/19 05:55 Dose: Not Given Iopamidol (Isovue-300 (61%)) 50 ml PO ASDIRECTED [facility] Stop: 10/05/19 03:24 Last Admin: 10/05/19 03:36 Dose: 50 ml Iopamidol (Isovue-300 (61%)) 100 ml IV . DIRECTED [facility] Stop: 10/11/19 09:01 Last Admin: 10/11/19 09:45 Dose: 100 ml Iopamidol (Isovue-370 (76%)) 100 ml IV . DIRECTED ONE Stop: 10/15/19 13:30 Last Admin: 10/15/19 14:05 Dose: 100 ml Ketamine HCl (Ketalar) 20 mg IV ASDIRECTED [facility] Labetalol HCl (Normodyne) 5 mg IVPUSH Q5M PRN PRN Reason: SBP over 160 OR DBP over 95 Lactobacillus Rhamnosus (Culturelle) 1 cap PO BID [facility] Last Admin: 10/08/19 10:23 Dose: Not Given Levothyroxine Sodium (Levothyroxine) 25 mcg PO ACBREAKFAST [facility] Last Admin: 10/13/19 07:33 Dose: Not Given Lidocaine (Xylocaine-Mpf 2%) Confirm Administered Dose 5 ml .ROUTE .STK-MED ONE Stop: 10/07/19 07:55 Lidocaine HCl (Xylocaine 2%) 100 mg IVPUSH ASDIRECTED [facility] Lidocaine HCl (Xylocaine 4% Top Soln) 50 ml .ROUTE .STK-MED ONE Stop: 10/15/19 10:01 Lidocaine HCl (Xylocaine 2% Viscous) Confirm Administered Dose 15 ml .ROUTE .STK -MED ONE Stop: 10/15/19 09:42 Last Admin: 10/15/19 11:04 Dose: Not Given Lorazepam (Ativan) 0.5 mg IVPUSH Q4H PRN PRN Reason: Anxiety Last Admin: 10/07/19 13:55 Dose: 0.5 mg Magnesium Hydroxide (Milk Of Magnesia) 30 ml PO ONETIME ONE Stop: 10/06/19 09:31 Last Admin: 10/06/19 11:55 Dose: 30 ml Magnesium Oxide (Magnesium Oxide) 400 mg PO DAILY [facility] Last Admin: 10/06/19 10:46 Dose: 400 mg Meropenem (Merrem) Confirm Administered Dose 500 mg .ROUTE .STK-MED ONE Stop: 10/04/19 09:20 Last Admin: 10/04/19 10:15 Dose: 500 mg Methylprednisolone Sodium Succinate (Solu-Medrol) 40 mg IVPUSH Q8H [facility] Last Admin: 10/09/19 01:40 Dose: 40 mg Metoclopramide HCl (Reglan) 10 mg IVPUSH Q6H PRN PRN Reason: NAUSEA NOT CONTROL BY ZOFRAN Miscellaneous Information (Remove Patch) 1 ea TRDERM ONETIME ONE Stop: 10/07/19 06:01 Miscellaneous Information (Remove Patch) 1 ea TRDERM ONETIME ONE Stop: 10/06/19 10:01 Last Admin: 10/06/19 10:06 Dose: Not Given Morphine Sulfate (Morphine) 2 mg IVPUSH Q2H PRN PRN Reason: Pain Last Admin: 10/12/19 02:06 Dose: 2 mg Morphine Sulfate (Morphine) 4 mg IVPUSH Q2H PRN PRN Reason: PAIN Last Admin: 10/15/19 20:46 Dose: 4 mg Naloxone HCl (Narcan) 0.1 mg IV ASDIRECTED PRN PRN Reason: decreased respiratory rate Naloxone HCl (Narcan) Confirm Administered Dose 0.4 mg .ROUTE .STK-MED ONE Stop: 10/04/19 10:41 Neostigmine Methylsulfate (Neostigmine) Confirm Administered Dose 5 mg .ROUTE .STK-MED ONE Stop: 10/04/19 07:16 Check Scopolamine (Patch Daily) 1 each .XX DAILY [facility] Last Admin: 10/04/19 12:30 Dose: Not Given Scopolamine Patch (Check) 1 each TOP DAILY [facility] Stop: 10/06/19 12:53 Last Admin: 10/06/19 10:06 Dose: Not Given Ondansetron HCl (Zofran) Confirm Administered Dose 4 mg .ROUTE .STK-MED ONE Stop: 10/04/19 07:16 Ondansetron HCl (Zofran) 4 mg IVPUSH Q4H PRN PRN Reason: Nausea/Vomiting Pantoprazole Sodium (Protonix Iv) 40 mg IVPUSH Q24H [facility] Last Admin: 10/04/19 17:15 Dose: 40 mg Pantoprazole Sodium (Protonix Granules) 40 mg PO Q24H [facility] Last Admin: 10/08/19 16:12 Dose: Not Given Piperacillin Sod/Tazobactam Sod (Zosyn) Confirm Administered Dose 3.375 gm .ROUTE .STK-MED ONE Stop: 10/06/19 19:36 Last Admin: 10/06/19 20:02 Dose: Not Given Propofol (Diprivan 20 Ml) Confirm Administered Dose 200 mg .ROUTE .STK-MED ONE Stop: 10/04/19 07:16 Propofol (Diprivan 20 Ml) Confirm Administered Dose 200 mg .ROUTE .STK-MED ONE Stop: 10/07/19 21:12 Rocuronium [place] (Zemuron) Confirm Administered Dose 50 mg .ROUTE .STK-MED ONE Stop: 10/04/19 07:16 Rocuronium [place] (Zemuron) Confirm Administered Dose 50 mg .ROUTE .STK-MED ONE Stop: 10/04/19 09:27 Scopolamine (Transderm-Scop) 1.5 mg TOP ONETIME ONE Stop: 10/04/19 05:43 Last Admin: 10/04/19 06:11 Dose: 1.5 mg Sodium Chloride (Saline Flush) 10 ml FLUSH ONETIME ONE Stop: 10/11/19 09:01 Last Admin: 10/11/19 09:45 Dose: 10 ml Succinylcholine Chloride (Quelicin) Confirm Administered Dose 200 mg .ROUTE .STK -MED ONE Stop: 10/04/19 07:16 Succinylcholine Chloride (Quelicin) Confirm Administered Dose 200 mg .ROUTE .STK -MED ONE Stop: 10/07/19 21:12 Sugammadex Sodium (Bridion) Confirm Administered Dose 200 mg .ROUTE .STK-MED ONE Stop: 10/04/19 10:47 - Exam Quality Assessment: Supplemental Oxygen (Ventilator), Central Line/PICC, Urine Catheter, DVT Prophylaxis General: Sedated, Lethargic Lungs: Decreased Breath Sounds, Rhonchi, Wheezing Cardiovascular: Regular Rhythm, No Murmurs, Tachycardia GI/Abdominal Exam: Soft, Non-Tender, No Organomegaly, No Distention Extremities: Pedal Edema - Problem List & Annotations (1) Hypoxia SNOMED Code(s): 731369184 Code(s): R09.02 - HYPOXEMIA Status: Acute Current Visit: Yes (2) Hypercapnia SNOMED Code(s): 57840683 Code(s): R06.89 - OTHER ABNORMALITIES OF BREATHING Status: Acute Current Visit: Yes (3) Pneumonia SNOMED Code(s): 670133210 Code(s): J18.9 - PNEUMONIA, UNSPECIFIED ORGANISM Status: Acute Current Visit: Yes (4) Laparoscopic surgical procedure converted to open procedure SNOMED Code(s): 432430642 Code(s): Z53.31 - LAPAROSCOPIC SURGICAL PROCEDURE CONVERTED TO OPEN PROCEDURE Status: Acute Current Visit: Yes Annotation/Comment:: lysis of adhesions (5) DDD (degenerative disc disease), lumbar SNOMED Code(s): 48697494 Code(s): M51.36 - OTHER INTERVERTEBRAL DISC DEGENERATION, LUMBAR REGION Status: Chronic Current Visit: No (6) Obstructive sleep apnea syndrome SNOMED Code(s): 70754569 Code(s): G47.33 - OBSTRUCTIVE SLEEP APNEA (ADULT) (PEDIATRIC) Status: Chronic Current Visit: No - Problem List Review Problem List Initiated/Reviewed/Updated: Yes - My Orders Last 24 Hours: My Active Orders 10/16/19 22:09 Communication Order [RC] ASDIRECTED 10/16/19 23:50 Acetaminophen [Ofirmev] 1,000 mg Premix Bag 1 bag IV Q6H 10/17/19 14:00 Aztreonam [Azactam] 1 gm Sodium Chloride 0.9% [Normal Saline] 100 ml IV Q8HR - Plan Plan:: ASSESSMENT AND RECOMMENDATIONS ACUTE HYPOXIC AND HYPERCAPNIC RESPIRATORY FAILURE - multifactorial with pneumonia, aspiration and ARDS. Continues to require high level of ventilatory support, no improvement noted over the past 24 hours but she has not worsened. -Minimize IV fluid as able -IV Bumex as ordered per Dr. Baldwin -Scheduled DuoNeb's -Supplemental oxygen as needed -Mechanical ventilation with weaning trials once respiratory status stabilized further (PEEP is at 10) -Nebulizer therapy as ordered -Follow-up blood gases in a.m. BILATERAL PNEUMONIA -Initial culture grew out enterococcus and now germ tube positive yeast. She is now requiring vasopressor support. Question of progressive/resistant infection -Continue current IV antibiotic therapy; Zyvox, cefepime, azactam and micafungin -Follow-up cultures ANEMIA DUE TO ACUTE ILLNESS - hemoglobin stable -Hemoglobin in the morning HYPOKALEMIA -Continue to monitor STATUS POST DUODENAL SWITCH PROCEDURE - postop course complicated by an ileus but bowel function seems to be improving. NG tube removed 10/12. She is on TPN. -Postop care per Dr. Baldwin
[2019-10-17] MEDS: Levothyroxine 100 MCG Vial IVPUSH SCH (11:20)
[2019-10-17] MEDS: Norepinephrine 8 MG in Dextrose 5% in Water 242 ML IV SCH ×2 (13:05)
[2019-10-17] MEDS: Micafungin 100 MG in Sodium Chloride 0.9% 100 ML IV SCH (15:19)
[2019-10-17] MEDS: 1: AA 4.25%/Calcium/D10W/Lytes 1,000 ML with MVI, Adult with Vitamin K 10 ML, Chromium/C IV SCH ×3 (16:21)
[2019-10-17] MEDS: Pantoprazole 40 MG Vial IV SCH (16:29)
[2019-10-17] MEDS: Sodium Chloride 0.9% 1,000 ML IV SCH (20:20)
[2019-10-18] MEDS: Heparin Sodium 5,000 Units/ML Vial SUBCUT SCH ×3 (00:16→16:37)
[2019-10-18] MEDS: Morphine 4 MG/ML Syringe IVPUSH PRN ×2 (02:05→07:33)
[2019-10-18] MEDS: Dimethicone 20%/Zinc Oxide 25% 56 GM Spray Bottle TOP PRN (02:22)
[2019-10-18] MEDS: Linezolid 600 MG in Premix Bag 1 BAG IV SCH ×2 (04:59→16:37)
--- NOTE | 2019-10-18 05:43 | CRLCR ---
INDICATION: Ventilated patient TECHNIQUE: Chest 1 views COMPARISON: Chest x-ray 10/17/2019 FINDINGS: Cardiovascular and mediastinum: Upper normal heart size with endotracheal tube at the midtrachea level. Left subclavian line extends to the right atrium. Lungs and pleural spaces: Low lung volumes with bilateral airspace opacities. Monitoring devices overlie the chest partially obscuring the left lung. Bones and soft tissues: No significant findings. IMPRESSION: Bilateral airspace opacities suggesting ARDS without significant interval change compared to the study of 1 day prior. Dictated by Tim Deal MD @ Oct 18 2019 5:39AM Signed by Dr. Tim Deal @ Oct 18 2019 5:41AM
[2019-10-18] MEDS: Cefepime 1 GM in Sodium Chloride 0.9% 50 ML IV SCH ×3 (06:12→21:31)
[2019-10-18] MEDS: Norepinephrine 8 MG in Dextrose 5% in Water 242 ML IV SCH ×4 (07:39→22:14)
[2019-10-18] MEDS: Levalbuterol HCl 1.25 MG/3 ML Neb NEB SCH ×4 (08:06→21:31)
[2019-10-18] MEDS: DULoxetine 30 MG Cap PO SCH ×2 (08:35→21:08)
[2019-10-18] MEDS: 1: AA 4.25%/Calcium/D10W/Lytes 1,000 ML with MVI, Adult with Vitamin K 10 ML, Chromium/C IV SCH ×3 (08:47)
--- NOTE | 2019-10-18 09:08 | CRLCR ---
Indication: ET tube replacement. Technique: An AP view of the chest was obtained. Comparison: October 18, 2019. The current study is dated 0859 hours. Findings: An ET tube is identified with the tip 3 cm superior to level of the adrian. A left subclavian central venous catheter is identified. Bilateral infiltrates are identified. The heart is normal in size. Impression: Intubation. Dictated by Padmini Padron MD @ Oct 18 2019 9:05AM Signed by Dr. Padmini Padron @ Oct 18 2019 9:06AM
[2019-10-18] MEDS: Levothyroxine 100 MCG Vial IVPUSH SCH (09:32)
--- NOTE | 2019-10-18 10:24 | PN ---
DATE OF SERVICE: 10/18/2019 SUBJECTIVE: Marissa will be having a trach put in tomorrow. Her respiratory status has decreased from yesterday. TPN is running. Family is in room. Labs: Potassium is 5.4, bilirubin 1.3, glucose is 163, creatinine is 1.1, and estimated glomerular filtration rate is 50. OBJECTIVE: GENERAL: Nidhi is resting comfortably with ventilator. VITAL SIGNS: TPR; 97.9, 101, 31, blood pressure is 102/52, respirations 31, oxygen saturation 92, was 85. HEART: Regular rate and rhythm. LUNGS: Decreased. EXTREMITIES: Negative. Remainder of exam deferred. ASSESSMENT: Acute hypoxia and hypercapnic respiratory failure, pneumonia. PLAN: 1. Continue same TPN rate and content. 2. She is already scheduled for trach in a.. Suzie Andrea PA-C /[id number]
[2019-10-18] MEDS ORDERED: Central Total Parenteral Nutrition Bag IV ONE (11:15)
--- NOTE | 2019-10-18 12:07 | PCM.PN ---
- General Info Date of Service: 10/18/19 Subjective Update: Ms. Alford is experienced increased respiratory compromise over last 24 hours with worsening hypercapnia. Causing a severe respiratory acidosis. Evidence of cuff leak on the endotracheal tube and the tube has been replaced earlier this morning. On follow-up blood gases there has been modest improvement in respiratory acidosis. She remains sedated and unable to provide meaningful history concerning recent symptoms or review of systems. Blood pressures have been lower and she has required increased dose of norepinephrine to maintain adequate hemodynamics. - Patient Data Vitals - Most Recent: Last Vital Signs Temp 96.9 F 10/18/19 07:00 Pulse 99 10/18/19 11:44 Resp 32 H 10/18/19 10:00 BP 121/64 10/18/19 10:00 Pulse Ox 92 L 10/18/19 11:44 Weight - Most Recent: 314 lb 2.539 oz I&O - Last 24 Hours: Intake & Output 10/17/19 10/18/19 10/18/19 22:59 06:59 14:59 Intake Total 2149 2326 Output Total 1095 143 75 Balance 1054 2183 -75 Lab Results Last 24 Hours: Laboratory Results - last 24 hr 10/14/19 10/18/19 10/18/19 Range/Units 07:57 03:48 04:00 WBC 21.7 H (4.5-11.0) K/uL RBC 3.40 (3.30-5.50) M/uL Hgb 8.8 L (12.0-15.0) g/dL Hct 31.2 L (36.0-48.0) % MCV 92 (80-98) fL MCH 26 L (27-31) pg MCHC 28 L (32-36) % Plt Count 522 H (150-400) K/uL Puncture Site ABG pH (7.350-7.450) ABG pCO2 (35.0-42.0) mmHg ABG pO2 (75.0-100.0) mmHg ABG HCO3 (22.0-26.0) mmol/L ABG Total CO2 (21.0-25.0) mmol/L ABG O2 Saturation (95.0-98.0) % ABG O2 Content (15.0-23.0) %vol ABG Base Excess mm/L ABG Hemoglobin (12.0-16.0) g/dL ABG Oxyhemoglobin % ABG Carboxyhemoglobin (0.0-1.6) % ABG Methemoglobin % Bimal Test O2 Delivery Device Oxygen Flow Rate L Sodium 132 L (140-148) mmol/L Potassium 5.4 H (3.6-5.2) mmol/L Chloride 98 L (100-108) mmol/L Carbon Dioxide 30 (21-32) mmol/L Anion Gap 9.4 (5.0-14.0) mmol/L BUN 41 H (7-18) mg/dL Creatinine 1.1 H (0.6-1.0) mg/dL Est Cr Clr Drug Dosing 36.62 mL/min Estimated GFR (MDRD) 50 L (>60) Glucose 163 H (74-106) mg/dL Calcium 8.5 (8.5-10.1) mg/dL Phosphorus 7.1 H (2.5-4.9) mg/dL Magnesium 2.2 (1.8-2.4) mg/dL Total Bilirubin 1.3 H (0.2-1.0) mg/dL AST 27 (15-37) U/L ALT 19 (12-78) U/L Alkaline Phosphatase 176 H (46-116) U/L NT-Pro-B Natriuret Pep 2486 H (5-125) pg/mL Total Protein 6.8 (6.4-8.2) g/dL Albumin 1.6 L (3.4-5.0) g/dL Globulin 5.2 H (2.3-3.5) g/dL Albumin/Globulin Ratio 0.3 L (1.2-2.2) Crossmatch See Detail 10/18/19 10/18/19 10/18/19 Range/Units 04:00 07:00 09:00 WBC (4.5-11.0) K/uL RBC (3.30-5.50) M/uL Hgb (12.0-15.0) g/dL Hct (36.0-48.0) % MCV (80-98) fL MCH (27-31) pg MCHC (32-36) % Plt Count (150-400) K/uL Puncture Site A-line A-line A-line ABG pH 7.200 L* 7.141 L* 7.191 L* (7.350-7.450) ABG pCO2 75.0 H* 86.7 H* 73.0 H* (35.0-42.0) mmHg ABG pO2 101.0 H 76.4 87.1 (75.0-100.0) mmHg ABG HCO3 28.2 H 28.3 H 26.8 H (22.0-26.0) mmol/L ABG Total CO2 27.7 H 28.3 H 26.5 H (21.0-25.0) mmol/L ABG O2 Saturation 96.4 90.6 L 95.0 (95.0-98.0) % ABG O2 Content 12.3 L 11.4 L 11.9 L (15.0-23.0) %vol ABG Base Excess -0.4 -1.5 -1.7 mm/L ABG Hemoglobin 9.2 L 9.1 L 9.0 L (12.0-16.0) g/dL ABG Oxyhemoglobin 93.8 88.8 92.7 % ABG Carboxyhemoglobin 1.4 0.8 1.1 (0.0-1.6) % ABG Methemoglobin 1.3 1.2 1.3 % Bimal Test A-line A-line Not performed O2 Delivery Device Ventilator Ventilator Ventilator Oxygen Flow Rate L Sodium (140-148) mmol/L Potassium (3.6-5.2) mmol/L Chloride (100-108) mmol/L Carbon Dioxide (21-32) mmol/L Anion Gap (5.0-14.0) mmol/L BUN (7-18) mg/dL Creatinine (0.6-1.0) mg/dL Est Cr Clr Drug Dosing mL/min Estimated GFR (MDRD) (>60) Glucose (74-106) mg/dL Calcium (8.5-10.1) mg/dL Phosphorus (2.5-4.9) mg/dL Magnesium (1.8-2.4) mg/dL Total Bilirubin (0.2-1.0) mg/dL AST (15-37) U/L ALT (12-78) U/L Alkaline Phosphatase (46-116) U/L NT-Pro-B Natriuret Pep (5-125) pg/mL Total Protein (6.4-8.2) g/dL Albumin (3.4-5.0) g/dL Globulin (2.3-3.5) g/dL Albumin/Globulin Ratio (1.2-2.2) Crossmatch Jae Results Last 24 Hours: Microbiology 10/14/19 07:52 Aerobic Blood Culture - Preliminary Blood - Arm, Right NO GROWTH AFTER 4 DAYS Anaerobic Blood Culture - Preliminary NO GROWTH AFTER 4 DAYS 10/14/19 06:40 Aerobic Blood Culture - Preliminary Blood - Central Line NO GROWTH AFTER 4 DAYS Anaerobic Blood Culture - Preliminary NO GROWTH AFTER 4 DAYS 10/14/19 06:50 Aerobic Blood Culture - Preliminary Blood - Arterial Line - Abg NO GROWTH AFTER 4 DAYS Anaerobic Blood Culture - Preliminary NO GROWTH AFTER 4 DAYS Med Orders - Current: Current Medications Dimethicone/Zinc Oxide (Rash Relief-Zinc Oxide [place]) 0 gm TOP Q2H PRN PRN Reason: Rash Last Admin: 10/18/19 02:22 Dose: 5 spray Duloxetine HCl (Cymbalta) 30 mg PO BID [facility] Last Admin: 10/18/19 08:35 Dose: Not Given Heparin Sodium (Porcine) (Heparin Sodium) 5,000 units SUBCUT Q8H [facility] Last Admin: 10/18/19 08:00 Dose: 5,000 units Heparin Sodium (Porcine) (Heparin Lock Flush 100 Units/Ml) 500 units FLUSH ASDIRECTED PRN PRN Reason: Keep Vein Open Last Admin: 10/09/19 11:40 Dose: 500 units Hydroxyzine HCl (Vistaril) 100 mg IM Q4H PRN PRN Reason: pain Last Admin: 10/06/19 05:11 Dose: 100 mg Heparin Sodium (Porcine) 5,000 (units/ Sodium Chloride) 501 mls @ 0 mls/hr IV ASDIRECTED [facility] Last Admin: 10/16/19 15:57 Dose: 1 mls/hr Propofol (Diprivan 100 Ml) 100 mls @ 3.783 mls/hr IV TITRATE [facility]; Protocol Last Admin: 10/18/19 10:01 Dose: 40 mcg/kg/min, 30.264 mls/hr Sodium Chloride (Normal Saline) 1,000 mls @ 25 mls/hr IV ASDIRECTED [facility] Last Admin: 10/17/19 20:20 Dose: 30 mls/hr Multivitamins/Minerals 10 ml/Chromium/Copper/Manganese/Seleni/Zn 1 ml/ Amino Acids/Electrolytes/Dextrose 1,011 mls @ 60 mls/hr IV .BY DURATION [facility] Last Admin: 10/18/19 08:47 Dose: 60 mls/hr Amino Acids/Electrolytes/Dextrose (Clinimix E 4.25/10) 1,000 mls @ 60 mls/hr IV .BY DURATION [facility] Last Admin: 10/17/19 16:21 Dose: 60 mls/hr Norepinephrine Bitartrate 8 mg (/ Dextrose/Water) 250 mls @ 3.75 mls/hr IV TITRATE [facility]; Protocol Last Infusion: 10/18/19 10:56 Dose: 11 mcg/min, 20.62 mls/hr Cefepime HCl 1 gm/ Sodium (Chloride) 50 mls @ 100 mls/hr IV Q8H [facility] Last Admin: 10/18/19 06:12 Dose: 100 mls/hr Linezolid 600 mg/ Premix 300 mls @ 300 mls/hr IV Q12H [facility] Last Admin: 10/18/19 04:59 Dose: 300 mls/hr Micafungin Sodium 100 mg/ (Sodium Chloride) 100 mls @ 100 mls/hr IV Q24H [facility] Last Admin: 10/17/19 15:19 Dose: 100 mls/hr Aztreonam 1 gm/ Sodium (Chloride) 50 mls @ 100 mls/hr IV Q8H [facility] Last Admin: 10/18/19 04:34 Dose: 100 mls/hr Levalbuterol HCl (Xopenex) 1.25 mg NEB QIDRT [facility] Last Admin: 10/18/19 11:44 Dose: 1.25 mg Levalbuterol HCl (Xopenex) 1.25 mg NEB Q2H PRN PRN Reason: shortness of breath/wheezing Last Admin: 10/15/19 02:21 Dose: 1.25 mg Levothyroxine Sodium (Synthroid) 25 mcg IVPUSH DAILY [facility] Last Admin: 10/18/19 09:32 Dose: 25 mcg Lorazepam (Ativan) 0.5 mg IVPUSH Q2H PRN PRN Reason: Agitation Last Admin: 10/15/19 09:52 Dose: 0.5 mg Morphine Sulfate (Morphine) 4 mg IVPUSH Q2H PRN PRN Reason: Dyspnea Last Admin: 10/18/19 07:33 Dose: 4 mg Ondansetron HCl (Zofran Odt) 4 mg PO Q4H PRN PRN Reason: Nausea/Vomiting Last Admin: 10/07/19 00:48 Dose: 4 mg Pantoprazole Sodium (Protonix Iv) 40 mg IV Q24H [facility] Last Admin: 10/17/19 16:29 Dose: 40 mg Discontinued Medications Acetaminophen (Tylenol Extra Strength) 1,000 mg PO ONETIME ONE Stop: 10/04/19 05:43 Last Admin: 10/04/19 06:11 Dose: 1,000 mg Acetaminophen (Tylenol) 650 mg PO Q6H [facility] Last Admin: 10/05/19 04:30 Dose: 650 mg Hydrocodone Bitart/Acetaminophen ([place] 325-5 Mg) 1 - 2 tab PO Q4H PRN PRN Reason: Pain Last Admin: 10/07/19 04:18 Dose: 1 tab Acetylcysteine (Mucomyst 20%) 200 mg NEB TIDRT [facility] Last Admin: 10/13/19 10:06 Dose: 200 mg Acetylcysteine (Mucomyst 20%) 200 mg NEB TID@0700,1500,2100 [facility] Last Admin: 10/14/19 21:39 Dose: 200 mg Albuterol (Proventil Neb Soln) 2.5 mg NEB Q2H PRN PRN Reason: shortness of breath/wheezing Last Admin: 10/10/19 22:54 Dose: 2.5 mg Albuterol/Ipratropium (Duoneb 3.0-0.5 Mg/3 Ml) 3 ml NEB ONETIME ONE Stop: 10/04/19 06:31 Last Admin: 10/04/19 10:48 Dose: 3 ml Albuterol/Ipratropium (Duoneb 3.0-0.5 Mg/3 Ml) 3 ml NEB ONETIME ONE Stop: 10/04/19 10:46 Last Admin: 10/04/19 12:30 Dose: Not Given Albuterol/Ipratropium (Duoneb 3.0-0.5 Mg/3 Ml) 3 ml INH QIDRT [facility] Last Admin: 10/14/19 21:39 Dose: 3 ml Albuterol/Ipratropium (Duoneb 3.0-0.5 Mg/3 Ml) 3 ml INH ASDIRECTED PRN PRN Reason: BREATHING Last Admin: 10/07/19 00:54 Dose: 3 ml Bumetanide (Bumex) 1 mg IVPUSH Q12H [facility] Stop: 10/17/19 20:31 Last Admin: 10/17/19 20:45 Dose: 1 mg Celecoxib (Celebrex) 200 mg PO ONETIME ONE Stop: 10/04/19 05:43 Last Admin: 10/04/19 06:11 Dose: 200 mg Celecoxib (Celebrex) 200 mg PO DAILY@0800 [facility] Last Admin: 10/12/19 07:32 Dose: Not Given Ropivacaine 60 ml/Dexamethasone 8 mg/Epinephrine HCl 0.4 mg/ Sodium Chloride 17.6 ml 0 ml NERVRT ASDIRECTED [facility] Last Admin: 10/04/19 07:48 Dose: 80 syringe Cyanocobalamin (Vitamin B12) 1,000 mcg IM ONETIME ONE Stop: 10/06/19 09:01 Last Admin: 10/06/19 10:46 Dose: 1,000 mcg Dexamethasone (Dexamethasone) Confirm Administered Dose 4 mg .ROUTE .STK-MED ONE Stop: 10/04/19 07:16 Diphenhydramine HCl (Benadryl) 50 mg IVPUSH Q4H PRN PRN Reason: ITCHING Fentanyl (Sublimaze) Confirm Administered Dose 250 mcg .ROUTE .STK-MED ONE Stop: 10/04/19 07:14 Fentanyl (Sublimaze) Confirm Administered Dose 250 mcg .ROUTE .STK-MED ONE Stop: 10/04/19 08:47 Furosemide (Lasix) 20 mg IVPUSH ONETIME ONE Stop: 10/04/19 20:44 Last Admin: 10/04/19 21:09 Dose: 20 mg Furosemide (Lasix) 20 mg IVPUSH ONETIME ONE Stop: 10/05/19 08:01 Last Admin: 10/05/19 09:43 Dose: 20 mg Furosemide (Lasix) 40 mg PO ONETIME ONE Stop: 10/06/19 00:47 Last Admin: 10/06/19 01:05 Dose: 40 mg Furosemide (Lasix) 40 mg PO ONETIME ONE Stop: 10/06/19 16:34 Last Admin: 10/06/19 17:31 Dose: 40 mg Furosemide (Lasix) 10 mg IVPUSH ONETIME ONE Stop: 10/08/19 22:50 Last Admin: 10/08/19 23:27 Dose: Not Given Furosemide (Lasix) 20 mg IVPUSH NOW ONE Stop: 10/10/19 09:31 Last Admin: 10/10/19 10:32 Dose: 20 mg Furosemide (Lasix) 20 mg IVPUSH ONETIME ONE Stop: 10/10/19 18:01 Last Admin: 10/10/19 18:22 Dose: 20 mg Furosemide (Lasix) 40 mg IVPUSH ONETIME ONE Stop: 10/11/19 08:42 Last Admin: 10/11/19 09:03 Dose: 40 mg Furosemide (Lasix) 40 mg IVPUSH ONETIME ONE Stop: 10/11/19 16:56 Last Admin: 10/11/19 17:17 Dose: 40 mg Furosemide (Lasix) 40 mg IVPUSH Q8H [facility] Last Admin: 10/12/19 09:12 Dose: 40 mg Furosemide (Lasix) 40 mg IVPUSH ONETIME ONE Stop: 10/12/19 20:01 Last Admin: 10/12/19 20:06 Dose: 40 mg Furosemide (Lasix) 40 mg IVPUSH NOW ONE Stop: 10/14/19 09:16 Last Admin: 10/14/19 09:40 Dose: 40 mg Furosemide (Lasix) 40 mg IVPUSH ONETIME ONE Stop: 10/14/19 19:01 Last Admin: 10/14/19 19:25 Dose: 40 mg Furosemide (Lasix) 20 mg IV ONETIME ONE Stop: 10/15/19 11:16 Last Admin: 10/15/19 12:08 Dose: 20 mg Furosemide (Lasix) 40 mg IVPUSH NOW ONE Stop: 10/15/19 21:01 Last Admin: 10/15/19 20:54 Dose: 40 mg Furosemide (Lasix) 40 mg IVPUSH NOW ONE Stop: 10/16/19 10:29 Last Admin: 10/16/19 11:40 Dose: 40 mg Furosemide (Lasix) 40 mg IVPUSH NOW ONE Stop: 10/16/19 21:01 Last Admin: 10/16/19 20:56 Dose: 40 mg Gabapentin (Neurontin) 300 mg PO ONETIME ONE Stop: 10/04/19 05:43 Last Admin: 10/04/19 06:10 Dose: 300 mg Gabapentin (Neurontin) 300 mg PO TID [facility] Last Admin: 10/07/19 13:33 Dose: 300 mg Glycopyrrolate (Robinul) Confirm Administered Dose 1 mg .ROUTE .STK-MED ONE Stop: 10/04/19 07:16 Hydrocortisone Sodium Succinate (Solu-Cortef) 100 mg IVPUSH ONETIME ONE Stop: 10/12/19 17:36 Last Admin: 10/12/19 17:51 Dose: 100 mg Hydrocortisone Sodium Succinate (Solu-Cortef) 100 mg IVPUSH Q12H [facility] Stop: 10/14/19 09:31 Last Admin: 10/14/19 09:16 Dose: 100 mg Hydromorphone HCl (Dilaudid Tourist Guide 15 Mg In Ns 30 Ml) 0 mg IV ASDIRECTED PRN; Protocol PRN Reason: Pain Last Admin: 10/04/19 10:41 Dose: 0.3 mg Lidocaine HCl/Dextrose (Lidocaine 2 Gm/D5w 500 Ml) 2 gm in 500 mls @ 22.5 mls/ hr IV .Q24H [facility] Stop: 10/05/19 07:29 Last Admin: 10/04/19 12:29 Dose: 1 mg/min, 15 mls/hr Ketamine HCl 50 mg/ Sodium (Chloride) 50 mls @ 12 mls/hr IV ASDIRECTED [facility] Dextrose/Lactated Ringer's (Dextrose 5%-Lactated Ringers) 1,000 mls @ 100 mls/ hr IV ASDIRECTED [facility] Last Admin: 10/04/19 12:29 Dose: 100 mls/hr Cefoxitin Sodium 2 gm/ Sodium (Chloride) 50 mls @ 100 mls/hr IV ONETIME ONE Stop: 10/04/19 07:44 Last Admin: 10/04/19 07:15 Dose: 100 mls/hr Lactated Ringer's (Ringers, Lactated) Confirm Administered Dose 1,000 mls @ as directed .ROUTE .STK-MED ONE Stop: 10/04/19 07:14 Dextrose/Lactated Ringer's (Dextrose 5%-Lactated Ringers) 1,000 mls @ 175 mls/ hr IV ASDIRECTED [facility] Multivitamins/Minerals 10 ml/Thiamine HCl 200 mg/ Chromium/Copper/Manganese/ Seleni/Zn 1 ml/ Dextrose/Lactated Ringer's 1,013 mls @ 174.999 mls/hr IV DAILY@ 1600 [facility] Last Admin: 10/04/19 17:13 Dose: 174.999 mls/hr Cefoxitin Sodium 2 gm/ Sodium (Chloride) 50 mls @ 100 mls/hr IV Q6H [facility] Last Admin: 10/05/19 07:49 Dose: 100 mls/hr Dextrose/Lactated Ringer's (Dextrose 5%-Lactated Ringers) 1,000 mls @ 125 mls/ hr IV ASDIRECTED [facility] Last Admin: 10/05/19 00:43 Dose: 125 mls/hr Dextrose/Lactated Ringer's (Dextrose 5%-Lactated Ringers) 1,000 mls @ 100 mls/ hr IV ASDIRECTED [facility] Last Admin: 10/05/19 09:41 Dose: 100 mls/hr Lactated Ringer's (Ringers, Lactated) 500 mls @ 100 mls/hr IV .BOLUS ONE Stop: 10/05/19 11:59 Last Admin: 10/05/19 07:48 Dose: 100 mls/hr Multivitamins/Minerals 10 ml/Thiamine HCl 200 mg/ Chromium/Copper/Manganese/ Seleni/Zn 1 ml/ Dextrose/Lactated Ringer's 1,013 mls @ 100 mls/hr IV DAILY@ 1600 [facility] Linezolid 600 mg/ Premix 300 mls @ 300 mls/hr IV Q12H [facility] Last Admin: 10/09/19 22:30 Dose: 300 mls/hr Piperacillin Sod/Tazobactam (Sod 3.375 gm/ Sodium Chloride) 50 mls @ 100 mls/ hr IV Q6H [facility] Last Admin: 10/07/19 01:45 Dose: 100 mls/hr Levofloxacin/Dextrose 750 mg/ (Premix) 150 mls @ 100 mls/hr IV Q48H [facility] Last Admin: 10/08/19 20:01 Dose: 100 mls/hr Sodium Chloride (Normal Saline) Confirm Administered Dose 50 mls @ as directed .ROUTE .STK-MED ONE Stop: 10/06/19 19:37 Last Admin: 10/06/19 20:03 Dose: Not Given Lactated Ringer's (Ringers, Lactated) 1,000 mls @ 100 mls/hr IV ASDIRECTED [facility] Last Admin: 10/07/19 17:52 Dose: 100 mls/hr Piperacillin/Tazobactam/ (Dextrose 3.375 gm/ Premix) 50 mls @ 100 mls/hr IV Q6H [facility] Last Admin: 10/11/19 08:28 Dose: 100 mls/hr Magnesium Sulfate 2 gm/ Premix 50 mls @ 25 mls/hr IV Q6H [facility] Stop: 10/09/19 05:59 Last Admin: 10/09/19 04:08 Dose: 25 mls/hr Propofol (Diprivan 100 Ml) Confirm Administered Dose 100 mls @ as directed .ROUTE .STK-MED ONE Stop: 10/07/19 21:21 Last Admin: 10/07/19 22:55 Dose: Not Given Lactated Ringer's (Ringers, Lactated) 1,000 mls @ 25 mls/hr IV ASDIRECTED [facility] Stop: 10/11/19 10:00 Last Admin: 10/08/19 19:59 Dose: 25 mls/hr Levofloxacin/Dextrose 750 mg/ (Premix) 150 mls @ 100 mls/hr IV Q24H [facility] Last Admin: 10/11/19 19:43 Dose: 100 mls/hr Potassium Chloride 40 meq/ (Premix) 100 mls @ 25 mls/hr IV ONETIME ONE Stop: 10/10/19 13:29 Last Admin: 10/10/19 10:31 Dose: 25 mls/hr Potassium Phosphate 22.5 mmole (/ Sodium Chloride) 107.5 mls @ 36 mls/hr IV Q3H [facility] Stop: 10/11/19 15:59 Last Admin: 10/11/19 13:29 Dose: 36 mls/hr Linezolid 600 mg/ Premix 300 mls @ 300 mls/hr IV Q12H [facility] Last Admin: 10/13/19 21:37 Dose: 300 mls/hr Meropenem 1 gm/ Sodium (Chloride) 50 mls @ 100 mls/hr IV Q8H [facility] Last Admin: 10/15/19 09:25 Dose: 100 mls/hr Sodium Chloride (Normal Saline) 100 mls @ 3 mls/sec IV ASDIRECTED [facility] Stop: 10/11/19 09:01 Last Admin: 10/11/19 09:45 Dose: 3 mls/sec Potassium Chloride 40 meq/ (Premix) 100 mls @ 25 mls/hr IV ONETIME ONE Stop: 10/12/19 11:59 Last Admin: 10/12/19 08:33 Dose: 25 mls/hr Magnesium Sulfate 2 gm/ Premix 50 mls @ 25 mls/hr IV Q6H [facility] Stop: 10/14/19 06:59 Last Admin: 10/12/19 16:03 Dose: 25 mls/hr Albumin Human (Albumin 25%) 25 gm in 100 mls @ 25 mls/hr IV Q24H [facility] Stop: 10/14/19 16:59 Last Admin: 10/14/19 12:24 Dose: 25 mls/hr Doxycycline Hyclate 100 mg/ (Sodium Chloride) 100 mls @ 100 mls/hr IV Q12H [facility] Last Admin: 10/15/19 10:30 Dose: 100 mls/hr Fluconazole/Sodium Chloride (200 mg/ Premix) 100 mls @ 100 mls/hr IV Q24H [facility] Last Admin: 10/15/19 11:08 Dose: 100 mls/hr Potassium Phosphate 22.5 mmole (/ Sodium Chloride) 107.5 mls @ 27 mls/hr IV Q4H [facility] Stop: 10/15/19 17:29 Last Admin: 10/15/19 14:23 Dose: 27 mls/hr Sodium Chloride (Normal Saline) 100 mls @ 4 mls/sec IV ASDIRECTED [facility] Stop: 10/15/19 13:31 Last Admin: 10/15/19 14:05 Dose: 4 mls/sec Acetaminophen 1,000 mg/ Premix 100 mls @ 400 mls/hr IV Q6H [facility] Stop: 10/17/19 22:16 Last Admin: 10/17/19 05:55 Dose: Not Given Acetaminophen 1,000 mg/ Premix 100 mls @ 400 mls/hr IV Q6H PRN PRN Reason: pain/fever Stop: 10/17/19 22:16 Iopamidol (Isovue-300 (61%)) 50 ml PO ASDIRECTED [facility] Stop: 10/05/19 03:24 Last Admin: 10/05/19 03:36 Dose: 50 ml Iopamidol (Isovue-300 (61%)) 100 ml IV . DIRECTED [facility] Stop: 10/11/19 09:01 Last Admin: 10/11/19 09:45 Dose: 100 ml Iopamidol (Isovue-370 (76%)) 100 ml IV . DIRECTED ONE Stop: 10/15/19 13:30 Last Admin: 10/15/19 14:05 Dose: 100 ml Ketamine HCl (Ketalar) 20 mg IV ASDIRECTED [facility] Labetalol HCl (Normodyne) 5 mg IVPUSH Q5M PRN PRN Reason: SBP over 160 OR DBP over 95 Lactobacillus Rhamnosus (Culturelle) 1 cap PO BID [facility] Last Admin: 10/08/19 10:23 Dose: Not Given Levothyroxine Sodium (Levothyroxine) 25 mcg PO ACBREAKFAST [facility] Last Admin: 10/13/19 07:33 Dose: Not Given Lidocaine (Xylocaine-Mpf 2%) Confirm Administered Dose 5 ml .ROUTE .STK-MED ONE Stop: 10/07/19 07:55 Lidocaine HCl (Xylocaine 2%) 100 mg IVPUSH ASDIRECTED [facility] Lidocaine HCl (Xylocaine 4% Top Soln) 50 ml .ROUTE .STK-MED ONE Stop: 10/15/19 10:01 Lidocaine HCl (Xylocaine 2% Viscous) Confirm Administered Dose 15 ml .ROUTE .STK -MED ONE Stop: 10/15/19 09:42 Last Admin: 10/15/19 11:04 Dose: Not Given Lorazepam (Ativan) 0.5 mg IVPUSH Q4H PRN PRN Reason: Anxiety Last Admin: 10/07/19 13:55 Dose: 0.5 mg Magnesium Hydroxide (Milk Of Magnesia) 30 ml PO ONETIME ONE Stop: 10/06/19 09:31 Last Admin: 10/06/19 11:55 Dose: 30 ml Magnesium Oxide (Magnesium Oxide) 400 mg PO DAILY [facility] Last Admin: 10/06/19 10:46 Dose: 400 mg Meropenem (Merrem) Confirm Administered Dose 500 mg .ROUTE .STK-MED ONE Stop: 10/04/19 09:20 Last Admin: 10/04/19 10:15 Dose: 500 mg Methylprednisolone Sodium Succinate (Solu-Medrol) 40 mg IVPUSH Q8H [facility] Last Admin: 10/09/19 01:40 Dose: 40 mg Metoclopramide HCl (Reglan) 10 mg IVPUSH Q6H PRN PRN Reason: NAUSEA NOT CONTROL BY ZOFRAN Miscellaneous Information (Remove Patch) 1 ea TRDERM ONETIME ONE Stop: 10/07/19 06:01 Miscellaneous Information (Remove Patch) 1 ea TRDERM ONETIME ONE Stop: 10/06/19 10:01 Last Admin: 10/06/19 10:06 Dose: Not Given Morphine Sulfate (Morphine) 2 mg IVPUSH Q2H PRN PRN Reason: Pain Last Admin: 10/12/19 02:06 Dose: 2 mg Morphine Sulfate (Morphine) 4 mg IVPUSH Q2H PRN PRN Reason: PAIN Last Admin: 10/15/19 20:46 Dose: 4 mg Naloxone HCl (Narcan) 0.1 mg IV ASDIRECTED PRN PRN Reason: decreased respiratory rate Naloxone HCl (Narcan) Confirm Administered Dose 0.4 mg .ROUTE .STK-MED ONE Stop: 10/04/19 10:41 Neostigmine Methylsulfate (Neostigmine) Confirm Administered Dose 5 mg .ROUTE .STK-MED ONE Stop: 10/04/19 07:16 Check Scopolamine (Patch Daily) 1 each .XX DAILY [facility] Last Admin: 10/04/19 12:30 Dose: Not Given Scopolamine Patch (Check) 1 each TOP DAILY [facility] Stop: 10/06/19 12:53 Last Admin: 10/06/19 10:06 Dose: Not Given Non-Formulary Medication (Total Parenteral Nutrition, Central) 0 ml IV ONETIME ONE Stop: 10/18/19 11:16 Ondansetron HCl (Zofran) Confirm Administered Dose 4 mg .ROUTE .STK-MED ONE Stop: 10/04/19 07:16 Ondansetron HCl (Zofran) 4 mg IVPUSH Q4H PRN PRN Reason: Nausea/Vomiting Pantoprazole Sodium (Protonix Iv) 40 mg IVPUSH Q24H [facility] Last Admin: 10/04/19 17:15 Dose: 40 mg Pantoprazole Sodium (Protonix Granules) 40 mg PO Q24H [facility] Last Admin: 10/08/19 16:12 Dose: Not Given Piperacillin Sod/Tazobactam Sod (Zosyn) Confirm Administered Dose 3.375 gm .ROUTE .STK-MED ONE Stop: 10/06/19 19:36 Last Admin: 10/06/19 20:02 Dose: Not Given Propofol (Diprivan 20 Ml) Confirm Administered Dose 200 mg .ROUTE .STK-MED ONE Stop: 10/04/19 07:16 Propofol (Diprivan 20 Ml) Confirm Administered Dose 200 mg .ROUTE .STK-MED ONE Stop: 10/07/19 21:12 Rocuronium [place] (Zemuron) Confirm Administered Dose 50 mg .ROUTE .STK-MED ONE Stop: 10/04/19 07:16 Rocuronium [place] (Zemuron) Confirm Administered Dose 50 mg .ROUTE .STK-MED ONE Stop: 10/04/19 09:27 Scopolamine (Transderm-Scop) 1.5 mg TOP ONETIME ONE Stop: 10/04/19 05:43 Last Admin: 10/04/19 06:11 Dose: 1.5 mg Sodium Chloride (Saline Flush) 10 ml FLUSH ONETIME ONE Stop: 10/11/19 09:01 Last Admin: 10/11/19 09:45 Dose: 10 ml Succinylcholine Chloride (Quelicin) Confirm Administered Dose 200 mg .ROUTE .STK -MED ONE Stop: 10/04/19 07:16 Succinylcholine Chloride (Quelicin) Confirm Administered Dose 200 mg .ROUTE .STK -MED ONE Stop: 10/07/19 21:12 Sugammadex Sodium (Bridion) Confirm Administered Dose 200 mg .ROUTE .STK-MED ONE Stop: 10/04/19 10:47 - Exam Quality Assessment: Supplemental Oxygen (Ventilator), Central Line/PICC, Urine Catheter, DVT Prophylaxis General: Sedated, Lethargic Lungs: Decreased Breath Sounds, Rhonchi, Wheezing. No: Rales, Rub Cardiovascular: Regular Rhythm, No Murmurs, Tachycardia GI/Abdominal Exam: Soft, No Organomegaly, No Distention Extremities: Non-Tender, Pedal Edema - Problem List & Annotations (1) Hypoxia SNOMED Code(s): 943448991 Code(s): R09.02 - HYPOXEMIA Status: Acute Current Visit: Yes (2) Hypercapnia SNOMED Code(s): 36217509 Code(s): R06.89 - OTHER ABNORMALITIES OF BREATHING Status: Acute Current Visit: Yes (3) Pneumonia SNOMED Code(s): 498565918 Code(s): J18.9 - PNEUMONIA, UNSPECIFIED ORGANISM Status: Acute Current Visit: Yes (4) Laparoscopic surgical procedure converted to open procedure SNOMED Code(s): 246017086 Code(s): Z53.31 - LAPAROSCOPIC SURGICAL PROCEDURE CONVERTED TO OPEN PROCEDURE Status: Acute Current Visit: Yes Annotation/Comment:: lysis of adhesions (5) DDD (degenerative disc disease), lumbar SNOMED Code(s): 75163885 Code(s): M51.36 - OTHER INTERVERTEBRAL DISC DEGENERATION, LUMBAR REGION Status: Chronic Current Visit: No (6) Obstructive sleep apnea syndrome SNOMED Code(s): 61870294 Code(s): G47.33 - OBSTRUCTIVE SLEEP APNEA (ADULT) (PEDIATRIC) Status: Chronic Current Visit: No - Problem List Review Problem List Initiated/Reviewed/Updated: Yes - My Orders Last 24 Hours: My Active Orders 10/17/19 12:00 Aztreonam [Azactam] 1 gm Sodium Chloride 0.9% [Normal Saline] 50 ml IV Q8H 10/18/19 13:00 BLOOD GAS ARTERIAL [BG] Stat 10/18/19 17:00 BASIC METABOLIC PANEL,BMP [CHEM] Stat BLOOD GAS ARTERIAL [BG] Stat 10/19/19 05:00 BLOOD GAS ARTERIAL [BG] Timed CBC WITH AUTO DIFF [HEME] Timed COMPREHENSIVE METABOLIC PN,CMP [CHEM] Timed MAGNESIUM [CHEM] Timed PHOSPHORUS [CHEM] Timed - Plan Plan:: ASSESSMENT AND RECOMMENDATIONS ACUTE HYPOXIC AND HYPERCAPNIC RESPIRATORY FAILURE - multifactorial with pneumonia, aspiration and ARDS. Continues to require high level of ventilatory support, worsening hypercapnia especially during the language and literature division chair hours. Likely secondary to a leak of the endotracheal tube cuff. Tube has been replaced and on follow blood gases there is been modest improvement in her respiratory acidosis -Recheck blood gases at 1 PM and 5 PM -Minimize IV fluid as able -Scheduled DuoNeb's -Supplemental oxygen as needed -Mechanical ventilation with weaning trials once respiratory status stabilized further (PEEP is at 10) -Nebulizer therapy as ordered -Follow-up blood gases in a.m. BILATERAL PNEUMONIA -Initial culture grew out enterococcus and now germ tube positive yeast. She can use to require vasopressor support. Question of progressive/resistant infection -Continue current IV antibiotic therapy; Zyvox, cefepime, azactam and micafungin -Follow-up cultures MILD HYPERKALEMIA-secondary to mild worsening of renal function -Hold diuretic therapy today -Reassess potassium level later today and in a.m. ANEMIA DUE TO ACUTE ILLNESS - hemoglobin stable -Hemoglobin in the morning HYPOKALEMIA -Continue to monitor STATUS POST DUODENAL SWITCH PROCEDURE - postop course complicated by an ileus but bowel function seems to be improving. NG tube removed 10/12. She is on TPN. -Postop care per Dr. Baldwin
[2019-10-18] MEDS: Micafungin 100 MG in Sodium Chloride 0.9% 100 ML IV SCH (14:46)
[2019-10-18] MEDS ORDERED: PROPOFOL IV ONE (16:30)
[2019-10-18] MEDS: Pantoprazole 40 MG Vial IV SCH (16:37)
[2019-10-18] MEDS: Sodium Polystyrene Sulfonate 15 GM/60 ML Susp 60 ML Bot NGTUBE ONE ×2 (20:28→20:46)
[2019-10-18] MEDS ORDERED: Sodium Chloride 0.9% 1,000 ML IV SCH ×2 (21:45→23:45)
[2019-10-18] MEDS ORDERED: Potassium Chloride 20 MEQ Tab.ER PO ONE (21:49)
[2019-10-18] MEDS ORDERED: Potassium Chloride Riders 40 MEQ in Premix Bag 1 BAG IV SCH (22:00)
--- NOTE | 2019-10-18 22:04 | PCM.SN ---
- Free Text/Narrative Note: Ms. Alford continued to experience increased respiratory compromise with hypercapnia and respiratory acidosis, negligible metabolic compensation. She is also developing progressive kidney failure with decreased urine output and hyperkalemia. Review of medication show micafungin as a potential cause and this medication has been discontinued. We have tried to minimize fluids and possible delivery at this point is that she is somewhat intravascularly dry. We' ll give fluids through the night to try and stimulate renal function and urine output. Initially was felt that her hypercapnia was secondary to nonfunctioning balloon on the endotracheal tube. Tube was replaced, and on serial blood gases she appeared to be recovering from her hypercapnia and respiratory acidosis. This evening she has become more acidotic with increase in PCO2. There was some question of possible obesity related hypoventilation, oxygen levels have been decreased and her saturations during the evening have been in the range of 85-90 %. There has been some modest improvement in the respiratory acidosis, most recent PH was 7.165, with a PCO2 of 70. I discussed these results with family and they are aware of her current condition. 1 hour of critical care time is been spent today in the direct management of this patient in the intensive care unit.
[2019-10-19] MEDS: Heparin Sodium 5,000 Units/ML Vial SUBCUT SCH ×2 (01:21→09:46)
[2019-10-19] MEDS ORDERED: Vasopressin 100 UNITS in Dextrose 5% in Water 250 ML IV SCH ×2 (01:45)
[2019-10-19] MEDS ORDERED: Vasopressin 20 Units/1 ML MDV ONE (01:46)
[2019-10-19] MEDS ORDERED: Sodium Chloride 0.9% 100 ML ONE (01:47)
[2019-10-19] MEDS ORDERED: Dextrose 5% in Water 250 ML ONE (01:50)
[2019-10-19] MEDS: 1: AA 4.25%/Calcium/D10W/Lytes 1,000 ML with MVI, Adult with Vitamin K 10 ML, Chromium/C IV SCH ×3 (02:00)
[2019-10-19] MEDS: Linezolid 600 MG in Premix Bag 1 BAG IV SCH (04:19)
--- NOTE | 2019-10-19 04:52 | CRLCR ---
INDICATION: Intubated patient TECHNIQUE: Chest 1 views COMPARISON: Chest x-ray 10/18/2019 FINDINGS: Cardiovascular and mediastinum: Upper normal heart size with endotracheal tube at the midtrachea level. Left subclavian line extends to the proximal right atrium. Orogastric tube extends below the hemidiaphragm. Lungs and pleural spaces: Extensive bilateral interstitial and alveolar opacities without definite pneumothorax. Bones and soft tissues: No significant findings. IMPRESSION: Extensive bilateral airspace disease suggesting ARDS and similar to the prior exam. Dictated by Tim Deal MD @ Oct 19 2019 4:50AM Signed by Dr. Tim Deal @ Oct 19 2019 4:51AM
[2019-10-19] MEDS ORDERED: Sodium Polystyrene Sulfonate 15 GM/60 ML Susp 60 ML Bot NGTUBE ONE (05:22)
[2019-10-19] MEDS ORDERED: Sodium Polystyrene Sulfonate 15 GM/60 ML Susp 60 ML Bot ONE (05:27)
[2019-10-19] MEDS: Cefepime 1 GM in Sodium Chloride 0.9% 50 ML IV SCH ×2 (06:44→14:31)
[2019-10-19] MEDS: Levalbuterol HCl 1.25 MG/3 ML Neb NEB SCH ×2 (07:17→11:09)
[2019-10-19] MEDS: Norepinephrine 8 MG in Dextrose 5% in Water 242 ML IV SCH ×2 (08:17)
[2019-10-19] MEDS: DULoxetine 30 MG Cap PO SCH (08:49)
--- NOTE | 2019-10-19 08:52 | PN ---
DATE OF SERVICE: 10/19/2019 SUBJECTIVE: Marissa was changed to DNR. Family present in room. Talked with family and their director staffing. Marissa is resting comfortably. OBJECTIVE: GENERAL: Marissa is a 64-year-old female. VITAL SIGNS: TPR 97, 80 to 81, respirations 30, O2 by pulse oximetry is 88%. HEART: Regular rate and rhythm. LUNGS: Decreased breath sounds. ABDOMEN: Incision did dehisce per nursing staff. This was not examined. ASSESSMENT: PLAN: Dr. Baldwin will be in to see the patient in approximately 3 hours, and Jean Angelo MD. Orders to be written. Suzie Andrea PA-C /[id number]
--- NOTE | 2019-10-19 09:34 | OR ---
DATE OF PROCEDURE: 10/04/2019 SURGEON: Brad Baldwin MD PREOPERATIVE DIAGNOSIS: Morbid obesity with intolerance of laparoscopic adjustable gastric band. POSTOPERATIVE DIAGNOSES: 1. Morbid obesity with intolerance of laparoscopic adjustable gastric band. 2. Extensive pelvic adhesions. 3. Marked hepatomegaly. 4. Area of deserosalization of cecum, status post lysis of adhesions. 5. Stricture involving distal small bowel. OPERATIVE PROCEDURES: Laparoscopic converted to open: 1. Duodenal switch (80496). 2. Repair of deserosalization of cecum (69346). 3. Small bowel stricturoplasty (55021). 4. Lucio-Cut needle liver biopsy (21921). 5. Removal of laparoscopic adjustable gastric band system (16087). ANESTHESIA: General. PHARMACY CARE COORDINATOR: Suzie Andrea PA-C. INDICATIONS FOR PROCEDURE: This is a 64-year-old status post laparoscopic adjustable gastric band system. She presents now with intolerance of lap-band system, as well as poor result with her BMI remaining in the 64 range. Plan is to proceed with removal of the band system and conversion to a duodenal switch. She has had some lower abdominal surgery, so she is aware of the possible need for converting to an open procedure, adhesions involving the small bowel to an extensive degree, and otherwise potential risks including bleeding, infection, leaks from various GI tract closures, as well as the possibility of cardiac, pulmonary, or septic complications potentially leading to were all discussed, and the patient wishes to proceed. DETAILS OF PROCEDURE: The patient was taken to the operating room. After general endotracheal anesthesia was induced, she was placed in a lithotomy position, and the abdomen prepped and draped. Beginning 18 cm inferior and 5 cm left of the xiphoid process, a transverse incision was made, and the peritoneal cavity entered under direct vision with an Optiview trocar inflated to 15 mmHg pressure with CO2. The laparoscope was then reinserted. No underlying trocar insertion site injuries were seen. Following this, 4 additional trocars were placed across the upper and mid abdomen. Initial exploration showed the small bowel to be quite involved in extensive adhesions in the pelvis, and this would not be amenable to continuation of the laparoscopic approach. Given this, the trocars were removed, and the peritoneal cavity deflated. An upper midline incision was then made and carried down through the skin and subcutaneous tissue. This was extended eventually somewhat inferior to the umbilicus and the peritoneal cavity entered. Following this, a fairly extensive adhesiolysis was undertaken between the small bowel and the pelvic sidewall structures as well between loops of small bowel and the cecum. The area of the cecum was somewhat deserosalized, and this was repaired by means of stapler across that area, reinforced with 3-0 Vicryl seromuscular stitch. After the small bowel had been fully mobilized, the patient was noted, in the distal small bowel, to have an area of stricturing. This was treated by means of stricturoplasty with the small bowel being flipped over on itself. At that point, an enterotomy was made and one arm of the stapler placed on each side of the bowel. This was fired and the common opening then closed transversely with CORRINA load as well. The angles of anastomosis were reinforced with some 3-0 Vicryl stitch. There was no mesenteric defect present. At this point, the attachments of the band were taken down with electrocautery and the band divided and removed from its tunnel. The port tubing was then cut flush with a point where it left the peritoneal cavity and the lower abdomen. The sleeve gastrectomy was then constructed after division of the omentum away from the greater curvature of the stomach with Harmonic scalpel. This dissection continued all the way up to the esophagogastric junction and then distally to a point roughly 4 cm distal to the pylorus along the duodenum. The duodenum was then divided with CORRINA load as well. Lucio-Cut needle liver biopsy was obtained at this point to evaluate the patient's otherwise quite enlarged fatty infiltrated liver. At that point, the small bowel was traced back 300 cm from the ileocecal valve, and this came up to the area of the divided duodenum without difficulty, although, there was quite a bit of weight on the mesentery. A duodenal ileostomy was then accomplished with staple firing to the side of the ileum and the end of the duodenum. This was accomplished with internal firing of the CORRINA sparrow load, and the common opening then closed transversely with purple loads. The anastomosis was then reinforced with some 3-0 Vicryl seromuscular stitch and fibrin sealant. The mesentery was felt to be too immobile to safely divide the afferent limb of the bowel adjacent to the duodenal ileostomy and that would be performed as a staged procedure if necessary later. At this point, no further problems were noted intra-abdominally. Abdomen was irrigated with antibiotic-containing saline solution. Leak test was accomplished with injection of air into the sleeve gastrectomy, going across the duodenal ileostomy, but no leaks noted there or within the streams of gastrectomy staple line. The latter was then also reinforced with some fibrin sealant. Two drains were then placed, one placed adjacent to the esophagogastric junction and the other along the area of the duodenal ileostomy. The midline fascia was then approximated with #2 Vicryl stitch. Subcutaneous tissue was drained with a 15-Stateless round [place]-Villalba drain and closed with layers of 3-0 and 4-0 Vicryl stitch deep and bebeto for the skin. Finally, an incision was made over the port site and carried down through the skin and subcutaneous tissue, and the port was dissected away from the surrounding soft tissues and removed. This was then closed with some 3-0 and 4-0 Vicryl stitch deep and bebeto for the skin, and the remaining trocar sites were then also closed with bebeto. The patient was taken to the recovery room in satisfactory condition. There were no evident complications. Brad Baldwin MD Job #: [id number]
[2019-10-19] MEDS: Levothyroxine 100 MCG Vial IVPUSH SCH (09:46)
--- NOTE | 2019-10-19 09:58 | PCM.PN ---
- General Info Date of Service: 10/19/19 Subjective Update: Ms. Alford has significantly worsened over the last 24 hours. She currently has severe respiratory and metabolic acidosis. She has developed progressive renal insufficiency with diminished urine output, increased creatinine, and marked increase in potassium level. She has been more hypotensive and required addition of vasopressin to norepinephrine to maintain adequate pressures. Discussion held with family today concerning her multiple problems and decline. Current plan is to continue current support until family can arrive in early afternoon, then plan to withdraw support after family have a chance to see her. - Patient Data Vitals - Most Recent: Last Vital Signs Temp 97.0 F 10/19/19 06:00 Pulse 89 10/19/19 07:18 Resp 30 H 10/19/19 06:00 BP 117/63 10/19/19 06:00 Pulse Ox 88 L 10/19/19 06:00 Weight - Most Recent: 314 lb 2.539 oz I&O - Last 24 Hours: Intake & Output 10/18/19 10/19/19 10/19/19 22:59 06:59 14:59 Intake Total 2209 3672 Output Total 105 30 Balance 2104 3642 Lab Results Last 24 Hours: Laboratory Results - last 24 hr 10/18/19 10/18/19 10/18/19 Range/Units 13:00 17:00 17:00 WBC (4.5-11.0) K/uL RBC (3.30-5.50) M/uL Hgb (12.0-15.0) g/dL Hct (36.0-48.0) % MCV (80-98) fL MCH (27-31) pg MCHC (32-36) % Plt Count (150-400) K/uL Add Manual Diff Neutrophils % (Manual) (36-66) % Band Neutrophils % (5-11) % Lymphocytes % (Manual) (24-44) % Monocytes % (Manual) (2-6) % Nucleated RBCs Puncture Site A-line Line ABG pH 7.232 L 7.139 L* (7.350-7.450) ABG pCO2 63.2 H 81.5 H* (35.0-42.0) mmHg ABG pO2 116.0 H 85.4 (75.0-100.0) mmHg ABG HCO3 25.6 26.5 H (22.0-26.0) mmol/L ABG Total CO2 25.0 25.2 H (21.0-25.0) mmol/L ABG O2 Saturation 97.7 93.3 L (95.0-98.0) % ABG O2 Content 12.2 L 18.0 (15.0-23.0) %vol ABG Base Excess -1.9 -4.7 mm/L ABG Hemoglobin 8.9 L 13.9 (12.0-16.0) g/dL ABG Oxyhemoglobin 95.1 92.0 % ABG Carboxyhemoglobin 1.6 0.4 (0.0-1.6) % ABG Methemoglobin 1.1 1.0 % Bimal Test A-line TNP O2 Delivery Device Ventilator Ventilator Oxygen Flow Rate 85 L Sodium 134 L (140-148) mmol/L Potassium 6.0 H (3.6-5.2) mmol/L Chloride 99 L (100-108) mmol/L Carbon Dioxide 26 (21-32) mmol/L Anion Gap 15.0 H (5.0-14.0) mmol/L BUN 54 H (7-18) mg/dL Creatinine 1.4 H (0.6-1.0) mg/dL Est Cr Clr Drug Dosing 28.78 mL/min Estimated GFR (MDRD) 38 L (>60) Glucose 155 H (74-106) mg/dL Calcium 8.8 (8.5-10.1) mg/dL Phosphorus (2.5-4.9) mg/dL Magnesium (1.8-2.4) mg/dL Total Bilirubin (0.2-1.0) mg/dL AST (15-37) U/L ALT (12-78) U/L Alkaline Phosphatase (46-116) U/L Total Protein (6.4-8.2) g/dL Albumin (3.4-5.0) g/dL Globulin (2.3-3.5) g/dL Albumin/Globulin Ratio (1.2-2.2) 10/18/19 10/18/19 10/18/19 Range/Units 18:15 20:54 21:00 WBC (4.5-11.0) K/uL RBC (3.30-5.50) M/uL Hgb (12.0-15.0) g/dL Hct (36.0-48.0) % MCV (80-98) fL MCH (27-31) pg MCHC (32-36) % Plt Count (150-400) K/uL Add Manual Diff Neutrophils % (Manual) (36-66) % Band Neutrophils % (5-11) % Lymphocytes % (Manual) (24-44) % Monocytes % (Manual) (2-6) % Nucleated RBCs Puncture Site Line Line ABG pH 7.180 L* 7.165 L* (7.350-7.450) ABG pCO2 72.4 H* 70.2 H* (35.0-42.0) mmHg ABG pO2 61.4 L 60.1 L (75.0-100.0) mmHg ABG HCO3 26.0 24.3 (22.0-26.0) mmol/L ABG Total CO2 25.7 H 24.1 (21.0-25.0) mmol/L ABG O2 Saturation 86.6 L 85.3 L (95.0-98.0) % ABG O2 Content 10.6 L 10.9 L (15.0-23.0) %vol ABG Base Excess -2.6 -4.4 mm/L ABG Hemoglobin 8.9 L 9.3 L (12.0-16.0) g/dL ABG Oxyhemoglobin 84.7 83.4 % ABG Carboxyhemoglobin 1.2 1.1 (0.0-1.6) % ABG Methemoglobin 1.0 1.1 % Bimal Test TNP TNP O2 Delivery Device Ventilator Ventilator Oxygen Flow Rate 73 70 L Sodium (140-148) mmol/L Potassium 6.3 H* (3.6-5.2) mmol/L Chloride (100-108) mmol/L Carbon Dioxide (21-32) mmol/L Anion Gap (5.0-14.0) mmol/L BUN (7-18) mg/dL Creatinine (0.6-1.0) mg/dL Est Cr Clr Drug Dosing mL/min Estimated GFR (MDRD) (>60) Glucose (74-106) mg/dL Calcium (8.5-10.1) mg/dL Phosphorus (2.5-4.9) mg/dL Magnesium (1.8-2.4) mg/dL Total Bilirubin (0.2-1.0) mg/dL AST (15-37) U/L ALT (12-78) U/L Alkaline Phosphatase (46-116) U/L Total Protein (6.4-8.2) g/dL Albumin (3.4-5.0) g/dL Globulin (2.3-3.5) g/dL Albumin/Globulin Ratio (1.2-2.2) 10/18/19 10/18/19 10/19/19 Range/Units 23:45 23:45 04:35 WBC 15.7 H (4.5-11.0) K/uL RBC 3.40 (3.30-5.50) M/uL Hgb 8.8 L (12.0-15.0) g/dL Hct 31.8 L (36.0-48.0) % MCV 94 (80-98) fL MCH 26 L (27-31) pg MCHC 28 L (32-36) % Plt Count 578 H (150-400) K/uL Add Manual Diff Yes Neutrophils % (Manual) 80 H (36-66) % Band Neutrophils % 6 (5-11) % Lymphocytes % (Manual) 8 L (24-44) % Monocytes % (Manual) 6 (2-6) % Nucleated RBCs 1 Puncture Site A-line ABG pH 7.134 L* (7.350-7.450) ABG pCO2 70.7 H* (35.0-42.0) mmHg ABG pO2 84.9 (75.0-100.0) mmHg ABG HCO3 22.7 (22.0-26.0) mmol/L ABG Total CO2 22.8 (21.0-25.0) mmol/L ABG O2 Saturation 93.3 L (95.0-98.0) % ABG O2 Content 11.4 L (15.0-23.0) %vol ABG Base Excess -6.3 mm/L ABG Hemoglobin 8.8 L (12.0-16.0) g/dL ABG Oxyhemoglobin 91.2 % ABG Carboxyhemoglobin 1.4 (0.0-1.6) % ABG Methemoglobin 0.9 % Bimal Test A-line O2 Delivery Device Ventilator Oxygen Flow Rate L Sodium (140-148) mmol/L Potassium 6.5 H* (3.6-5.2) mmol/L Chloride (100-108) mmol/L Carbon Dioxide (21-32) mmol/L Anion Gap (5.0-14.0) mmol/L BUN (7-18) mg/dL Creatinine (0.6-1.0) mg/dL Est Cr Clr Drug Dosing mL/min Estimated GFR (MDRD) (>60) Glucose (74-106) mg/dL Calcium (8.5-10.1) mg/dL Phosphorus (2.5-4.9) mg/dL Magnesium (1.8-2.4) mg/dL Total Bilirubin (0.2-1.0) mg/dL AST (15-37) U/L ALT (12-78) U/L Alkaline Phosphatase (46-116) U/L Total Protein (6.4-8.2) g/dL Albumin (3.4-5.0) g/dL Globulin (2.3-3.5) g/dL Albumin/Globulin Ratio (1.2-2.2) 10/19/19 10/19/19 Range/Units 04:35 04:35 WBC (4.5-11.0) K/uL RBC (3.30-5.50) M/uL Hgb (12.0-15.0) g/dL Hct (36.0-48.0) % MCV (80-98) fL MCH (27-31) pg MCHC (32-36) % Plt Count (150-400) K/uL Add Manual Diff Neutrophils % (Manual) (36-66) % Band Neutrophils % (5-11) % Lymphocytes % (Manual) (24-44) % Monocytes % (Manual) (2-6) % Nucleated RBCs Puncture Site A-line ABG pH 7.009 L* (7.350-7.450) ABG pCO2 89.7 H* (35.0-42.0) mmHg ABG pO2 78.1 (75.0-100.0) mmHg ABG HCO3 21.5 L (22.0-26.0) mmol/L ABG Total CO2 22.4 (21.0-25.0) mmol/L ABG O2 Saturation 89.1 L (95.0-98.0) % ABG O2 Content 11.1 L (15.0-23.0) %vol ABG Base Excess -10.2 mm/L ABG Hemoglobin 9.0 L (12.0-16.0) g/dL ABG Oxyhemoglobin 87.2 % ABG Carboxyhemoglobin 0.9 (0.0-1.6) % ABG Methemoglobin 1.2 % Bimal Test A-line O2 Delivery Device Ventilator Oxygen Flow Rate L Sodium 133 L (140-148) mmol/L Potassium 7.1 H* (3.6-5.2) mmol/L Chloride 99 L (100-108) mmol/L Carbon Dioxide 23 (21-32) mmol/L Anion Gap 18.1 H (5.0-14.0) mmol/L BUN 59 H (7-18) mg/dL Creatinine 2.1 H (0.6-1.0) mg/dL Est Cr Clr Drug Dosing 19.18 mL/min Estimated GFR (MDRD) 24 L (>60) Glucose 194 H (74-106) mg/dL Calcium 8.3 L (8.5-10.1) mg/dL Phosphorus 12.0 H (2.5-4.9) mg/dL Magnesium 2.6 H (1.8-2.4) mg/dL Total Bilirubin 1.4 H (0.2-1.0) mg/dL AST 77 H D (15-37) U/L ALT 34 D (12-78) U/L Alkaline Phosphatase 233 H (46-116) U/L Total Protein 7.1 (6.4-8.2) g/dL Albumin 1.5 L (3.4-5.0) g/dL Globulin 5.6 H (2.3-3.5) g/dL Albumin/Globulin Ratio 0.3 L (1.2-2.2) Jae Results Last 24 Hours: Microbiology 10/14/19 07:52 Aerobic Blood Culture - Final Blood - Arm, Right NO GROWTH AFTER 5 DAYS Anaerobic Blood Culture - Final NO GROWTH AFTER 5 DAYS 10/14/19 06:40 Aerobic Blood Culture - Final Blood - Central Line NO GROWTH AFTER 5 DAYS Anaerobic Blood Culture - Final NO GROWTH AFTER 5 DAYS 10/14/19 06:50 Aerobic Blood Culture - Final Blood - Arterial Line - Abg NO GROWTH AFTER 5 DAYS Anaerobic Blood Culture - Final NO GROWTH AFTER 5 DAYS Med Orders - Current: Current Medications Dimethicone/Zinc Oxide (Rash Relief-Zinc Oxide [place]) 0 gm TOP Q2H PRN PRN Reason: Rash Last Admin: 10/18/19 02:22 Dose: 5 spray Duloxetine HCl (Cymbalta) 30 mg PO BID [facility] Last Admin: 10/19/19 08:49 Dose: Not Given Heparin Sodium (Porcine) (Heparin Sodium) 5,000 units SUBCUT Q8H TIARRA Last Admin: 10/19/19 09:46 Dose: 5,000 units Heparin Sodium (Porcine) (Heparin Lock Flush 100 Units/Ml) 500 units FLUSH ASDIRECTED PRN PRN Reason: Keep Vein Open Last Admin: 10/09/19 11:40 Dose: 500 units Hydroxyzine HCl (Vistaril) 100 mg IM Q4H PRN PRN Reason: pain Last Admin: 10/06/19 05:11 Dose: 100 mg Heparin Sodium (Porcine) 5,000 (units/ Sodium Chloride) 501 mls @ 0 mls/hr IV ASDIRECTED [facility] Last Admin: 10/16/19 15:57 Dose: 1 mls/hr Propofol (Diprivan 100 Ml) 100 mls @ 3.783 mls/hr IV TITRATE TIARRA; Protocol Last Admin: 10/19/19 09:31 Dose: 35 mcg/kg/min, 26.481 mls/hr Multivitamins/Minerals 10 ml/Chromium/Copper/Manganese/Seleni/Zn 1 ml/ Amino Acids/Electrolytes/Dextrose 1,011 mls @ 60 mls/hr IV .BY DURATION [facility] Last Admin: 10/18/19 08:47 Dose: 60 mls/hr Amino Acids/Electrolytes/Dextrose (Clinimix E 4.25/10) 1,000 mls @ 60 mls/hr IV .BY DURATION [facility] Last Admin: 10/19/19 02:00 Dose: 60 mls/hr Norepinephrine Bitartrate 8 mg (/ Dextrose/Water) 250 mls @ 3.75 mls/hr IV TITRATE TIARRA; Protocol Last Admin: 10/19/19 08:17 Dose: 18 mcg/min, 33.75 mls/hr Cefepime HCl 1 gm/ Sodium (Chloride) 50 mls @ 100 mls/hr IV Q8H TIARRA Last Admin: 10/19/19 06:44 Dose: 100 mls/hr Linezolid 600 mg/ Premix 300 mls @ 300 mls/hr IV Q12H TIARRA Last Admin: 10/19/19 04:19 Dose: 300 mls/hr Aztreonam 1 gm/ Sodium (Chloride) 50 mls @ 100 mls/hr IV Q8H TIRARA Last Admin: 10/19/19 04:19 Dose: 100 mls/hr Sodium Chloride (Normal Saline) 1,000 mls @ 125 mls/hr IV ASDIRECTED TIARRA Vasopressin 100 units/ (Dextrose/Water) 255 mls @ 1.53 mls/hr IV TITRATE TIARRA; Protocol Last Titration: 10/19/19 04:40 Dose: 0.08 units/min, 12.24 mls/hr Levalbuterol HCl (Xopenex) 1.25 mg NEB QIDRT TIARRA Last Admin: 10/19/19 07:17 Dose: 1.25 mg Levalbuterol HCl (Xopenex) 1.25 mg NEB Q2H PRN PRN Reason: shortness of breath/wheezing Last Admin: 10/15/19 02:21 Dose: 1.25 mg Levothyroxine Sodium (Synthroid) 25 mcg IVPUSH DAILY [facility] Last Admin: 10/19/19 09:46 Dose: 25 mcg Lorazepam (Ativan) 0.5 mg IVPUSH Q2H PRN PRN Reason: Agitation Last Admin: 10/15/19 09:52 Dose: 0.5 mg Morphine Sulfate (Morphine) 4 mg IVPUSH Q2H PRN PRN Reason: Dyspnea Last Admin: 10/18/19 07:33 Dose: 4 mg Ondansetron HCl (Zofran Odt) 4 mg PO Q4H PRN PRN Reason: Nausea/Vomiting Last Admin: 10/07/19 00:48 Dose: 4 mg Pantoprazole Sodium (Protonix Iv) 40 mg IV Q24H [facility] Last Admin: 10/18/19 16:37 Dose: 40 mg Discontinued Medications Acetaminophen (Tylenol Extra Strength) 1,000 mg PO ONETIME ONE Stop: 10/04/19 05:43 Last Admin: 10/04/19 06:11 Dose: 1,000 mg Acetaminophen (Tylenol) 650 mg PO Q6H TIARRA Last Admin: 10/05/19 04:30 Dose: 650 mg Hydrocodone Bitart/Acetaminophen ([place] 325-5 Mg) 1 - 2 tab PO Q4H PRN PRN Reason: Pain Last Admin: 10/07/19 04:18 Dose: 1 tab Acetylcysteine (Mucomyst 20%) 200 mg NEB TIDRT [facility] Last Admin: 10/13/19 10:06 Dose: 200 mg Acetylcysteine (Mucomyst 20%) 200 mg NEB TID@0700,1500,2100 [facility] Last Admin: 10/14/19 21:39 Dose: 200 mg Albuterol (Proventil Neb Soln) 2.5 mg NEB Q2H PRN PRN Reason: shortness of breath/wheezing Last Admin: 10/10/19 22:54 Dose: 2.5 mg Albuterol/Ipratropium (Duoneb 3.0-0.5 Mg/3 Ml) 3 ml NEB ONETIME ONE Stop: 10/04/19 06:31 Last Admin: 10/04/19 10:48 Dose: 3 ml Albuterol/Ipratropium (Duoneb 3.0-0.5 Mg/3 Ml) 3 ml NEB ONETIME ONE Stop: 10/04/19 10:46 Last Admin: 10/04/19 12:30 Dose: Not Given Albuterol/Ipratropium (Duoneb 3.0-0.5 Mg/3 Ml) 3 ml INH QIDRT [facility] Last Admin: 10/14/19 21:39 Dose: 3 ml Albuterol/Ipratropium (Duoneb 3.0-0.5 Mg/3 Ml) 3 ml INH ASDIRECTED PRN PRN Reason: BREATHING Last Admin: 10/07/19 00:54 Dose: 3 ml Bumetanide (Bumex) 1 mg IVPUSH Q12H [facility] Stop: 10/17/19 20:31 Last Admin: 10/17/19 20:45 Dose: 1 mg Celecoxib (Celebrex) 200 mg PO ONETIME ONE Stop: 10/04/19 05:43 Last Admin: 10/04/19 06:11 Dose: 200 mg Celecoxib (Celebrex) 200 mg PO DAILY@0800 [facility] Last Admin: 10/12/19 07:32 Dose: Not Given Ropivacaine 60 ml/Dexamethasone 8 mg/Epinephrine HCl 0.4 mg/ Sodium Chloride 17.6 ml 0 ml NERVRT ASDIRECTED TIARRA Last Admin: 10/04/19 07:48 Dose: 80 syringe Cyanocobalamin (Vitamin B12) 1,000 mcg IM ONETIME ONE Stop: 10/06/19 09:01 Last Admin: 10/06/19 10:46 Dose: 1,000 mcg Dexamethasone (Dexamethasone) Confirm Administered Dose 4 mg .ROUTE .STK-MED ONE Stop: 10/04/19 07:16 Diphenhydramine HCl (Benadryl) 50 mg IVPUSH Q4H PRN PRN Reason: ITCHING Fentanyl (Sublimaze) Confirm Administered Dose 250 mcg .ROUTE .STK-MED ONE Stop: 10/04/19 07:14 Fentanyl (Sublimaze) Confirm Administered Dose 250 mcg .ROUTE .STK-MED ONE Stop: 10/04/19 08:47 Furosemide (Lasix) 20 mg IVPUSH ONETIME ONE Stop: 10/04/19 20:44 Last Admin: 10/04/19 21:09 Dose: 20 mg Furosemide (Lasix) 20 mg IVPUSH ONETIME ONE Stop: 10/05/19 08:01 Last Admin: 10/05/19 09:43 Dose: 20 mg Furosemide (Lasix) 40 mg PO ONETIME ONE Stop: 10/06/19 00:47 Last Admin: 10/06/19 01:05 Dose: 40 mg Furosemide (Lasix) 40 mg PO ONETIME ONE Stop: 10/06/19 16:34 Last Admin: 10/06/19 17:31 Dose: 40 mg Furosemide (Lasix) 10 mg IVPUSH ONETIME ONE Stop: 10/08/19 22:50 Last Admin: 10/08/19 23:27 Dose: Not Given Furosemide (Lasix) 20 mg IVPUSH NOW ONE Stop: 10/10/19 09:31 Last Admin: 10/10/19 10:32 Dose: 20 mg Furosemide (Lasix) 20 mg IVPUSH ONETIME ONE Stop: 10/10/19 18:01 Last Admin: 10/10/19 18:22 Dose: 20 mg Furosemide (Lasix) 40 mg IVPUSH ONETIME ONE Stop: 10/11/19 08:42 Last Admin: 10/11/19 09:03 Dose: 40 mg Furosemide (Lasix) 40 mg IVPUSH ONETIME ONE Stop: 10/11/19 16:56 Last Admin: 10/11/19 17:17 Dose: 40 mg Furosemide (Lasix) 40 mg IVPUSH Q8H [facility] Last Admin: 10/12/19 09:12 Dose: 40 mg Furosemide (Lasix) 40 mg IVPUSH ONETIME ONE Stop: 10/12/19 20:01 Last Admin: 10/12/19 20:06 Dose: 40 mg Furosemide (Lasix) 40 mg IVPUSH NOW ONE Stop: 10/14/19 09:16 Last Admin: 10/14/19 09:40 Dose: 40 mg Furosemide (Lasix) 40 mg IVPUSH ONETIME ONE Stop: 10/14/19 19:01 Last Admin: 10/14/19 19:25 Dose: 40 mg Furosemide (Lasix) 20 mg IV ONETIME ONE Stop: 10/15/19 11:16 Last Admin: 10/15/19 12:08 Dose: 20 mg Furosemide (Lasix) 40 mg IVPUSH NOW ONE Stop: 10/15/19 21:01 Last Admin: 10/15/19 20:54 Dose: 40 mg Furosemide (Lasix) 40 mg IVPUSH NOW ONE Stop: 10/16/19 10:29 Last Admin: 10/16/19 11:40 Dose: 40 mg Furosemide (Lasix) 40 mg IVPUSH NOW ONE Stop: 10/16/19 21:01 Last Admin: 10/16/19 20:56 Dose: 40 mg Gabapentin (Neurontin) 300 mg PO ONETIME ONE Stop: 10/04/19 05:43 Last Admin: 10/04/19 06:10 Dose: 300 mg Gabapentin (Neurontin) 300 mg PO TID [facility] Last Admin: 10/07/19 13:33 Dose: 300 mg Glycopyrrolate (Robinul) Confirm Administered Dose 1 mg .ROUTE .STK-MED ONE Stop: 10/04/19 07:16 Hydrocortisone Sodium Succinate (Solu-Cortef) 100 mg IVPUSH ONETIME ONE Stop: 10/12/19 17:36 Last Admin: 10/12/19 17:51 Dose: 100 mg Hydrocortisone Sodium Succinate (Solu-Cortef) 100 mg IVPUSH Q12H TIARRA Stop: 10/14/19 09:31 Last Admin: 10/14/19 09:16 Dose: 100 mg Hydromorphone HCl (Dilaudid Order Entry 15 Mg In Ns 30 Ml) 0 mg IV ASDIRECTED PRN; Protocol PRN Reason: Pain Last Admin: 10/04/19 10:41 Dose: 0.3 mg Lidocaine HCl/Dextrose (Lidocaine 2 Gm/D5w 500 Ml) 2 gm in 500 mls @ 22.5 mls/ hr IV .Q24H [facility] Stop: 10/05/19 07:29 Last Admin: 10/04/19 12:29 Dose: 1 mg/min, 15 mls/hr Ketamine HCl 50 mg/ Sodium (Chloride) 50 mls @ 12 mls/hr IV ASDIRECTED [facility] Dextrose/Lactated Ringer's (Dextrose 5%-Lactated Ringers) 1,000 mls @ 100 mls/ hr IV ASDIRECTED [facility] Last Admin: 10/04/19 12:29 Dose: 100 mls/hr Cefoxitin Sodium 2 gm/ Sodium (Chloride) 50 mls @ 100 mls/hr IV ONETIME ONE Stop: 10/04/19 07:44 Last Admin: 10/04/19 07:15 Dose: 100 mls/hr Lactated Ringer's (Ringers, Lactated) Confirm Administered Dose 1,000 mls @ as directed .ROUTE .STK-MED ONE Stop: 10/04/19 07:14 Dextrose/Lactated Ringer's (Dextrose 5%-Lactated Ringers) 1,000 mls @ 175 mls/ hr IV ASDIRECTED [facility] Multivitamins/Minerals 10 ml/Thiamine HCl 200 mg/ Chromium/Copper/Manganese/ Seleni/Zn 1 ml/ Dextrose/Lactated Ringer's 1,013 mls @ 174.999 mls/hr IV DAILY@ 1600 [facility] Last Admin: 10/04/19 17:13 Dose: 174.999 mls/hr Cefoxitin Sodium 2 gm/ Sodium (Chloride) 50 mls @ 100 mls/hr IV Q6H [facility] Last Admin: 10/05/19 07:49 Dose: 100 mls/hr Dextrose/Lactated Ringer's (Dextrose 5%-Lactated Ringers) 1,000 mls @ 125 mls/ hr IV ASDIRECTED [facility] Last Admin: 10/05/19 00:43 Dose: 125 mls/hr Dextrose/Lactated Ringer's (Dextrose 5%-Lactated Ringers) 1,000 mls @ 100 mls/ hr IV ASDIRECTED [facility] Last Admin: 10/05/19 09:41 Dose: 100 mls/hr Lactated Ringer's (Ringers, Lactated) 500 mls @ 100 mls/hr IV .BOLUS ONE Stop: 10/05/19 11:59 Last Admin: 10/05/19 07:48 Dose: 100 mls/hr Multivitamins/Minerals 10 ml/Thiamine HCl 200 mg/ Chromium/Copper/Manganese/ Seleni/Zn 1 ml/ Dextrose/Lactated Ringer's 1,013 mls @ 100 mls/hr IV DAILY@ 1600 [facility] Linezolid 600 mg/ Premix 300 mls @ 300 mls/hr IV Q12H [facility] Last Admin: 10/09/19 22:30 Dose: 300 mls/hr Piperacillin Sod/Tazobactam (Sod 3.375 gm/ Sodium Chloride) 50 mls @ 100 mls/ hr IV Q6H [facility] Last Admin: 10/07/19 01:45 Dose: 100 mls/hr Levofloxacin/Dextrose 750 mg/ (Premix) 150 mls @ 100 mls/hr IV Q48H [facility] Last Admin: 10/08/19 20:01 Dose: 100 mls/hr Sodium Chloride (Normal Saline) Confirm Administered Dose 50 mls @ as directed .ROUTE .STK-MED ONE Stop: 10/06/19 19:37 Last Admin: 10/06/19 20:03 Dose: Not Given Lactated Ringer's (Ringers, Lactated) 1,000 mls @ 100 mls/hr IV ASDIRECTED [facility] Last Admin: 10/07/19 17:52 Dose: 100 mls/hr Piperacillin/Tazobactam/ (Dextrose 3.375 gm/ Premix) 50 mls @ 100 mls/hr IV Q6H [facility] Last Admin: 10/11/19 08:28 Dose: 100 mls/hr Magnesium Sulfate 2 gm/ Premix 50 mls @ 25 mls/hr IV Q6H [facility] Stop: 10/09/19 05:59 Last Admin: 10/09/19 04:08 Dose: 25 mls/hr Propofol (Diprivan 100 Ml) Confirm Administered Dose 100 mls @ as directed .ROUTE .STK-MED ONE Stop: 10/07/19 21:21 Last Admin: 10/07/19 22:55 Dose: Not Given Sodium Chloride (Normal Saline) 1,000 mls @ 25 mls/hr IV ASDIRECTED [facility] Last Admin: 10/17/19 20:20 Dose: 30 mls/hr Lactated Ringer's (Ringers, Lactated) 1,000 mls @ 25 mls/hr IV ASDIRECTED [facility] Stop: 10/11/19 10:00 Last Admin: 10/08/19 19:59 Dose: 25 mls/hr Levofloxacin/Dextrose 750 mg/ (Premix) 150 mls @ 100 mls/hr IV Q24H [facility] Last Admin: 10/11/19 19:43 Dose: 100 mls/hr Potassium Chloride 40 meq/ (Premix) 100 mls @ 25 mls/hr IV ONETIME ONE Stop: 10/10/19 13:29 Last Admin: 10/10/19 10:31 Dose: 25 mls/hr Potassium Phosphate 22.5 mmole (/ Sodium Chloride) 107.5 mls @ 36 mls/hr IV Q3H [facility] Stop: 10/11/19 15:59 Last Admin: 10/11/19 13:29 Dose: 36 mls/hr Linezolid 600 mg/ Premix 300 mls @ 300 mls/hr IV Q12H [facility] Last Admin: 10/13/19 21:37 Dose: 300 mls/hr Meropenem 1 gm/ Sodium (Chloride) 50 mls @ 100 mls/hr IV Q8H [facility] Last Admin: 10/15/19 09:25 Dose: 100 mls/hr Sodium Chloride (Normal Saline) 100 mls @ 3 mls/sec IV ASDIRECTED [facility] Stop: 10/11/19 09:01 Last Admin: 10/11/19 09:45 Dose: 3 mls/sec Potassium Chloride 40 meq/ (Premix) 100 mls @ 25 mls/hr IV ONETIME ONE Stop: 10/12/19 11:59 Last Admin: 10/12/19 08:33 Dose: 25 mls/hr Magnesium Sulfate 2 gm/ Premix 50 mls @ 25 mls/hr IV Q6H [facility] Stop: 10/14/19 06:59 Last Admin: 10/12/19 16:03 Dose: 25 mls/hr Albumin Human (Albumin 25%) 25 gm in 100 mls @ 25 mls/hr IV Q24H [facility] Stop: 10/14/19 16:59 Last Admin: 10/14/19 12:24 Dose: 25 mls/hr Doxycycline Hyclate 100 mg/ (Sodium Chloride) 100 mls @ 100 mls/hr IV Q12H [facility] Last Admin: 10/15/19 10:30 Dose: 100 mls/hr Fluconazole/Sodium Chloride (200 mg/ Premix) 100 mls @ 100 mls/hr IV Q24H [facility] Last Admin: 10/15/19 11:08 Dose: 100 mls/hr Potassium Phosphate 22.5 mmole (/ Sodium Chloride) 107.5 mls @ 27 mls/hr IV Q4H [facility] Stop: 10/15/19 17:29 Last Admin: 10/15/19 14:23 Dose: 27 mls/hr Sodium Chloride (Normal Saline) 100 mls @ 4 mls/sec IV ASDIRECTED [facility] Stop: 10/15/19 13:31 Last Admin: 10/15/19 14:05 Dose: 4 mls/sec Micafungin Sodium 100 mg/ (Sodium Chloride) 100 mls @ 100 mls/hr IV Q24H [facility] Last Admin: 10/18/19 14:46 Dose: 100 mls/hr Acetaminophen 1,000 mg/ Premix 100 mls @ 400 mls/hr IV Q6H [facility] Stop: 10/17/19 22:16 Last Admin: 10/17/19 05:55 Dose: Not Given Acetaminophen 1,000 mg/ Premix 100 mls @ 400 mls/hr IV Q6H PRN PRN Reason: pain/fever Stop: 10/17/19 22:16 Sodium Chloride (Normal Saline) 1,000 mls @ 500 mls/hr IV ASDIRECTED [facility] Stop: 10/18/19 23:46 Last Admin: 10/18/19 21:59 Dose: 500 mls/hr Potassium Chloride 40 meq/ (Premix) 100 mls @ 25 mls/hr IV Q4H [facility] Stop: 10/19/19 05:59 Sodium Chloride (Normal Saline) Confirm Administered Dose 100 mls @ as directed .ROUTE .STK-MED ONE Stop: 10/19/19 01:48 Last Admin: 10/19/19 02:48 Dose: Not Given Dextrose/Water (Dextrose 5% In Water) Confirm Administered Dose 250 mls @ as directed .ROUTE .STK-MED ONE Stop: 10/19/19 01:51 Last Admin: 10/19/19 02:49 Dose: Not Given Iopamidol (Isovue-300 (61%)) 50 ml PO ASDIRECTED [facility] Stop: 10/05/19 03:24 Last Admin: 10/05/19 03:36 Dose: 50 ml Iopamidol (Isovue-300 (61%)) 100 ml IV . DIRECTED [facility] Stop: 10/11/19 09:01 Last Admin: 10/11/19 09:45 Dose: 100 ml Iopamidol (Isovue-370 (76%)) 100 ml IV . DIRECTED ONE Stop: 10/15/19 13:30 Last Admin: 10/15/19 14:05 Dose: 100 ml Ketamine HCl (Ketalar) 20 mg IV ASDIRECTED [facility] Labetalol HCl (Normodyne) 5 mg IVPUSH Q5M PRN PRN Reason: SBP over 160 OR DBP over 95 Lactobacillus Rhamnosus (Culturelle) 1 cap PO BID [facility] Last Admin: 10/08/19 10:23 Dose: Not Given Levothyroxine Sodium (Levothyroxine) 25 mcg PO ACBREAKFAST [facility] Last Admin: 10/13/19 07:33 Dose: Not Given Lidocaine (Xylocaine-Mpf 2%) Confirm Administered Dose 5 ml .ROUTE .STK-MED ONE Stop: 10/07/19 07:55 Lidocaine HCl (Xylocaine 2%) 100 mg IVPUSH ASDIRECTED [facility] Lidocaine HCl (Xylocaine 4% Top Soln) 50 ml .ROUTE .STK-MED ONE Stop: 10/15/19 10:01 Lidocaine HCl (Xylocaine 2% Viscous) Confirm Administered Dose 15 ml .ROUTE .STK -MED ONE Stop: 10/15/19 09:42 Last Admin: 10/15/19 11:04 Dose: Not Given Lorazepam (Ativan) 0.5 mg IVPUSH Q4H PRN PRN Reason: Anxiety Last Admin: 10/07/19 13:55 Dose: 0.5 mg Magnesium Hydroxide (Milk Of Magnesia) 30 ml PO ONETIME ONE Stop: 10/06/19 09:31 Last Admin: 10/06/19 11:55 Dose: 30 ml Magnesium Oxide (Magnesium Oxide) 400 mg PO DAILY [facility] Last Admin: 10/06/19 10:46 Dose: 400 mg Meropenem (Merrem) Confirm Administered Dose 500 mg .ROUTE .STK-MED ONE Stop: 10/04/19 09:20 Last Admin: 10/04/19 10:15 Dose: 500 mg Methylprednisolone Sodium Succinate (Solu-Medrol) 40 mg IVPUSH Q8H TIARRA Last Admin: 10/09/19 01:40 Dose: 40 mg Metoclopramide HCl (Reglan) 10 mg IVPUSH Q6H PRN PRN Reason: NAUSEA NOT CONTROL BY ZOFRAN Miscellaneous Information (Remove Patch) 1 ea TRDERM ONETIME ONE Stop: 10/07/19 06:01 Miscellaneous Information (Remove Patch) 1 ea TRDERM ONETIME ONE Stop: 10/06/19 10:01 Last Admin: 10/06/19 10:06 Dose: Not Given Morphine Sulfate (Morphine) 2 mg IVPUSH Q2H PRN PRN Reason: Pain Last Admin: 10/12/19 02:06 Dose: 2 mg Morphine Sulfate (Morphine) 4 mg IVPUSH Q2H PRN PRN Reason: PAIN Last Admin: 10/15/19 20:46 Dose: 4 mg Naloxone HCl (Narcan) 0.1 mg IV ASDIRECTED PRN PRN Reason: decreased respiratory rate Naloxone HCl (Narcan) Confirm Administered Dose 0.4 mg .ROUTE .STK-MED ONE Stop: 10/04/19 10:41 Neostigmine Methylsulfate (Neostigmine) Confirm Administered Dose 5 mg .ROUTE .STK-MED ONE Stop: 10/04/19 07:16 Check Scopolamine (Patch Daily) 1 each .XX DAILY [facility] Last Admin: 10/04/19 12:30 Dose: Not Given Scopolamine Patch (Check) 1 each TOP DAILY TIARRA Stop: 10/06/19 12:53 Last Admin: 10/06/19 10:06 Dose: Not Given Non-Formulary Medication (Total Parenteral Nutrition, Central) 0 ml IV ONETIME ONE Stop: 10/18/19 11:16 Last Admin: 10/19/19 07:44 Dose: Not Given Ondansetron HCl (Zofran) Confirm Administered Dose 4 mg .ROUTE .STK-MED ONE Stop: 10/04/19 07:16 Ondansetron HCl (Zofran) 4 mg IVPUSH Q4H PRN PRN Reason: Nausea/Vomiting Pantoprazole Sodium (Protonix Iv) 40 mg IVPUSH Q24H [facility] Last Admin: 10/04/19 17:15 Dose: 40 mg Pantoprazole Sodium (Protonix Granules) 40 mg PO Q24H [facility] Last Admin: 10/08/19 16:12 Dose: Not Given Piperacillin Sod/Tazobactam Sod (Zosyn) Confirm Administered Dose 3.375 gm .ROUTE .STK-MED ONE Stop: 10/06/19 19:36 Last Admin: 10/06/19 20:02 Dose: Not Given Potassium Chloride (Klor-Con M20) 40 meq PO ONETIME ONE Stop: 10/18/19 21:50 Propofol (Diprivan 20 Ml) Confirm Administered Dose 200 mg .ROUTE .STK-MED ONE Stop: 10/04/19 07:16 Propofol (Diprivan 20 Ml) Confirm Administered Dose 200 mg .ROUTE .STK-MED ONE Stop: 10/07/19 21:12 Rocuronium [place] (Zemuron) Confirm Administered Dose 50 mg .ROUTE .STK-MED ONE Stop: 10/04/19 07:16 Rocuronium [place] (Zemuron) Confirm Administered Dose 50 mg .ROUTE .STK-MED ONE Stop: 10/04/19 09:27 Scopolamine (Transderm-Scop) 1.5 mg TOP ONETIME ONE Stop: 10/04/19 05:43 Last Admin: 10/04/19 06:11 Dose: 1.5 mg Sodium Chloride (Saline Flush) 10 ml FLUSH ONETIME ONE Stop: 10/11/19 09:01 Last Admin: 10/11/19 09:45 Dose: 10 ml Sodium Polystyrene Sulfonate (Kayexalate) 45 gm NGTUBE NOW ONE Stop: 10/18/19 18:28 Last Admin: 10/18/19 20:46 Dose: 45 gm Sodium Polystyrene Sulfonate (Kayexalate) 45 gm NGTUBE NOW ONE Stop: 10/19/19 05:23 Last Admin: 10/19/19 05:32 Dose: 45 gm Sodium Polystyrene Sulfonate (Kayexalate) Confirm Administered Dose 45 gm .ROUTE .STK-MED ONE Stop: 10/19/19 05:28 Last Admin: 10/19/19 05:32 Dose: Not Given Succinylcholine Chloride (Quelicin) Confirm Administered Dose 200 mg .ROUTE .STK -MED ONE Stop: 10/04/19 07:16 Succinylcholine Chloride (Quelicin) Confirm Administered Dose 200 mg .ROUTE .STK -MED ONE Stop: 10/07/19 21:12 Sugammadex Sodium (Bridion) Confirm Administered Dose 200 mg .ROUTE .STK-MED ONE Stop: 10/04/19 10:47 Vasopressin (Vasopressin) Confirm Administered Dose 100 units .ROUTE .STK-MED ONE Stop: 10/19/19 01:47 Last Admin: 10/19/19 02:48 Dose: Not Given - Exam Quality Assessment: Supplemental Oxygen (Ventilator), Central Line/PICC, Urine Catheter, DVT Prophylaxis General: Sedated, Lethargic Lungs: Decreased Breath Sounds, Rhonchi, Wheezing. No: Rales Cardiovascular: Regular Rate, Regular Rhythm, No Murmurs GI/Abdominal Exam: Soft, No Organomegaly, No Distention, Other (Wound dehiscence ) Extremities: Pedal Edema - Problem List & Annotations (1) Hypoxia SNOMED Code(s): 632204971 Code(s): R09.02 - HYPOXEMIA Status: Acute Current Visit: Yes (2) Hypercapnia SNOMED Code(s): 74793564 Code(s): R06.89 - OTHER ABNORMALITIES OF BREATHING Status: Acute Current Visit: Yes (3) Pneumonia SNOMED Code(s): 741034769 Code(s): J18.9 - PNEUMONIA, UNSPECIFIED ORGANISM Status: Acute Current Visit: Yes (4) Laparoscopic surgical procedure converted to open procedure SNOMED Code(s): 528829741 Code(s): Z53.31 - LAPAROSCOPIC SURGICAL PROCEDURE CONVERTED TO OPEN PROCEDURE Status: Acute Current Visit: Yes Annotation/Comment:: lysis of adhesions (5) DDD (degenerative disc disease), lumbar SNOMED Code(s): 49415791 Code(s): M51.36 - OTHER INTERVERTEBRAL DISC DEGENERATION, LUMBAR REGION Status: Chronic Current Visit: No (6) Obstructive sleep apnea syndrome SNOMED Code(s): 84288909 Code(s): G47.33 - OBSTRUCTIVE SLEEP APNEA (ADULT) (PEDIATRIC) Status: Chronic Current Visit: No - Problem List Review Problem List Initiated/Reviewed/Updated: Yes - My Orders Last 24 Hours: My Active Orders 10/18/19 17:12 Communication Order [RC] Q2H 10/18/19 21:38 NG [Gastrointestinal Tube Mgmt] [RC] ASDIRECTED NG [Nasogastric Orogastric Tube Insertion] [OM.PC] Routine 10/18/19 23:45 Sodium Chloride 0.9% [Normal Saline] 1,000 ml IV ASDIRECTED 10/19/19 01:45 Vasopressin 100 units Dextrose 5% in Water 250 ml IV TITRATE 10/19/19 08:00 Echo Comp wo Cont [US] Stat - Plan Plan:: ASSESSMENT AND RECOMMENDATIONS ACUTE HYPOXIC AND HYPERCAPNIC RESPIRATORY FAILURE - multifactorial with pneumonia, aspiration and ARDS. Continues to require high level of ventilatory support, significantly worse over the last 24 hours with persistent hypercapnia contributing to a mixed metabolic and respiratory acidosis. Given her severe decline there is no meaningful hope of recovery. Family has decided to withdraw aggressive support later today. They feel that this is very consistent with the patient's previously expressed wishes. -Minimize IV fluid as able -Scheduled DuoNeb's -Supplemental oxygen as needed -Nebulizer therapy as ordered -Plan to withdraw aggressive support including extubation later today BILATERAL PNEUMONIA -Initial culture grew out enterococcus and now germ tube positive yeast. She can use to require vasopressor support. Question of progressive/resistant infection -Continue current IV antibiotic therapy; Zyvox, cefepime, azactam and micafungin -Follow-up cultures METABOLIC ACIDOSIS-secondary to progressive renal failure SEVERE HYPERKALEMIA-secondary to worsening of renal function. Climbing potassium level despite repeated doses of Kayexalate ANEMIA DUE TO ACUTE ILLNESS PALLIATIVE CARE-will continue current level of support until more family arrives later today. After that family wishes to withdraw aggressive support. STATUS POST DUODENAL SWITCH PROCEDURE - postop course complicated by an ileus but bowel function seems to be improving. NG tube removed 10/12. She is on TPN. -Postop care per Dr. Baldwin
--- NOTE | 2019-10-19 11:28 | PN ---
DATE OF SERVICE: 10/16/2019 The patient has been roughly the same over the last 24 hours. However, remains on 80% FiO2 and blood gas showed pH of 7.39, pCO2 of 49, and pO2 of 70. Secretions are relatively scant. The CT scan yesterday showed continued infiltrates as outlined in the report. The abdominal CT does not show any obvious problems that might be contributing to her septic state. The antibiotics were adjusted somewhat per Dr. Angelo yesterday. The white count is up a little higher again at 23,000 and hemoglobin is stable at 9.3. Chemistries show no major problems and bilirubin has decreased a little bit to 1.1. Otherwise, the issue of tracheostomy is being raised and that may need to be done over the next few days, and we will need to watch her abdomen to see if there are any signs of abdominal sepsis, as things continue to be somewhat smoldering in terms of any recovery. Brad Baldwin MD Job #: [id number]
--- NOTE | 2019-10-19 11:34 | PN ---
DATE OF SERVICE: 10/17/2019 The patient had T-max of 100.4. She continues to be fairly tachypneic and has a little bit higher pCO2, pH is still within the reasonable range of 3.40. Oxygenation is stable, but still requiring 85% FIO2, although Dr. Angelo is to address the ventilator settings as necessary. Otherwise, VIJAY drains has negligible output, and those will be removed, along with bebeto. Labs show persistently elevated white count of 25,000, hemoglobin is 8.9. Chemistries are relatively unremarkable, other than her BNP is quite elevated at 1026. That is up from 253 yesterday, so I think we will give her some Bumex to help with some degree of diuresis. Otherwise, tentative plan is to proceed with a tracheostomy and provide a central line exchange on Tuesday. Brad Baldwin MD Job #: [id number]
--- NOTE | 2019-10-19 12:55 | ANES ---
DATE OF SERVICE: 10/18/2019 I was called this morning for a lady in the ICU, who is currently intubated, for the need for a new endotracheal tube. The old endotracheal tube cuff is leaking and will not hold air. I was at the bedside at approximately 0735. It was noted that the patient was being sedated on a propofol drip. O2 saturations were anywhere from 90% to 92% on a FiO2 of 85%. The patient's PEEP is 5. It was also noted that the old endotracheal tube was at 20 cm at teeth. Oral suction was done prior to the tube exchange. The patient was temporally taken off the vent. A blue bougie was passed down the old 8.0 endotracheal tube and exchanged for another 8.0 endotracheal tube. Ventilator was hooked back up. O2 sats did drop to approximately about 85%, but did quickly come back up to 90% to 92% shortly thereafter. The 8.0 new endotracheal tube was secured at 20 at teeth. Blood pressure was stable throughout. I did talk to the patient's son and discussed what we did today, and we will be available as needed for the patient. Wicho Vann CRNA /[id number]
--- NOTE | 2019-10-19 14:25 | OR ---
DATE OF PROCEDURE: 10/09/2019 SURGEON: Brad Baldwin MD PREOPERATIVE DIAGNOSIS: Insufficient peripheral venous access. POSTOPERATIVE DIAGNOSIS: Insufficient peripheral venous access. OPERATIVE PROCEDURE: Insertion of left subclavian vein triple-lumen catheter. ANESTHESIA: Local. INDICATION FOR PROCEDURE: This is a 64-year-old having been managed as a critical care patient, on mechanical ventilation and pressor support. She has quite limited peripheral venous access and triple-lumen catheter will be placed presently. Potential risks of the procedure were reviewed with the patient's daughter including bleeding, infection, pneumothorax, and such, and she wishes to proceed. DETAILS OF PROCEDURE: The patient was placed in supine position in the intensive care unit bed. She had some sedation and the upper chest and neck areas were prepped and draped. The left subclavian area was anesthetized with 1% lidocaine and left subclavian vein cannulated. Guidewire passed. Over the guidewire, a triple-lumen catheter was positioned. Good in and out flow was noted. Port was flushed with heparinized saline, and catheter was sutured to skin with some 3-0 silk stitch. Dressing was applied. Subsequent chest x-rays showed good catheter position without complications, and the procedure was then concluded. Brad Baldwin MD Job #: [id number]
--- NOTE | 2019-10-19 14:34 | OR ---
DATE OF PROCEDURE: 10/09/2019 SURGEON: Brad Baldwin MD PREOPERATIVE DIAGNOSIS: Indication for central venous access. POSTOPERATIVE DIAGNOSIS: Indication for central venous access. PROCEDURE: Insertion of left subclavian vein triple-lumen catheter ([id number]). ANESTHESIA: Local plus IV sedation. INDICATIONS FOR PROCEDURE: The patient is presently critically ill with pneumonia and being maintained on ventilatory management, and to facilitate ongoing care, a triple-lumen catheter is being placed via the left subclavian approach. Potential risks were reviewed with the patient's daughter and she wishes to proceed. DETAILS OF PROCEDURE: In the ICU bed, the patient was placed in the supine position. The patient had ongoing propofol sedation and the left subclavian area was then prepped and draped and anesthetized with 1% lidocaine. Left subclavian vein was then cannulated, passed over the guidewire, a triple-lumen catheter was positioned. Good in and outflow was noted through the catheter and flushed with heparinized saline and catheter was sutured to skin with some 3-0 silk stitch. Dressing was applied. The patient had no evident complications. Chest x-ray showed good catheter position without evident complications. Brad Baldwin MD Job #: [id number]
[2019-10-19] MEDS ORDERED: Morphine 2 MG/ML Syringe IV PRN (14:45)
--- NOTE | 2019-10-19 15:22 | PCM.DCSUM1 ---
Discharge Summary - Hospital Course Brief History: Ms. Alford was a 64-year-old woman who was admitted by Dr. Baldwin for a duodenal switch procedure. - Discharge Data Discharge Date: 10/19/19 Discharge Disposition: 20 Preliminary Cause of *Q: Multi System Organ Failure Condition: - Referral to Home Health Primary Care Physician: PCP None - Discharge Diagnosis/Problem(s) (1) Hypoxia SNOMED Code(s): 654590685 ICD Code: R09.02 - HYPOXEMIA Status: Acute Current Visit: Yes (2) Hypercapnia SNOMED Code(s): 24331716 ICD Code: R06.89 - OTHER ABNORMALITIES OF BREATHING Status: Acute Current Visit: Yes (3) Pneumonia SNOMED Code(s): 862648184 ICD Code: J18.9 - PNEUMONIA, UNSPECIFIED ORGANISM Status: Acute Current Visit: Yes (4) Laparoscopic surgical procedure converted to open procedure SNOMED Code(s): 808376876 ICD Code: Z53.31 - LAPAROSCOPIC SURGICAL PROCEDURE CONVERTED TO OPEN PROCEDURE Status: Acute Current Visit: Yes Problem Details: lysis of adhesions (5) DDD (degenerative disc disease), lumbar SNOMED Code(s): 25218418 ICD Code: M51.36 - OTHER INTERVERTEBRAL DISC DEGENERATION, LUMBAR REGION Status: Chronic Current Visit: No (6) Obstructive sleep apnea syndrome SNOMED Code(s): 22425445 ICD Code: G47.33 - OBSTRUCTIVE SLEEP APNEA (ADULT) (PEDIATRIC) Status: Chronic Current Visit: No (7) Sepsis SNOMED Code(s): 64512720 ICD Code: A41.9 - SEPSIS, UNSPECIFIED ORGANISM Status: Acute Current Visit: Yes (8) Hyperkalemia SNOMED Code(s): 69082904 ICD Code: E87.5 - HYPERKALEMIA Status: Acute Current Visit: Yes (9) Acute kidney failure SNOMED Code(s): 94181609 ICD Code: N17.9 - ACUTE KIDNEY FAILURE, UNSPECIFIED Status: Acute Current Visit: Yes - Patient Summary/Data Consults: Consultations 10/04/19 12:30 Consult to Bariatric Services [CONS] Routine Comment: Consult to Criminal Investigator [CONS] Routine Comment: Physician Instructions: Quantity: 10/06/19 07:58 Respiratory Care Assess and Treatment [CONS] Routine Comment: Physician Instructions: Reason for Consult: RT to see patient TID to assist in pulm toilet Hospital Course: Ms. Alford was a 64-year-old woman who was admitted by Dr. Baldwin for a duodenal switch procedure. During the procedure she was noted to require higher level of supplemental oxygen than expected and was somewhat difficult to extubate following surgery. Over the next few days of hospitalization she did develop progressive respiratory compromise. Her surgery had been performed on October 04, on October 06 she was seen and evaluated by the hospitalist service because of her respiratory compromise. She was noted to have hypoxia and the increase in respiratory rate. White blood cell count was elevated, chest x-ray showed a left lung infiltrate. She was transferred to the intensive care unit, blood cultures were obtained which remained negative throughout hospitalization. Sputum culture was obtained which later grew out enterococcus. She was placed on noninvasive positive pressure ventilation and did well with that for approximately 24 hours. She then began to develop increase in respiratory rate and further respiratory compromise with hypoxia and hypercapnia. She was intubated on the evening of the and placed on mechanical ventilation. Broad-spectrum IV antibiotic therapy had been started on the including Zyvox, Zosyn, and levofloxacin. Through the next week and the ventilator appeared to be slowly improving requiring decreased levels of FiO2. Antibiotic therapy was the escalated and she was placed on doxycycline continued on the meropenem. CT scan of the chest was obtained on the and showed no evidence of pulmonary emboli. CT did document bilateral infiltrates concerning for infection as well as bilateral patchy infiltrates which were felt to be consistent with ARDS. Sputum culture was obtained in the and grow out Yeast. Fluconazole was added to the antibiotic regimen. With the appearance of ARDS fluids were minimized and she was given IV diuretic therapy without significant result or improvement. On 14 October she began to develop worsening respiratory failure requiring increased levels of ventilatory support with increase in her respiratory rate. Follow-up blood cultures remained negative throughout the hospitalization. She also developed worsening hypotension requiring use of IV norepinephrine. On the morning of the CT scan of the abdomen was performed because of progressive respiratory compromise , this showed no obvious source of infection within the abdomen. Bronchoscopy was performed by Dr. Baldwin and showed only scant secretions. The endotracheal tube was changed because of suspected cuff leak. Antibiotic therapy changed because of rising leukocyte count and she was placed back on Zyvox, with additions of cefepime, as active, and micafungin. Meropenem, doxycycline and fluconazole were discontinued. She was given ongoing doses of diuretic therapy with no further benefit in her respiratory status. Over the next few days she continued to experience hypotension requiring ongoing use of norepinephrine as well as respiratory compromise requiring very high levels of ventilatory support as well as FiO2. Laboratory studies on the showed mild hyperkalemia with increase in her creatinine level. She was also found to have worsening hypercapnia. She was again noted to have a probable cuff leak and the endotracheal tube and the tube was changed. Initially this did result in some improvement in her respiratory status with less hypercapnia. Laboratory studies were repeated during the day and showed worsening hyperkalemia. NG tube was placed and she was treated with Kayexalate. Modifications were made to ventilator settings without significant improvement in her ongoing hypoxia and hypercapnia. In the evening of the renal function was worse and potassium continued to rise despite interventions. Urine output became negligible with worsening renal failure. She was noted to have significant respiratory acidosis which appeared to be maxed with a metabolic acidosis causing severe decrease in her PTH level. Discussion was held with family decision was made to change CODE STATUS to DNR. By the following morning she had developed worsening hypotension despite use of vasopressin in addition to the norepinephrine. Respiratory status had worsened with increased hypercapnia and worsening metabolic acidosis which was felt to be secondary to her evolving renal failure. Situation was again reviewed with the family and they decided not to pursue further aggressive interventions or changes in therapy. She was continued on the ventilator and pressors until more family could arrive. After family and had a chance spend more time with her she was extubated per their request and quickly thereafter. No attempts were made at resuscitation as per the family's previously expressed wishes. - Discharge Plan Home Medications: Home Meds Albuterol Sulfate [Proair Hfa] 8.5 gm IH Q6H PRN 10/02/19 [History] Albuterol/Ipratropium [DuoNeb 3.0-0.5 MG/3 ML] 3 ml IH DAILY PRN 10/02/19 [ History] Celecoxib [CeleBREX] 200 mg PO DAILY 10/02/19 [History] Cholecalciferol (Vitamin D3) [Vitamin D3] 5,000 unit PO DAILY 10/02/19 [History] Cyanocobalamin (Vitamin B-12) [Vitamin B-12] 1,000 mcg PO DAILY 10/02/19 [ History] DULoxetine HCl [Cymbalta] 30 mg PO BID 10/02/19 [History] Folic Acid/Multivit-Min/Lutein [Multi-Vitamin Gummies] 2 each PO DAILY 10/02/19 [History] Hydrocodone/Acetaminophen [[place] 10-325 Tablet] 1 tab PO Q8H 10/02/19 [History] Ibuprofen [Motrin] 800 mg PO TID 10/02/19 [History] Levothyroxine 25 mcg PO ACBREAKFAST 10/02/19 [History] Pantoprazole Sodium [Protonix] 40 mg PO DAILY 10/02/19 [History] Turmeric Root Extract [Turmeric] 400 mg PO DAILY 10/02/19 [History] hydrOXYzine HCl [hydrOXYzine] 25 mg PO BID PRN 10/02/19 [History] Aspirin 81 mg PO DAILY 10/03/19 [History] Calcium Carb/Vitamin D3/Vit K1 [Viactiv 650 mg-12.5 Mcg Chew] 1 tab PO BID 10/04 [History] Iron,Carbonyl [Iron Chews] 60 mg PO DAILY 10/04/19 [History] - Discharge Summary/Plan Comment DC Time >30 min.: No - Patient Data Vitals - Most Recent: Last Vital Signs Temp 97 F 10/19/19 12:00 Pulse 89 10/19/19 07:18 Resp 30 H 10/19/19 14:00 BP 72/41 L 10/19/19 14:00 Pulse Ox 89 L 10/19/19 14:00 Weight - Most Recent: 314 lb 2.539 oz I&O - Last 24 hours: Intake & Output 10/19/19 10/19/19 10/19/19 06:59 14:59 22:59 Intake Total 3672 Output Total 30 Balance 3642 Lab Results - Last 24 hrs: Laboratory Results - last 24 hr 10/18/19 10/18/19 10/18/19 Range/Units 17:00 17:00 18:15 WBC (4.5-11.0) K/uL RBC (3.30-5.50) M/uL Hgb (12.0-15.0) g/dL Hct (36.0-48.0) % MCV (80-98) fL MCH (27-31) pg MCHC (32-36) % Plt Count (150-400) K/uL Add Manual Diff Neutrophils % (Manual) (36-66) % Band Neutrophils % (5-11) % Lymphocytes % (Manual) (24-44) % Monocytes % (Manual) (2-6) % Nucleated RBCs Puncture Site Line Line ABG pH 7.139 L* 7.180 L* (7.350-7.450) ABG pCO2 81.5 H* 72.4 H* (35.0-42.0) mmHg ABG pO2 85.4 61.4 L (75.0-100.0) mmHg ABG HCO3 26.5 H 26.0 (22.0-26.0) mmol/L ABG Total CO2 25.2 H 25.7 H (21.0-25.0) mmol/L ABG O2 Saturation 93.3 L 86.6 L (95.0-98.0) % ABG O2 Content 18.0 10.6 L (15.0-23.0) %vol ABG Base Excess -4.7 -2.6 mm/L ABG Hemoglobin 13.9 8.9 L (12.0-16.0) g/dL ABG Oxyhemoglobin 92.0 84.7 % ABG Carboxyhemoglobin 0.4 1.2 (0.0-1.6) % ABG Methemoglobin 1.0 1.0 % Bimal Test TNP TNP O2 Delivery Device Ventilator Ventilator Oxygen Flow Rate 85 73 L Sodium 134 L (140-148) mmol/L Potassium 6.0 H (3.6-5.2) mmol/L Chloride 99 L (100-108) mmol/L Carbon Dioxide 26 (21-32) mmol/L Anion Gap 15.0 H (5.0-14.0) mmol/L BUN 54 H (7-18) mg/dL Creatinine 1.4 H (0.6-1.0) mg/dL Est Cr Clr Drug Dosing 28.78 mL/min Estimated GFR (MDRD) 38 L (>60) Glucose 155 H (74-106) mg/dL Calcium 8.8 (8.5-10.1) mg/dL Phosphorus (2.5-4.9) mg/dL Magnesium (1.8-2.4) mg/dL Total Bilirubin (0.2-1.0) mg/dL AST (15-37) U/L ALT (12-78) U/L Alkaline Phosphatase (46-116) U/L Total Protein (6.4-8.2) g/dL Albumin (3.4-5.0) g/dL Globulin (2.3-3.5) g/dL Albumin/Globulin Ratio (1.2-2.2) 10/18/19 10/18/19 10/18/19 Range/Units 20:54 21:00 23:45 WBC (4.5-11.0) K/uL RBC (3.30-5.50) M/uL Hgb (12.0-15.0) g/dL Hct (36.0-48.0) % MCV (80-98) fL MCH (27-31) pg MCHC (32-36) % Plt Count (150-400) K/uL Add Manual Diff Neutrophils % (Manual) (36-66) % Band Neutrophils % (5-11) % Lymphocytes % (Manual) (24-44) % Monocytes % (Manual) (2-6) % Nucleated RBCs Puncture Site Line A-line ABG pH 7.165 L* 7.134 L* (7.350-7.450) ABG pCO2 70.2 H* 70.7 H* (35.0-42.0) mmHg ABG pO2 60.1 L 84.9 (75.0-100.0) mmHg ABG HCO3 24.3 22.7 (22.0-26.0) mmol/L ABG Total CO2 24.1 22.8 (21.0-25.0) mmol/L ABG O2 Saturation 85.3 L 93.3 L (95.0-98.0) % ABG O2 Content 10.9 L 11.4 L (15.0-23.0) %vol ABG Base Excess -4.4 -6.3 mm/L ABG Hemoglobin 9.3 L 8.8 L (12.0-16.0) g/dL ABG Oxyhemoglobin 83.4 91.2 % ABG Carboxyhemoglobin 1.1 1.4 (0.0-1.6) % ABG Methemoglobin 1.1 0.9 % Bimal Test TNP A-line O2 Delivery Device Ventilator Ventilator Oxygen Flow Rate 70 L Sodium (140-148) mmol/L Potassium 6.3 H* (3.6-5.2) mmol/L Chloride (100-108) mmol/L Carbon Dioxide (21-32) mmol/L Anion Gap (5.0-14.0) mmol/L BUN (7-18) mg/dL Creatinine (0.6-1.0) mg/dL Est Cr Clr Drug Dosing mL/min Estimated GFR (MDRD) (>60) Glucose (74-106) mg/dL Calcium (8.5-10.1) mg/dL Phosphorus (2.5-4.9) mg/dL Magnesium (1.8-2.4) mg/dL Total Bilirubin (0.2-1.0) mg/dL AST (15-37) U/L ALT (12-78) U/L Alkaline Phosphatase (46-116) U/L Total Protein (6.4-8.2) g/dL Albumin (3.4-5.0) g/dL Globulin (2.3-3.5) g/dL Albumin/Globulin Ratio (1.2-2.2) 10/18/19 10/19/19 10/19/19 Range/Units 23:45 04:35 04:35 WBC 15.7 H (4.5-11.0) K/uL RBC 3.40 (3.30-5.50) M/uL Hgb 8.8 L (12.0-15.0) g/dL Hct 31.8 L (36.0-48.0) % MCV 94 (80-98) fL MCH 26 L (27-31) pg MCHC 28 L (32-36) % Plt Count 578 H (150-400) K/uL Add Manual Diff Yes Neutrophils % (Manual) 80 H (36-66) % Band Neutrophils % 6 (5-11) % Lymphocytes % (Manual) 8 L (24-44) % Monocytes % (Manual) 6 (2-6) % Nucleated RBCs 1 Puncture Site A-line ABG pH 7.009 L* (7.350-7.450) ABG pCO2 89.7 H* (35.0-42.0) mmHg ABG pO2 78.1 (75.0-100.0) mmHg ABG HCO3 21.5 L (22.0-26.0) mmol/L ABG Total CO2 22.4 (21.0-25.0) mmol/L ABG O2 Saturation 89.1 L (95.0-98.0) % ABG O2 Content 11.1 L (15.0-23.0) %vol ABG Base Excess -10.2 mm/L ABG Hemoglobin 9.0 L (12.0-16.0) g/dL ABG Oxyhemoglobin 87.2 % ABG Carboxyhemoglobin 0.9 (0.0-1.6) % ABG Methemoglobin 1.2 % Bimal Test A-line O2 Delivery Device Ventilator Oxygen Flow Rate L Sodium (140-148) mmol/L Potassium 6.5 H* (3.6-5.2) mmol/L Chloride (100-108) mmol/L Carbon Dioxide (21-32) mmol/L Anion Gap (5.0-14.0) mmol/L BUN (7-18) mg/dL Creatinine (0.6-1.0) mg/dL Est Cr Clr Drug Dosing mL/min Estimated GFR (MDRD) (>60) Glucose (74-106) mg/dL Calcium (8.5-10.1) mg/dL Phosphorus (2.5-4.9) mg/dL Magnesium (1.8-2.4) mg/dL Total Bilirubin (0.2-1.0) mg/dL AST (15-37) U/L ALT (12-78) U/L Alkaline Phosphatase (46-116) U/L Total Protein (6.4-8.2) g/dL Albumin (3.4-5.0) g/dL Globulin (2.3-3.5) g/dL Albumin/Globulin Ratio (1.2-2.2) 10/19/19 Range/Units 04:35 WBC (4.5-11.0) K/uL RBC (3.30-5.50) M/uL Hgb (12.0-15.0) g/dL Hct (36.0-48.0) % MCV (80-98) fL MCH (27-31) pg MCHC (32-36) % Plt Count (150-400) K/uL Add Manual Diff Neutrophils % (Manual) (36-66) % Band Neutrophils % (5-11) % Lymphocytes % (Manual) (24-44) % Monocytes % (Manual) (2-6) % Nucleated RBCs Puncture Site ABG pH (7.350-7.450) ABG pCO2 (35.0-42.0) mmHg ABG pO2 (75.0-100.0) mmHg ABG HCO3 (22.0-26.0) mmol/L ABG Total CO2 (21.0-25.0) mmol/L ABG O2 Saturation (95.0-98.0) % ABG O2 Content (15.0-23.0) %vol ABG Base Excess mm/L ABG Hemoglobin (12.0-16.0) g/dL ABG Oxyhemoglobin % ABG Carboxyhemoglobin (0.0-1.6) % ABG Methemoglobin % Bimal Test O2 Delivery Device Oxygen Flow Rate L Sodium 133 L (140-148) mmol/L Potassium 7.1 H* (3.6-5.2) mmol/L Chloride 99 L (100-108) mmol/L Carbon Dioxide 23 (21-32) mmol/L Anion Gap 18.1 H (5.0-14.0) mmol/L BUN 59 H (7-18) mg/dL Creatinine 2.1 H (0.6-1.0) mg/dL Est Cr Clr Drug Dosing 19.18 mL/min Estimated GFR (MDRD) 24 L (>60) Glucose 194 H (74-106) mg/dL Calcium 8.3 L (8.5-10.1) mg/dL Phosphorus 12.0 H (2.5-4.9) mg/dL Magnesium 2.6 H (1.8-2.4) mg/dL Total Bilirubin 1.4 H (0.2-1.0) mg/dL AST 77 H D (15-37) U/L ALT 34 D (12-78) U/L Alkaline Phosphatase 233 H (46-116) U/L Total Protein 7.1 (6.4-8.2) g/dL Albumin 1.5 L (3.4-5.0) g/dL Globulin 5.6 H (2.3-3.5) g/dL Albumin/Globulin Ratio 0.3 L (1.2-2.2) REYMUNDO Results - Last 24 hrs: Microbiology 10/14/19 07:52 Aerobic Blood Culture - Final Blood - Arm, Right NO GROWTH AFTER 5 DAYS Anaerobic Blood Culture - Final NO GROWTH AFTER 5 DAYS 10/14/19 06:40 Aerobic Blood Culture - Final Blood - Central Line NO GROWTH AFTER 5 DAYS Anaerobic Blood Culture - Final NO GROWTH AFTER 5 DAYS 10/14/19 06:50 Aerobic Blood Culture - Final Blood - Arterial Line - Abg NO GROWTH AFTER 5 DAYS Anaerobic Blood Culture - Final NO GROWTH AFTER 5 DAYS Med Orders - Current: Current Medications Dimethicone/Zinc Oxide (Rash Relief-Zinc Oxide [place]) 0 gm TOP Q2H PRN PRN Reason: Rash Last Admin: 10/18/19 02:22 Dose: 5 spray Duloxetine HCl (Cymbalta) 30 mg PO BID [facility] Last Admin: 10/19/19 08:49 Dose: Not Given Heparin Sodium (Porcine) (Heparin Sodium) 5,000 units SUBCUT Q8H [facility] Last Admin: 10/19/19 09:46 Dose: 5,000 units Heparin Sodium (Porcine) (Heparin Lock Flush 100 Units/Ml) 500 units FLUSH ASDIRECTED PRN PRN Reason: Keep Vein Open Last Admin: 10/09/19 11:40 Dose: 500 units Hydroxyzine HCl (Vistaril) 100 mg IM Q4H PRN PRN Reason: pain Last Admin: 10/06/19 05:11 Dose: 100 mg Heparin Sodium (Porcine) 5,000 (units/ Sodium Chloride) 501 mls @ 0 mls/hr IV ASDIRECTED [facility] Last Admin: 10/16/19 15:57 Dose: 1 mls/hr Propofol (Diprivan 100 Ml) 100 mls @ 3.783 mls/hr IV TITRATE [facility]; Protocol Last Admin: 10/19/19 12:43 Dose: 35 mcg/kg/min, 26.481 mls/hr Multivitamins/Minerals 10 ml/Chromium/Copper/Manganese/Seleni/Zn 1 ml/ Amino Acids/Electrolytes/Dextrose 1,011 mls @ 60 mls/hr IV .BY DURATION [facility] Last Admin: 10/18/19 08:47 Dose: 60 mls/hr Amino Acids/Electrolytes/Dextrose (Clinimix E 4.25/10) 1,000 mls @ 60 mls/hr IV .BY DURATION [facility] Last Admin: 10/19/19 02:00 Dose: 60 mls/hr Norepinephrine Bitartrate 8 mg (/ Dextrose/Water) 250 mls @ 3.75 mls/hr IV TITRATE [facility]; Protocol Last Admin: 10/19/19 08:17 Dose: 18 mcg/min, 33.75 mls/hr Cefepime HCl 1 gm/ Sodium (Chloride) 50 mls @ 100 mls/hr IV Q8H [facility] Last Admin: 10/19/19 14:31 Dose: Not Given Linezolid 600 mg/ Premix 300 mls @ 300 mls/hr IV Q12H [facility] Last Admin: 10/19/19 04:19 Dose: 300 mls/hr Aztreonam 1 gm/ Sodium (Chloride) 50 mls @ 100 mls/hr IV Q8H [facility] Last Admin: 10/19/19 11:30 Dose: 100 mls/hr Sodium Chloride (Normal Saline) 1,000 mls @ 125 mls/hr IV ASDIRECTED [facility] Vasopressin 100 units/ (Dextrose/Water) 255 mls @ 1.53 mls/hr IV TITRATE [facility]; Protocol Last Titration: 10/19/19 04:40 Dose: 0.08 units/min, 12.24 mls/hr Levalbuterol HCl (Xopenex) 1.25 mg NEB QIDRT [facility] Last Admin: 10/19/19 11:09 Dose: 1.25 mg Levalbuterol HCl (Xopenex) 1.25 mg NEB Q2H PRN PRN Reason: shortness of breath/wheezing Last Admin: 10/15/19 02:21 Dose: 1.25 mg Levothyroxine Sodium (Synthroid) 25 mcg IVPUSH DAILY [facility] Last Admin: 10/19/19 09:46 Dose: 25 mcg Lorazepam (Ativan) 0.5 mg IVPUSH Q2H PRN PRN Reason: Agitation Last Admin: 10/15/19 09:52 Dose: 0.5 mg Morphine Sulfate (Morphine) 2 mg IV Q5M PRN PRN Reason: PAIN/SHORTNESS OF BREATH Ondansetron HCl (Zofran Odt) 4 mg PO Q4H PRN PRN Reason: Nausea/Vomiting Last Admin: 10/07/19 00:48 Dose: 4 mg Pantoprazole Sodium (Protonix Iv) 40 mg IV Q24H [facility] Last Admin: 10/18/19 16:37 Dose: 40 mg Discontinued Medications Acetaminophen (Tylenol Extra Strength) 1,000 mg PO ONETIME ONE Stop: 10/04/19 05:43 Last Admin: 10/04/19 06:11 Dose: 1,000 mg Acetaminophen (Tylenol) 650 mg PO Q6H [facility] Last Admin: 10/05/19 04:30 Dose: 650 mg Hydrocodone Bitart/Acetaminophen ([place] 325-5 Mg) 1 - 2 tab PO Q4H PRN PRN Reason: Pain Last Admin: 10/07/19 04:18 Dose: 1 tab Acetylcysteine (Mucomyst 20%) 200 mg NEB TIDRT [facility] Last Admin: 10/13/19 10:06 Dose: 200 mg Acetylcysteine (Mucomyst 20%) 200 mg NEB TID@0700,1500,2100 [facility] Last Admin: 10/14/19 21:39 Dose: 200 mg Albuterol (Proventil Neb Soln) 2.5 mg NEB Q2H PRN PRN Reason: shortness of breath/wheezing Last Admin: 10/10/19 22:54 Dose: 2.5 mg Albuterol/Ipratropium (Duoneb 3.0-0.5 Mg/3 Ml) 3 ml NEB ONETIME ONE Stop: 10/04/19 06:31 Last Admin: 10/04/19 10:48 Dose: 3 ml Albuterol/Ipratropium (Duoneb 3.0-0.5 Mg/3 Ml) 3 ml NEB ONETIME ONE Stop: 10/04/19 10:46 Last Admin: 10/04/19 12:30 Dose: Not Given Albuterol/Ipratropium (Duoneb 3.0-0.5 Mg/3 Ml) 3 ml INH QIDRT [facility]AR[facility] Last Admin: 10/14/19 21:39 Dose: 3 ml Albuterol/Ipratropium (Duoneb 3.0-0.5 Mg/3 Ml) 3 ml INH ASDIRECTED PRN PRN Reason: BREATHING Last Admin: 10/07/19 00:54 Dose: 3 ml Bumetanide (Bumex) 1 mg IVPUSH Q12H [facility] Stop: 10/17/19 20:31 Last Admin: 10/17/19 20:45 Dose: 1 mg Celecoxib (Celebrex) 200 mg PO ONETIME ONE Stop: 10/04/19 05:43 Last Admin: 10/04/19 06:11 Dose: 200 mg Celecoxib (Celebrex) 200 mg PO DAILY@0800 [facility] Last Admin: 10/12/19 07:32 Dose: Not Given Ropivacaine 60 ml/Dexamethasone 8 mg/Epinephrine HCl 0.4 mg/ Sodium Chloride 17.6 ml 0 ml NERVRT ASDIRECTED [facility] Last Admin: 10/04/19 07:48 Dose: 80 syringe Cyanocobalamin (Vitamin B12) 1,000 mcg IM ONETIME ONE Stop: 10/06/19 09:01 Last Admin: 10/06/19 10:46 Dose: 1,000 mcg Dexamethasone (Dexamethasone) Confirm Administered Dose 4 mg .ROUTE .STK-MED ONE Stop: 10/04/19 07:16 Diphenhydramine HCl (Benadryl) 50 mg IVPUSH Q4H PRN PRN Reason: ITCHING Fentanyl (Sublimaze) Confirm Administered Dose 250 mcg .ROUTE .STK-MED ONE Stop: 10/04/19 07:14 Fentanyl (Sublimaze) Confirm Administered Dose 250 mcg .ROUTE .STK-MED ONE Stop: 10/04/19 08:47 Furosemide (Lasix) 20 mg IVPUSH ONETIME ONE Stop: 10/04/19 20:44 Last Admin: 10/04/19 21:09 Dose: 20 mg Furosemide (Lasix) 20 mg IVPUSH ONETIME ONE Stop: 10/05/19 08:01 Last Admin: 10/05/19 09:43 Dose: 20 mg Furosemide (Lasix) 40 mg PO ONETIME ONE Stop: 10/06/19 00:47 Last Admin: 10/06/19 01:05 Dose: 40 mg Furosemide (Lasix) 40 mg PO ONETIME ONE Stop: 10/06/19 16:34 Last Admin: 10/06/19 17:31 Dose: 40 mg Furosemide (Lasix) 10 mg IVPUSH ONETIME ONE Stop: 10/08/19 22:50 Last Admin: 10/08/19 23:27 Dose: Not Given Furosemide (Lasix) 20 mg IVPUSH NOW ONE Stop: 10/10/19 09:31 Last Admin: 10/10/19 10:32 Dose: 20 mg Furosemide (Lasix) 20 mg IVPUSH ONETIME ONE Stop: 10/10/19 18:01 Last Admin: 10/10/19 18:22 Dose: 20 mg Furosemide (Lasix) 40 mg IVPUSH ONETIME ONE Stop: 10/11/19 08:42 Last Admin: 10/11/19 09:03 Dose: 40 mg Furosemide (Lasix) 40 mg IVPUSH ONETIME ONE Stop: 10/11/19 16:56 Last Admin: 10/11/19 17:17 Dose: 40 mg Furosemide (Lasix) 40 mg IVPUSH Q8H [facility] Last Admin: 10/12/19 09:12 Dose: 40 mg Furosemide (Lasix) 40 mg IVPUSH ONETIME ONE Stop: 10/12/19 20:01 Last Admin: 10/12/19 20:06 Dose: 40 mg Furosemide (Lasix) 40 mg IVPUSH NOW ONE Stop: 10/14/19 09:16 Last Admin: 10/14/19 09:40 Dose: 40 mg Furosemide (Lasix) 40 mg IVPUSH ONETIME ONE Stop: 10/14/19 19:01 Last Admin: 10/14/19 19:25 Dose: 40 mg Furosemide (Lasix) 20 mg IV ONETIME ONE Stop: 10/15/19 11:16 Last Admin: 10/15/19 12:08 Dose: 20 mg Furosemide (Lasix) 40 mg IVPUSH NOW ONE Stop: 10/15/19 21:01 Last Admin: 10/15/19 20:54 Dose: 40 mg Furosemide (Lasix) 40 mg IVPUSH NOW ONE Stop: 10/16/19 10:29 Last Admin: 10/16/19 11:40 Dose: 40 mg Furosemide (Lasix) 40 mg IVPUSH NOW ONE Stop: 10/16/19 21:01 Last Admin: 10/16/19 20:56 Dose: 40 mg Gabapentin (Neurontin) 300 mg PO ONETIME ONE Stop: 10/04/19 05:43 Last Admin: 10/04/19 06:10 Dose: 300 mg Gabapentin (Neurontin) 300 mg PO TID [facility] Last Admin: 10/07/19 13:33 Dose: 300 mg Glycopyrrolate (Robinul) Confirm Administered Dose 1 mg .ROUTE .STK-MED ONE Stop: 10/04/19 07:16 Hydrocortisone Sodium Succinate (Solu-Cortef) 100 mg IVPUSH ONETIME ONE Stop: 10/12/19 17:36 Last Admin: 10/12/19 17:51 Dose: 100 mg Hydrocortisone Sodium Succinate (Solu-Cortef) 100 mg IVPUSH Q12H [facility] Stop: 10/14/19 09:31 Last Admin: 10/14/19 09:16 Dose: 100 mg Hydromorphone HCl ([employer] 15 Mg In Ns 30 Ml) 0 mg IV ASDIRECTED PRN; Protocol PRN Reason: Pain Last Admin: 10/04/19 10:41 Dose: 0.3 mg Lidocaine HCl/Dextrose (Lidocaine 2 Gm/D5w 500 Ml) 2 gm in 500 mls @ 22.5 mls/ hr IV .Q24H [facility] Stop: 10/05/19 07:29 Last Admin: 10/04/19 12:29 Dose: 1 mg/min, 15 mls/hr Ketamine HCl 50 mg/ Sodium (Chloride) 50 mls @ 12 mls/hr IV ASDIRECTED [facility] Dextrose/Lactated Ringer's (Dextrose 5%-Lactated Ringers) 1,000 mls @ 100 mls/ hr IV ASDIRECTED [facility] Last Admin: 10/04/19 12:29 Dose: 100 mls/hr Cefoxitin Sodium 2 gm/ Sodium (Chloride) 50 mls @ 100 mls/hr IV ONETIME ONE Stop: 10/04/19 07:44 Last Admin: 10/04/19 07:15 Dose: 100 mls/hr Lactated Ringer's (Ringers, Lactated) Confirm Administered Dose 1,000 mls @ as directed .ROUTE .STK-MED ONE Stop: 10/04/19 07:14 Dextrose/Lactated Ringer's (Dextrose 5%-Lactated Ringers) 1,000 mls @ 175 mls/ hr IV ASDIRECTED [facility] Multivitamins/Minerals 10 ml/Thiamine HCl 200 mg/ Chromium/Copper/Manganese/ Seleni/Zn 1 ml/ Dextrose/Lactated Ringer's 1,013 mls @ 174.999 mls/hr IV DAILY@ 1600 [facility] Last Admin: 10/04/19 17:13 Dose: 174.999 mls/hr Cefoxitin Sodium 2 gm/ Sodium (Chloride) 50 mls @ 100 mls/hr IV Q6H [facility] Last Admin: 10/05/19 07:49 Dose: 100 mls/hr Dextrose/Lactated Ringer's (Dextrose 5%-Lactated Ringers) 1,000 mls @ 125 mls/ hr IV ASDIRECTED [facility] Last Admin: 10/05/19 00:43 Dose: 125 mls/hr Dextrose/Lactated Ringer's (Dextrose 5%-Lactated Ringers) 1,000 mls @ 100 mls/ hr IV ASDIRECTED [facility] Last Admin: 10/05/19 09:41 Dose: 100 mls/hr Lactated Ringer's (Ringers, Lactated) 500 mls @ 100 mls/hr IV .BOLUS ONE Stop: 10/05/19 11:59 Last Admin: 10/05/19 07:48 Dose: 100 mls/hr Multivitamins/Minerals 10 ml/Thiamine HCl 200 mg/ Chromium/Copper/Manganese/ Seleni/Zn 1 ml/ Dextrose/Lactated Ringer's 1,013 mls @ 100 mls/hr IV DAILY@ 1600 [facility] Linezolid 600 mg/ Premix 300 mls @ 300 mls/hr IV Q12H [facility] Last Admin: 10/09/19 22:30 Dose: 300 mls/hr Piperacillin Sod/Tazobactam (Sod 3.375 gm/ Sodium Chloride) 50 mls @ 100 mls/ hr IV Q6H [facility] Last Admin: 10/07/19 01:45 Dose: 100 mls/hr Levofloxacin/Dextrose 750 mg/ (Premix) 150 mls @ 100 mls/hr IV Q48H [facility] Last Admin: 10/08/19 20:01 Dose: 100 mls/hr Sodium Chloride (Normal Saline) Confirm Administered Dose 50 mls @ as directed .ROUTE .STK-MED ONE Stop: 10/06/19 19:37 Last Admin: 10/06/19 20:03 Dose: Not Given Lactated Ringer's (Ringers, Lactated) 1,000 mls @ 100 mls/hr IV ASDIRECTED [facility] Last Admin: 10/07/19 17:52 Dose: 100 mls/hr Piperacillin/Tazobactam/ (Dextrose 3.375 gm/ Premix) 50 mls @ 100 mls/hr IV Q6H [facility] Last Admin: 10/11/19 08:28 Dose: 100 mls/hr Magnesium Sulfate 2 gm/ Premix 50 mls @ 25 mls/hr IV Q6H [facility] Stop: 10/09/19 05:59 Last Admin: 10/09/19 04:08 Dose: 25 mls/hr Propofol (Diprivan 100 Ml) Confirm Administered Dose 100 mls @ as directed .ROUTE .STK-MED ONE Stop: 10/07/19 21:21 Last Admin: 10/07/19 22:55 Dose: Not Given Sodium Chloride (Normal Saline) 1,000 mls @ 25 mls/hr IV ASDIRECTED [facility] Last Admin: 10/17/19 20:20 Dose: 30 mls/hr Lactated Ringer's (Ringers, Lactated) 1,000 mls @ 25 mls/hr IV ASDIRECTED [facility] Stop: 10/11/19 10:00 Last Admin: 10/08/19 19:59 Dose: 25 mls/hr Levofloxacin/Dextrose 750 mg/ (Premix) 150 mls @ 100 mls/hr IV Q24H [facility] Last Admin: 10/11/19 19:43 Dose: 100 mls/hr Potassium Chloride 40 meq/ (Premix) 100 mls @ 25 mls/hr IV ONETIME ONE Stop: 10/10/19 13:29 Last Admin: 10/10/19 10:31 Dose: 25 mls/hr Potassium Phosphate 22.5 mmole (/ Sodium Chloride) 107.5 mls @ 36 mls/hr IV Q3H [facility] Stop: 10/11/19 15:59 Last Admin: 10/11/19 13:29 Dose: 36 mls/hr Linezolid 600 mg/ Premix 300 mls @ 300 mls/hr IV Q12H [facility] Last Admin: 10/13/19 21:37 Dose: 300 mls/hr Meropenem 1 gm/ Sodium (Chloride) 50 mls @ 100 mls/hr IV Q8H [facility] Last Admin: 10/15/19 09:25 Dose: 100 mls/hr Sodium Chloride (Normal Saline) 100 mls @ 3 mls/sec IV ASDIRECTED [facility] Stop: 10/11/19 09:01 Last Admin: 10/11/19 09:45 Dose: 3 mls/sec Potassium Chloride 40 meq/ (Premix) 100 mls @ 25 mls/hr IV ONETIME ONE Stop: 10/12/19 11:59 Last Admin: 10/12/19 08:33 Dose: 25 mls/hr Magnesium Sulfate 2 gm/ Premix 50 mls @ 25 mls/hr IV Q6H [facility] Stop: 10/14/19 06:59 Last Admin: 10/12/19 16:03 Dose: 25 mls/hr Albumin Human (Albumin 25%) 25 gm in 100 mls @ 25 mls/hr IV Q24H [facility] Stop: 10/14/19 16:59 Last Admin: 10/14/19 12:24 Dose: 25 mls/hr Doxycycline Hyclate 100 mg/ (Sodium Chloride) 100 mls @ 100 mls/hr IV Q12H [facility] Last Admin: 10/15/19 10:30 Dose: 100 mls/hr Fluconazole/Sodium Chloride (200 mg/ Premix) 100 mls @ 100 mls/hr IV Q24H [facility] Last Admin: 10/15/19 11:08 Dose: 100 mls/hr Potassium Phosphate 22.5 mmole (/ Sodium Chloride) 107.5 mls @ 27 mls/hr IV Q4H [facility] Stop: 10/15/19 17:29 Last Admin: 10/15/19 14:23 Dose: 27 mls/hr Sodium Chloride (Normal Saline) 100 mls @ 4 mls/sec IV ASDIRECTED [facility] Stop: 10/15/19 13:31 Last Admin: 10/15/19 14:05 Dose: 4 mls/sec Micafungin Sodium 100 mg/ (Sodium Chloride) 100 mls @ 100 mls/hr IV Q24H [facility] Last Admin: 10/18/19 14:46 Dose: 100 mls/hr Acetaminophen 1,000 mg/ Premix 100 mls @ 400 mls/hr IV Q6H [facility] Stop: 10/17/19 22:16 Last Admin: 10/17/19 05:55 Dose: Not Given Acetaminophen 1,000 mg/ Premix 100 mls @ 400 mls/hr IV Q6H PRN PRN Reason: pain/fever Stop: 10/17/19 22:16 Sodium Chloride (Normal Saline) 1,000 mls @ 500 mls/hr IV ASDIRECTED [facility] Stop: 10/18/19 23:46 Last Admin: 10/18/19 21:59 Dose: 500 mls/hr Potassium Chloride 40 meq/ (Premix) 100 mls @ 25 mls/hr IV Q4H [facility] Stop: 10/19/19 05:59 Sodium Chloride (Normal Saline) Confirm Administered Dose 100 mls @ as directed .ROUTE .STK-MED ONE Stop: 10/19/19 01:48 Last Admin: 10/19/19 02:48 Dose: Not Given Dextrose/Water (Dextrose 5% In Water) Confirm Administered Dose 250 mls @ as directed .ROUTE .STK-MED ONE Stop: 10/19/19 01:51 Last Admin: 10/19/19 02:49 Dose: Not Given Propofol 1,000 mg/ Premix 100 mls @ as directed IV .STK-MED ONE Stop: 10/18/19 16:31 Iopamidol (Isovue-300 (61%)) 50 ml PO ASDIRECTED [facility] Stop: 10/05/19 03:24 Last Admin: 10/05/19 03:36 Dose: 50 ml Iopamidol (Isovue-300 (61%)) 100 ml IV . DIRECTED [facility] Stop: 10/11/19 09:01 Last Admin: 10/11/19 09:45 Dose: 100 ml Iopamidol (Isovue-370 (76%)) 100 ml IV . DIRECTED ONE Stop: 10/15/19 13:30 Last Admin: 10/15/19 14:05 Dose: 100 ml Ketamine HCl (Ketalar) 20 mg IV ASDIRECTED [facility] Labetalol HCl (Normodyne) 5 mg IVPUSH Q5M PRN PRN Reason: SBP over 160 OR DBP over 95 Lactobacillus Rhamnosus (Culturelle) 1 cap PO BID [facility] Last Admin: 10/08/19 10:23 Dose: Not Given Levothyroxine Sodium (Levothyroxine) 25 mcg PO ACBREAKFAST [facility] Last Admin: 10/13/19 07:33 Dose: Not Given Lidocaine (Xylocaine-Mpf 2%) Confirm Administered Dose 5 ml .ROUTE .STK-MED ONE Stop: 10/07/19 07:55 Lidocaine HCl (Xylocaine 2%) 100 mg IVPUSH ASDIRECTED [facility] Lidocaine HCl (Xylocaine 4% Top Soln) 50 ml .ROUTE .STK-MED ONE Stop: 10/15/19 10:01 Lidocaine HCl (Xylocaine 2% Viscous) Confirm Administered Dose 15 ml .ROUTE .STK -MED ONE Stop: 10/15/19 09:42 Last Admin: 10/15/19 11:04 Dose: Not Given Lorazepam (Ativan) 0.5 mg IVPUSH Q4H PRN PRN Reason: Anxiety Last Admin: 10/07/19 13:55 Dose: 0.5 mg Magnesium Hydroxide (Milk Of Magnesia) 30 ml PO ONETIME ONE Stop: 10/06/19 09:31 Last Admin: 10/06/19 11:55 Dose: 30 ml Magnesium Oxide (Magnesium Oxide) 400 mg PO DAILY [facility] Last Admin: 10/06/19 10:46 Dose: 400 mg Meropenem (Merrem) Confirm Administered Dose 500 mg .ROUTE .STK-MED ONE Stop: 10/04/19 09:20 Last Admin: 10/04/19 10:15 Dose: 500 mg Methylprednisolone Sodium Succinate (Solu-Medrol) 40 mg IVPUSH Q8H [facility] Last Admin: 10/09/19 01:40 Dose: 40 mg Metoclopramide HCl (Reglan) 10 mg IVPUSH Q6H PRN PRN Reason: NAUSEA NOT CONTROL BY ZOFRAN Miscellaneous Information (Remove Patch) 1 ea TRDERM ONETIME ONE Stop: 10/07/19 06:01 Miscellaneous Information (Remove Patch) 1 ea TRDERM ONETIME ONE Stop: 10/06/19 10:01 Last Admin: 10/06/19 10:06 Dose: Not Given Morphine Sulfate (Morphine) 2 mg IVPUSH Q2H PRN PRN Reason: Pain Last Admin: 10/12/19 02:06 Dose: 2 mg Morphine Sulfate (Morphine) 4 mg IVPUSH Q2H PRN PRN Reason: PAIN Last Admin: 10/15/19 20:46 Dose: 4 mg Morphine Sulfate (Morphine) 4 mg IVPUSH Q2H PRN PRN Reason: Dyspnea Last Admin: 10/18/19 07:33 Dose: 4 mg Naloxone HCl (Narcan) 0.1 mg IV ASDIRECTED PRN PRN Reason: decreased respiratory rate Naloxone HCl (Narcan) Confirm Administered Dose 0.4 mg .ROUTE .STK-MED ONE Stop: 10/04/19 10:41 Neostigmine Methylsulfate (Neostigmine) Confirm Administered Dose 5 mg .ROUTE .STK-MED ONE Stop: 10/04/19 07:16 Check Scopolamine (Patch Daily) 1 each .XX DAILY [facility] Last Admin: 10/04/19 12:30 Dose: Not Given Scopolamine Patch (Check) 1 each TOP DAILY [facility] Stop: 10/06/19 12:53 Last Admin: 10/06/19 10:06 Dose: Not Given Non-Formulary Medication (Total Parenteral Nutrition, Central) 0 ml IV ONETIME ONE Stop: 10/18/19 11:16 Last Admin: 10/19/19 07:44 Dose: Not Given Ondansetron HCl (Zofran) Confirm Administered Dose 4 mg .ROUTE .STK-MED ONE Stop: 10/04/19 07:16 Ondansetron HCl (Zofran) 4 mg IVPUSH Q4H PRN PRN Reason: Nausea/Vomiting Pantoprazole Sodium (Protonix Iv) 40 mg IVPUSH Q24H [facility] Last Admin: 10/04/19 17:15 Dose: 40 mg Pantoprazole Sodium (Protonix Granules) 40 mg PO Q24H [facility] Last Admin: 10/08/19 16:12 Dose: Not Given Piperacillin Sod/Tazobactam Sod (Zosyn) Confirm Administered Dose 3.375 gm .ROUTE .STK-MED ONE Stop: 10/06/19 19:36 Last Admin: 10/06/19 20:02 Dose: Not Given Potassium Chloride (Klor-Con M20) 40 meq PO ONETIME ONE Stop: 10/18/19 21:50 Propofol (Diprivan 20 Ml) Confirm Administered Dose 200 mg .ROUTE .STK-MED ONE Stop: 10/04/19 07:16 Propofol (Diprivan 20 Ml) Confirm Administered Dose 200 mg .ROUTE .STK-MED ONE Stop: 10/07/19 21:12 Rocuronium [place] (Zemuron) Confirm Administered Dose 50 mg .ROUTE .STK-MED ONE Stop: 10/04/19 07:16 Rocuronium [place] (Zemuron) Confirm Administered Dose 50 mg .ROUTE .STK-MED ONE Stop: 10/04/19 09:27 Scopolamine (Transderm-Scop) 1.5 mg TOP ONETIME ONE Stop: 10/04/19 05:43 Last Admin: 10/04/19 06:11 Dose: 1.5 mg Sodium Chloride (Saline Flush) 10 ml FLUSH ONETIME ONE Stop: 10/11/19 09:01 Last Admin: 10/11/19 09:45 Dose: 10 ml Sodium Polystyrene Sulfonate (Kayexalate) 45 gm NGTUBE NOW ONE Stop: 10/18/19 18:28 Last Admin: 10/18/19 20:46 Dose: 45 gm Sodium Polystyrene Sulfonate (Kayexalate) 45 gm NGTUBE NOW ONE Stop: 10/19/19 05:23 Last Admin: 10/19/19 05:32 Dose: 45 gm Sodium Polystyrene Sulfonate (Kayexalate) Confirm Administered Dose 45 gm .ROUTE .STK-MED ONE Stop: 10/19/19 05:28 Last Admin: 10/19/19 05:32 Dose: Not Given Succinylcholine Chloride (Quelicin) Confirm Administered Dose 200 mg .ROUTE .STK -MED ONE Stop: 10/04/19 07:16 Succinylcholine Chloride (Quelicin) Confirm Administered Dose 200 mg .ROUTE .STK -MED ONE Stop: 10/07/19 21:12 Sugammadex Sodium (Bridion) Confirm Administered Dose 200 mg .ROUTE .STK-MED ONE Stop: 10/04/19 10:47 Vasopressin (Vasopressin) Confirm Administered Dose 100 units .ROUTE .STK-MED ONE Stop: 10/19/19 01:47 Last Admin: 10/19/19 02:48 Dose: Not Given - Exam General: Reports: Other ()
--- NOTE | 2019-11-08 16:42 | OR ---
DATE OF PROCEDURE: 10/15/2019 SURGEON: Brad Baldwin MD PREOPERATIVE DIAGNOSIS: Persistent pneumonia. POSTOPERATIVE DIAGNOSIS: Persistent pneumonia. OPERATIVE PROCEDURE: Flexible bronchoscopy with tracheobronchial washings. ANESTHESIA: Topical plus IV sedation. INDICATION FOR PROCEDURE: The patient is presently ventilated in the intensive care unit with an ongoing pneumonia. To rule out problems such as mucus plugs or other occlusive problems as well as to get a clearance of any secretions, the patient to undergo a flexible bronchoscopy. Potential risks of the procedure were reviewed with the patient's daughter, and she wishes to proceed. DETAILS OF PROCEDURE: In the intensive care unit, the patient was being maintained on propofol drip for infusion and through the preexisting endotracheal tube, the bronchoscope was passed into the level of the distal trachea and adrian, and the tracheobronchial tree was examined. There was some reddening of the mucosa likely related from suctioning, but very scant secretions. At this point, some light topical lidocaine was used to dislodge a few secretions and a small amount was evacuated for culture. Otherwise, there were no additional areas of plugging or significant secretion formation. Procedure was then concluded. The patient tolerated the procedure well. Brad Baldwin MD /[id number]
== END 2019-10-19 17:49 | disposition expired | DRG 403 ==
LOC: JP.SDS 05:34 → JP.SDSSCHI 05:34 → EDSTATUS 07:15 → JP.MS 10:00 → JP.ICU 10-06 19:14
PROVIDERS: ADMIT Surgery; ATTEND Surgery
PROC: 0D190ZB Bypass Duodenum to Ileum, Open Approach (ICD-10-PCS; principal; 2019-10-04)
PROC: 0DB60Z3 Excision of Stomach, Open Approach, Vertical (ICD-10-PCS; 2019-10-04)
PROC: 0FB00ZX Excision of Liver, Open Approach, Diagnostic (ICD-10-PCS; 2019-10-04)
PROC: 0DQ80ZZ Repair Small Intestine, Open Approach (ICD-10-PCS; 2019-10-04)
PROC: 0DP60CZ Removal of Extraluminal Device from Stomach, Open Approach (ICD-10-PCS; 2019-10-04)
PROC: 0DNH0ZZ Release Cecum, Open Approach (ICD-10-PCS; 2019-10-04)
PROC: 0DN80ZZ Release Small Intestine, Open Approach (ICD-10-PCS; 2019-10-04)
PROC: 0DNW0ZZ Release Peritoneum, Open Approach (ICD-10-PCS; 2019-10-04)
PROC: 0WJG4ZZ Inspection of Peritoneal Cavity, Percutaneous Endoscopic Approach (ICD-10-PCS; 2019-10-04)
PROC: 0DB80ZZ Excision of Small Intestine, Open Approach (ICD-10-PCS; 2019-10-04)
PROC: 0D9670Z Drainage of Stomach with Drainage Device, Via Natural or Artificial Opening (ICD-10-PCS; 2019-10-04)
PROC: 3E0436Z Introduction of Nutritional Substance into Central Vein, Percutaneous Approach (ICD-10-PCS; 2019-10-05)
PROC: 02H633Z Insertion of Infusion Device into Right Atrium, Percutaneous Approach (ICD-10-PCS; 2019-10-07)
PROC: 5A1955Z Respiratory Ventilation, Greater than 96 Consecutive Hours (ICD-10-PCS; 2019-10-08)
PROC: 0BH17EZ Insertion of Endotracheal Airway into Trachea, Via Natural or Artificial Opening (ICD-10-PCS; 2019-10-08)
PROC: 30233N1 Transfusion of Nonautologous Red Blood Cells into Peripheral Vein, Percutaneous Approach (ICD-10-PCS; 2019-10-14)
PROC: 0B21XEZ Change Endotracheal Airway in Trachea, External Approach (ICD-10-PCS; 2019-10-15)
PROC: 0B928ZZ Drainage of Carina, Via Natural or Artificial Opening Endoscopic (ICD-10-PCS; 2019-10-15)
PROC: 0B918ZZ Drainage of Trachea, Via Natural or Artificial Opening Endoscopic (ICD-10-PCS; 2019-10-15)
PROC: 3E033XZ Introduction of Vasopressor into Peripheral Vein, Percutaneous Approach (ICD-10-PCS; 2019-10-17)
DX: E66.01 Morbid (severe) obesity due to excess calories (principal); J69.0 Pneumonitis due to inhalation of food and vomit; J96.01 Acute respiratory failure with hypoxia; J96.02 Acute respiratory failure with hypercapnia; G47.33 Obstructive sleep apnea (adult) (pediatric); Z51.5 Encounter for palliative care; N73.6 Female pelvic peritoneal adhesions (postinfective); Z66 Do not resuscitate; R16.0 Hepatomegaly, not elsewhere classified; A41.9 Sepsis, unspecified organism; N17.9 Acute kidney failure, unspecified; K56.51 Intestinal adhesions [bands], with partial obstruction; F41.9 Anxiety disorder, unspecified; F32.9 Major depressive disorder, single episode, unspecified; E03.9 Hypothyroidism, unspecified; B37.9 Candidiasis, unspecified; B95.2 Enterococcus as the cause of diseases classified elsewhere; M51.36 Other intervertebral disc degeneration, lumbar region; J45.30 Mild persistent asthma, uncomplicated; G89.29 Other chronic pain; M25.562 Pain in left knee; M79.7 Fibromyalgia; M47.816 Spondylosis without myelopathy or radiculopathy, lumbar region; K56.609 Unspecified intestinal obstruction, unspecified as to partial versus complete obstruction; Z96.659 Presence of unspecified artificial knee joint; D64.9 Anemia, unspecified; E87.6 Hypokalemia; T85.638A Leakage of other specified internal prosthetic devices, implants and grafts, initial encounter; I95.81 Postprocedural hypotension; E87.3 Alkalosis; K56.7 Ileus, unspecified; E87.4 Mixed disorder of acid-base balance; E87.2 Acidosis; E87.5 Hyperkalemia; J93.82 Other air leak; Z90.49 Acquired absence of other specified parts of digestive tract; Z79.82 Long term (current) use of aspirin; Z79.899 Other long term (current) drug therapy; Z86.010 Personal history of colon polyps; Z53.31 Laparoscopic surgical procedure converted to open procedure; Z98.84 Bariatric surgery status; Z90.722 Acquired absence of ovaries, bilateral; Z99.81 Dependence on supplemental oxygen; Z79.890 Hormone replacement therapy; Z68.44 Body mass index [BMI] 60.0-69.9, adult
CPT/HCPCS: 36415; 36430; 36600; 51702; 71045; 71045-26; 71046; 71260; 71275; 71275-26; 74177; 74177-26; 74240; 80048; 80053; 82150; 82803; 82962; 83605; 83735; 83880; 84100; 84132; 84484; 85025; 85027; 86850; 86900; 86901; 86920; 86922; 87040; 87070; 87077; 87186; 87205; 88300; 88305; 88307; 88313; 93005; 94002; 94003; 94640; 94660; 94762; A9270-GY; C1751; C9113; J0171; J0330; J0692; J0694; J1100; J1170; J1450; J1642; J1644; J1720; J1940; J1956; J2001; J2020; J2060; J2185; J2248; J2270; J2310; J2405; J2543; J2704; J2710; J2795; J2920; J3010; J3410; J3411; J3420; J3475; J3480; J3490; J7030; J7040; J7050; J7060; J7120; J7121; J7612-GY; J7620-GY; P9016; P9047; Q9967